=== PATIENT | female | born 1950 | race Caucasian/White ===

== ENCOUNTER 2020-07-17 23:49 | Inpatient (IN) | payer MEDICARE, SELFPAY ==
[2020-07-18 02:17] VITALS: BMI 28.1
[2020-07-18] MEDS: 0.9 % Sodium Chloride 1,000 ML 150 ML IVCONT (23:15)
[2020-07-19] VITALS (16 sets, daily range): BP systolic 102–144; BP diastolic 41–64; PULSE 77–113; RESP 14–28; TEMP 36.8–38.2; O2SAT 90–98
[2020-07-19] MEDS: Enoxaparin Sodium 40 MG/0.4 ML SYRINGE SUBCUT (00:42)
[2020-07-19] MEDS: Omeprazole 20 MG CAPSULE.DR PO (05:35)
[2020-07-19] MEDS: Acetaminophen 325 MG TABLET 650 MG PO (07:30)
[2020-07-19] MEDS: Docusate Sodium 100 MG CAPSULE PO (07:31)
[2020-07-19] MEDS: Memantine HCl 5 MG TABLET PO (07:33)
[2020-07-19] MEDS: amLODIPine Besylate 5 MG TABLET PO (07:36)
--- NOTE | 2020-07-19 10:12 | P.PNUR_ITS ---
Subjective Subjective Patient reports: no new complaints Interval history: Plan for OR today NPO from 0000 Physical Exam Vital Signs and I&O and Narrative: Vital Signs and I&O: Vital Signs Temp 100.7 F H 07/19/20 07:49 Pulse 86 07/19/20 07:49 Resp 18 07/19/20 07:49 BP 133/52 L 07/19/20 07:49 Pulse Ox 94 07/19/20 07:49 Intake & Output 07/18/20 07/19/20 07/19/20 18:59 06:59 18:59 Intake Total 1000 / 1000 Balance 1000 / 1000 Intake: Intake, IV Amoun t 1000 / 1000 0.9 % Sodium C hloride 1,000 ml 1000 / 1000 @ 150 mls/hr I VCONT .Q6H40M [facility] Rx#:[id number] Other: Urine purewick Urine Color Tea Body Mass Index 28.1 Const: General: cooperative, healthy appearing, comfortable and no acute distress Nutritional Appearance: average body habitus Or ientation/consciousness: oriented to person, oriented to place and oriented to time Eyes: General: appearance normal, both eyes and all related structures Chest: Chest palpation & inspection: normal inspection of the chest Resp: Effort & Inspection: normal respiratory effort Cardio: Rate: regular rate GI: Inspection: Yes normal to inspection Skin: Hair: normal Neuro: General: oriented to person, oriented to place and oriented to time Extrem: General: Yes normal to inspection Urology Results Labs CBC & Chem 7: 07/23/20 06:02 07/23/20 06:02 Progress Note: A&P Assessment and plan (1) Nephrolithiasis: Status: Acute (2) Hydronephrosis: Status: Acute (3) Flank pain: Status: Acute Assessment and Plan: Plan for OR Fall Risk Details Current Medications: Current Medications Generic Name Dose Route Start Last Admin Trade Name Freq PRN Reason Stop Dose Admin Acetaminophen 650 mg 07/19/20 00:00 07/19/20 07:30 Acetaminophen 325 Mg Tablet PO 650 mg Q6H PRN Administration Pain, Mild (Pain Scale 1-3)/FEVER Amlodipine Besylate 5 mg 07/19/20 09:00 07/19/20 07:36 Amlodipine Besylate 5 Mg Tablet PO 5 mg DAILY [facility] Administration Protocol Aspirin 81 mg 07/19/20 09:00 07/19/20 07:33 Aspirin 81 Mg Tab.Chew PO Not Given DAILY [facility]EP Docusate Sodium 100 mg 07/19/20 00:00 Docusate Sodium 100 Mg Capsule PO Q24H PRN Constipation Docusate Sodium 100 mg 07/19/20 09:00 07/19/20 07:31 Docusate Sodium 100 Mg Capsule PO 100 mg BID MANDEEP Administration Enoxaparin Sodium 40 mg 07/19/20 00:00 07/19/20 00:42 Enoxaparin Sodium 40 Mg/0.4 Ml Syringe SUBCUT 40 mg Q24H MANDEEP Administration Ceftriaxone Sodium 1 gm/ 50 mls @ 100 mls/hr 07/19/20 22:00 Sodium Chloride IV Q24H [facility] Memantine 5 mg 07/19/20 09:00 07/19/20 07:33 Memantine Hcl 5 Mg Tablet PO 5 mg BID MANDEEP Administration Omeprazole 20 mg 07/19/20 06:30 07/19/20 05:35 Omeprazole 20 Mg Capsule.Dr PO 20 mg DAILY@0630 [facility] Administration Ondansetron HCl 4 mg 07/19/20 00:00 Ondansetron Hcl 4 Mg/2 Ml Vial IVPUSH Q8H PRN Nausea and Vomiting Sodium Chloride 2 ml 07/19/20 00:00 07/19/20 07:37 0.9 % Sodium Chloride Flush 3 Ml Syringe IVFLUSH Not Given QSHIFT [facility] Tamsulosin HCl 0.4 mg 07/19/20 17:30 Tamsulosin Hcl 0.4 Mg Capsule PO DAILY@1730 [facility] Time Spent With Patient Time: Total time spent is greater than 50% in coordination of care (as documented) at patient's floor/unit and/or counseling patient: Time with patient: less than 15 minutes
--- NOTE | 2020-07-19 13:04 | FL_ITS ---
EXAMINATION: FLUOROSCOPY AND SPOT FILMS PROVIDED CLINICAL INFORMATION: Right-sided hydronephrosis. COMPARISON: CT performed 07/17/2020. TECHNIQUE: 280.3 seconds of fluoroscopy was provided. A single spot film was obtained. Radiation dose was 140.86 mCi. FINDINGS: Single radiograph of the right upper quadrant demonstrates renal calculi similar to those seen on the prior CT scan. A tip of a catheter appears to be present just above the lower pole of the kidney medially probably in the dilated ureteropelvic junction. IMPRESSION: Fluoroscopy and spot films provided.
--- NOTE | 2020-07-19 17:19 | P.PNIM_ITS ---
Subjective Subjective Date of Service: 07/19/20 Interval History: Patient admitted for right flank pain associated with generalized weakness chills urinary frequency and dysuria. Today patient offers no acute complaints of flank pain noted to have low- grade fever 100.7 without associated chills nausea vomiting patient denies urinary symptoms of frequency and dysuria. Review of Systems Review of systems [employer] no headache, no dizziness CVS no chest pain, no palpitation GI patient denies nausea, vomiting or abdominal pain Physical Exam Vital Signs and I&O and Narrative: Vital Signs and I&O: Vital Signs Temp 99.4 F 07/19/20 16:43 Pulse 80 07/19/20 16:43 Resp 20 07/19/20 16:43 BP 127/47 L 07/19/20 16:43 Pulse Ox 96 07/19/20 16:43 Intake & Output 07/18/20 07/19/20 07/19/20 18:59 06:59 18:59 Intake Total 1000 / 1000 Output Total 400 / 400 Balance 1000 / 1000 -400 / -400 Urine Output (Aver age ml/kg/hr) 0.39 Intake: Intake, IV Amoun t 1000 / 1000 0.9 % Sodium C hloride 1,000 ml 1000 / 1000 @ 150 mls/hr I VCONT .Q6H40M [facility] Rx#:[id number] Output: Output, Urine Am ount 400 / 400 Other: NPO Yes Urine purewick purewick Urine Color Tea Body Mass Index 28.1 Constitutional: Awake and Alert, No apparent distress Neck is supple Cardiovascular: RRR Respiratory: Clear to auscultation, Normal respiratory effort, No respiratory distress Gastrointestinal: Non tender, No rebound, Non-distended : No CVA tenderness Extremities no edema Skin: Warm/Dry Neurological: Alert & oriented x3 Psychological: Appropriate affect Objective Data Current Medications Generic Name Dose Route Start Last Admin Trade Name Freq PRN Reason Stop Dose Admin Acetaminophen 650 mg 07/19/20 00:00 07/19/20 07:30 Acetaminophen 325 Mg Tablet PO 650 mg Q6H PRN Administration Pain, Mild (Pain Scale 1-3)/FEVER Amlodipine Besylate 5 mg 07/19/20 09:00 07/19/20 07:36 Amlodipine Besylate 5 Mg Tablet PO 5 mg DAILY [facility] Administration Protocol Aspirin 81 mg 07/19/20 09:00 07/19/20 07:33 Aspirin 81 Mg Tab.Chew PO Not Given DAILY [facility] Docusate Sodium 100 mg 07/19/20 00:00 Docusate Sodium 100 Mg Capsule PO Q24H PRN Constipation Docusate Sodium 100 mg 07/19/20 09:00 07/19/20 07:31 Docusate Sodium 100 Mg Capsule PO 100 mg BID [facility] Administration Enoxaparin Sodium 40 mg 07/19/20 00:00 07/19/20 00:42 Enoxaparin Sodium 40 Mg/0.4 Ml Syringe SUBCUT 40 mg Q24H [facility] Administration Ceftriaxone Sodium 1 gm/ 50 mls @ 100 mls/hr 07/19/20 22:00 Sodium Chloride IV Q24H [facility] Memantine 5 mg 07/19/20 09:00 07/19/20 07:33 Memantine Hcl 5 Mg Tablet PO 5 mg BID [facility] Administration Omeprazole 20 mg 07/19/20 06:30 07/19/20 05:35 Omeprazole 20 Mg Capsule.Dr PO 20 mg DAILY@0630 [facility] Administration Ondansetron HCl 4 mg 07/19/20 00:00 Ondansetron Hcl 4 Mg/2 Ml Vial IVPUSH Q8H PRN Nausea and Vomiting Sodium Chloride 2 ml 07/19/20 00:00 07/19/20 07:37 0.9 % Sodium Chloride Flush 3 Ml Syringe IVFLUSH Not Given QSHIFT [facility] Tamsulosin HCl 0.4 mg 07/19/20 17:30 Tamsulosin Hcl 0.4 Mg Capsule PO DAILY@1730 [facility]
--- NOTE | 2020-07-19 18:11 | HO.ANESPROP2 ---
[facility] Past Medical History Medical History (Updated 07/19/20 @ 17:23 by Zia Varner MD) CVA (cerebral vascular accident) Dementia GERD (gastroesophageal reflux disease) Hypertension Surgical History Surgical History (Updated 07/19/20 @ 16:50 by Rima Hernández RN) H/O: hysterectomy History of cystoscopy Hx of tonsillectomy Meds Allergies Allergy/AdvReac Type Severity Reaction Status Date / Time morphine [MORPHINE] Allergy Mild NAUSEA & Verified 07/19/20 05:46 VOMITING, vomiting Home Medications Medication Instructions Recorded Confirmed Type amlodipine 5 mg PO DAILY 07/18/20 07/18/20 History aspirin 81 mg PO DAILY 07/18/20 07/18/20 History cholecalciferol (vitamin D3) 50 mcg PO DAILY 07/18/20 07/18/20 History citalopram 10 mg PO DAILY 07/18/20 07/18/20 History docusate sodium 100 mg PO BID 07/18/20 07/18/20 History memantine 5 mg PO BID 07/18/20 07/18/20 History omeprazole 20 mg PO DAILY@0630 07/18/20 07/18/20 History tamsulosin 0.4 mg PO DAILY@1730 07/18/20 07/18/20 History topiramate 50 mg PO BID 07/18/20 07/18/20 History Exam Exam Date and Time: July 19, 20201810 Height,Weight and Vital Signs: Height 5 ft 9 in Weight 86.4 kg Last Vital Signs Temp 99.4 F 07/19/20 16:43 Pulse 80 07/19/20 16:43 Resp 20 07/19/20 16:43 BP 127/47 L 07/19/20 16:43 Pulse Ox 96 07/19/20 16:43
--- NOTE | 2020-07-19 18:12 | HO.ANESPROP2 ---
[facility] Past Medical History Medical History (Updated 07/19/20 @ 17:23 by Zia Varner MD) CVA (cerebral vascular accident) Dementia GERD (gastroesophageal reflux disease) Hypertension Cognitive capacity: baseline Patient : No Surgical History Surgical History (Updated 07/19/20 @ 16:50 by Rima Hernández RN) H/O: hysterectomy History of cystoscopy Hx of tonsillectomy Meds Allergies Allergy/AdvReac Type Severity Reaction Status Date / Time morphine [MORPHINE] Allergy Mild NAUSEA & Verified 07/19/20 05:46 VOMITING, vomiting Home Medications Medication Instructions Recorded Confirmed Type amlodipine 5 mg PO DAILY 07/18/20 07/18/20 History aspirin 81 mg PO DAILY 07/18/20 07/18/20 History cholecalciferol (vitamin D3) 50 mcg PO DAILY 07/18/20 07/18/20 History citalopram 10 mg PO DAILY 07/18/20 07/18/20 History docusate sodium 100 mg PO BID 07/18/20 07/18/20 History memantine 5 mg PO BID 07/18/20 07/18/20 History omeprazole 20 mg PO DAILY@0630 07/18/20 07/18/20 History tamsulosin 0.4 mg PO DAILY@1730 07/18/20 07/18/20 History topiramate 50 mg PO BID 07/18/20 07/18/20 History Exam Exam Date and Time: July 19, 20201811 Height,Weight and Vital Signs: Height 5 ft 9 in Weight 86.4 kg Last Vital Signs Temp 99.4 F 07/19/20 16:43 Pulse 80 07/19/20 16:43 Resp 20 07/19/20 16:43 BP 127/47 L 07/19/20 16:43 Pulse Ox 96 07/19/20 16:43
[2020-07-19] MEDS: Lactated Ringers 1,000 ML 100 ML IVCONT ×2 (18:41→22:21)
--- NOTE | 2020-07-19 20:48 | PM.OP ---
Brief Operative Note Date of procedure: 07/19/20 Pre-op diagnosis: Right ureteric and renal stones Post-op diagnosis: same Procedure: right rtrograde, ureteroscopy, laser litho of ureteric stone Ureteric sheath Flexible ureteroscopy, laser litho Renal washiut with antibiotics Right renal stent Anesthesia: PAOLA Surgeon: Subhash Gonzalez Pathology: other (stones) Condition: stable Disposition: PACU
[2020-07-20] VITALS: BP 119/54; BP 124/61; PULSE 69; PULSE 81; RESP 18; TEMP 36.5; O2SAT 99
[2020-07-20 04:00] VITALS: BP 123/45; PULSE 76; RESP 16; TEMP 36.6; O2SAT 97
--- NOTE | 2020-07-20 06:53 | MHC.PIE ---
P; PT REFUSING AM MED - PRILOSEC I; MULTIPLE REATTEMPT E; PT CONT TO REFUSE MEDS, WILL CONT TO MONITOR
[2020-07-20 08:00] VITALS: BP 139/49; PULSE 70; RESP 16; TEMP 36.1; O2SAT 99
--- NOTE | 2020-07-20 08:13 | OP_ITS ---
SURGEON: Subhash Gonzalez MD PREOPERATIVE DIAGNOSIS: POSTOPERATIVE DIAGNOSIS: PROCEDURE PERFORMED: ESTIMATED BLOOD LOSS: COMPLICATIONS: ANESTHESIA: General. ASSISTANTS: SPECIMENS: Stone. PREOPERATIVE DIAGNOSES: 1. Distal right ureteric stone with mild obstruction. 2. Multiple right renal stones and hydronephrotic kidney. POSTOPERATIVE DIAGNOSES: 1. Distal right ureteric stone with mild obstruction. 2. Multiple right renal stones and hydronephrotic kidney. PROCEDURES PERFORMED: 1. Cystoscopy with right retrograde. 2. Right rigid ureteroscopy with ureteric laser lithotripsy and stone basketing of 2 cm stone. 3. Right ureteric sheath placement under fluoroscopy with dilatation of right ureter. 4. Right flexible ureteroscopy with laser lithotripsy of 1 stone. 5. Renal washout with antibiotics #4 right stent placement. INDICATIONS FOR PROCEDURE: This is a 70-year-old female on the right side and undergone recent ureteroscopy with laser lithotripsy of obstructing stone. Stent had been placed. She had narrowing with mild distal ureteric stricture. Stent had been removed last Thursday. She then presented to the emergency room on Thursday evening with pain on the right side. Imaging showed 2-cm small kidney stone. Stones in the renal pelvis. Decision was made for intervention. Initial white count was 12. It did come down to 7 after 2 days of antibiotics. DESCRIPTION OF PROCEDURE: After informed consent was verified, the patient was brought to the operating room, placed in supine position. Anesthesia was administered per protocol. The patient was placed in modified dorsal lithotomy position and prepped and draped in sterile fashion. A safety pause time-out was observed. given daily. Decision was made that she would be irrigated out with Levaquin. A 21-Austrian cystoscope was placed per urethra. The bladder was emptied. Retrograde examination was performed. Filling defect was seen approximately 1 cm from the right ureteric orifice. A Sensor guidewire was placed. A rigid ureteroscope was placed alongside. There was an area of narrowing. This opened up into chronic dilated ureter. There was a large amount of stone debris within mucous area. We then used the laser for 15 minutes to 20 minutes to break up the stone into smaller . We used various different baskets in order to try and drag stone fragment out. Initially, we used a Flat-Wire basket . We used a Juan-Catch basket, which again failed to then open. Eventually, we used a ZeroTip basket. We cleared out approximately 80% of stones. At this point, we were able to advance past the area of stone debridement with a rigid ureteroscope. The Sensor guidewire was going up into the pelvis. We then removed the rigid ureteroscope. Under fluoroscopy, we placed a ureteric access sheath. This dilated the ureteric orifice. This was placed up high enough and hidrotic renal pelvis was drained. Initially this drained with dark urine, but eventually as the whole area emptied, purulent material came out. This was collected and was sent for a culture. fully emptied, we actually placed 2 wires up inside the ureteric access sheath. We placed an open-ended catheter of 1 side and replaced the access sheath. This then allowed us to start irrigating out the renal pelvis. Renal was irrigated out fluid. back with a flexible ureteroscope. There was a very capacious renal pelvis and there was debris. We found one stone. We . There were 4 other stones, large that we just could not locate secondary to . There was clot and mucus debris throughout. Decision was made to irrigate out the renal pelvis with Levaquin. 500 mg of Levaquin was placed and 1 L saline bag and this was then irrigated through. After the completion of the irrigation, wire was placed up in the renal pelvis. The access sheath was removed. The stent was placed with a 7-Austrian x 24 cm stent. Re-imaging will be performed. Latest renogram will be required in order to see the function of this right kidney as nephrectomy may well be considered given that she is now having relapsing and recurrent pyelonephritis episodes. STENTS: As dictated above. MD LANCE Walsh/MODL / [id number]
[2020-07-20] MEDS: Acetaminophen 325 MG TABLET 650 MG PO ×2 (09:02→17:50)
[2020-07-20] MEDS: Memantine HCl 5 MG TABLET PO ×2 (09:02→21:26)
[2020-07-20] MEDS: Aspirin 81 MG TAB.CHEW PO (09:02)
[2020-07-20] MEDS: Docusate Sodium 100 MG CAPSULE PO ×2 (09:02→21:26)
[2020-07-20] MEDS: amLODIPine Besylate 5 MG TABLET PO (09:03)
--- NOTE | 2020-07-20 09:14 | MHC.CM.PN ---
PATIENT IS INDEPENDENT WITH HER ADLS. SHE LIVES WITH HER BOYFRIEND AND HIS FAMILY. 13-YEAR-OLD DAUGHTER LIVES WITH HER FATHER. ALTHOUGH PATIENT DOES NOT DRIVE, SHE HAS AMPLE RESOURCES IN THE COMMUNITY. NO VNA IN THE HOME. PATIENT HAS A WALKER, WHICH SHE OCCASIONALLY USES. CASE MANAGEMENT AVAILABLE FOR ANY DISCHARGE NEEDS. FAMILY WILL TRANSPORT PATIENT HOME AT DISCHARGE.
--- NOTE | 2020-07-20 09:36 | MHC.CM.PN ---
CASE MANAGEMENT MET WITH PATIENT AND [id number] FAMILY AWARE THAT CASE MANAGEMENT WILL REVIEW PLAN OF CARE NOTES, AND INFORM HCP OF DISCHARGE PLANS. FOLLOW UP AFTER PHYSICIAN ROUNDS.
[2020-07-20 11:45] VITALS: BP 137/54; PULSE 78; RESP 18; TEMP 36.3; O2SAT 98
--- NOTE | 2020-07-20 12:37 | PM.UROPN ---
Physical Exam Vital Signs and I&O and Narrative: Vital Signs and I&O: Vital Signs Temp 97.3 F 07/20/20 11:45 Pulse 78 07/20/20 11:45 Resp 18 07/20/20 11:45 BP 137/54 L 07/20/20 11:45 Pulse Ox 98 07/20/20 11:45 Intake & Output 07/19/20 07/20/20 07/20/20 18:59 06:59 18:59 Intake Total 466.667 / 466.667 Output Total 400 / 400 1100 / 1100 Balance -400 / 66.667 466.667 / 66.667 -1100 / -1100 Urine Output (Aver age ml/kg/hr) 0.39 0.39 1.06 Intake: Intake, IV Amoun t 466.667 / 466.667 Acetaminophen 1,000 mg In 100 100 / 100 ml @ 400 mls/h r IV ONCE ONE Rx# :[id number] Lactated Ringe rs 1,000 ml @ 100 366.667 / 366.667 mls/hr IVCONT .Q10H [facility] Rx#: [id number] Output: Output, Urine Am ount 400 / 400 1100 / 1100 Other: NPO Yes Yes Urine purewick purewick Urine Color Bloody Body Mass Index 28.1 Const: General: cooperative, healthy appearing, comfortable and no acute distress Nutritional Appearance: average body habitus Orientation/consciousness: oriented to person, oriented to place and oriented to time Eyes: General: appearance normal, both eyes and all related structures Chest: Chest palpation & inspection: normal inspection of the chest Resp: Effort & Inspection: normal respiratory effort Cardio: Rate: regular rate GI: Inspection: Yes normal to inspection Skin: Hair: normal Neuro: General: oriented to person, oriented to place and oriented to time Extrem: General: Yes normal to inspection Progress Note: A&P Fall Risk Details Current Medications: Current Medications Generic Name Dose Route Start Last Admin Trade Name Freq PRN Reason Stop Dose Admin Acetaminophen 650 mg 07/19/20 00:00 07/20/20 09:02 Acetaminophen 325 Mg Tablet PO 650 mg Q6H PRN Administration Pain, Mild (Pain Scale 1-3)/FEVER Amlodipine Besylate 5 mg 07/19/20 09:00 07/20/20 09:03 Amlodipine Besylate 5 Mg Tablet PO 5 mg DAILY MAN[facility]EP Administration Protocol Aspirin 81 mg 07/19/20 09:00 07/20/20 09:02 Aspirin 81 Mg Tab.Chew PO 81 mg DAILY MAN[facility]EP Administration Docusate Sodium 100 mg 07/19/20 00:00 Docusate Sodium 100 Mg Capsule PO Q24H PRN Constipation Docusate Sodium 100 mg 07/19/20 09:00 07/20/20 09:02 Docusate Sodium 100 Mg Capsule PO 100 mg BID MANDEEP Administration Enoxaparin Sodium 40 mg 07/19/20 00:00 07/19/20 00:42 Enoxaparin Sodium 40 Mg/0.4 Ml Syringe SUBCUT 40 mg Q24H MANDEEP Administration Ceftriaxone Sodium 1 gm/ 50 mls @ 100 mls/hr 07/19/20 22:00 Sodium Chloride IV Q24H [facility] Memantine 5 mg 07/19/20 09:00 07/20/20 09:02 Memantine Hcl 5 Mg Tablet PO 5 mg BID [facility] Administration Omeprazole 20 mg 07/19/20 06:30 07/19/20 05:35 Omeprazole 20 Mg Capsule.Dr PO 20 mg DAILY@0630 [facility] Administration Ondansetron HCl 4 mg 07/19/20 00:00 Ondansetron Hcl 4 Mg/2 Ml Vial IVPUSH Q8H PRN Nausea and Vomiting Sodium Chloride 2 ml 07/19/20 00:00 07/20/20 09:03 0.9 % Sodium Chloride Flush 3 Ml Syringe IVFLUSH Not Given QSHIFT [facility] Tamsulosin HCl 0.4 mg 07/19/20 17:30 07/19/20 22:20 Tamsulosin Hcl 0.4 Mg Capsule PO Not Given DAILY@1730 [facility] Time Spent With Patient Time: Total time spent is greater than 50% in coordination of care (as documented) at patient's floor/unit and/or counseling patient:
--- NOTE | 2020-07-20 12:59 | HO.POSTANES ---
Post Anesthesia Evaluation Post Anesthesia Evaluation Vital Signs: Vital Signs Temp Pulse Resp BP Pulse Ox 07/20/20 11:45 97.3 F 78 18 137/54 L 98 07/20/20 08:00 96.9 F 70 16 139/49 L 99 07/20/20 04:00 97.8 F 76 16 123/45 L 97 Anesthesia: General LMA Mental Status: Awake Pain Control: Satisfactory Nausea/Vomiting: None Hydration: Adequate Anesthesia-Related Issues: No Anes. Related Issues
--- NOTE | 2020-07-20 13:29 | HO.PM.IMPN ---
Subjective Subjective Date of Service: 07/20/20 Interval History: Patient admitted for right flank pain associated with generalized weakness chills urinary frequency and dysuria. Today patient complaining of right-sided abdominal pain and noted to have hematuria patient is status post stent placement yesterday no further bouts of fever tolerating diet fairly well, no other acute issues. ROS General denies fever, chills CVS no chest pain, no palpitation Respiratory no cough, no sputum production, no shortness of breath. Physical Exam Vital Signs and I&O and Narrative: Vital Signs and I&O: Vital Signs Temp 97.3 F 07/20/20 11:45 Pulse 78 07/20/20 11:45 Resp 18 07/20/20 11:45 BP 137/54 L 07/20/20 11:45 Pulse Ox 98 07/20/20 11:45 Intake & Output 07/19/20 07/20/20 07/20/20 18:59 06:59 18:59 Intake Total 466.667 / 466.667 Output Total 400 / 400 1100 / 1100 Balance -400 / 66.667 466.667 / 66.667 -1100 / -1100 Urine Output (Aver age ml/kg/hr) 0.39 0.39 1.06 Intake: Intake, IV Amoun t 466.667 / 466.667 Acetaminophen 1,000 mg In 100 100 / 100 ml @ 400 mls/h r IV ONCE ONE Rx# :[id number] Lactated Ringe rs 1,000 ml @ 100 366.667 / 366.667 mls/hr IVCONT .Q10H MANDEEP Rx#: [id number] Output: Output, Urine Am ount 400 / 400 1100 / 1100 Other: NPO Yes Yes Urine purewick purewick Urine Color Bloody Body Mass Index 28.1 Constitutional: Awake and Alert, No apparent distress Neck is supple Cardiovascular: RRR Respiratory: Clear to auscultation, Normal respiratory effort, No respiratory distress Gastrointestinal: mild right-sided tenderness with deep palpation, No rebound, Non-distended : No CVA tenderness Extremities no edema Skin: Warm/Dry Neurological: Alert & oriented x3 Psychological: Appropriate affect Const: General: cooperative, healthy appearing, comfortable and no acute distress Nutritional Appearance: average body habitus Orientation/consciousness: oriented to person, oriented to place and oriented to time Limitations: language barrier Eyes: General: appearance normal, both eyes and all related structures Chest: Chest palpation & inspection: normal inspection of the chest Resp: Effort & Inspection: normal respiratory effort Cardio: Rate: regular rate GI: Inspection: Yes normal to inspection Skin: Hair: normal Neuro: General: oriented to person, oriented to place and oriented to time Extrem: General: Yes normal to inspection Objective Data Current Medications Generic Name Dose Route Start Last Admin Trade Name Freq PRN Reason Stop Dose Admin Acetaminophen 650 mg 07/19/20 00:00 07/20/20 09:02 Acetaminophen 325 Mg Tablet PO 650 mg Q6H PRN Administration Pain, Mild (Pain Scale 1-3)/FEVER Amlodipine Besylate 5 mg 07/19/20 09:00 07/20/20 09:03 Amlodipine Besylate 5 Mg Tablet PO 5 mg DAILY MANDEEP Administration Protocol Aspirin 81 mg 07/19/20 09:00 07/20/20 09:02 Aspirin 81 Mg Tab.Chew PO 81 mg DAILY MANDEEP Administration Docusate Sodium 100 mg 07/19/20 00:00 Docusate Sodium 100 Mg Capsule PO Q24H PRN Constipation Docusate Sodium 100 mg 07/19/20 09:00 07/20/20 09:02 Docusate Sodium 100 Mg Capsule PO 100 mg BID MANDEEP Administration Enoxaparin Sodium 40 mg 07/19/20 00:00 07/19/20 00:42 Enoxaparin Sodium 40 Mg/0.4 Ml Syringe SUBCUT 40 mg Q24H MANDEEP Administration Ceftriaxone Sodium 1 gm/ 50 mls @ 100 mls/hr 07/19/20 22:00 Sodium Chloride IV Q24H [facility] Memantine 5 mg 07/19/20 09:00 07/20/20 09:02 Memantine Hcl 5 Mg Tablet PO 5 mg BID MANDEEP Administration Omeprazole 20 mg 07/19/20 06:30 07/19/20 05:35 Omeprazole 20 Mg Capsule.Dr PO 20 mg DAILY@0630 [facility] Administration Ondansetron HCl 4 mg 07/19/20 00:00 Ondansetron Hcl 4 Mg/2 Ml Vial IVPUSH Q8H PRN Nausea and Vomiting Sodium Chloride 2 ml 07/19/20 00:00 07/20/20 09:03 0.9 % Sodium Chloride Flush 3 Ml Syringe IVFLUSH Not Given QSHIFT [facility] Tamsulosin HCl 0.4 mg 07/19/20 17:30 07/19/20 22:20 Tamsulosin Hcl 0.4 Mg Capsule PO Not Given DAILY@1730 [facility] Microbiology Microbiology Results: Microbiology 07/19/20 21:00 Nephron, Right Urine Culture - Preliminary No growth to date. Assessment and Plan (1) Nephrolithiasis: Status: Acute (2) Hydronephrosis: Status: Acute (3) Hydroureteronephrosis: Status: Acute (4) Flank pain: Status: Acute (5) Acute pyelonephritis: Status: Acute (6) Sepsis: Status: Acute Assessment and Plan: This is a 70-year-old female with past medical history of chronic renal calculi who presents to the hospital with flank pain shortly after stent removal by her urologist for 2 cm right kidney stone. # sepsis due to acute pyelonephritis fever resolved, complaining of right-sided abdominal pain likely due to stent placement, noted to have hematuria as well. Since Tylenol not helping with pain will place patient on oxycodone and Continue IV ceftriaxone day 4 outpatient follow-up with Dr. Gonzalez in 1-2 weeks blood cultures shows no growth and urine cultures grew staph epidermidis # renal calculi - has chronic hydronephrosis and nephrolithiasis patient underwent stent placement in May and was removed few days ago, continue tamsulosin underwent stent placement on 07/19 stable renal function. # hypertension - stable, continue amlodipine # dementia - continue Namenda, patient responds appropriately but slow to response likely result of prior CVA. # history of CVA continue aspirin DVT prophylaxis: Lovenox
[2020-07-20 15:22] VITALS: BP 110/49; PULSE 78; RESP 17; TEMP 36.6; O2SAT 99
[2020-07-20] MEDS: 0.9 % Sodium Chloride Flush 3 ML SYRINGE 2 ML IVFLUSH (16:29)
[2020-07-20] MEDS: Tamsulosin HCL 0.4 MG CAPSULE PO (17:46)
[2020-07-20 19:49] VITALS: BP 110/46; PULSE 77; TEMP 36.1; O2SAT 98
[2020-07-20] MEDS: cefTRIAXone sodium 1 GM in 0.9 % Sodium Chloride 50 ML IV (21:49)
[2020-07-21] VITALS (10 sets, daily range): BP systolic 107–156; BP diastolic 42–72; PULSE 75–109; RESP 16–20; TEMP 36.6–37.7; O2SAT 92–98
[2020-07-21] MEDS: Enoxaparin Sodium 40 MG/0.4 ML SYRINGE SUBCUT (00:27)
[2020-07-21] MEDS: Acetaminophen 325 MG TABLET 650 MG PO ×2 (03:17→19:48)
[2020-07-21] MEDS: Omeprazole 20 MG CAPSULE.DR PO (06:47)
[2020-07-21] MEDS: Docusate Sodium 100 MG CAPSULE PO ×2 (08:48→21:39)
[2020-07-21] MEDS: amLODIPine Besylate 5 MG TABLET PO (08:49)
[2020-07-21] MEDS: Aspirin 81 MG TAB.CHEW PO (08:49)
[2020-07-21] MEDS: Memantine HCl 5 MG TABLET PO ×2 (08:49→21:39)
[2020-07-21 12:20] LABS: MANUAL DIFF FLAG NO
[2020-07-21 12:29] LABS: Basophils Percent Auto 0.2 % (0-2); Eosinophils Percent Auto 0.2 % (0-4); Hematocrit 30.6 % (37-47); Imm Gran Abs Auto 0.17 X10*3/uL (0.00-0.03); Imm Gran Pct Auto 1.2 % (0.0-0.4); Lymphocytes Absolute Auto 0.9 X10*3/uL (1.2-4.9); Lymphocytes Percent Auto 6.3 % (20-40); Mean Corpuscular HGB Conc 32.7 g/dl (31.0-35.0); Mean Corpuscular Hemoglobin 28.2 pg (27.0-33.0); Mean Corpuscular Volume 86.4 fL (80-98); Mean Platelet Volume 12.6 fL (9.4-12.3); Monocytes Absolute Auto 1.2 X10*3/uL (0.1-1.2); Monocytes Percent Auto 8.6 % (2-11); Neutrophils Absolute Auto 11.9 X10*3/uL (2.0-8.3); Neutrophils Percent Auto 83.5 % (45-73); Platelet Count 171 X10*3/uL (160-400); Red Blood Count 3.54 X10*6/uL (4.20-5.50); Red Cell Distribution Width 14.4 % (11.0-16.0); White Blood Count 14.2 X10*3/uL (4.8-10.8)
[2020-07-21 12:51] LABS: Anion Gap 11 (12-20); Blood Urea Nitrogen 18 mg/dL (9-16); Calcium 7.5 mg/dL (8.4-10.2); Carbon Dioxide 23 mmol/L (22-29); Chloride 106 mmol/L (96-108); Creatinine Clr Calc Pharmacy 65.5; Estimated Glomerular Filt Rate > 60; Glucose Random 135 mg/dL (60-115); Potassium 3.2 mmol/l (3.3-5.1); Sodium 137 mmol/L (135-145)
--- NOTE | 2020-07-21 14:16 | P.PNIM_ITS ---
Subjective Subjective Date of Service: 07/21/20 Interval History: admitted for right flank pain this a.m. patient complaining of severe right-sided abdominal pain and has persistent hematuria spoke with patient's son and daughter at bedside they informed that any time she had a stent placement it is followed by hematuria so they are concerned about it. Review of Systems General denies fever, chills CVS no chest pain, no palpitation Respiratory no cough, no sputum production, no shortness of breath. Physical Exam Vital Signs and I&O and Narrative: Vital Signs and I&O: Vital Signs Temp 98.6 F 07/21/20 12:00 Pulse 96 07/21/20 12:00 Resp 18 07/21/20 12:00 BP 123/42 L 07/21/20 12:00 Pulse Ox 93 07/21/20 12:00 Intake & Output 07/20/20 07/21/20 07/21/20 18:59 06:59 18:59 Intake Total 1120 / 1970 850 / 1970 Output Total 1100 / 2450 1350 / 2450 300 / 300 Balance 20 / -480 -500 / -480 -300 / -300 Urine Output (Aver age ml/kg/hr) 1.06 1.30 0.29 Intake: Intake, Oral Aixa unt 120 / 920 800 / 920 Intake, IV Amoun t 1000 / 1050 50 / 1050 cefTRIAXone so dium 1 gm In 0.9 50 / 50 % Sodium Chlor liseth 50 ml @ 100 mls/hr IV Q24H [facility] Rx#: [id number] Lactated Ringe rs 1,000 ml @ 100 1000 / 1000 mls/hr IVCONT .Q10H MANDEEP Rx#: [id number] Output: Output, Urine Am ount 1100 / 1100 Output, Urine Am ount (Catheter) 1350 / 1350 300 / 300 Urethral 1350 / 1350 300 / 300 Other: Breakfast % Eate n 100% Lunch % Eaten 0% Dinner % Eaten 100% Number of Incont inent Bowel 2 Movements Urine purewick Urine Color Bloody Bloody Bloody Stool Inc. Body Mass Index 28.1 Constitutional: Awake and Alert, No apparent distress Neck is supple Cardiovascular: RRR Respiratory: Clear to auscultation, Normal respiratory effort, No respiratory distress Gastrointestinal: Right flank tenderness, No rebound, Non-distended Extremities no edema Skin: Warm/Dry Neurological: Alert & oriented x3 Psychological: Appropriate affect Objective Data Current Medications Generic Name Dose Route Start Last Admin Trade Name Freq PRN Reason Stop Dose Admin Acetaminophen 650 mg 07/19/20 00:00 07/21/20 03:17 Acetaminophen 325 Mg Tablet PO 650 mg Q6H PRN Administration Pain, Mild (Pain Scale 1-3)/FEVER Amlodipine Besylate 5 mg 07/19/20 09:00 07/21/20 08:49 Amlodipine Besylate 5 Mg Tablet PO 5 mg DAILY MANDEEP Administration Protocol Aspirin 81 mg 07/19/20 09:00 07/21/20 08:49 Aspirin 81 Mg Tab.Chew PO 81 mg DAILY MANDEEP Administration Docusate Sodium 100 mg 07/19/20 00:00 Docusate Sodium 100 Mg Capsule PO Q24H PRN Constipation Docusate Sodium 100 mg 07/19/20 09:00 07/21/20 08:48 Docusate Sodium 100 Mg Capsule PO 100 mg BID MANDEEP Administration Enoxaparin Sodium 40 mg 07/19/20 00:00 07/21/20 00:27 Enoxaparin Sodium 40 Mg/0.4 Ml Syringe SUBCUT 40 mg Q24H MANDEEP Administration Ceftriaxone Sodium 1 gm/ 50 mls @ 100 mls/hr 07/19/20 22:00 07/20/20 22:23 Sodium Chloride IV Infused Q24H MANDEEP Infusion Memantine 5 mg 07/19/20 09:00 07/21/20 08:49 Memantine Hcl 5 Mg Tablet PO 5 mg BID MANDEEP Administration Omeprazole 20 mg 07/19/20 06:30 07/21/20 06:47 Omeprazole 20 Mg Capsule.Dr PO 20 mg DAILY@0630 [facility] Administration Ondansetron HCl 4 mg 07/19/20 00:00 Ondansetron Hcl 4 Mg/2 Ml Vial IVPUSH Q8H PRN Nausea and Vomiting Oxycodone HCl 5 mg 07/21/20 11:15 Oxycodone Hcl Immed Release 5 Mg Tablet PO Q4H PRN Pain, Moderate (Pain Scale 4-6 Sodium Chloride 2 ml 07/19/20 00:00 07/21/20 09:04 0.9 % Sodium Chloride Flush 3 Ml Syringe IVFLUSH Not Given QSHIFT [facility] Tamsulosin HCl 0.4 mg 07/19/20 17:30 07/20/20 17:46 Tamsulosin Hcl 0.4 Mg Capsule PO 0.4 mg DAILY@9040 MANDEEP Administration Labs CBC & Chem 7: 07/21/20 12:11 07/21/20 12:11 Labs: Laboratory Results - last 24 hr 07/21/20 07/21/20 12:11 12:11 MCV 86.4 MCH 28.2 MCHC 32.7 RDW 14.4 Plt Count 171 MPV 12.6 H Immature Gran % (Auto) 1.2 H Neut % (Auto) 83.5 H Lymph % (Auto) 6.3 L [place] % (Auto) 8.6 Eos % (Auto) 0.2 Baso % (Auto) 0.2 Neut # (Auto) 11.9 H Lymph # (Auto) 0.9 L [place] # (Auto) 1.2 Eos # (Auto) 0.0 Baso # (Auto) 0.0 Abs Immat Gran (auto) 0.17 H Absolute Nucleated RBC 0.000 Nucleated RBC % (auto) 0.0 Anion Gap 11 L Estim Creat Clear Calc 65.5 Estimated GFR > 60 Random Glucose 135 H Calcium 7.5 L Microbiology Microbiology Results: Microbiology 07/19/20 21:00 Nephron, Right Urine Culture - Final No growth. Assessment and Plan (1) Hematuria: Status: Acute (2) Sepsis: Status: Acute (3) Acute pyelonephritis: Status: Acute (4) Nephrolithiasis: Status: Acute (5) Hydroureteronephrosis: Status: Acute (6) Flank pain: Status: Acute Assessment and Plan: 70-year-old female with past medical history of chronic renal calculi who presents to the hospital with flank pain shortly after stent removal by her urologist for 2 cm right kidney stone. # sepsis due to acute pyelonephritis fever resolved, complaining of right-sided abdominal pain and hematuria likely due to stent placement, Since Tylenol not helping with pain added oxycodone with some relief , Continue IV ceftriaxone day 5 outpatient follow-up with Dr. Gonzalez in 1-2 weeks blood cultures shows no growth and urine cultures grew staph epidermidis, will follow CBC due to hematuria # renal calculi - has chronic hydronephrosis and nephrolithiasis patient underwent stent placement in May and was removed few days ago, continue tamsulosin underwent stent placement on 07/19 stable renal function. # hypertension - stable, continue amlodipine # dementia - continue Namenda, patient responds appropriately but slow to response likely result of prior CVA. # history of CVA continue aspirin DVT prophylaxis: will DC Lovenox due to hematuria and place on compression boots
[2020-07-21 14:55] LABS: MANUAL DIFF FLAG NO
[2020-07-21 15:07] LABS: Basophils Percent Auto 0.2 % (0-2); Eosinophils Percent Auto 0.2 % (0-4); Hematocrit 31.2 % (37-47); Hemoglobin 10.2 g/dl (12.0-16.0); Imm Gran Abs Auto 0.15 X10*3/uL (0.00-0.03); Lymphocytes Absolute Auto 1.1 X10*3/uL (1.2-4.9); Lymphocytes Percent Auto 7.6 % (20-40); Mean Corpuscular HGB Conc 32.7 g/dl (31.0-35.0); Mean Corpuscular Hemoglobin 28.3 pg (27.0-33.0); Mean Corpuscular Volume 86.4 fL (80-98); Mean Platelet Volume 12.7 fL (9.4-12.3); Monocytes Absolute Auto 1.3 X10*3/uL (0.1-1.2); Monocytes Percent Auto 9.1 % (2-11); Neutrophils Absolute Auto 11.9 X10*3/uL (2.0-8.3); Neutrophils Percent Auto 81.9 % (45-73); Platelet Count 179 X10*3/uL (160-400); Red Blood Count 3.61 X10*6/uL (4.20-5.50); Red Cell Distribution Width 14.5 % (11.0-16.0); White Blood Count 14.6 X10*3/uL (4.8-10.8)
[2020-07-21] MEDS: 0.9 % Sodium Chloride Flush 3 ML SYRINGE 2 ML IVFLUSH (15:49)
[2020-07-21] MEDS: Tamsulosin HCL 0.4 MG CAPSULE PO (18:19)
--- NOTE | 2020-07-21 19:47 | PC.NURSE ---
1800- pt pulse 108, temp 99.[address] Varner made aware. Stated to give tylenol. Attempted to given pt tylenol at 1830, but pt spit pills out. Oncoming nurse made aware. To attempt to give pt Tylenol crushed with applesauce. Will continue to monitor.
[2020-07-21] MEDS: cefTRIAXone sodium 1 GM in 0.9 % Sodium Chloride 50 ML IV (21:39)
[2020-07-22] VITALS (7 sets, daily range): BP systolic 137–149; BP diastolic 49–70; PULSE 10–102; RESP 18–19; TEMP 36.6–37.1; O2SAT 93–95
[2020-07-22] MEDS: 0.9 % Sodium Chloride Flush 3 ML SYRINGE 2 ML IVFLUSH ×3 (00:35→15:17)
[2020-07-22] MEDS: Omeprazole 20 MG CAPSULE.DR PO (06:08)
[2020-07-22 07:43] LABS: Basophils Percent Auto 0.2 % (0-2); Eosinophils Absolute Auto 0.1 X10*3/uL (0.0-0.4); Eosinophils Percent Auto 0.5 % (0-4); Hematocrit 30.1 % (37-47); Hemoglobin 9.8 g/dl (12.0-16.0); Imm Gran Abs Auto 0.17 X10*3/uL (0.00-0.03); Imm Gran Pct Auto 1.3 % (0.0-0.4); Lymphocytes Absolute Auto 1.4 X10*3/uL (1.2-4.9); Lymphocytes Percent Auto 10.6 % (20-40); MANUAL DIFF FLAG SCAN; Mean Corpuscular HGB Conc 32.6 g/dl (31.0-35.0); Mean Corpuscular Hemoglobin 27.8 pg (27.0-33.0); Mean Corpuscular Volume 85.5 fL (80-98); Mean Platelet Volume 12.4 fL (9.4-12.3); Monocytes Absolute Auto 1.7 X10*3/uL (0.1-1.2); Neutrophils Absolute Auto 9.5 X10*3/uL (2.0-8.3); Neutrophils Percent Auto 74.4 % (45-73); Platelet Count 174 X10*3/uL (160-400); Red Blood Count 3.52 X10*6/uL (4.20-5.50); Red Cell Distribution Width 14.7 % (11.0-16.0); SCAN SMEAR FLAG 1; White Blood Count 12.7 X10*3/uL (4.8-10.8)
[2020-07-22 08:14] LABS: SLIDE REVIEW VERIFIED
[2020-07-22] MEDS: Memantine HCl 5 MG TABLET PO ×2 (09:06→21:37)
[2020-07-22] MEDS: Aspirin 81 MG TAB.CHEW PO (09:06)
[2020-07-22] MEDS: amLODIPine Besylate 5 MG TABLET PO (09:06)
[2020-07-22] MEDS: Docusate Sodium 100 MG CAPSULE PO ×2 (09:06→21:37)
--- NOTE | 2020-07-22 13:28 | P.PNIM_ITS ---
Subjective Subjective Date of Service: 07/22/20 Interval History: admitted for right flank pain this a.m. patient Feels better less abdominal pain urine is also clearing now with tommy urine, no nausea vomiting no other acute issues overnight Review of Systems Review of Systems: Yes all other systems are reviewed and are negative Cardiovascular Cardiovascular: Denies chest pain and Denies dyspnea Respiratory Respiratory: Denies chest congestion, Denies cough and Denies dyspnea Gastrointestinal Gastrointestinal: Denies abdominal pain and Denies constipation Genitourinary Genitourinary: Reports hematuria and Denies difficulty voiding Neurologic Neurologic: Denies behavioral changes Psychiatric Psychiatric: Denies behavioral changes Physical Exam Vital Signs and I&O and Narrative: Vital Signs and I&O: Vital Signs Temp 98.6 F 07/22/20 12:00 Pulse 102 H 07/22/20 12:00 Resp 18 07/22/20 12:00 BP 137/49 L 07/22/20 12:00 Pulse Ox 93 07/22/20 12:00 Intake & Output 07/21/20 07/22/20 07/22/20 18:59 06:59 18:59 Intake Total 50 / 50 Output Total 300 / 1700 1400 / 1700 Balance -300 / -1650 -1350 / -1650 Urine Output (Aver age ml/kg/hr) 0.29 1.35 Intake: Intake, IV Amoun t 50 / 50 cefTRIAXone so dium 1 gm In 0.9 50 / 50 % Sodium Chlor liseth 50 ml @ 100 mls/hr IV Q24H [facility] Rx#: [id number] Output: Output, Urine Am ount 600 / 600 Output, Urine Am ount (Catheter) 300 / 1100 800 / 1100 Urethral 300 / 1100 800 / 1100 Other: Urine Cherry Urine Color Bloody Body Mass Index 28.1 Constitutional: Awake and Alert, No apparent distress Neck is supple Cardiovascular: RRR Respiratory: Clear to auscultation, Normal respiratory effort, No respiratory distress Gastrointestinal: no Right flank tenderness, No rebound, Non-distended Extremities no edema Skin: Warm/Dry Neurological: Alert & oriented x3 Psychological: Appropriate affect Objective Data Current Medications Generic Name Dose Route Start Last Admin Trade Name Freq PRN Reason Stop Dose Admin Acetaminophen 650 mg 07/19/20 00:00 07/21/20 19:48 Acetaminophen 325 Mg Tablet PO 650 mg Q6H PRN Administration Pain, Mild (Pain Scale 1-3)/FEVER Amlodipine Besylate 5 mg 07/19/20 09:00 07/22/20 09:06 Amlodipine Besylate 5 Mg Tablet PO 5 mg DAILY MANDEEP Administration Protocol Aspirin 81 mg 07/19/20 09:00 07/22/20 09:06 Aspirin 81 Mg Tab.Chew PO 81 mg DAILY MANDEEP Administration Docusate Sodium 100 mg 07/19/20 00:00 Docusate Sodium 100 Mg Capsule PO Q24H PRN Constipation Docusate Sodium 100 mg 07/19/20 09:00 07/22/20 09:06 Docusate Sodium 100 Mg Capsule PO 100 mg BID MANDEEP Administration Ceftriaxone Sodium 1 gm/ 50 mls @ 100 mls/hr 07/19/20 22:00 07/21/20 22:21 Sodium Chloride IV Infused Q24H MANDEEP Infusion Memantine 5 mg 07/19/20 09:00 07/22/20 09:06 Memantine Hcl 5 Mg Tablet PO 5 mg BID MANDEEP Administration Omeprazole 20 mg 07/19/20 06:30 07/22/20 06:08 Omeprazole 20 Mg Capsule.Dr PO 20 mg DAILY@0630 [facility] Administration Ondansetron HCl 4 mg 07/19/20 00:00 Ondansetron Hcl 4 Mg/2 Ml Vial IVPUSH Q8H PRN Nausea and Vomiting Oxycodone HCl 5 mg 07/21/20 11:15 Oxycodone Hcl Immed Release 5 Mg Tablet PO Q4H PRN Pain, Moderate (Pain Scale 4-6 Sodium Chloride 2 ml 07/19/20 00:00 07/22/20 08:00 0.9 % Sodium Chloride Flush 3 Ml Syringe IVFLUSH 2 ml QSHIFT [facility] Administration Tamsulosin HCl 0.4 mg 07/19/20 17:30 07/21/20 18:19 Tamsulosin Hcl 0.4 Mg Capsule PO 0.4 mg DAILY@1730 [facility] Administration Labs CBC & Chem 7: 07/22/20 00:26 07/21/20 12:11 Labs: Laboratory Results - last 24 hr 07/21/20 07/22/20 14:48 00:26 MCV 86.4 85.5 MCH 28.3 27.8 MCHC 32.7 32.6 RDW 14.5 14.7 Plt Count 179 174 MPV 12.7 H 12.4 H Immature Gran % (Auto) 1.0 H 1.3 H Neut % (Auto) 81.9 H 74.4 H Lymph % (Auto) 7.6 L 10.6 L [place] % (Auto) 9.1 13.0 H Eos % (Auto) 0.2 0.5 Baso % (Auto) 0.2 0.2 Neut # (Auto) 11.9 H 9.5 H Lymph # (Auto) 1.1 L 1.4 [place] # (Auto) 1.3 H 1.7 H Eos # (Auto) 0.0 0.1 Baso # (Auto) 0.0 0.0 Abs Immat Gran (auto) 0.15 H 0.17 H Absolute Nucleated RBC 0.000 0.000 Nucleated RBC % (auto) 0.0 0.0 Smear Tech's Comments VERIFIED Microbiology Microbiology Results: Microbiology 07/19/20 21:00 Nephron, Right Urine Culture - Final No growth. Assessment and Plan (1) Hematuria: Status: Acute (2) Sepsis: Status: Acute (3) Acute pyelonephritis: Status: Acute (4) Nephrolithiasis: Status: Acute (5) Hydroureteronephrosis: Status: Acute (6) Flank pain: Status: Acute Assessment and Plan: 70-year-old female with past medical history of chronic renal calculi who presents to the hospital with flank pain shortly after stent removal by her urologist for 2 cm right kidney stone. # sepsis due to acute pyelonephritis fever resolved, right-sided abdominal pain and hematuria improving were likely due to stent placement, continue Tylenol and oxycodone for pain control , Continue IV ceftriaxone day 6 outpatient follow-up with Dr. Gonzalez in 1-2 weeks blood cultures shows no growth and urine cultures grew staph epidermidis, hematocrit dropped due to hematuria but stable will continue to follow CBC patient has Cherry catheter will discuss with urology went to removed Cherry # hypokalemia will replace and follow likely due to IV fluids. # renal calculi - has chronic hydronephrosis and nephrolithiasis patient underwent stent placement in May and was removed few days ago, continue tamsulosin underwent stent placement on 07/19 stable renal function. # hypertension - stable, continue amlodipine # dementia - continue Namenda, patient responds appropriately but slow to response likely result of prior CVA. # history of CVA continue aspirin DVT prophylaxis: on compression boots
--- NOTE | 2020-07-22 14:04 | PM.UROPN ---
Subjective Subjective Patient reports: no new complaints Interval history: Generally imporving Cherry can come out WBC still elevated at 12.8 Culture from stone procedure negative Would hold another 24 hrs Physical Exam Vital Signs and I&O and Narrative: Vital Signs and I&O: Vital Signs Temp 98.6 F 07/22/20 12:00 Pulse 102 H 07/22/20 12:00 Resp 18 07/22/20 12:00 BP 137/49 L 07/22/20 12:00 Pulse Ox 93 07/22/20 12:00 Intake & Output 07/21/20 07/22/20 07/22/20 18:59 06:59 18:59 Intake Total 50 / 50 Output Total 300 / 1700 1400 / 1700 Balance -300 / -1650 -1350 / -1650 Urine Output (Aver age ml/kg/hr) 0.29 1.35 Intake: Intake, IV Amoun t 50 / 50 cefTRIAXone so dium 1 gm In 0.9 50 / 50 % Sodium Chlor liseth 50 ml @ 100 mls/hr IV Q24H [facility] Rx#: [id number] Output: Output, Urine Am ount 600 / 600 Output, Urine Am ount (Catheter) 300 / 1100 800 / 1100 Urethral 300 / 1100 800 / 1100 Other: Urine Cherry Urine Color Bloody Body Mass Index 28.1 Const: General: cooperative, healthy appearing, comfortable and no acute distress Nutritional Appearance: average body habitus Orientation/consciousness: oriented to person, oriented to place and oriented to time Eyes: General: appearance normal, both eyes and all related structures Chest: Chest palpation & inspection: normal inspection of the chest Resp: Effort & Inspection: normal respiratory effort Cardio: Rate: regular rate GI: Inspection: Yes normal to inspection Skin: Hair: normal Neuro: General: oriented to person, oriented to place and oriented to time Extrem: General: Yes normal to inspection Progress Note: A&P Assessment and plan (1) Acute pyelonephritis: Status: Acute (2) Nephrolithiasis: Status: Acute (3) Flank pain: Status: Acute Assessment and Plan: See above Fall Risk Details Current Medications: Current Medications Generic Name Dose Route Start Last Admin Trade Name Freq PRN Reason Stop Dose Admin Acetaminophen 650 mg 07/19/20 00:00 07/21/20 19:48 Acetaminophen 325 Mg Tablet PO 650 mg Q6H PRN Administration Pain, Mild (Pain Scale 1-3)/FEVER Amlodipine Besylate 5 mg 07/19/20 09:00 07/22/20 09:06 Amlodipine Besylate 5 Mg Tablet PO 5 mg DAILY MANDEEP Administration Protocol Aspirin 81 mg 07/19/20 09:00 07/22/20 09:06 Aspirin 81 Mg Tab.Chew PO 81 mg DAILY MANDEEP Administration Docusate Sodium 100 mg 07/19/20 00:00 Docusate Sodium 100 Mg Capsule PO Q24H PRN Constipation Docusate Sodium 100 mg 07/19/20 09:00 07/22/20 09:06 Docusate Sodium 100 Mg Capsule PO 100 mg BID MANDEEP Administration Ceftriaxone Sodium 1 gm/ 50 mls @ 100 mls/hr 07/19/20 22:00 07/21/20 22:21 Sodium Chloride IV Infused Q24H MANDEEP Infusion Potassium Chloride 10 meq in 100 mls @ 100 mls/hr 07/22/20 13:58 IV 07/22/20 14:57 ONCE ONE Memantine 5 mg 07/19/20 09:00 07/22/20 09:06 Memantine Hcl 5 Mg Tablet PO 5 mg BID MANDEEP Administration Omeprazole 20 mg 07/19/20 06:30 07/22/20 06:08 Omeprazole 20 Mg Capsule.Dr PO 20 mg DAILY@0630 [facility] Administration Ondansetron HCl 4 mg 07/19/20 00:00 Ondansetron Hcl 4 Mg/2 Ml Vial IVPUSH Q8H PRN Nausea and Vomiting Oxycodone HCl 5 mg 07/21/20 11:15 Oxycodone Hcl Immed Release 5 Mg Tablet PO Q4H PRN Pain, Moderate (Pain Scale 4-6 Sodium Chloride 2 ml 07/19/20 00:00 07/22/20 08:00 0.9 % Sodium Chloride Flush 3 Ml Syringe IVFLUSH 2 ml QSHIFT MANDEEP Administration Tamsulosin HCl 0.4 mg 07/19/20 17:30 07/21/20 18:19 Tamsulosin Hcl 0.4 Mg Capsule PO 0.4 mg DAILY@1730 MANDEEP Administration Time Spent With Patient Time: Total time spent is greater than 50% in coordination of care (as documented) at patient's floor/unit and/or counseling patient:
--- NOTE | 2020-07-22 14:06 | PM.UROPN ---
Subjective Subjective Patient reports: no new complaints Interval history: WBC elevated DC peterson Would hold another 24 hrs Physical Exam Vital Signs and I&O and Narrative: Vital Signs and I&O: Vital Signs Temp 98.6 F 07/22/20 12:00 Pulse 102 H 07/22/20 12:00 Resp 18 07/22/20 12:00 BP 137/49 L 07/22/20 12:00 Pulse Ox 93 07/22/20 12:00 Intake & Output 07/21/20 07/22/20 07/22/20 18:59 06:59 18:59 Intake Total 50 / 50 Output Total 300 / 1700 1400 / 1700 Balance -300 / -1650 -1350 / -1650 Urine Output (Aver age ml/kg/hr) 0.29 1.35 Intake: Intake, IV Amoun t 50 / 50 cefTRIAXone so dium 1 gm In 0.9 50 / 50 % Sodium Chlor liseth 50 ml @ 100 mls/hr IV Q24H [facility] Rx#: [id number] Output: Output, Urine Am ount 600 / 600 Output, Urine Am ount (Catheter) 300 / 1100 800 / 1100 Urethral 300 / 1100 800 / 1100 Other: Urine Peterson Urine Color Bloody Body Mass Index 28.1 Const: General: cooperative, healthy appearing, comfortable and no acute distress Nutritional Appearance: average body habitus Orientation/consciousness: oriented to person, oriented to place and oriented to time Eyes: General: appearance normal, both eyes and all related structures Chest: Chest palpation & inspection: normal inspection of the chest Resp: Effort & Inspection: normal respiratory effort Cardio: Rate: regular rate GI: Inspection: Yes normal to inspection Skin: Hair: normal Neuro: General: oriented to person, oriented to place and oriented to time Extrem: General: Yes normal to inspection Progress Note: A&P Assessment and plan (1) Nephrolithiasis: Status: Acute (2) Acute pyelonephritis: Status: Acute Assessment and Plan: see above Fall Risk Details Current Medications: Current Medications Generic Name Dose Route Start Last Admin Trade Name Freq PRN Reason Stop Dose Admin Acetaminophen 650 mg 07/19/20 00:00 07/21/20 19:48 Acetaminophen 325 Mg Tablet PO 650 mg Q6H PRN Administration Pain, Mild (Pain Scale 1-3)/FEVER Amlodipine Besylate 5 mg 07/19/20 09:00 07/22/20 09:06 Amlodipine Besylate 5 Mg Tablet PO 5 mg DAILY MANDEEP Administration Protocol Aspirin 81 mg 07/19/20 09:00 07/22/20 09:06 Aspirin 81 Mg Tab.Chew PO 81 mg DAILY MANDEEP Administration Docusate Sodium 100 mg 07/19/20 00:00 Docusate Sodium 100 Mg Capsule PO Q24H PRN Constipation Docusate Sodium 100 mg 07/19/20 09:00 07/22/20 09:06 Docusate Sodium 100 Mg Capsule PO 100 mg BID MANDEEP Administration Ceftriaxone Sodium 1 gm/ 50 mls @ 100 mls/hr 07/19/20 22:00 07/21/20 22:21 Sodium Chloride IV Infused Q24H MANDEEP Infusion Potassium Chloride 10 meq in 100 mls @ 100 mls/hr 07/22/20 13:58 IV 07/22/20 14:57 ONCE ONE Memantine 5 mg 07/19/20 09:00 07/22/20 09:06 Memantine Hcl 5 Mg Tablet PO 5 mg BID MANDEEP Administration Omeprazole 20 mg 07/19/20 06:30 07/22/20 06:08 Omeprazole 20 Mg Capsule.Dr PO 20 mg DAILY@0630 MANDEEP Administration Ondansetron HCl 4 mg 07/19/20 00:00 Ondansetron Hcl 4 Mg/2 Ml Vial IVPUSH Q8H PRN Nausea and Vomiting Oxycodone HCl 5 mg 07/21/20 11:15 Oxycodone Hcl Immed Release 5 Mg Tablet PO Q4H PRN Pain, Moderate (Pain Scale 4-6 Sodium Chloride 2 ml 07/19/20 00:00 07/22/20 08:00 0.9 % Sodium Chloride Flush 3 Ml Syringe IVFLUSH 2 ml QSHIFT MANDEEP Administration Tamsulosin HCl 0.4 mg 07/19/20 17:30 07/21/20 18:19 Tamsulosin Hcl 0.4 Mg Capsule PO 0.4 mg DAILY@1730 [facility] Administration Time Spent With Patient Time: Total time spent is greater than 50% in coordination of care (as documented) at patient's floor/unit and/or counseling patient: Time with patient: less than 15 minutes
[2020-07-22] MEDS: Potassium Chloride/H20 10 MEQ/100 ML PIGGYBACK 100 MEQ IV (14:17)
[2020-07-22] MEDS: Tamsulosin HCL 0.4 MG CAPSULE PO (18:15)
[2020-07-22] MEDS: cefTRIAXone sodium 1 GM in 0.9 % Sodium Chloride 50 ML IV (21:37)
[2020-07-23] VITALS: BP 136/55; PULSE 94; TEMP 36.6; O2SAT 94
[2020-07-23] MEDS: 0.9 % Sodium Chloride Flush 3 ML SYRINGE 2 ML IVFLUSH ×2 (00:41→07:25)
[2020-07-23 04:00] VITALS: BP 140/62; PULSE 87; RESP 18; TEMP 35.7; O2SAT 95
[2020-07-23] MEDS: Omeprazole 20 MG CAPSULE.DR PO (06:39)
[2020-07-23 06:42] LABS: Basophils Absolute Auto 0.1 X10*3/uL (0.0-0.2); Basophils Percent Auto 0.4 % (0-2); Eosinophils Absolute Auto 0.2 X10*3/uL (0.0-0.4); Eosinophils Percent Auto 1.5 % (0-4); Hematocrit 30.1 % (37-47); Hemoglobin 9.9 g/dl (12.0-16.0); Imm Gran Abs Auto 0.37 X10*3/uL (0.00-0.03); Imm Gran Pct Auto 3.2 % (0.0-0.4); Lymphocytes Absolute Auto 2.4 X10*3/uL (1.2-4.9); Lymphocytes Percent Auto 20.4 % (20-40); MANUAL DIFF FLAG SCAN; Mean Corpuscular HGB Conc 32.9 g/dl (31.0-35.0); Mean Corpuscular Hemoglobin 27.9 pg (27.0-33.0); Mean Corpuscular Volume 84.8 fL (80-98); Mean Platelet Volume 12.4 fL (9.4-12.3); Monocytes Absolute Auto 1.8 X10*3/uL (0.1-1.2); Neutrophils Absolute Auto 6.9 X10*3/uL (2.0-8.3); Neutrophils Percent Auto 59.5 % (45-73); Platelet Count 182 X10*3/uL (160-400); Red Blood Count 3.55 X10*6/uL (4.20-5.50); Red Cell Distribution Width 14.9 % (11.0-16.0); SCAN SMEAR FLAG 1; White Blood Count 11.6 X10*3/uL (4.8-10.8)
[2020-07-23 07:03] LABS: Anion Gap 11 (12-20); Blood Urea Nitrogen 10 mg/dL (9-16); Calcium 7.5 mg/dL (8.4-10.2); Carbon Dioxide 24 mmol/L (22-29); Chloride 108 mmol/L (96-108); Creatinine Clr Calc Pharmacy 75.5; Estimated Glomerular Filt Rate > 60; Glucose Random 121 mg/dL (60-115); Sodium 140 mmol/L (135-145)
[2020-07-23 07:56] VITALS: BP 158/71; PULSE 84; RESP 20; TEMP 36.6; O2SAT 97
[2020-07-23 08:00] VITALS: BP 158/71; PULSE 84; RESP 20; TEMP 36.6; O2SAT 97
[2020-07-23 08:32] LABS: SLIDE REVIEW VERIFIED
[2020-07-23 09:36] VITALS: BP 158/71; PULSE 84
[2020-07-23] MEDS: amLODIPine Besylate 5 MG TABLET PO (09:36)
[2020-07-23] MEDS: Memantine HCl 5 MG TABLET PO (09:36)
[2020-07-23] MEDS: Docusate Sodium 100 MG CAPSULE PO (09:36)
[2020-07-23] MEDS: Aspirin 81 MG TAB.CHEW PO (09:36)
--- NOTE | 2020-07-23 11:54 | PM.DS ---
DS: Providers Provider Date of admission: 07/17/20 23:49 Primary care physician: Maverick Lopez MD DS: Diagnosis Discharge Diagnosis (1) Nephrolithiasis: Status: Acute (2) Acute pyelonephritis: Status: Acute DS: Summary Hospital Course Hospital Course: 70-year-old female patient with past medical history significant for chronic renal calculi, history of CVA, dementia, hypertension presented to [facility] on 07/17 due to symptoms of of right flank pain associated with urinary urgency and dysuria and generalized weakness, patient in the ER was noted to have a fever of 100.4 no tachycardia blood pressure was stable II urinalysis showed nitrates at WBC and leukocyte Estrace WBC count was 12.2 CT of the abdomen showed chronic severe right-sided hydronephrosis secondary to O2 cm calculus within the mid to distal right ureter patient was admitted to [facility] with a diagnosis of sepsis related to acute pyelonephritis secondary to renal calculi. Hospital course by problem list sepsis due to acute pyelonephritis patient was placed on IV ceftriaxone urine culture showed no growth patient leukocytosis has trended down patient underwent stent placement by Dr. Gonzalez post stent placement patient complained of abdominal cramping and hematuria and had a Cherry catheter placed, subsequently patient urine has now cleared Cherry has been removed patient is voiding with no difficulty patient has received 6 days of IV antibiotic and now being discharged home on by mouth Ceftin to finish a total 10 day course of antibiotic patient will need outpatient follow-up with urology Dr. Gonzalez case has been discussed with patient's son. patient being discharged on by mouth oxycodone total 14 tablets dispensed Hypokalemia replace potassium follow BMP in few days Hypertension will continue amlodipine. Next line dementia continue Namenda. Next history of CVA continue aspirin Time Spent with Patient Time attestation: Total time spent providing and/or coordinating discharge services: Physical Exam Vital Signs and I&O and Narrative: Vital Signs and I&O: Vital Signs Temp 97.8 F 07/23/20 08:00 Pulse 84 07/23/20 09:36 Resp 20 07/23/20 08:00 BP 158/71 H 07/23/20 09:36 Pulse Ox 97 07/23/20 08:00 Intake & Output 07/22/20 07/23/20 07/23/20 18:59 06:59 18:59 Intake Total 1300 / 1590 290 / 1590 240 / 240 Output Total / 2099 1400 / 2099 Balance 600 / -510 -1110 / -510 240 / 240 Urine Output (Aver age ml/kg/hr) 0.68 1.35 1.35 Intake: Intake, Oral Aixa unt 1200 / 1440 240 / 1440 240 / 240 Intake, IV Amoun t 100 / 150 50 / 150 Potassium Chlo ride/H20 10 meq 100 / 100 In 100 ml @ 10 0 mls/hr IV ONCE ONE Rx#:[id number] cefTRIAXone so dium 1 gm In 0.9 50 / 50 % Sodium Chlor liseth 50 ml @ 100 mls/hr IV Q24H [facility] Rx#: [id number] Output: Output, Urine Am ount / 2099 1399 / 2099 Other: Meal Refused Yes No NPO No Breakfast % Eate n 50% 75% Lunch % Eaten 25% Dinner % Eaten 100% Evening Snack % Eaten yes Number of Incont inent Voids 1 Urine Purewick Urine Color Alexis Alexis Body Mass Index 28.1 general patient awake alert in no distress neck is supple lungs clear to auscultation heart regular rate rhythm abdomen soft nontender extremities no edema DS: Data Data Completed and Pending Pending studies at discharge: Pending at discharge 07/19/20 19:20 Surgical [PTH] Routine Labs on day of discharge: Labs from last 24 hours 07/23/20 07/23/20 06:02 06:02 WBC 11.6 H RBC 3.55 L Hgb 9.9 L Hct 30.1 L MCV 84.8 MCH 27.9 MCHC 32.9 RDW 14.9 Plt Count 182 MPV 12.4 H Immature Gran % (Auto) 3.2 H Neut % (Auto) 59.5 Lymph % (Auto) 20.4 [place] % (Auto) 15.0 H Eos % (Auto) 1.5 Baso % (Auto) 0.4 Neut # (Auto) 6.9 Lymph # (Auto) 2.4 [place] # (Auto) 1.8 H Eos # (Auto) 0.2 Baso # (Auto) 0.1 Abs Immat Gran (auto) 0.37 H Absolute Nucleated RBC 0.000 Nucleated RBC % (auto) 0.0 Smear Tech's Comments VERIFIED Sodium 140 Potassium 3.0 L Chloride 108 Carbon Dioxide 24 Anion Gap 11 L BUN 10 Creatinine 0.79 Estim Creat Clear Calc 75.5 Estimated GFR > 60 Random Glucose 121 H Calcium 7.5 L Discharge Plan Discharge Patient Disposition: Home, Self-Care Referrals: Maverick Lopez MD [Primary Care Provider] - Discharge Medications: New cefuroxime axetil 500 mg tablet 500 mg PO BID 5 Days Qty: 10 RF: 0 oxycodone 5 mg tablet 5 mg PO Q6H PRN (Reason: pain) Qty: 14 RF: 0 Continued citalopram 10 mg tablet 10 mg PO DAILY RF: 0 amlodipine 5 mg tablet 5 mg PO DAILY RF: 0 tamsulosin 0.4 mg capsule 0.4 mg PO DAILY@1730 RF: 0 docusate sodium 100 mg capsule 100 mg PO BID RF: 0 omeprazole 20 mg capsule,delayed release(DR/EC) 20 mg PO DAILY@0630 RF: 0 aspirin 81 mg tablet,chewable 81 mg PO DAILY RF: 0 memantine 5 mg tablet 5 mg PO BID RF: 0 topiramate 50 mg tablet 50 mg PO BID RF: 0 cholecalciferol (vitamin D3) 50 mcg (2,000 unit) tablet 50 mcg PO DAILY RF: 0 Discharge Orders: Discharge Order (Routine); Ordered 07/23/20 Ordered By: Zia Varner Activity on Discharge: As tolerated Stand Alone Forms: Community Support Visit Report Forms: Patient Portal Discharge page Care Plan Goals: as per discharge plan Health Concerns: as per discharge plan Plan of Treatment: close outpatient follow-up with urology in next 1-2 weeks
[2020-07-23 12:00] VITALS: BP 123/69; PULSE 83; RESP 19; TEMP 36.8; O2SAT 95
--- NOTE | 2020-07-23 12:05 | MHC.CM.PN ---
PATIENT IS DISCHARGED HOME WITH FAMILY. NO IN HOME SERVICES RECOMMENDED IMM 07/22 IN CHART.
[2020-07-25 00:36] LABS: Stone Source RIGHT KIDNEY STONE
== END 2020-07-23 13:45 | disposition home or self-care (01) | DRG 854 ==
PROVIDERS: Urology; Admitting Provider Internal Medicine; PCP Internal Medicine; Visit Provider Hospitalist
PROC: 0T768DZ Dilation of Right Ureter with Intraluminal Device, Via Natural or Artificial Opening Endoscopic (ICD-10-PCS; principal; 2020-07-19 17:00)
DX: A41.9 Sepsis, unspecified organism (principal); N13.6 Pyonephrosis; K21.9 Gastro-esophageal reflux disease without esophagitis; F03.90 Unspecified dementia, unspecified severity, without behavioral disturbance, psychotic disturbance, mood disturbance, and anxiety; E87.6 Hypokalemia; I10 Essential (primary) hypertension; R31.9 Hematuria, unspecified; Z87.442 Personal history of urinary calculi; Z86.73 Personal history of transient ischemic attack (TIA), and cerebral infarction without residual deficits; Z88.5 Allergy status to narcotic agent; Z79.82 Long term (current) use of aspirin; Z79.899 Other long term (current) drug therapy
CPT/HCPCS: 36415; 74176; 80048; 80051; 80076; 81001; 82365; 82565; 82947; 83605; 83690; 83735; 84520; 85025; 87040; 87086; 87088; 88112; 88300; 96361; 96372; 96374; 96375; 99285; C1758; C1769; C1894; C2617; J0131; J0696; J1100; J1170; J1580; J1650; J1885; J1956; J2250; J2405; J3010; Q9967

== ENCOUNTER → 2020-08-07 13:45 | Outpatient (BNVA) | payer MEDICARE, SELFPAY | PROVIDERS: PCP Internal Medicine; Referring Provider Internal Medicine; Visit Provider Urology | DX: R94.4 Abnormal results of kidney function studies (principal); N39.0 Urinary tract infection, site not specified; N20.0 Calculus of kidney; I10 Essential (primary) hypertension; Z88.6 Allergy status to analgesic agent; Z79.82 Long term (current) use of aspirin; Z79.899 Other long term (current) drug therapy | CPT/HCPCS: 99212 ==

== ENCOUNTER 2020-08-21 17:45 | Emergency (ER) | payer MEDICARE, SELFPAY ==
[2020-08-21 17:52] VITALS: BP 130/72; BP 150/78; PULSE 90; PULSE 94; RESP 16; TEMP 38; O2SAT 94; O2SAT 96; BMI 29.8
--- NOTE | 2020-08-21 17:58 | ED.NAVMDI ---
HPI - Nausea/Vomiting/Diarrhea General Chief complaint: Nausea/Vomiting/Diarrhea Stated complaint: R FLANK PAIN Time Seen by Provider: 08/21/20 17:56 Source: family Mode of arrival: ambulatory Limitations: altered mental status (dementia) History of Present Illness HPI Narrative: patient's history of kidney stone status post stent placement 3 weeks ago brought by her son for nausea vomiting and diarrhea today patient. Patient vomited about 4 times and had 2 times loose bowels no fever or chills or cough noticed patient denies any significant pain MD elicited complaint: nausea, vomiting and diarrhea Onset (ago): day(s) (1) Description of vomiting: food contents Associated nausea: Yes Associated abdominal pain: No Related Data Home Medications Medication Instructions Recorded Confirmed amlodipine 5 mg PO DAILY 07/18/20 08/07/20 aspirin 81 mg PO DAILY 07/18/20 08/07/20 cholecalciferol (vitamin D3) 50 mcg PO DAILY 07/18/20 08/07/20 citalopram 10 mg PO DAILY 07/18/20 08/07/20 memantine 5 mg PO BID 07/18/20 08/07/20 omeprazole 20 mg PO DAILY@0630 07/18/20 08/07/20 tamsulosin 0.4 mg PO DAILY@1730 07/18/20 08/07/20 topiramate 50 mg PO BID 07/18/20 08/07/20 Previous Rx's Medication Instructions Recorded cefuroxime axetil 500 mg PO BID 5 Days #10 tab 07/23/20 oxycodone 5 mg PO Q6H PRN #14 tab 07/23/20 docusate sodium 100 mg capsule 100 mg PO BID #180 cap 08/20/20 cefpodoxime 200 mg PO BID #20 tab 08/21/20 ondansetron HCl [Zofran] 4 mg PO Q8H PRN #7 tab 08/21/20 Allergies Allergy/AdvReac Type Severity Reaction Status Date / Time morphine [MORPHINE] Allergy Mild NAUSEA & Verified 08/06/20 13:23 VOMITING, vomiting Review of Systems Review of Systems: REVIEW OF SYSTEMS: Pertinent positives and negatives are stated above in the history. GEN: no fevers, chills, fatigue HEENT: no nasal congestion, sore throat, ear pain NEURO: no headache, dizziness, focal weakness PULM: no cough, shortness of breath CV: no chest pain, palpitations, LE edema ABD: no , nausea, vomiting, diarrhea : no dysuria, urgency, frequency SKIN: no rash ROS otherwise negative x 10 Gastrointestinal: Gastrointestinal: Reports nausea PMFSH Past Medical History Medical History CVA (cerebral vascular accident) Dementia GERD (gastroesophageal reflux disease) Hypertension Nephrolithiasis Surgical History H/O bilateral breast reduction surgery H/O rectal polypectomy H/O: hysterectomy History of cystoscopy History of hip surgery History of lithotripsy History of tubal ligation Hx of tonsillectomy Family History Family History Father No problems noted. Mother No problems noted. Maternal Grandmother Cancer Social History Social History Household Members: Unknown / Unable to assess Housing: Unknown / Unable to assess Smoking Status: Unknown if ever smoked Smoked in Last 30 Days: No Use of substances other than those prescribed or required for medical reasons: No Advance Directives: No Advance Directives Information Provided: Yes Physical Exam Vital Signs: Vital Signs: Vital Signs Temp Pulse Resp BP Pulse Ox 08/21/20 23:06 101.4 F H 08/21/20 22:00 99.8 F 102 H 16 115/45 L 95 08/21/20 20:00 101.9 F H 08/21/20 19:45 99.9 F 101 H 16 140/62 H 94 08/21/20 17:52 100.4 F 94 16 130/72 94 Body Mass Index 29.8 Appearance: Alert. Oriented X2. No acute distress. Eyes: Pupils equal, round and reactive to light. ENT: Pharynx normal. Neck: Normal inspection. Neck supple. CVS: Normal heart rate and rhythm. Pulses normal. Respiratory: No respiratory distress. Breath sounds normal. Abdomen: Soft and nontender. no mass palpable bowel sounds are present Skin: Skin warm and dry. Normal skin color. Normal skin turgor. Extremities: No lower extremity edema. Good range of movement Neuro: Oriented X 2. No motor deficit. No sensory deficit. Course Reevaluation(s) Reevaluation #1: patient feeling much better now drinking p.o. fluids urine shows 4+ bacteria and leuko esterase positive patient already been treated with Ceftin during last admission will give her a course of cefpodoxime p.o. for another 10 days at this time patient is not septic patient spiked temperature to 101.4 patient had p.o. fluids in the ER and was given 1 g of IV Rocephin at this time patient is feeling better will discharge her home MDM - Nausea/Vomiting/Diarrhea Lab Data Result diagrams: 08/21/20 19:42 08/21/20 19:42 Labs: Lab Results 08/21/20 08/21/20 08/21/20 Range/Units 18:16 18:17 18:17 WBC 11.3 H (4.8-10.8) X10*3/uL RBC 4.38 D (4.20-5.50) X10*6/uL Hgb 11.9 L D (12.0-16.0) g/dl Hct 38.4 D (37-47) % MCV 87.7 (80-98) fL MCH 27.2 (27.0-33.0) pg MCHC 31.0 (31.0-35.0) g/dl RDW 14.4 (11.0-16.0) % Plt Count 194 (160-400) X10*3/uL MPV 11.8 (9.4-12.3) fL Immature Gran % (Auto) 0.6 H (0.0-0.4) % Neut % (Auto) 80.2 H (45-73) % Lymph % (Auto) 8.7 L (20-40) % [place] % (Auto) 9.7 (2-11) % Eos % (Auto) 0.4 (0-4) % Baso % (Auto) 0.4 (0-2) % Lymph # (Auto) 1.0 L (1.2-4.9) X10*3/uL [place] # (Auto) 1.1 (0.1-1.2) X10*3/uL Eos # (Auto) 0.0 (0.0-0.4) X10*3/uL Baso # (Auto) 0.0 (0.0-0.2) X10*3/uL Abs Immat Gran (auto) 0.07 H (0.00-0.03) X10*3/uL Absolute Neuts (auto) 9.1 H (2.0-8.3) X10*3/uL Absolute Nucleated RBC 0.000 (0.0-0.012) X10*3/uL Nucleated RBC % (auto) 0.0 (0.0-0.2) /100WBC Sodium Cancelled Potassium Cancelled Chloride Cancelled Carbon Dioxide Cancelled Anion Gap Cancelled BUN Cancelled Creatinine Cancelled Estim Creat Clear Calc Cancelled Estimated GFR Cancelled Random Glucose Cancelled Lactic Acid 1.0 (0.5-2.0) mmol/L Calcium Cancelled Total Bilirubin Cancelled Direct Bilirubin Cancelled AST Cancelled ALT Cancelled Alkaline Phosphatase Cancelled B-Natriuretic Peptide (<100) pg/mL Total Protein Cancelled Albumin Cancelled Lipase Cancelled Urine Color Urine Appearance Urine pH (5.0-8.0) Ur Specific [place] (1.005-1.025) Urine Protein (NEG-TRACE) MG/DL Urine Glucose (UA) (NEG) MG/DL Urine Ketones (NEG) MG/DL Urine Blood (NEG) Urine Nitrite (NEG) Ur Leukocyte Esterase (NEG) Urine RBC (0) /HPF Urine WBC (0-4) /HPF Ur Squamous Epith Cells /LPF Urine Bacteria /LPF Coronavirus (PCR) (Negative) 08/21/20 08/21/20 08/21/20 Range/Units 19:42 19:42 19:42 WBC 11.3 H (4.8-10.8) X10*3/uL RBC 4.13 L (4.20-5.50) X10*6/uL Hgb 11.3 L (12.0-16.0) g/dl Hct 36.3 L (37-47) % MCV 87.9 (80-98) fL MCH 27.4 (27.0-33.0) pg MCHC 31.1 (31.0-35.0) g/dl RDW 14.4 (11.0-16.0) % Plt Count 187 (160-400) X10*3/uL MPV 12.1 (9.4-12.3) fL Immature Gran % (Auto) 0.4 (0.0-0.4) % Neut % (Auto) 80.2 H (45-73) % Lymph % (Auto) 8.3 L (20-40) % [place] % (Auto) 10.4 (2-11) % Eos % (Auto) 0.3 (0-4) % Baso % (Auto) 0.4 (0-2) % Lymph # (Auto) 0.9 L (1.2-4.9) X10*3/uL [place] # (Auto) 1.2 (0.1-1.2) X10*3/uL Eos # (Auto) 0.0 (0.0-0.4) X10*3/uL Baso # (Auto) 0.0 (0.0-0.2) X10*3/uL Abs Immat Gran (auto) 0.05 H (0.00-0.03) X10*3/uL Absolute Neuts (auto) 9.1 H (2.0-8.3) X10*3/uL Absolute Nucleated RBC 0.000 (0.0-0.012) X10*3/uL Nucleated RBC % (auto) 0.0 (0.0-0.2) /100WBC Sodium 137 Potassium 4.4 D Chloride 106 Carbon Dioxide 22 Anion Gap 13 BUN 15 Creatinine 0.93 Estim Creat Clear Calc 63.8 Estimated GFR 59 Random Glucose 127 H Lactic Acid (0.5-2.0) mmol/L Calcium 8.2 L Total Bilirubin 0.6 Direct Bilirubin 0.2 AST 14 ALT 7 Alkaline Phosphatase 83 B-Natriuretic Peptide 54 (<100) pg/mL Total Protein 7.7 Albumin 3.5 Lipase 5 L Urine Color Urine Appearance Urine pH (5.0-8.0) Ur Specific [place] (1.005-1.025) Urine Protein (NEG-TRACE) MG/DL Urine Glucose (UA) (NEG) MG/DL Urine Ketones (NEG) MG/DL Urine Blood (NEG) Urine Nitrite (NEG) Ur Leukocyte Esterase (NEG) Urine RBC (0) /HPF Urine WBC (0-4) /HPF Ur Squamous Epith Cells /LPF Urine Bacteria /LPF Coronavirus (PCR) (Negative) 08/21/20 08/21/20 Range/Units 19:58 19:58 WBC (4.8-10.8) X10*3/uL RBC (4.20-5.50) X10*6/uL Hgb (12.0-16.0) g/dl Hct (37-47) % MCV (80-98) fL MCH (27.0-33.0) pg MCHC (31.0-35.0) g/dl RDW (11.0-16.0) % Plt Count (160-400) X10*3/uL MPV (9.4-12.3) fL Immature Gran % (Auto) (0.0-0.4) % Neut % (Auto) (45-73) % Lymph % (Auto) (20-40) % [place] % (Auto) (2-11) % Eos % (Auto) (0-4) % Baso % (Auto) (0-2) % Lymph # (Auto) (1.2-4.9) X10*3/uL [place] # (Auto) (0.1-1.2) X10*3/uL Eos # (Auto) (0.0-0.4) X10*3/uL Baso # (Auto) (0.0-0.2) X10*3/uL Abs Immat Gran (auto) (0.00-0.03) X10*3/uL Absolute Neuts (auto) (2.0-8.3) X10*3/uL Absolute Nucleated RBC (0.0-0.012) X10*3/uL Nucleated RBC % (auto) (0.0-0.2) /100WBC Sodium Potassium Chloride Carbon Dioxide Anion Gap BUN Creatinine Estim Creat Clear Calc Estimated GFR Random Glucose Lactic Acid (0.5-2.0) mmol/L Calcium Total Bilirubin Direct Bilirubin AST ALT Alkaline Phosphatase B-Natriuretic Peptide (<100) pg/mL Total Protein Albumin Lipase Urine Color YELLOW Urine Appearance CLOUDY Urine pH 6.0 (5.0-8.0) Ur Specific [place] 1.025 (1.005-1.025) Urine Protein 1+ H (NEG-TRACE) MG/DL Urine Glucose (UA) NEG (NEG) MG/DL Urine Ketones NEG (NEG) MG/DL Urine Blood 3+ H (NEG) Urine Nitrite NEG (NEG) Ur Leukocyte Esterase 3+ H (NEG) Urine RBC 15-29 H (0) /HPF Urine WBC 30-49 H (0-4) /HPF Ur Squamous Epith Cells 1+ /LPF Urine Bacteria 4+ /LPF Coronavirus (PCR) NEGATIVE (Negative) Discharge Plan Discharge Clinical Impression: Acute UTI Patient Disposition: Home, Self-Care Instructions: Urinary Tract Infection in Older Adults (ED) Additional Instructions: drink plenty of fluids, take antibiotics as prescribed.Report to ER if vomiting continues or fever Prescriptions: New cefpodoxime 200 mg tablet 200 mg PO BID Qty: 20 RF: 0 ondansetron HCl [Zofran] 4 mg tablet 4 mg PO Q8H PRN (Reason: nausea and vomiting) Qty: 7 RF: 0 No Action docusate sodium 100 mg capsule 100 mg PO BID Qty: 180 RF: 8 citalopram 10 mg tablet 10 mg PO DAILY RF: 0 amlodipine 5 mg tablet 5 mg PO DAILY RF: 0 tamsulosin 0.4 mg capsule 0.4 mg PO DAILY@1730 RF: 0 omeprazole 20 mg capsule,delayed release(DR/EC) 20 mg PO DAILY@0630 RF: 0 aspirin 81 mg tablet,chewable 81 mg PO DAILY RF: 0 memantine 5 mg tablet 5 mg PO BID RF: 0 topiramate 50 mg tablet 50 mg PO BID RF: 0 cholecalciferol (vitamin D3) 50 mcg (2,000 unit) tablet 50 mcg PO DAILY RF: 0 cefuroxime axetil 500 mg tablet 500 mg PO BID 5 Days Qty: 10 RF: 0 oxycodone 5 mg tablet 5 mg PO Q6H PRN (Reason: pain) Qty: 14 RF: 0 Interventions: ED Discharge Assessment Last Done: 08/21/20 23:38 Discharge Date/Time: 08/21/20 23:39
[2020-08-21 18:22] LABS: MANUAL DIFF FLAG NO
[2020-08-21 18:23] LABS: Basophils Percent Auto 0.4 % (0-2); Eosinophils Percent Auto 0.4 % (0-4); Hematocrit 38.4 % (37-47); Hemoglobin 11.9 g/dl (12.0-16.0); Imm Gran Abs Auto 0.07 X10*3/uL (0.00-0.03); Imm Gran Pct Auto 0.6 % (0.0-0.4); Lymphocytes Percent Auto 8.7 % (20-40); Mean Corpuscular Hemoglobin 27.2 pg (27.0-33.0); Mean Corpuscular Volume 87.7 fL (80-98); Mean Platelet Volume 11.8 fL (9.4-12.3); Monocytes Absolute Auto 1.1 X10*3/uL (0.1-1.2); Monocytes Percent Auto 9.7 % (2-11); Neutrophils Absolute Auto 9.1 X10*3/uL (2.0-8.3); Neutrophils Percent Auto 80.2 % (45-73); Platelet Count 194 X10*3/uL (160-400); Red Blood Count 4.38 X10*6/uL (4.20-5.50); Red Cell Distribution Width 14.4 % (11.0-16.0); White Blood Count 11.3 X10*3/uL (4.8-10.8)
[2020-08-21] MEDS: ondansetron HCL 4 MG/2 ML VIAL IVPUSH (18:23)
[2020-08-21] MEDS: 0.9 % Sodium Chloride 1,000 ML 999 ML IVCONT (18:23)
--- NOTE | 2020-08-21 18:46 | XR_ITS ---
EXAMINATION: XR CHEST CLINICAL INFORMATION: Shortness of breath. COMPARISON: Chest x-ray 11/04/2019 TECHNIQUE: Frontal portable view of the chest was obtained. 6:58 PM FINDINGS: Persistent mild prominence of bronchovascular markings accentuated by low inspiratory effort. No change since prior chest x-ray prior chest x-ray 11/04/2019. There is no focal consolidation. There is no pleural effusion. The heart size is normal. The cardiac and mediastinal contours are normal. There are calcifications of the thoracic aorta. There are multilevel degenerative changes of dorsal spine. XR/XR chest 1V IMPRESSION: Mild prominence of bronchovascular markings accentuated by low inspiratory effort. No significant change since prior chest x-ray 11/04/2019.
[2020-08-21 19:45] VITALS: BP 140/62; PULSE 101; RESP 16; TEMP 37.7; O2SAT 94
[2020-08-21 19:49] LABS: MANUAL DIFF FLAG NO
[2020-08-21 19:53] LABS: Basophils Percent Auto 0.4 % (0-2); Eosinophils Percent Auto 0.3 % (0-4); Hematocrit 36.3 % (37-47); Hemoglobin 11.3 g/dl (12.0-16.0); Imm Gran Abs Auto 0.05 X10*3/uL (0.00-0.03); Imm Gran Pct Auto 0.4 % (0.0-0.4); Lymphocytes Absolute Auto 0.9 X10*3/uL (1.2-4.9); Lymphocytes Percent Auto 8.3 % (20-40); Mean Corpuscular HGB Conc 31.1 g/dl (31.0-35.0); Mean Corpuscular Hemoglobin 27.4 pg (27.0-33.0); Mean Corpuscular Volume 87.9 fL (80-98); Mean Platelet Volume 12.1 fL (9.4-12.3); Monocytes Absolute Auto 1.2 X10*3/uL (0.1-1.2); Monocytes Percent Auto 10.4 % (2-11); Neutrophils Absolute Auto 9.1 X10*3/uL (2.0-8.3); Neutrophils Percent Auto 80.2 % (45-73); Platelet Count 187 X10*3/uL (160-400); Red Blood Count 4.13 X10*6/uL (4.20-5.50); Red Cell Distribution Width 14.4 % (11.0-16.0); White Blood Count 11.3 X10*3/uL (4.8-10.8)
[2020-08-21 20:00] VITALS: TEMP 38.8
[2020-08-21 20:15] LABS: Glucose Urine UA NEG (NEG); Leukocyte Esterase Urine 3+ (NEG); Nitrite Urine NEG (NEG); Specific Gravity - Urine 1.025 (1.005-1.025); Urine Blood 3+ (NEG); Urine Ketones NEG (NEG); Urine Protein 1+ MG/DL (NEG-TRACE)
[2020-08-21 20:17] LABS: Appearance Urine CLOUDY; Color Urine YELLOW
[2020-08-21 20:21] LABS: Bacteria Urine 4+ /LPF; Squamous Epithelial Cell Urine 1+ /LPF; WBC Urine 30-49 /HPF (0-4)
[2020-08-21 20:23] LABS: Alanine Aminotransferase 7 U/L (0-31); Albumin Level 3.5 g/dL (3.5-5.0); Alkaline Phosphatase 83 U/L (39-117); Anion Gap 13 (12-20); Aspartate Amino Transferase 14 U/L (5-31); B Type Natriuretic Peptide 54 pg/mL (<100); Bilirubin Direct 0.2 mg/dL (0.0-0.5); Bilirubin Total 0.6 mg/dL (0.0-1.0); Blood Urea Nitrogen 15 mg/dL (9-16); Calcium 8.2 mg/dL (8.4-10.2); Carbon Dioxide 22 mmol/L (22-29); Chloride 106 mmol/L (96-108); Creatinine Clr Calc Pharmacy 63.8; Estimated Glomerular Filt Rate 59; Glucose Random 127 mg/dL (60-115); Lipase 5 U/L (8-78); Potassium 4.4 mmol/l (3.3-5.1); Sodium 137 mmol/L (135-145); Total Protein 7.7 g/dL (6.5-8.0)
[2020-08-21 20:59] LABS: SARS COV2 PCR INHOUSE NEGATIVE (Negative)
[2020-08-21] MEDS: cefTRIAXone sodium 1 GM in 0.9 % Sodium Chloride 50 ML IV (21:51)
[2020-08-21 22:00] VITALS: BP 115/45; PULSE 102; RESP 16; TEMP 37.7; O2SAT 95
--- NOTE | 2020-08-21 22:07 | PC.NURSE ---
PT AWAKE AND ALERT, SON HAS BEEN AT BEDSIDE FOR ER VISIT. PT HAS HX OF DEMENTIA AND NEEDS ASSISTANCE WITH TASKS. NO VOMITING OR DIARRHEA WHILE IN ER. PT RESTING COMFORTABLY. WILL OFFER PT WATER, TO SEE IF SHE IS ABLE TO TOLERATE.
[2020-08-21 23:06] VITALS: TEMP 38.6
[2020-08-21] MEDS: Acetaminophen 325 MG TABLET 650 MG PO (23:14)
--- NOTE | 2020-08-21 23:31 | PC.NURSE ---
assisted family with dressing pt and transfer to . pt given tylenol for temperature of 101. son understands to picker packer rx for antibiotic, mother has a uti. hydrate well and change briefs often.
== END 2020-08-21 23:39 | disposition home or self-care (01) ==
PROVIDERS: Emergency Provider Internal Medicine
DX: N39.0 Urinary tract infection, site not specified (principal); R07.9 Chest pain, unspecified; Z79.899 Other long term (current) drug therapy; Z20.828 Contact with and (suspected) exposure to other viral communicable diseases
CPT/HCPCS: 36415; 71045; 80048; 80076; 81001; 83605; 83690; 83880; 85025; 87040; 87086; 87088; 96361; 96365; 96375; 99284; J0696; J2405; U0003

== ENCOUNTER 2020-08-29 12:12 | Inpatient (IN) | payer MEDICARE, SELFPAY ==
[2020-08-29 13:56] VITALS: BP 129/59; PULSE 93; RESP 18; TEMP 37.2; BMI 30.6
--- NOTE | 2020-08-29 14:17 | ED_ITS ---
HPI - Fever General Chief Complaint: Fever Stated Complaint: fever,not eating Time Seen by Provider: 08/29/20 14:17 Source: patient and old records reviewed Mode of arrival: ambulatory Limitations: altered mental status (dementia) History of Present Illness HPI Narrative: seen here on 08/21 Rx cefpodoxime elicited complaint: fever, malaise and other (L flank pain) Pertinent past history: other (UTI, sepsis, dementia, L ureteral stent ?to be removed on Thursday) Onset (ago): day(s) (2) Context: recent antibiotic use Exacerbating factors: nothing Relieving factors: nothing Associated symptoms: chills, nausea, dysuria and back/flank pain Treatments prior to arrival fever: antibiotics Related Data Home Medications Medication Instructions Recorded Confirmed amlodipine 5 mg PO DAILY 07/18/20 08/07/20 aspirin 81 mg PO DAILY 07/18/20 08/07/20 cholecalciferol (vitamin D3) 50 mcg PO DAILY 07/18/20 08/07/20 citalopram 10 mg PO DAILY 07/18/20 08/07/20 memantine 5 mg PO BID 07/18/20 08/07/20 omeprazole 20 mg PO DAILY@0630 07/18/20 08/07/20 tamsulosin 0.4 mg PO DAILY@1730 07/18/20 08/07/20 topiramate 50 mg PO BID 07/18/20 08/07/20 Previous Rx's Medication Instructions Recorded cefuroxime axetil 500 mg PO BID 5 Days #10 tab 07/23/20 oxycodone 5 mg PO Q6H PRN #14 tab 07/23/20 docusate sodium 100 mg capsule 100 mg PO BID #180 cap 08/20/20 cefpodoxime 200 mg PO BID #20 tab 08/21/20 ondansetron HCl [Zofran] 4 mg PO Q8H PRN #7 tab 08/21/20 Allergies Allergy/AdvReac Type Severity Reaction Status Date / Time morphine [MORPHINE] Allergy Mild NAUSEA & Verified 08/06/20 13:23 VOMITING, vomiting Review of Systems Review of Systems: ROS unable to be obtained due to altered mental status PMFSH Past Medical History Attestation statement: The following information was validated with the patient. Medical History CVA (cerebral vascular accident) Dementia GERD (gastroesophageal reflux disease) Hypertension Nephrolithiasis Surgical History H/O bilateral breast reduction surgery H/O rectal polypectomy H/O: hysterectomy History of cystoscopy History of hip surgery History of lithotripsy History of tubal ligation Hx of tonsillectomy Family History Family History Father No problems noted. Mother No problems noted. Maternal Grandmother Cancer Social History Social History Household Members: Unknown / Unable to assess Housing: Unknown / Unable to assess Smoking Status: Unknown if ever smoked Smoked in Last 30 Days: No Use of substances other than those prescribed or required for medical reasons: No Advance Directives: No Advance Directives Information Provided: No Physical Exam Vital Signs: Vital Signs: Last Vital Signs Temp 98.5 F 08/29/20 16:07 Pulse 94 08/29/20 16:07 Resp 16 08/29/20 16:07 BP 149/56 H 08/29/20 16:07 Pulse Ox 96 08/29/20 16:07 Body Mass Index 30.6 Appearance: Alert. Oriented X1. No acute distress. Flat affect Eyes: Pupils equal, round and reactive to light. ENT: Pharynx normal. Neck: Normal inspection. Neck supple. CVS: Normal heart rate and rhythm. Pulses normal. Respiratory: No respiratory distress. Breath sounds normal. Abdomen: Soft and nontender. L moderate CVA ttp Skin: Skin warm and dry. Normal skin color. Normal skin turgor. Extremities: No lower extremity edema. No calf ttp Neuro: Oriented X 1. No motor deficit. No sensory deficit. Course Course Course Narrative: urine pending, CT scan report pending, signed out to Dr. Avelar pending further workup and results MDM - Fever MDM Narrative Medical decision making narrative: 70 yo female with dementia, UTIs, renal colic, CKD c/o L flank pain just resumed antibiotics 08/21 cefpodoxime, ?has ureteral stent in place at this time given fevers, pain/nausea/vomiting will need labs, cultures, CT scan for abscess, start empiric ceftriaxone Lab Data Result diagrams: 08/29/20 14:37 08/29/20 14:37 Labs: Lab Results 08/29/20 08/29/20 08/29/20 Range/Units 14:37 14:37 14:37 WBC 10.8 (4.8-10.8) X10*3/uL RBC 3.96 L (4.20-5.50) X10*6/uL Hgb 10.8 L (12.0-16.0) g/dl Hct 33.7 L (37-47) % MCV 85.1 (80-98) fL MCH 27.3 (27.0-33.0) pg MCHC 32.0 (31.0-35.0) g/dl RDW 14.5 (11.0-16.0) % Plt Count 358 D (160-400) X10*3/uL MPV 11.4 (9.4-12.3) fL Immature Gran % (Auto) 1.1 H (0.0-0.4) % Neut % (Auto) 75.5 H (45-73) % Lymph % (Auto) 10.3 L (20-40) % [place] % (Auto) 12.1 H (2-11) % Eos % (Auto) 0.6 (0-4) % Baso % (Auto) 0.4 (0-2) % Lymph # (Auto) 1.1 L (1.2-4.9) X10*3/uL [place] # (Auto) 1.3 H (0.1-1.2) X10*3/uL Eos # (Auto) 0.1 (0.0-0.4) X10*3/uL Baso # (Auto) 0.0 (0.0-0.2) X10*3/uL Abs Immat Gran (auto) 0.12 H (0.00-0.03) X10*3/uL Absolute Neuts (auto) 8.2 (2.0-8.3) X10*3/uL Absolute Nucleated RBC 0.000 (0.0-0.012) X10*3/uL Nucleated RBC % (auto) 0.0 (0.0-0.2) /100WBC Hold Blue Top SEE NOTE Sodium 136 (135-145) mmol/L Potassium 4.1 (3.3-5.1) mmol/l Chloride 100 (96-108) mmol/L Carbon Dioxide 22 (22-29) mmol/L Anion Gap 18 (12-20) BUN 12 (9-16) mg/dL Creatinine 0.95 (0.5-1.4) mg/dL Estim Creat Clear Calc 59.1 Estimated GFR 58 Random Glucose 137 H (60-115) mg/dL Lactic Acid (0.5-2.0) mmol/L Calcium 8.7 D (8.4-10.2) mg/dL Magnesium 2.1 (1.6-2.6) mg/dL Total Bilirubin 0.5 (0.0-1.0) mg/dL Direct Bilirubin 0.2 (0.0-0.5) mg/dL AST 14 (5-31) U/L ALT 8 (0-31) U/L Alkaline Phosphatase 83 (39-117) U/L Total Protein 8.0 (6.5-8.0) g/dL Albumin 3.5 (3.5-5.0) g/dL Lipase 4 L (8-78) U/L 08/29/20 Range/Units 14:37 WBC (4.8-10.8) X10*3/uL RBC (4.20-5.50) X10*6/uL Hgb (12.0-16.0) g/dl Hct (37-47) % MCV (80-98) fL MCH (27.0-33.0) pg MCHC (31.0-35.0) g/dl RDW (11.0-16.0) % Plt Count (160-400) X10*3/uL MPV (9.4-12.3) fL Immature Gran % (Auto) (0.0-0.4) % Neut % (Auto) (45-73) % Lymph % (Auto) (20-40) % [place] % (Auto) (2-11) % Eos % (Auto) (0-4) % Baso % (Auto) (0-2) % Lymph # (Auto) (1.2-4.9) X10*3/uL [place] # (Auto) (0.1-1.2) X10*3/uL Eos # (Auto) (0.0-0.4) X10*3/uL Baso # (Auto) (0.0-0.2) X10*3/uL Abs Immat Gran (auto) (0.00-0.03) X10*3/uL Absolute Neuts (auto) (2.0-8.3) X10*3/uL Absolute Nucleated RBC (0.0-0.012) X10*3/uL Nucleated RBC % (auto) (0.0-0.2) /100WBC Hold Blue Top Sodium (135-145) mmol/L Potassium (3.3-5.1) mmol/l Chloride (96-108) mmol/L Carbon Dioxide (22-29) mmol/L Anion Gap (12-20) BUN (9-16) mg/dL Creatinine (0.5-1.4) mg/dL Estim Creat Clear Calc Estimated GFR Random Glucose (60-115) mg/dL Lactic Acid 0.8 (0.5-2.0) mmol/L Calcium (8.4-10.2) mg/dL Magnesium (1.6-2.6) mg/dL Total Bilirubin (0.0-1.0) mg/dL Direct Bilirubin (0.0-0.5) mg/dL AST (5-31) U/L ALT (0-31) U/L Alkaline Phosphatase (39-117) U/L Total Protein (6.5-8.0) g/dL Albumin (3.5-5.0) g/dL Lipase (8-78) U/L Discharge Plan Discharge Clinical Impression: Acute left flank pain Prescriptions: No Action docusate sodium 100 mg capsule 100 mg PO BID Qty: 180 RF: 8 citalopram 10 mg tablet 10 mg PO DAILY RF: 0 amlodipine 5 mg tablet 5 mg PO DAILY RF: 0 tamsulosin 0.4 mg capsule 0.4 mg PO DAILY@1730 RF: 0 omeprazole 20 mg capsule,delayed release(DR/EC) 20 mg PO DAILY@0630 RF: 0 aspirin 81 mg tablet,chewable 81 mg PO DAILY RF: 0 memantine 5 mg tablet 5 mg PO BID RF: 0 topiramate 50 mg tablet 50 mg PO BID RF: 0 cholecalciferol (vitamin D3) 50 mcg (2,000 unit) tablet 50 mcg PO DAILY RF: 0 cefuroxime axetil 500 mg tablet 500 mg PO BID 5 Days Qty: 10 RF: 0 oxycodone 5 mg tablet 5 mg PO Q6H PRN (Reason: pain) Qty: 14 RF: 0 cefpodoxime 200 mg tablet 200 mg PO BID Qty: 20 RF: 0 ondansetron HCl [Zofran] 4 mg tablet 4 mg PO Q8H PRN (Reason: nausea and vomiting) Qty: 7 RF: 0
--- NOTE | 2020-08-29 14:18 | XR_ITS ---
EXAMINATION: XR CHEST CLINICAL INFORMATION: Fever. COMPARISON: 08/21/2020 TECHNIQUE: Frontal view of the chest was obtained. FINDINGS: Rotated positioning. Cardiomediastinal silhouette is stable. Calcification of the aortic arch. Low lung volumes. Similar mild prominence of the bronchovascular markings. No confluent consolidation. No effusion, overt pulmonary edema. No pneumothorax. Scoliotic curvature of the spine, with degenerative changes. XR/XR chest 1V IMPRESSION: Similar mild prominence of the bronchovascular markings. No evidence of focal consolidation. No significant interval change as compared to prior.
--- NOTE | 2020-08-29 14:21 | CT_ITS ---
EXAMINATION: CT ABDOMEN AND PELVIS WITHOUT CONTRAST CLINICAL INFORMATION: Left flank pain. History of kidney stones. COMPARISON: CT scan abdomen and pelvis 07/17/2020 TECHNIQUE: Multidetector volumetric imaging was performed from the superior aspect of the liver through the pubic symphysis. Sagittal and coronal reformatted images were obtained on the technologist's workstation. This CT examination was performed using dose optimization techniques as appropriate, variously including the following: *Automated exposure control *Adjustment of mA and/or kV according to patient size (this includes techniques or standardized protocols for targeted exams where dose is matched to indication/reason for exam; i.e. extremities or head) *Use of iterative reconstruction technique DLP: 1222 mGy-cm FINDINGS: LUNG BASES: The visualized lung bases are unremarkable. LIVER, GALLBLADDER, AND BILIARY TREE: The liver is normal in size, shape, and attenuation. No focal hepatic lesion or biliary ductal dilatation is present. The gallbladder is unremarkable with no evidence of radiopaque gallstones, gallbladder wall thickening, or obvious pericholecystic inflammatory changes. PANCREAS: Unremarkable. SPLEEN: Unremarkable. ADRENAL GLANDS: Unremarkable. KIDNEYS AND URETERS: Right Kidney: There is hydronephrosis of the right kidney with distention renal pelvis calyces to the ureterovesical junction similar to prior CAT scan 07/17/2020. There are scattered calcified stones in the dilated renal pelvis and calyces, unchanged since prior exam. There is a double-J stent in the right ureter. The stent extends from the proximal ureter at the ureterovesical junction to the bladder. The right ureter remains dilated. Multiple stones which were present in the right ureter on the prior CAT scan 07/17/2020 are no longer present, however. Left Kidney: Normal left kidney and collecting system. There is no calculus or hydronephrosis. BLADDER: Double-J stent from the right ureter in place in the bladder. No bladder mass or calculus. GASTROINTESTINAL TRACT: There are scattered diverticula of the sigmoid colon and left colon. There is no diverticulitis. There is no bowel wall thickening /edema. There is no bowel obstruction. There is a moderate volume of stool in the colon. The appendix is normal. The small bowel loops are unremarkable. The stomach is normal. There is small hiatal hernia. ABDOMINAL WALL: No significant hernia is appreciated. LYMPH NODES: Normal. VASCULAR: Atherosclerotic vascular calcifications of aorta and iliac arteries. No aneurysm. PELVIC VISCERA: Status post hysterectomy. OSSEOUS STRUCTURES: Mild degenerative spondylosis of the spine. Orthopedic screws present in the left femoral head and neck. CT/CT abdomen pelvis wo con IMPRESSION: 1. Continued hydronephrosis of the right kidney. Double-J stent present in the right ureter. Right ureter is dilated. There are stones in the right renal pelvis and calyces unchanged since 07/17/2020. The multiple stones in the right ureter present on the prior CAT scan are no longer present. 2. Diverticulosis of the colon. No acute changes of the bowel.
[2020-08-29 14:44] LABS: MANUAL DIFF FLAG NO
[2020-08-29 14:47] LABS: Basophils Percent Auto 0.4 % (0-2); Eosinophils Absolute Auto 0.1 X10*3/uL (0.0-0.4); Eosinophils Percent Auto 0.6 % (0-4); Hematocrit 33.7 % (37-47); Hemoglobin 10.8 g/dl (12.0-16.0); Imm Gran Abs Auto 0.12 X10*3/uL (0.00-0.03); Imm Gran Pct Auto 1.1 % (0.0-0.4); Lymphocytes Absolute Auto 1.1 X10*3/uL (1.2-4.9); Lymphocytes Percent Auto 10.3 % (20-40); Mean Corpuscular Hemoglobin 27.3 pg (27.0-33.0); Mean Corpuscular Volume 85.1 fL (80-98); Mean Platelet Volume 11.4 fL (9.4-12.3); Monocytes Absolute Auto 1.3 X10*3/uL (0.1-1.2); Monocytes Percent Auto 12.1 % (2-11); Neutrophils Absolute Auto 8.2 X10*3/uL (2.0-8.3); Neutrophils Percent Auto 75.5 % (45-73); Platelet Count 358 X10*3/uL (160-400); Red Blood Count 3.96 X10*6/uL (4.20-5.50); Red Cell Distribution Width 14.5 % (11.0-16.0); White Blood Count 10.8 X10*3/uL (4.8-10.8)
[2020-08-29 15:18] LABS: Lactic Acid 0.8 mmol/L (0.5-2.0)
[2020-08-29 15:23] LABS: Alanine Aminotransferase 8 U/L (0-31); Albumin Level 3.5 g/dL (3.5-5.0); Alkaline Phosphatase 83 U/L (39-117); Anion Gap 18 (12-20); Aspartate Amino Transferase 14 U/L (5-31); Bilirubin Direct 0.2 mg/dL (0.0-0.5); Bilirubin Total 0.5 mg/dL (0.0-1.0); Blood Urea Nitrogen 12 mg/dL (9-16); Calcium 8.7 mg/dL (8.4-10.2); Carbon Dioxide 22 mmol/L (22-29); Chloride 100 mmol/L (96-108); Creatinine Clr Calc Pharmacy 59.1; Estimated Glomerular Filt Rate 58; Glucose Random 137 mg/dL (60-115); Lipase 4 U/L (8-78); Magnesium 2.1 mg/dL (1.6-2.6); Potassium 4.1 mmol/l (3.3-5.1); Sodium 136 mmol/L (135-145)
[2020-08-29] MEDS: cefTRIAXone sodium 1 GM in 0.9 % Sodium Chloride 50 ML IV (15:34)
[2020-08-29] MEDS: 0.9 % Sodium Chloride 1,000 ML 999 ML IVCONT (15:34)
[2020-08-29 15:36] VITALS: BP 147/53; PULSE 91; RESP 20; O2SAT 99
[2020-08-29] MEDS: ondansetron HCL 4 MG/2 ML VIAL IVPUSH (15:39)
[2020-08-29 16:07] VITALS: BP 149/56; PULSE 94; RESP 16; TEMP 36.9; O2SAT 96
--- NOTE | 2020-08-29 16:19 | PC.NURSE ---
daughter called.study on thursday for kidney.
[2020-08-29 16:55] LABS: Appearance Urine TURBID; Color Urine BROWN; Glucose Urine UA 100 MG/DL (NEG); Leukocyte Esterase Urine 3+ (NEG); Nitrite Urine POS (NEG); PH 6.5 (5.0-8.0); Specific Gravity - Urine 1.025 (1.005-1.025); Urine Blood 3+ (NEG); Urine Ketones 15 MG/DL (NEG); Urine Protein 3+ MG/DL (NEG-TRACE)
[2020-08-29 17:23] LABS: Bacteria Urine 3+ /LPF; Squamous Epithelial Cell Urine TRACE /LPF; WBC Urine TNTC /HPF (0-4)
--- NOTE | 2020-08-29 19:01 | ED_ITS ---
HPI - Fever General Chief Complaint: Fever Stated Complaint: fever,not eating Time Seen by Provider: 08/29/20 14:17 Source: patient and old records reviewed Mode of arrival: ambulatory Limitations: altered mental status (dementia) History of Present Illness Context: recent antibiotic use Associated symptoms: chills, nausea, dysuria and back/flank pain Treatments prior to arrival fever: antibiotics Related Data Home Medications Medication Instructions Recorded Confirmed amlodipine 5 mg PO DAILY 07/18/20 08/29/20 aspirin 81 mg PO DAILY 07/18/20 08/29/20 cholecalciferol (vitamin D3) 50 mcg PO DAILY 07/18/20 08/29/20 citalopram 10 mg PO DAILY 07/18/20 08/29/20 memantine 5 mg PO BID 07/18/20 08/29/20 omeprazole 20 mg PO DAILY@0630 07/18/20 08/29/20 tamsulosin 0.4 mg PO DAILY@1730 07/18/20 08/29/20 topiramate 50 mg PO BID 07/18/20 08/29/20 Previous Rx's Medication Instructions Recorded docusate sodium 100 mg capsule 100 mg PO BID #180 cap 08/20/20 cefpodoxime 200 mg PO BID #20 tab 08/21/20 Allergies Allergy/AdvReac Type Severity Reaction Status Date / Time morphine [MORPHINE] Allergy Mild NAUSEA & Verified 08/06/20 13:23 VOMITING, vomiting PMFSH Past Medical History Medical History CVA (cerebral vascular accident) Dementia GERD (gastroesophageal reflux disease) Hypertension Nephrolithiasis Surgical History H/O bilateral breast reduction surgery H/O rectal polypectomy H/O: hysterectomy History of cystoscopy History of hip surgery History of lithotripsy History of tubal ligation Hx of tonsillectomy Family History Family History Father No problems noted. Mother No problems noted. Maternal Grandmother Cancer Social History Social History Household Members: Unknown / Unable to assess Housing: Unknown / Unable to assess Smoking Status: Unknown if ever smoked Smoked in Last 30 Days: No Use of substances other than those prescribed or required for medical reasons: No Advance Directives: No Advance Directives Information Provided: No Physical Exam Vital Signs: Vital Signs: Last Vital Signs Temp 98.5 F 08/29/20 19:10 Pulse 93 08/29/20 19:10 Resp 18 08/29/20 19:10 BP 147/66 H 08/29/20 19:10 Pulse Ox 96 08/29/20 19:10 Body Mass Index 30.6 MDM - Fever Medical Records Medical records narrative: Fever, generalized malaise weakness. Patient's urine grossly infected. Despite being on cefpodoxime. Patient has a R ureteral stent in place on CT scan. No abscess no perforation. white count is approximately 11. urine infected. patient baseline confused. Will admit for further evaluation. Patient's lactate is 0.8. No evidence for severe sepsi s.Mental status per family is getting worse. Lab Data Attestation: I reviewed the patient's lab results. Result diagrams: 08/29/20 14:37 08/29/20 14:37 Labs: Lab Results 08/29/20 08/29/20 08/29/20 Range/Units 14:37 14:37 14:37 WBC 10.8 (4.8-10.8) X10*3/uL RBC 3.96 L (4.20-5.50) X10*6/uL Hgb 10.8 L (12.0-16.0) g/dl Hct 33.7 L (37-47) % MCV 85.1 (80-98) fL MCH 27.3 (27.0-33.0) pg MCHC 32.0 (31.0-35.0) g/dl RDW 14.5 (11.0-16.0) % Plt Count 358 D (160-400) X10*3/uL MPV 11.4 (9.4-12.3) fL Immature Gran % (Auto) 1.1 H (0.0-0.4) % Neut % (Auto) 75.5 H (45-73) % Lymph % (Auto) 10.3 L (20-40) % [place] % (Auto) 12.1 H (2-11) % Eos % (Auto) 0.6 (0-4) % Baso % (Auto) 0.4 (0-2) % Lymph # (Auto) 1.1 L (1.2-4.9) X10*3/uL [place] # (Auto) 1.3 H (0.1-1.2) X10*3/uL Eos # (Auto) 0.1 (0.0-0.4) X10*3/uL Baso # (Auto) 0.0 (0.0-0.2) X10*3/uL Abs Immat Gran (auto) 0.12 H (0.00-0.03) X10*3/uL Absolute Neuts (auto) 8.2 (2.0-8.3) X10*3/uL Absolute Nucleated RBC 0.000 (0.0-0.012) X10*3/uL Nucleated RBC % (auto) 0.0 (0.0-0.2) /100WBC Hold Blue Top SEE NOTE Sodium 136 (135-145) mmol/L Potassium 4.1 (3.3-5.1) mmol/l Chloride 100 (96-108) mmol/L Carbon Dioxide 22 (22-29) mmol/L Anion Gap 18 (12-20) BUN 12 (9-16) mg/dL Creatinine 0.95 (0.5-1.4) mg/dL Estim Creat Clear Calc 59.1 Estimated GFR 58 Random Glucose 137 H (60-115) mg/dL Lactic Acid (0.5-2.0) mmol/L Calcium 8.7 D (8.4-10.2) mg/dL Magnesium 2.1 (1.6-2.6) mg/dL Total Bilirubin 0.5 (0.0-1.0) mg/dL Direct Bilirubin 0.2 (0.0-0.5) mg/dL AST 14 (5-31) U/L ALT 8 (0-31) U/L Alkaline Phosphatase 83 (39-117) U/L Total Protein 8.0 (6.5-8.0) g/dL Albumin 3.5 (3.5-5.0) g/dL Lipase 4 L (8-78) U/L Urine Color Urine Appearance Urine pH (5.0-8.0) Ur Specific [place] (1.005-1.025) Urine Protein (NEG-TRACE) MG/DL Urine Glucose (UA) (NEG) MG/DL Urine Ketones (NEG) MG/DL Urine Blood (NEG) Urine Nitrite (NEG) Ur Leukocyte Esterase (NEG) Urine RBC (0) /HPF Urine WBC (0-4) /HPF Ur Squamous Epith Cells /LPF Urine Bacteria /LPF 08/29/20 08/29/20 Range/Units 14:37 16:42 WBC (4.8-10.8) X10*3/uL RBC (4.20-5.50) X10*6/uL Hgb (12.0-16.0) g/dl Hct (37-47) % MCV (80-98) fL MCH (27.0-33.0) pg MCHC (31.0-35.0) g/dl RDW (11.0-16.0) % Plt Count (160-400) X10*3/uL MPV (9.4-12.3) fL Immature Gran % (Auto) (0.0-0.4) % Neut % (Auto) (45-73) % Lymph % (Auto) (20-40) % [place] % (Auto) (2-11) % Eos % (Auto) (0-4) % Baso % (Auto) (0-2) % Lymph # (Auto) (1.2-4.9) X10*3/uL [place] # (Auto) (0.1-1.2) X10*3/uL Eos # (Auto) (0.0-0.4) X10*3/uL Baso # (Auto) (0.0-0.2) X10*3/uL Abs Immat Gran (auto) (0.00-0.03) X10*3/uL Absolute Neuts (auto) (2.0-8.3) X10*3/uL Absolute Nucleated RBC (0.0-0.012) X10*3/uL Nucleated RBC % (auto) (0.0-0.2) /100WBC Hold Blue Top Sodium (135-145) mmol/L Potassium (3.3-5.1) mmol/l Chloride (96-108) mmol/L Carbon Dioxide (22-29) mmol/L Anion Gap (12-20) BUN (9-16) mg/dL Creatinine (0.5-1.4) mg/dL Estim Creat Clear Calc Estimated GFR Random Glucose (60-115) mg/dL Lactic Acid 0.8 (0.5-2.0) mmol/L Calcium (8.4-10.2) mg/dL Magnesium (1.6-2.6) mg/dL Total Bilirubin (0.0-1.0) mg/dL Direct Bilirubin (0.0-0.5) mg/dL AST (5-31) U/L ALT (0-31) U/L Alkaline Phosphatase (39-117) U/L Total Protein (6.5-8.0) g/dL Albumin (3.5-5.0) g/dL Lipase (8-78) U/L Urine Color BROWN Urine Appearance TURBID Urine pH 6.5 (5.0-8.0) Ur Specific [place] 1.025 (1.005-1.025) Urine Protein 3+ H (NEG-TRACE) MG/DL Urine Glucose (UA) 100 H (NEG) MG/DL Urine Ketones 15 (NEG) MG/DL Urine Blood 3+ H (NEG) Urine Nitrite POS H (NEG) Ur Leukocyte Esterase 3+ H (NEG) Urine RBC 10-14 H (0) /HPF Urine WBC TNTC H (0-4) /HPF Ur Squamous Epith Cells TRACE /LPF Urine Bacteria 3+ /LPF Discharge Plan Discharge Clinical Impression: Acute left flank pain, Acute pyelonephritis Patient Disposition: Admitted As Inpatient
[2020-08-29 19:10] VITALS: BP 147/66; PULSE 93; RESP 18; TEMP 36.9; O2SAT 96
[2020-08-29 20:36] LABS: COVID-19 Test Negative (Negative); IDNOW Serial# 9DD0AD1C
[2020-08-29 21:56] VITALS: BP 149/59; PULSE 98; RESP 18; TEMP 37; O2SAT 95
--- NOTE | 2020-08-29 23:11 | PC.NURSE ---
report taken from warren recinos at this time. pt to be transferred to floor
[2020-08-29 23:51] VITALS: BP 161/55; PULSE 89; RESP 16; TEMP 36.8; O2SAT 92
[2020-08-30] MEDS: Enoxaparin Sodium 40 MG/0.4 ML SYRINGE SUBCUT ×2 (01:17→22:27)
[2020-08-30] MEDS: 0.9 % Sodium Chloride Flush 3 ML SYRINGE IVFLUSH ×3 (01:17→14:07)
--- NOTE | 2020-08-30 03:08 | P.HPHOSP_ITS ---
History of Present Illness Date of Service: 08/29/20 Chief Complaint: Flank pain This is a 70-year-old female with past medical history of CVA in 2012, dementia, chronic kidney stone, who presents to the hospital complaints of flank pain, as well as urinary symptoms including urgency, and dysuria. Patient is also complaining of generalized weakness. Patient is Danish-speaking only, history is obtained mostly from her son at bedside. Patient has recurrent admissions and presentation to the ED for the same. Patient has a history of kidney stone with stent placement in ureter and has had complications since. Most recent admission in June of this year. According to her son, patient presented to the ED about a week ago, was given antibiotics and sent home. She returns today complaining that the pain persist on the right side, from the fit flank area radiating to the groin. Associated with fever and chills, she also has dysuria and frequency. She has had nausea, and low appetite. She did not take any of her medications today. She has no headache, change in vision, chest pain or shortness of breath, no diarrhea but is constipated according to her son and no lower extremity edema. On arrival to the ED hemodynamically stable with no significant abnormal vitals. Lab significant for normal WBC, UA that is positive for leukocyte Estrace, nitrites, WBC, CT abdomen showing continued hydronephrosis of the right kidney. Double-J stent present in the right ureter. Right ureter is dilated. With stones in the right renal pelvis and calyces. Past medical history: CVA, dementia, hypertension, chronic kidney stones Past surgical history: Stent placement, hysterectomy, tonsillectomy Family history: Denies Social history: Lives with her son, ambulates with assistance, no history of tobacco alcohol or illicit drug Review of Systems Review of Systems: Yes all other systems are reviewed and are negative [facility] [place] Medical History CVA (cerebral vascular accident) Dementia GERD (gastroesophageal reflux disease) Hypertension Nephrolithiasis Family History Father No problems noted. Mother No problems noted. Maternal Grandmother Cancer Surgical History H/O bilateral breast reduction surgery H/O rectal polypectomy H/O: hysterectomy History of cystoscopy History of hip surgery History of lithotripsy History of tubal ligation Hx of tonsillectomy Social History Household Members: Children Housing: House Do you presently have visiting nurse or other home services: No Smoking Status: Never smoker Smoked in Last 30 Days: No Use of substances other than those prescribed or required for medical reasons: No Have you been hit, kicked, punched, or otherwise hurt by someone within the past year? If so, by whom?: No Do you feel safe in your current relationship?: No Is there a partner from a previous relationship who is making you feel unsafe now?: No Are you made to feel afraid or neglected: No Advance Directives: No Advance Directives Information Provided: No Do you have thoughts of harming others: None Do you have a plan to hurt others: No Plan Recently lost weight without trying: No Meds Allergies Allergy/AdvReac Type Severity Reaction Status Date / Time morphine [MORPHINE] Allergy Mild NAUSEA & Verified 08/06/20 13:23 VOMITING, vomiting Home Medications Medication Instructions Recorded Confirmed Type amlodipine 5 mg PO DAILY 07/18/20 08/29/20 History aspirin 81 mg PO DAILY 07/18/20 08/29/20 History cholecalciferol (vitamin D3) 50 mcg PO DAILY 07/18/20 08/29/20 History citalopram 10 mg PO DAILY 07/18/20 08/29/20 History memantine 5 mg PO BID 07/18/20 08/29/20 History omeprazole 20 mg PO DAILY@0630 07/18/20 08/29/20 History tamsulosin 0.4 mg PO DAILY@1730 07/18/20 08/29/20 History topiramate 50 mg PO BID 07/18/20 08/29/20 History Physical Exam Vital Signs and Narrative: Vital Signs: Last Vital Signs Temp 98.2 F 08/29/20 23:51 Pulse 89 08/29/20 23:51 Resp 16 08/29/20 23:51 BP 161/55 H 08/29/20 23:51 Pulse Ox 92 08/29/20 23:51 Body Mass Index 30.6 Const: General: cooperative and no acute distress Orientation/consciousness: patient oriented x3 Eyes: General: appearance normal, both eyes and all related structures Pupils: Equal, round and reactive pupils present Resp: Effort & Inspection: normal respiratory effort and able to speak in complete sentences Auscultation: clear to auscultation bilaterally Cardio: Rate: regular rate Rhythm: regular rhythm GI: Palpation (GI): Soft to palpation Auscultation: normal bowel sounds Skin: General skin exam: no rashes or lesions noted Neuro: General: patient oriented x3 Cranial nerves: Yes Equal, round and reactive pupils present Cognition (Neuro): normal cognition Extrem: General: Yes normal to inspection and Yes no pedal edema Results Labs CBC and Chem 7: 08/29/20 14:37 08/29/20 14:37 Labs: Laboratory Results - last 24 hr 08/29/20 08/29/20 08/29/20 14:37 14:37 14:37 MCV 85.1 MCH 27.3 MCHC 32.0 RDW 14.5 Plt Count 358 D MPV 11.4 Immature Gran % (Auto) 1.1 H Neut % (Auto) 75.5 H Lymph % (Auto) 10.3 L [place] % (Auto) 12.1 H Eos % (Auto) 0.6 Baso % (Auto) 0.4 Lymph # (Auto) 1.1 L [place] # (Auto) 1.3 H Eos # (Auto) 0.1 Baso # (Auto) 0.0 Abs Immat Gran (auto) 0.12 H Absolute Neuts (auto) 8.2 Absolute Nucleated RBC 0.000 Nucleated RBC % (auto) 0.0 Hold Blue Top SEE NOTE Anion Gap 18 Estim Creat Clear Calc 59.1 Estimated GFR 58 Random Glucose 137 H Lactic Acid Calcium 8.7 D Magnesium 2.1 Total Bilirubin 0.5 Direct Bilirubin 0.2 AST 14 ALT 8 Alkaline Phosphatase 83 Total Protein 8.0 Albumin 3.5 Lipase 4 L Urine Color Urine Appearance Urine pH Ur Specific [place] Urine Protein Urine Glucose (UA) Urine Ketones Urine Blood Urine Nitrite Ur Leukocyte Esterase Urine RBC Urine WBC Ur Squamous Epith Cells Urine Bacteria COVID-19 (DOMINIK) COVID-19 Clin Com 08/29/20 08/29/20 08/29/20 14:37 16:42 20:07 MCV MCH MCHC RDW Plt Count MPV Immature Gran % (Auto) Neut % (Auto) Lymph % (Auto) [place] % (Auto) Eos % (Auto) Baso % (Auto) Lymph # (Auto) [place] # (Auto) Eos # (Auto) Baso # (Auto) Abs Immat Gran (auto) Absolute Neuts (auto) Absolute Nucleated RBC Nucleated RBC % (auto) Hold Blue Top Anion Gap Estim Creat Clear Calc Estimated GFR Random Glucose Lactic Acid 0.8 Calcium Magnesium Total Bilirubin Direct Bilirubin AST ALT Alkaline Phosphatase Total Protein Albumin Lipase Urine Color BROWN Urine Appearance TURBID Urine pH 6.5 Ur Specific [place] 1.025 Urine Protein 3+ H Urine Glucose (UA) 100 H Urine Ketones 15 Urine Blood 3+ H Urine Nitrite POS H Ur Leukocyte Esterase 3+ H Urine RBC 10-14 H Urine WBC TNTC H Ur Squamous Epith Cells TRACE Urine Bacteria 3+ COVID-19 (DOMINIK) Negative COVID-19 Clin Com See Note Imaging Radiologist's Impressions: Impressions Chest X-Ray 08/29/20 14:18 IMPRESSION: Similar mild prominence of the bronchovascular markings. No evidence of focal consolidation. No significant interval change as compared to prior. Abdomen/Pelvis CT 08/29/20 14:21 IMPRESSION: 1. Continued hydronephrosis of the right kidney. Double-J stent present in the right ureter. Right ureter is dilated. There are stones in the right renal pelvis and calyces unchanged since 07/17/2020. The multiple stones in the right ureter present on the prior CAT scan are no longer present. 2. Diverticulosis of the colon. No acute changes of the bowel. Assessment and Plan (1) Acute left flank pain: Status: Acute (2) UTI (urinary tract infection): Status: Acute (3) Nephrolithiasis: Status: Acute (4) Hypertension: Status: Acute (5) Dementia: Status: Acute (6) CVA (cerebral vascular accident): Status: Acute this is a 70-year-old female with past medical history as above who presents to the hospital with recurrent UTIs, in the setting of the presence of a stent in the ureter. # acute flank pain - most likely secondary to UTI, pyelonephritis as well as history of kidney stones - afebrile, no leukocytosis, - UA positive - was sent home on antibiotics about a week ago from ED (cefpodoxime), returns with similar symptoms and no improvement plan: - Will start patient on ceftriaxone - urine and blood cultures collected - urology consulted # nephrolithiasis - has chronic hydronephrosis - double J-stent in the right ureter - CT of the abdomen as above Plan: - IV antibiotic - IV fluid - continue tamsulosin - urology consult # hypertension - stable - continue home med # dementia - continue memantine # history of CVA - continue aspirin DVT prophylaxis: Lovenox
[2020-08-30 03:53] VITALS: BP 148/57; PULSE 74; RESP 16; TEMP 37.3; O2SAT 95
[2020-08-30] MEDS: Omeprazole 20 MG CAPSULE.DR PO (05:33)
[2020-08-30 06:59] LABS: MANUAL DIFF FLAG NO
[2020-08-30 07:11] LABS: Basophils Percent Auto 0.4 % (0-2); Eosinophils Absolute Auto 0.1 X10*3/uL (0.0-0.4); Eosinophils Percent Auto 0.8 % (0-4); Hematocrit 31.1 % (37-47); Hemoglobin 9.7 g/dl (12.0-16.0); Imm Gran Abs Auto 0.06 X10*3/uL (0.00-0.03); Imm Gran Pct Auto 0.7 % (0.0-0.4); Lymphocytes Absolute Auto 1.3 X10*3/uL (1.2-4.9); Lymphocytes Percent Auto 15.4 % (20-40); Mean Corpuscular HGB Conc 31.2 g/dl (31.0-35.0); Mean Corpuscular Hemoglobin 26.6 pg (27.0-33.0); Mean Corpuscular Volume 85.4 fL (80-98); Mean Platelet Volume 11.5 fL (9.4-12.3); Monocytes Absolute Auto 1.4 X10*3/uL (0.1-1.2); Monocytes Percent Auto 17.2 % (2-11); Neutrophils Absolute Auto 5.5 X10*3/uL (2.0-8.3); Neutrophils Percent Auto 65.5 % (45-73); Platelet Count 328 X10*3/uL (160-400); Red Blood Count 3.64 X10*6/uL (4.20-5.50); Red Cell Distribution Width 14.6 % (11.0-16.0); White Blood Count 8.4 X10*3/uL (4.8-10.8)
[2020-08-30 07:35] VITALS: BP 149/61; PULSE 77; RESP 18; TEMP 37.7; O2SAT 96
[2020-08-30 08:04] LABS: Anion Gap 14 (12-20); Blood Urea Nitrogen 11 mg/dL (9-16); Calcium 8.3 mg/dL (8.4-10.2); Carbon Dioxide 21 mmol/L (22-29); Chloride 104 mmol/L (96-108); Estimated Glomerular Filt Rate > 60; Glucose Random 108 mg/dL (60-115); Potassium 3.9 mmol/l (3.3-5.1); Sodium 135 mmol/L (135-145)
[2020-08-30] MEDS: Docusate Sodium 100 MG CAPSULE PO ×2 (08:21→22:26)
[2020-08-30] MEDS: Topiramate 25 MG TABLET 50 MG PO ×2 (08:21→22:26)
[2020-08-30] MEDS: Aspirin 81 MG TAB.CHEW PO (08:21)
[2020-08-30] MEDS: Cholecalciferol (Vitamin D3) 25 MCG TABLET 50 MCG PO (08:21)
[2020-08-30] MEDS: Memantine HCl 5 MG TABLET PO ×2 (08:21→22:26)
[2020-08-30] MEDS: amLODIPine Besylate 5 MG TABLET PO (08:21)
[2020-08-30] MEDS: Escitalopram Oxalate 5 MG TABLET PO (08:28)
--- NOTE | 2020-08-30 10:32 | P.PNIM_ITS ---
Subjective Subjective Date of Service: 08/30/20 Interval History: flank pain Cardiovascular Cardiovascular: Reports no additional cardiovascular complaints Respiratory Respiratory: Reports no additional respiratory complaints Physical Exam Vital Signs: Vital Signs: Last Vital Signs Temp 99.9 F 08/30/20 07:35 Pulse 77 08/30/20 07:35 Resp 18 08/30/20 07:35 BP 149/61 H 08/30/20 07:35 Pulse Ox 96 08/30/20 07:35 Body Mass Index 30.6 General: AO X 3, no acute distress Resp: CTA bilateral CVS: S1,S2,RRR GI: soft, non tender, non distended Neuro: motor grossly intact Psych: appropriate affect Objective Data Current Medications Generic Name Dose Route Start Last Admin Trade Name Freq PRN Reason Stop Dose Admin Amlodipine Besylate 5 mg 08/30/20 09:00 08/30/20 08:21 Amlodipine Besylate 5 Mg Tablet PO 5 mg DAILY MANDEEP Administration Protocol Aspirin 81 mg 08/30/20 09:00 08/30/20 08:21 Aspirin 81 Mg Tab.Chew PO 81 mg DAILY MANDEEP Administration Docusate Sodium 100 mg 08/30/20 09:00 08/30/20 08:21 Docusate Sodium 100 Mg Capsule PO 100 mg BID MANDEEP Administration Docusate Sodium 100 mg 08/29/20 22:39 Docusate Sodium 100 Mg Capsule PO DAILY PRN Constipation Enoxaparin Sodium 40 mg 08/29/20 22:00 08/30/20 01:17 Enoxaparin Sodium 40 Mg/0.4 Ml Syringe SUBCUT 40 mg Q24H MANDEEP Administration Escitalopram Oxalate 5 mg 08/30/20 09:00 08/30/20 08:28 Escitalopram Oxalate 5 Mg Tablet PO 5 mg DAILY MANDEEP Administration Ceftriaxone Sodium 1 gm/ 50 mls @ 100 mls/hr 08/30/20 15:00 Sodium Chloride IV Q24H MANDEEP Memantine 5 mg 08/30/20 09:00 08/30/20 08:21 Memantine Hcl 5 Mg Tablet PO 5 mg BID MNADEEP Administration Omeprazole 20 mg 08/30/20 06:30 08/30/20 05:33 Omeprazole 20 Mg Capsule.Dr PO 20 mg DAILY@0630 MANDEEP Administration Ondansetron HCl 4 mg 08/29/20 22:39 Ondansetron Hcl 4 Mg/2 Ml Vial IVPUSH Q8H PRN Nausea and Vomiting Pharmacy Consult 1 each 08/29/20 18:56 Consult Rx Perform Med Rec MISCELLANE ONCE PRN Consult order Sodium Chloride 3 ml 08/30/20 00:00 08/30/20 08:28 0.9 % Sodium Chloride Flush 3 Ml Syringe IVFLUSH 3 ml QSHIFT MANDEEP Administration Tamsulosin HCl 0.4 mg 08/30/20 17:30 Tamsulosin Hcl 0.4 Mg Capsule PO DAILY@1730 [facility] Topiramate 50 mg 08/30/20 09:00 08/30/20 08:21 Topiramate 25 Mg Tablet PO 50 mg BID MANDEEP Administration Vitamin D 50 mcg 08/30/20 09:00 08/30/20 08:21 Cholecalciferol (Vitamin D3) 25 Mcg Tablet PO 50 mcg DAILY MANDEEP Administration Labs CBC & Chem 7: 08/30/20 06:17 08/30/20 06:17 Microbiology Microbiology Results: Microbiology 08/29/20 16:56 Urine Catheterized - Cherry Catheter Urine Culture - Preliminary No growth to date. 08/29/20 14:25 Blood - Venous Blood Culture - Final Assessment and Plan (1) Acute left flank pain: Status: Acute (2) UTI (urinary tract infection): Status: Acute (3) Nephrolithiasis: Status: Acute (4) Hypertension: Status: Acute (5) Dementia: Status: Acute (6) CVA (cerebral vascular accident): Status: Acute Assessment and Plan: this is a 70-year-old female with past medical history as above who presents to the hospital with recurrent UTIs, in the setting of the presence of a stent in the ureter. acute flank pain with nephrolithiasis, has ureteral stent but still with hydro continue antibiotics, follow up cultures, urology HTN amlodipine dementia memantine history of CVA aspirin DVT prophylaxis: Lovenox
[2020-08-30 11:34] VITALS: BP 159/58; PULSE 87; RESP 17; TEMP 36.4; O2SAT 95
[2020-08-30] MEDS: cefTRIAXone sodium 1 GM in 0.9 % Sodium Chloride 50 ML IV (14:06)
[2020-08-30 14:33] VITALS: BMI 30.6
[2020-08-30 15:11] VITALS: BP 144/56; PULSE 91; RESP 18; TEMP 36.7; O2SAT 93
--- NOTE | 2020-08-30 16:08 | MHC.CM.PN ---
NURSE SHAKER OUT NOTE ELECTRONIC MEDICAL RECORD REVIEWED PATIENT AT THIS TIME WAS NOT ABLE TO FULLTY PARTICI[ATE WITH HTHIS ASSESSMENT EVEN WITH A JUAN INTERPERTER , I CALLED TO HER DTR/HCP BONIFACIO SCOTT [phone] SHE REPORTED TO ME THAT PATIENT LIVES WITH HER BROTHER ZO [phone] SHE HAS [place] [facility] NURSE CHECKS IN ON HER , [facility] CARE [facility] ,HER SON CARES FOR [place] AND THEY ASO HAVE 10 HOURS OF RESPITE CARE A WEEK SHE REPORTED THAT HER MOTHER HAD A STOKE IN 2011 AND IN 2016 WAS DIAGNOSED WITH DEMENTIA , SHE ALSO HAS ARTHRITIS AT HOME [place] BED IS EQUIPED WITH PARTIA SIDE RAIL SHE HAS COMMODE SHE HAS A SHOPWER BENCH AND SHOWER RAIS , SHE HAS A CANE , ROLLER WALKER SLING CHAIR AND ROLATOR WALKER SO SHE CAN SIT SHE IS ABLE TO WALK SHORT DISTANCE WITH SUPPORT SHE HAS REGULAR SLEEPING/AWAKE PATTERNS . IS USUALLY ALWAYS CALM NO SUNDOWNING , REGULAR BOWEL PATTERN EXCEPT WHEN SHE IS ON ABX SHE WILL HAVE MORE FREQUENT STOOLS, SHE IS ABLE TO FEED HERSELF REGULAR FOODS , HER PILLS NEED TO BE MASHED INTO APPLE SAUCE OR TSUCH. SHE IS DEPENDENT ON HER FAMILY FOR BATHING AND DRESISNG . THEY HAVE NO VNA SERVICES . DISCHARGE PLAN RETURN HOME WHERE SHE LIVES WITH HER SON PHOTOGRAPHER AERIAL AND RESUMTPION OF HER MASSAGE OPERATOR AND THE [facility] [place] NURSE , THEY ARE ACCEPTING OF HAVING A VNA AFTER DISCHARGE AND CHOSE THE [facility] INIATED REFERRAL TO THE NA FOR RNUSING , POSSIBLE HOME PHYSICAL THEAPRY REVIEWED WITH DAUGHTER THE MEDICARE IMM AND WILL MAIL CORIGINAL TO HER WITH THE [facility] ADDENDUM, SHE IS ALSO AWARE OF NO VISITIATION AT PRESENT NAD THE NUMBER TO CALL TO INQUIRE ABOUT THER MOTHER AND TO CONTACT ME WELL TRANSPORT TO BE DETERMINED
[2020-08-30] MEDS: Tamsulosin HCL 0.4 MG CAPSULE PO (17:30)
--- NOTE | 2020-08-30 17:50 | PM.UROCN ---
History of Present Illness Consult details Narrative: This is a 70-year-old female with past medical history of CVA in 2012, dementia, chronic kidney stone, who presents to the hospital complaints of flank pain, as well as urinary symptoms including urgency, and dysuria. Patient is also complaining of generalized weakness. Patient is Irish-speaking only, history is obtained mostly from her son at bedside. Patient has recurrent admissions and presentation to the ED for the same. Patient has a history of kidney stone with stent placement in ureter and has had complications since. Most recent admission in June of this year. Had stone procedure and stent placed Right kidney has thinning and chronic hydronephrosis with stones Initial plan was to perform lasix renogram and assess renal function This has been ordered. STent can be removed after imaging Review of Systems Review of Systems: Yes all other systems are reviewed and are negative [facility] Past Medical History Medical History (Updated 08/30/20 @ 17:53 by Subhash Gonzalez MD) CVA (cerebral vascular accident) Dementia GERD (gastroesophageal reflux disease) Hypertension Nephrolithiasis Family History Family History Father No problems noted. Mother No problems noted. Maternal Grandmother Cancer Surgical History Surgical History H/O bilateral breast reduction surgery H/O rectal polypectomy H/O: hysterectomy History of cystoscopy History of hip surgery History of lithotripsy History of tubal ligation Hx of tonsillectomy Social History Social History Household Members: Children Housing: House Do you presently have visiting nurse or other home services: No Smoking Status: Never smoker Smoked in Last 30 Days: No Use of substances other than those prescribed or required for medical reasons: No Currently Displaying Signs/Symptoms of Drug Intoxication Withdrawal: No Have you been hit, kicked, punched, or otherwise hurt by someone within the past year? If so, by whom?: No Do you feel safe in your current relationship?: No Is there a partner from a previous relationship who is making you feel unsafe now?: No Are you made to feel afraid or neglected: No Advance Directives: No Advance Directives Information Provided: No Do you have thoughts of harming others: None Do you have a plan to hurt others: No Plan Recently lost weight without trying: No service: No Current occupational status: disabled Meds Allergies Allergy/AdvReac Type Severity Reaction Status Date / Time morphine [MORPHINE] Allergy Mild NAUSEA & Verified 08/06/20 13:23 VOMITING, vomiting Home Medications Medication Instructions Recorded Confirmed Type amlodipine 5 mg PO DAILY 07/18/20 08/29/20 History aspirin 81 mg PO DAILY 07/18/20 08/29/20 History cholecalciferol (vitamin D3) 50 mcg PO DAILY 07/18/20 08/29/20 History citalopram 10 mg PO DAILY 07/18/20 08/29/20 History memantine 5 mg PO BID 07/18/20 08/29/20 History omeprazole 20 mg PO DAILY@0630 07/18/20 08/29/20 History tamsulosin 0.4 mg PO DAILY@1730 07/18/20 08/29/20 History topiramate 50 mg PO BID 07/18/20 08/29/20 History Physical Exam Vital Signs: Vital Signs: Last Vital Signs Temp 98.1 F 08/30/20 15:11 Pulse 91 08/30/20 15:11 Resp 18 08/30/20 15:11 BP 144/56 H 08/30/20 15:11 Pulse Ox 93 08/30/20 15:11 Body Mass Index 30.6 Const: General: cooperative, healthy appearing, comfortable and no acute distress Nutritional Appearance: average body habitus Orientation/consciousness: oriented to person, oriented to place and oriented to time Eyes: General: appearance normal, both eyes and all related structures Chest: Chest palpation & inspection: normal inspection of the chest Resp: Effort & Inspection: normal respiratory effort Cardio: Rate: regular rate GI: Inspection: Yes normal to inspection Skin: Hair: normal Neuro: General: oriented to person, oriented to place and oriented to time Extrem: General: Yes normal to inspection Results Labs Result diagrams: 08/30/20 06:17 08/30/20 06:17 Labs: Abnormal lab results 08/30/20 08/30/20 Range/Units 06:17 06:17 RBC 3.64 L (4.20-5.50) X10*6/uL Hgb 9.7 L (12.0-16.0) g/dl Hct 31.1 L (37-47) % MCH 26.6 L (27.0-33.0) pg Immature Gran % (Auto) 0.7 H (0.0-0.4) % Lymph % (Auto) 15.4 L (20-40) % [place] % (Auto) 17.2 H (2-11) % [place] # (Auto) 1.4 H (0.1-1.2) X10*3/uL Abs Immat Gran (auto) 0.06 H (0.00-0.03) X10*3/uL Carbon Dioxide 21 L (22-29) mmol/L Calcium 8.3 L (8.4-10.2) mg/dL Short CBC 08/30/20 Range/Units 06:17 WBC 8.4 (4.8-10.8) X10*3/uL Hgb 9.7 L (12.0-16.0) g/dl Hct 31.1 L (37-47) % Plt Count 328 (160-400) X10*3/uL BMP 08/30/20 06:17 Sodium 135 Potassium 3.9 Chloride 104 Carbon Dioxide 21 L BUN 11 Creatinine 0.78 Calcium 8.3 L Urine 08/29/20 Range/Units 16:42 Urine Color BROWN Urine Appearance TURBID Urine pH 6.5 (5.0-8.0) Ur Specific [place] 1.025 (1.005-1.025) Urine Protein 3+ H (NEG-TRACE) MG/DL Urine Glucose (UA) 100 H (NEG) MG/DL All other labs normal. Assessment and Plan (1) Renal atrophy, right: Problem details: Plan renogram and lasix Status: Acute Lasix renogram Procedures Abscess I/D Date of Service: 08/30/20
[2020-08-30 19:30] VITALS: BP 149/54; PULSE 91; RESP 18; TEMP 37.2; O2SAT 94
[2020-08-31] VITALS: BP 91/65; PULSE 90; RESP 16; TEMP 36.7
--- NOTE | 2020-08-31 | NM_ITS ---
EXAMINATION: RENAL DYNAMIC IMAGING STUDY WITH LASIX CLINICAL INFORMATION: Atrophy of right kidney. COMPARISON: The previous study dated 09/19/2014 is available for comparison. CT scan of the abdomen and pelvis dated 08/29/2020 is also available for comparison. TECHNIQUE: Serial gamma scintillation camera images were obtained over the posterior trunk during the initial transit and subsequent distribution of a bolus intravenous injection of 10 mCi of Tc-99m DTPA. At 30 minutes later, 40 mg of Lasix was administered intravenously and an additional 30 minutes of images obtained. FINDINGS: Initial rapid sequence images show prompt and normal-appearing perfusion to the left kidney. Flow to the right kidney is not visualized. Subsequent sequential static images obtained up to 30 minutes show good concentration and the left kidney. There is evidence of excretory function by 4 minutes post injection on the left. Excretory function in the right kidney is not visualized at any time during the study. The urinary bladder is outside the [id number] for almost the entire study and its initial filling time cannot be determined. At 30 minutes postinjection there is almost complete clearance of activity from the left renal collecting system. Following Lasix administration, there is continued clearance of activity from the left renal collecting system and continued nonvisualization of activity in the right kidney. There the end of the study there is visualization of the superior aspect of the urinary bladder which appears full. A single image obtained at the end of the study shows a full urinary bladder and mild diffuse activity in the left renal parenchyma and a very faint cortical rim of activity surrounding a photopenic defect consistent with a markedly dilated hydronephrotic right renal collecting system. Meaningful T-1/2 washout times following Lasix administration cannot be calculated on either side. On the left there is almost no activity retained in the collecting system at the time of Lasix administration. On the right, no excretory function is visualized. The relative function of the two kidneys based on the 2-3 minute images are: Left 100% and right 0%. NM/NM renal flow w/wo pharm int IMPRESSION: LEFT KIDNEY: Normal perfusion and function. No hydronephrosis or outflow obstruction. RIGHT KIDNEY: Marked hydronephrosis is demonstrated by a prominent medullary void which is surrounded by a thin nonfunctioning cortical rim.
[2020-08-31] MEDS: 0.9 % Sodium Chloride Flush 3 ML SYRINGE IVFLUSH ×3 (01:06→15:49)
[2020-08-31 04:00] VITALS: BP 146/57; PULSE 88; RESP 18; TEMP 37.1; O2SAT 96
[2020-08-31] MEDS: Omeprazole 20 MG CAPSULE.DR PO (05:57)
[2020-08-31 06:54] LABS: MANUAL DIFF FLAG NO
[2020-08-31 07:00] LABS: Basophils Percent Auto 0.4 % (0-2); Eosinophils Absolute Auto 0.1 X10*3/uL (0.0-0.4); Eosinophils Percent Auto 0.8 % (0-4); Hematocrit 30.9 % (37-47); Hemoglobin 9.7 g/dl (12.0-16.0); Imm Gran Abs Auto 0.07 X10*3/uL (0.00-0.03); Imm Gran Pct Auto 0.8 % (0.0-0.4); Lymphocytes Absolute Auto 1.3 X10*3/uL (1.2-4.9); Lymphocytes Percent Auto 15.5 % (20-40); Mean Corpuscular HGB Conc 31.4 g/dl (31.0-35.0); Mean Corpuscular Hemoglobin 26.5 pg (27.0-33.0); Mean Corpuscular Volume 84.4 fL (80-98); Mean Platelet Volume 11.5 fL (9.4-12.3); Monocytes Absolute Auto 1.3 X10*3/uL (0.1-1.2); Monocytes Percent Auto 15.5 % (2-11); Neutrophils Absolute Auto 5.6 X10*3/uL (2.0-8.3); Platelet Count 339 X10*3/uL (160-400); Red Blood Count 3.66 X10*6/uL (4.20-5.50); Red Cell Distribution Width 14.4 % (11.0-16.0); White Blood Count 8.4 X10*3/uL (4.8-10.8)
[2020-08-31 07:28] LABS: Anion Gap 15 (12-20); Blood Urea Nitrogen 13 mg/dL (9-16); Calcium 8.2 mg/dL (8.4-10.2); Carbon Dioxide 21 mmol/L (22-29); Chloride 103 mmol/L (96-108); Creatinine Clr Calc Pharmacy 69.4; Estimated Glomerular Filt Rate > 60; Glucose Fasting 102 mg/dL (60-99); Potassium 3.7 mmol/l (3.3-5.1); Sodium 135 mmol/L (135-145)
[2020-08-31 08:00] VITALS: BP 145/57; PULSE 86; RESP 18; TEMP 36.7; O2SAT 95
[2020-08-31] MEDS: Aspirin 81 MG TAB.CHEW PO (09:12)
[2020-08-31] MEDS: amLODIPine Besylate 5 MG TABLET PO (09:13)
[2020-08-31] MEDS: Docusate Sodium 100 MG CAPSULE PO (09:13)
[2020-08-31] MEDS: Topiramate 25 MG TABLET 50 MG PO (09:13)
[2020-08-31] MEDS: Cholecalciferol (Vitamin D3) 25 MCG TABLET 50 MCG PO (09:13)
[2020-08-31] MEDS: Memantine HCl 5 MG TABLET PO (09:13)
--- NOTE | 2020-08-31 09:35 | HO.PM.IMPN ---
Subjective Subjective Date of Service: 08/31/20 Interval History: improved Cardiovascular Cardiovascular: Reports no additional cardiovascular complaints Respiratory Respiratory: Reports no additional respiratory complaints Physical Exam Vital Signs: Vital Signs: Last Vital Signs Temp 98.1 F 08/31/20 08:00 Pulse 86 08/31/20 08:00 Resp 18 08/31/20 08:00 BP 145/57 H 08/31/20 08:00 Pulse Ox 95 08/31/20 08:00 Body Mass Index 30.6 General: AO X 3, no acute distress Resp: CTA bilateral CVS: S1,S2,RRR GI: soft, non tender, non distended Neuro: motor grossly intact Psych: appropriate affect Objective Data Current Medications Generic Name Dose Route Start Last Admin Trade Name Freq PRN Reason Stop Dose Admin Amlodipine Besylate 5 mg 08/30/20 09:00 08/31/20 09:13 Amlodipine Besylate 5 Mg Tablet PO 5 mg DAILY MANDEEP Administration Protocol Aspirin 81 mg 08/30/20 09:00 08/31/20 09:12 Aspirin 81 Mg Tab.Chew PO 81 mg DAILY MANDEEP Administration Docusate Sodium 100 mg 08/30/20 09:00 08/31/20 09:13 Docusate Sodium 100 Mg Capsule PO 100 mg BID MANDEEP Administration Docusate Sodium 100 mg 08/29/20 22:39 Docusate Sodium 100 Mg Capsule PO DAILY PRN Constipation Enoxaparin Sodium 40 mg 08/29/20 22:00 08/30/20 22:27 Enoxaparin Sodium 40 Mg/0.4 Ml Syringe SUBCUT 40 mg Q24H MANDEEP Administration Escitalopram Oxalate 5 mg 08/30/20 09:00 08/31/20 09:14 Escitalopram Oxalate 5 Mg Tablet PO Not Given DAILY [facility] Ceftriaxone Sodium 1 gm/ 50 mls @ 100 mls/hr 08/30/20 15:00 08/30/20 15:29 Sodium Chloride IV Infused Q24H MANDEEP Infusion Memantine 5 mg 08/30/20 09:00 08/31/20 09:13 Memantine Hcl 5 Mg Tablet PO 5 mg BID MANDEEP Administration Omeprazole 20 mg 08/30/20 06:30 08/31/20 05:57 Omeprazole 20 Mg Capsule.Dr PO 20 mg DAILY@0630 MANDEEP Administration Ondansetron HCl 4 mg 08/29/20 22:39 Ondansetron Hcl 4 Mg/2 Ml Vial IVPUSH Q8H PRN Nausea and Vomiting Pharmacy Consult 1 each 08/29/20 18:56 Consult Rx Perform Med Rec MISCELLANE ONCE PRN Consult order Sodium Chloride 3 ml 08/30/20 00:00 08/31/20 09:12 0.9 % Sodium Chloride Flush 3 Ml Syringe IVFLUSH 3 ml QSHIFT MANDEEP Administration Tamsulosin HCl 0.4 mg 08/30/20 17:30 08/30/20 17:30 Tamsulosin Hcl 0.4 Mg Capsule PO 0.4 mg DAILY@1730 MANDEEP Administration Topiramate 50 mg 08/30/20 09:00 08/31/20 09:13 Topiramate 25 Mg Tablet PO 50 mg BID MANDEEP Administration Vitamin D 50 mcg 08/30/20 09:00 08/31/20 09:13 Cholecalciferol (Vitamin D3) 25 Mcg Tablet PO 50 mcg DAILY MANDEEP Administration Labs CBC & Chem 7: 08/31/20 06:36 08/31/20 06:36 Microbiology Microbiology Results: Microbiology 08/29/20 16:56 Urine Catheterized - Cherry Catheter Urine Culture - Final No growth. 08/29/20 14:37 Blood - Venous Blood Culture - Preliminary No growth after 24 hours. 08/29/20 14:25 Blood - Venous Blood Culture - Final Assessment and Plan (1) Acute left flank pain: Status: Acute (2) UTI (urinary tract infection): Status: Acute (3) Nephrolithiasis: Status: Acute (4) Hypertension: Status: Acute (5) Dementia: Status: Acute (6) CVA (cerebral vascular accident): Status: Acute Assessment and Plan: this is a 70-year-old female with past medical history as above who presents to the hospital with recurrent UTIs, in the setting of the presence of a stent in the ureter. acute flank pain with nephrolithiasis, has ureteral stent but still with hydro continue antibiotics, follow up cultures, urology appreciated plan for lasix renogram and stent removal HTN amlodipine dementia memantine history of CVA aspirin DVT prophylaxis: Lovenox
[2020-08-31 12:00] VITALS: TEMP 35.6
--- NOTE | 2020-08-31 12:43 | MHC.CM.PN ---
NURSE HAIR AND MAKEUP DESIGNER KATHARINE SANDOVAL MEEICAL RECORD REvIEWED AlONG WITH CASE DISCUSSED ON PATIENT CARE ROUNDS AND WITH STAFF NURSE .[facility] PATIENT ADMITTED WITH PAST HISTORYwho l with recurrent UTIs, in the setting of the presence of a stent in the ureter.PARTIENRHAS ACUTE FLANK PAIN WITH NEPHROLITHIASIS, DESPITE URETERAL STENT HAS HYDRONEPHROSIS, PLAN TO CONTINUE IV ANTIBIOTICS, FLLOW UP ON CULTURE RESULTS AND UROLOGIST PLANS FOR FOR LATEX RENOGRAM AND STENT REMOBVAL TODAY DISCHARGE PLAN RETURN HOME WHERE SHE LIVES WITH HER SON, MEDICAL STAFF ASSISTANT, RESUMPTION COMMISSARY CLERK THROUGH [facility] AND NEW REFERRAL TO THE [facility] FOR NURSING TRANSPORTATION TO BE FURTHER DETERMINED
[2020-08-31] MEDS: cefTRIAXone sodium 1 GM in 0.9 % Sodium Chloride 50 ML IV (14:26)
[2020-08-31] MEDS: Furosemide 40 MG/4 ML VIAL IVPUSH (14:51)
[2020-08-31 16:00] VITALS: BP 153/61; PULSE 99; RESP 19; TEMP 37.2; O2SAT 94
[2020-08-31] MEDS: Tamsulosin HCL 0.4 MG CAPSULE PO (16:24)
[2020-08-31 19:43] VITALS: BP 150/67; PULSE 83; RESP 17; TEMP 37.3; O2SAT 94
[2020-08-31] MEDS: Enoxaparin Sodium 40 MG/0.4 ML SYRINGE SUBCUT (20:54)
[2020-08-31] MEDS: ondansetron HCL 4 MG/2 ML VIAL IVPUSH (21:03)
--- NOTE | 2020-08-31 21:28 | PC.NURSE ---
Addendum entered by Mily Cardenas RN 08/31/20 22:16: patient sleeping at present,no further vomiting Original Note: P-patient vomited small amt of green liquid I-zofran administered as ordered,Dr. Osborn notified E-will monitor
[2020-09-01] VITALS: BP 141/48; PULSE 80; RESP 16; TEMP 36.6; O2SAT 100
[2020-09-01] MEDS: 0.9 % Sodium Chloride Flush 3 ML SYRINGE IVFLUSH ×2 (00:06→11:00)
[2020-09-01 03:53] VITALS: BP 119/47; PULSE 85; RESP 16; TEMP 36.8; O2SAT 95
[2020-09-01] MEDS: Omeprazole 20 MG CAPSULE.DR PO (06:23)
[2020-09-01 07:44] VITALS: BP 156/72; PULSE 89; RESP 17; TEMP 37.3; O2SAT 94
--- NOTE | 2020-09-01 09:47 | HO.PM.IMPN ---
Subjective Subjective Date of Service: 09/01/20 Interval History: no complaints Cardiovascular Cardiovascular: Reports no additional cardiovascular complaints Respiratory Respiratory: Reports no additional respiratory complaints Physical Exam Vital Signs: Vital Signs: Last Vital Signs Temp 99.2 F 09/01/20 07:44 Pulse 89 09/01/20 07:44 Resp 17 09/01/20 07:44 BP 156/72 H 09/01/20 07:44 Pulse Ox 94 09/01/20 07:44 Body Mass Index 30.6 General: AO X 3, no acute distress Resp: CTA bilateral CVS: S1,S2,RRR GI: soft, non tender, non distended Neuro: motor grossly intact Psych: appropriate affect Objective Data Current Medications Generic Name Dose Route Start Last Admin Trade Name Freq PRN Reason Stop Dose Admin Amlodipine Besylate 5 mg 08/30/20 09:00 08/31/20 09:13 Amlodipine Besylate 5 Mg Tablet PO 5 mg DAILY MANDEEP Administration Protocol Aspirin 81 mg 08/30/20 09:00 08/31/20 09:12 Aspirin 81 Mg Tab.Chew PO 81 mg DAILY [facility] Administration Docusate Sodium 100 mg 08/30/20 09:00 08/31/20 20:55 Docusate Sodium 100 Mg Capsule PO Not Given BID MANDEEP Docusate Sodium 100 mg 08/29/20 22:39 Docusate Sodium 100 Mg Capsule PO DAILY PRN Constipation Enoxaparin Sodium 40 mg 08/29/20 22:00 08/31/20 20:54 Enoxaparin Sodium 40 Mg/0.4 Ml Syringe SUBCUT 40 mg Q24H MANDEEP Administration Escitalopram Oxalate 5 mg 08/30/20 09:00 08/31/20 09:14 Escitalopram Oxalate 5 Mg Tablet PO Not Given DAILY [facility] Ceftriaxone Sodium 1 gm/ 50 mls @ 100 mls/hr 08/30/20 15:00 08/31/20 15:50 Sodium Chloride IV Infused Q24H [facility] Infusion Memantine 5 mg 08/30/20 09:00 08/31/20 20:55 Memantine Hcl 5 Mg Tablet PO Not Given BID [facility] Omeprazole 20 mg 08/30/20 06:30 09/01/20 06:23 Omeprazole 20 Mg Capsule.Dr PO 20 mg DAILY@0630 [facility] Administration Ondansetron HCl 4 mg 08/29/20 22:39 08/31/20 21:03 Ondansetron Hcl 4 Mg/2 Ml Vial IVPUSH 4 mg Q8H PRN Administration Nausea and Vomiting Pharmacy Consult 1 each 08/29/20 18:56 Consult Rx Perform Med Rec MISCELLANE ONCE PRN Consult order Sodium Chloride 3 ml 08/30/20 00:00 09/01/20 00:06 0.9 % Sodium Chloride Flush 3 Ml Syringe IVFLUSH 3 ml QSHIFT MANDEEP Administration Tamsulosin HCl 0.4 mg 08/30/20 17:30 08/31/20 16:24 Tamsulosin Hcl 0.4 Mg Capsule PO 0.4 mg DAILY@1730 MANDEEP Administration Topiramate 50 mg 08/30/20 09:00 08/31/20 20:56 Topiramate 25 Mg Tablet PO Not Given BID [facility] Vitamin D 50 mcg 08/30/20 09:00 08/31/20 09:13 Cholecalciferol (Vitamin D3) 25 Mcg Tablet PO 50 mcg DAILY MANDEEP Administration Labs CBC & Chem 7: 08/31/20 06:36 08/31/20 06:36 Microbiology Microbiology Results: Microbiology 08/29/20 14:37 Blood - Venous Blood Culture - Preliminary No growth after 48 hours. 08/29/20 16:56 Urine Catheterized - Cherry Catheter Urine Culture - Final No growth. 08/29/20 14:25 Blood - Venous Blood Culture - Final Assessment and Plan (1) Acute left flank pain: Status: Acute (2) UTI (urinary tract infection): Status: Acute (3) Nephrolithiasis: Status: Acute (4) Hypertension: Status: Acute (5) Dementia: Status: Acute (6) CVA (cerebral vascular accident): Status: Acute Assessment and Plan: this is a 70-year-old female with past medical history as above who presents to the hospital with recurrent UTIs, in the setting of the presence of a stent in the ureter. acute flank pain with nephrolithiasis, has ureteral stent but still with hydro continue antibiotics, cultures negative so far, lasix renogram showing marked hydro on right, follow up HTN amlodipine dementia memantine history of CVA aspirin DVT prophylaxis: Lovenox
--- NOTE | 2020-09-01 10:04 | PM.DS ---
DS: Providers Provider Date of admission: 08/29/20 22:13 Primary care physician: Maverick Lopez MD Consults: 08/29/20 22:39 Consult to Urology Routine Consulting Provider: Jewel Henriquez III Reason for consultation: UTI in setting of stent Has provider been notified: No DS: Diagnosis Discharge Diagnosis (1) Acute left flank pain: Status: Acute (2) UTI (urinary tract infection): Status: Acute (3) Nephrolithiasis: Status: Acute (4) Hypertension: Status: Acute (5) Dementia: Status: Acute (6) CVA (cerebral vascular accident): Status: Acute DS: Medications Discharge Medications Home Medications: Home Medications Medication Instructions Recorded Confirmed amlodipine 5 mg PO DAILY 07/18/20 08/29/20 aspirin 81 mg PO DAILY 07/18/20 08/29/20 cholecalciferol (vitamin D3) 50 mcg PO DAILY 07/18/20 08/29/20 citalopram 10 mg PO DAILY 07/18/20 08/29/20 memantine 5 mg PO BID 07/18/20 08/29/20 omeprazole 20 mg PO DAILY@0630 07/18/20 08/29/20 tamsulosin 0.4 mg PO DAILY@1730 07/18/20 08/29/20 topiramate 50 mg PO BID 07/18/20 08/29/20 Previous Rx's Medication Instructions Recorded docusate sodium 100 mg capsule 100 mg PO BID #180 cap 08/20/20 cefpodoxime 200 mg PO BID #20 tab 08/21/20 DS: Summary Hospital Course Hospital Course: patient was admitted for right flank pain due to hydronephrosis possible pyelonephritis. She was given ceftriaxone, her blood cultures and urine cultures were negative. She had a Lasix renal scan which showed clear left kidney and marked hydronephrosis and obstruction on the right. Her renal function was normal. She was seen by Urology recommended discharging outpatient follow-up for ureteral stent removal. Patient's pain is manageable and will be discharged home to complete her course of Vantin and follow-up with Urology. Time Spent with Patient Time attestation: Total time spent providing and/or coordinating discharge services: Physical Exam Vital Signs: Vital Signs: Last Vital Signs Temp 99.2 F 09/01/20 07:44 Pulse 89 09/01/20 07:44 Resp 17 09/01/20 07:44 BP 156/72 H 09/01/20 07:44 Pulse Ox 94 09/01/20 07:44 Body Mass Index 30.6 General: alert, no acute distress Resp: CTA bilateral CVS: S1,S2,RRR GI: soft, non tender, non distended Neuro: motor grossly intact Psych: appropriate affect DS: Data Data Completed and Pending Completed studies during hospitalization [Text1]: Procedures Dilation of Right Ureter with Intraluminal Device, Via Natural or Artificial Opening Endoscopic (07/17/20) Extirpation of Matter from Right Ureter, Via Natural or Artificial Opening Endoscopic (07/17/20) Fluoroscopy of Right Kidney, Ureter and Bladder (07/17/20) Labs on day of discharge: 08/29/20 14:18 XR chest 1V Stat ondansetron HCL [Zofran] 4 mg IVPUSH ONCE ONE 08/29/20 14:21 CT abdomen pelvis wo con Stat 08/29/20 14:27 cefTRIAXone sodium [Rocephin] 1 gm 0.9 % Sodium Chloride [Ns] 50 ml IV ONCE 08/29/20 14:30 0.9 % Sodium Chloride [Ns] 1,000 ml IVCONT 999 mls/hr 08/29/20 14:37 Basic Metabolic Panel Stat Complete Blood Count Auto Diff Stat Hold Lt Blue - Possible Coag Stat Lactic Acid Stat Lipase Stat Liver Panel Stat Magnesium Stat 08/29/20 15:04 cefTRIAXone sodium [Rocephin] 1 gm .ROUTE .STK-MED ONE 08/29/20 16:56 Urine Culture Routine 08/29/20 20:07 COVID-19 ID NOW (Lopez) Stat 08/29/20 22:01 Transfer Order Routine 08/30/20 06:17 Basic Metabolic Panel Routine Complete Blood Count Auto Diff Routine 08/30/20 13:50 cefTRIAXone sodium [Rocephin] 1 gm .ROUTE .STK-MED ONE 08/31/20 NM renal flow w/wo pharm int Routine 08/31/20 06:36 BMP [Basic Metabolic Panel Fasting] Routine Complete Blood Count Auto Diff Routine 08/31/20 14:21 cefTRIAXone sodium [Rocephin] 1 gm .ROUTE .STK-MED ONE 08/31/20 14:50 Furosemide [Lasix] 40 mg IVPUSH ONCE ONE Laboratory Last Values WBC 8.4 X10*3/uL (4.8-10.8) 08/31/20 06:36 RBC 3.66 X10*6/uL (4.20-5.50) L 08/31/20 06:36 Hgb 9.7 g/dl (12.0-16.0) L 08/31/20 06:36 Hct 30.9 % (37-47) L 08/31/20 06:36 MCV 84.4 fL (80-98) 08/31/20 06:36 MCH 26.5 pg (27.0-33.0) L 08/31/20 06:36 MCHC 31.4 g/dl (31.0-35.0) 08/31/20 06:36 RDW 14.4 % (11.0-16.0) 08/31/20 06:36 Plt Count 339 X10*3/uL (160-400) 08/31/20 06:36 MPV 11.5 fL (9.4-12.3) 08/31/20 06:36 Immature Gran % (Auto) 0.8 % (0.0-0.4) H 08/31/20 06:36 Neut % (Auto) 67.0 % (45-73) 08/31/20 06:36 Lymph % (Auto) 15.5 % (20-40) L 08/31/20 06:36 [place] % (Auto) 15.5 % (2-11) H 08/31/20 06:36 Eos % (Auto) 0.8 % (0-4) 08/31/20 06:36 Baso % (Auto) 0.4 % (0-2) 08/31/20 06:36 Lymph # (Auto) 1.3 X10*3/uL (1.2-4.9) 08/31/20 06:36 [place] # (Auto) 1.3 X10*3/uL (0.1-1.2) H 08/31/20 06:36 Eos # (Auto) 0.1 X10*3/uL (0.0-0.4) 08/31/20 06:36 Baso # (Auto) 0.0 X10*3/uL (0.0-0.2) 08/31/20 06:36 Abs Immat Gran (auto) 0.07 X10*3/uL (0.00-0.03) H 08/31/20 06:36 Absolute Neuts (auto) 5.6 X10*3/uL (2.0-8.3) 08/31/20 06:36 Absolute Nucleated RBC 0.000 X10*3/uL (0.0-0.012) 08/31/20 06:36 Nucleated RBC % (auto) 0.0 /100WBC (0.0-0.2) 08/31/20 06:36 Hold Blue Top SEE NOTE 08/29/20 14:37 Sodium 135 mmol/L (135-145) 08/31/20 06:36 Potassium 3.7 mmol/l (3.3-5.1) 08/31/20 06:36 Chloride 103 mmol/L (96-108) 08/31/20 06:36 Carbon Dioxide 21 mmol/L (22-29) L 08/31/20 06:36 Anion Gap 15 (12-20) 08/31/20 06:36 BUN 13 mg/dL (9-16) 08/31/20 06:36 Creatinine 0.81 mg/dL (0.5-1.4) 08/31/20 06:36 Estim Creat Clear Calc 69.4 08/31/20 06:36 Estimated GFR > 60 08/31/20 06:36 Random Glucose 108 mg/dL (60-115) 08/30/20 06:17 Fasting Glucose 102 mg/dL (60-99) H 08/31/20 06:36 Lactic Acid 0.8 mmol/L (0.5-2.0) 08/29/20 14:37 Calcium 8.2 mg/dL (8.4-10.2) L 08/31/20 06:36 Magnesium 2.1 mg/dL (1.6-2.6) 08/29/20 14:37 Total Bilirubin 0.5 mg/dL (0.0-1.0) 08/29/20 14:37 Direct Bilirubin 0.2 mg/dL (0.0-0.5) 08/29/20 14:37 AST 14 U/L (5-31) 08/29/20 14:37 ALT 8 U/L (0-31) 08/29/20 14:37 Alkaline Phosphatase 83 U/L (39-117) 08/29/20 14:37 Total Protein 8.0 g/dL (6.5-8.0) 08/29/20 14:37 Albumin 3.5 g/dL (3.5-5.0) 08/29/20 14:37 Lipase 4 U/L (8-78) L 08/29/20 14:37 Urine Color BROWN 08/29/20 16:42 Urine Appearance TURBID 08/29/20 16:42 Urine pH 6.5 (5.0-8.0) 08/29/20 16:42 Ur Specific [place] 1.025 (1.005-1.025) 08/29/20 16:42 Urine Protein 3+ MG/DL (NEG-TRACE) H 08/29/20 16:42 Urine Glucose (UA) 100 MG/DL (NEG) H 08/29/20 16:42 Urine Ketones 15 MG/DL (NEG) 08/29/20 16:42 Urine Blood 3+ (NEG) H 08/29/20 16:42 Urine Nitrite POS (NEG) H 08/29/20 16:42 Ur Leukocyte Esterase 3+ (NEG) H 08/29/20 16:42 Urine RBC 10-14 /HPF (0) H 08/29/20 16:42 Urine WBC TNTC /HPF (0-4) H 08/29/20 16:42 Ur Squamous Epith Cells TRACE /LPF 08/29/20 16:42 Urine Bacteria 3+ /LPF 08/29/20 16:42 COVID-19 (DOMINIK) Negative (Negative) 08/29/20 20:07 COVID-19 Clin Com See Note 08/29/20 20:07 Preliminary micro results at discharge 08/29/20 14:37 Blood Culture - Preliminary Blood - Venous No growth after 48 hours. Discharge Plan Discharge Patient Disposition: Home, Self-Care Referrals: Jessica (LIAN),MD Maverick [Primary Care Provider] - Discharge Medications: Continued docusate sodium 100 mg capsule 100 mg PO BID Qty: 180 RF: 8 citalopram 10 mg tablet 10 mg PO DAILY RF: 0 amlodipine 5 mg tablet 5 mg PO DAILY RF: 0 tamsulosin 0.4 mg capsule 0.4 mg PO DAILY@1730 RF: 0 omeprazole 20 mg capsule,delayed release(DR/EC) 20 mg PO DAILY@0630 RF: 0 aspirin 81 mg tablet,chewable 81 mg PO DAILY RF: 0 memantine 5 mg tablet 5 mg PO BID RF: 0 topiramate 50 mg tablet 50 mg PO BID RF: 0 cholecalciferol (vitamin D3) 50 mcg (2,000 unit) tablet 50 mcg PO DAILY RF: 0 cefpodoxime 200 mg tablet 200 mg PO BID Qty: 20 RF: 0 Discharge Orders: Discharge Order (Routine); Ordered 09/01/20 Ordered By: Rasta Heramn Activity on Discharge: As tolerated Visit Report Forms: Patient Portal Discharge page Care Plan Goals: manage hydro Health Concerns: right hydro Plan of Treatment: follow up with dr yost, finish antibiotic course
--- NOTE | 2020-09-01 10:24 | P.F2F_ITS ---
Service Date Service Date: 09/01/20 Reasons for Services Homebound: Leaving the home is medically contraindicated at this time without the asist of a device and/or another person due th the listed conditions above and below. Certification: Based on the above findings, I certify that this patient is confined to the home and needs intermittent retirement care, physical therapy and/or speech therapy, or continues to need occupational therapy. The patient is under my care, and I have initiated the establishment of the plan of care. The patient will be followed by a physician who will periodically review the plan of care.
--- NOTE | 2020-09-01 10:24 | MHC.CM.PN ---
Addendum entered by Melisa Cleaning 09/01/20 10:37: PER CONVERSATION WITH COVERING CHARGING CAR OPERATOR, [facility] WILL NEED TO BE CALLED THURSDAY FOR AUTH, UNIT WAS NOT SURE IF PATIENT WAS GOING TO NEED OR NOT. RN CAITLYN, HAD CONVERSATION WITH [facility] REP TO LET HER KNOW IT WAS A POSSIBILITY. Original Note: PATIENT IS DISCHARGED HOME WITH A NEW [facility] REFERRAL FOR SERVICES. RN AND PATIENT AWARE OF PLAN. IMM 08/30 IN CHART.
[2020-09-01] MEDS: Topiramate 25 MG TABLET 50 MG PO (11:01)
[2020-09-01] MEDS: Cholecalciferol (Vitamin D3) 25 MCG TABLET 50 MCG PO (11:01)
[2020-09-01] MEDS: Memantine HCl 5 MG TABLET PO (11:01)
[2020-09-01] MEDS: Aspirin 81 MG TAB.CHEW PO (11:01)
[2020-09-01] MEDS: Escitalopram Oxalate 5 MG TABLET PO (11:01)
[2020-09-01 11:02] VITALS: BP 132/49; PULSE 86
[2020-09-01] MEDS: amLODIPine Besylate 5 MG TABLET PO (11:02)
[2020-09-01] MEDS: Docusate Sodium 100 MG CAPSULE PO (11:02)
== END 2020-09-01 12:40 | disposition home health service (06) | DRG 690 ==
LOC: HO.ED 19:14 → HO.S3 22:37
PROVIDERS: Emergency Medicine; Admitting Provider Internal Medicine; Emergency Provider Emergency Medicine Emergency Medical Services; PCP Internal Medicine; Visit Provider Internal Medicine
DX: N13.6 Pyonephrosis (principal); F03.90 Unspecified dementia, unspecified severity, without behavioral disturbance, psychotic disturbance, mood disturbance, and anxiety; I10 Essential (primary) hypertension; Z20.828 Contact with and (suspected) exposure to other viral communicable diseases; Z87.440 Personal history of urinary (tract) infections; Z87.442 Personal history of urinary calculi; Z79.82 Long term (current) use of aspirin; Z79.899 Other long term (current) drug therapy
CPT/HCPCS: 36415; 71045; 74176; 78709; 80048; 80076; 81001; 83605; 83690; 83735; 85025; 87040; 87086; 87635; 96365; 96375; 99285; A9539; J0696; J1650; J1940; J2405

== ENCOUNTER → 2020-09-11 15:57 | Outpatient (BNVA) | payer MEDICARE, SELFPAY | PROVIDERS: PCP Internal Medicine; Visit Provider Urology | DX: Z76.89 Persons encountering health services in other specified circumstances (principal) | CPT/HCPCS: Q3014 ==

== ENCOUNTER 2020-09-12 14:23 | Outpatient (REF) | payer MEDICARE, SELFPAY | END 2020-09-12 14:24 | disposition home or self-care (01) | LOC: HO.LNP 14:23 | PROVIDERS: Visit Provider Internal Medicine | DX: N39.0 Urinary tract infection, site not specified (principal) | CPT/HCPCS: 87086; 87088; 87186 ==

== ENCOUNTER 2020-09-20 17:11 | Inpatient (IN) | payer MEDICARE, SELFPAY ==
[2020-09-20 17:28] VITALS: BP 143/50; PULSE 90; RESP 18; TEMP 37.1; O2SAT 95; BMI 28.0
--- NOTE | 2020-09-20 17:52 | ED.GENADULT ---
HPI - General Adult General Chief complaint: Abdominal Pain Stated complaint: abormal urine labs being treated for uti Time Seen by Provider: 09/20/20 17:30 Source: EMS Mode of arrival: EMS Related Data Home Medications Medication Instructions Recorded Confirmed amlodipine 5 mg PO DAILY 07/18/20 09/10/20 aspirin 81 mg PO DAILY 07/18/20 09/10/20 cholecalciferol (vitamin D3) 50 mcg PO DAILY 07/18/20 09/10/20 citalopram 10 mg PO DAILY 07/18/20 09/10/20 memantine 5 mg PO BID 07/18/20 09/10/20 omeprazole 20 mg PO DAILY@0630 07/18/20 09/10/20 topiramate 50 mg PO BID 07/18/20 09/10/20 miscellaneous medical supply 1 ea MISCELLANEOUS DAILY ea 09/20/20 Previous Rx's Medication Instructions Recorded docusate sodium 100 mg capsule 100 mg PO BID #180 cap 08/20/20 cefpodoxime 200 mg PO BID #20 tab 08/21/20 tamsulosin 0.4 mg capsule 0.4 mg PO DAILY #28 cap 09/19/20 Allergies Allergy/AdvReac Type Severity Reaction Status Date / Time morphine [MORPHINE] Allergy Mild NAUSEA & Verified 08/06/20 13:23 VOMITING, vomiting Review of Systems Review of Systems: Yes Unobtainable due to mental status PMFSH Past Medical History Medical History CVA (cerebral vascular accident) Dementia GERD (gastroesophageal reflux disease) Hypertension Nephrolithiasis UTI (urinary tract infection) Surgical History H/O bilateral breast reduction surgery H/O rectal polypectomy H/O: hysterectomy History of cystoscopy History of hip surgery History of lithotripsy History of tubal ligation Hx of tonsillectomy Family History Family History Father No problems noted. Mother No problems noted. Maternal Grandmother Cancer Social History Social History Household Members: Children Housing: House Alcohol intake: never Smoking Status: Never smoker service: No Current occupational status: disabled Physical Exam Vital Signs: Vital Signs: Last Vital Signs Temp 98.7 F 09/20/20 17:28 Pulse 90 09/20/20 17:28 Resp 18 09/20/20 17:28 BP 143/50 H 09/20/20 17:28 Pulse Ox 95 09/20/20 17:28 Body Mass Index 28.0 Appearance: Alert. nonverbal No acute distress. Eyes: Pupils equal, round and reactive to light. ENT: Pharynx normal. Neck: Normal inspection. Neck supple. CVS: Normal heart rate and rhythm. Pulses normal. Respiratory: No respiratory distress. Breath sounds normal. Abdomen: Soft and nontender. Skin: Skin warm and dry. Normal skin color. Normal skin turgor. Extremities: No lower extremity edema. Good range of movement Neuro: Alert, No motor deficit. No sensory deficit. Discharge Plan Discharge Prescriptions: No Action docusate sodium 100 mg capsule 100 mg PO BID Qty: 180 RF: 8 tamsulosin 0.4 mg capsule 0.4 mg PO DAILY Qty: 28 RF: 6 miscellaneous medical supply Misc 1 ea miscellaneous DAILY RF: 0 citalopram 10 mg tablet 10 mg PO DAILY RF: 0 amlodipine 5 mg tablet 5 mg PO DAILY RF: 0 omeprazole 20 mg capsule,delayed release(DR/EC) 20 mg PO DAILY@0630 RF: 0 aspirin 81 mg tablet,chewable 81 mg PO DAILY RF: 0 memantine 5 mg tablet 5 mg PO BID RF: 0 topiramate 50 mg tablet 50 mg PO BID RF: 0 cholecalciferol (vitamin D3) 50 mcg (2,000 unit) tablet 50 mcg PO DAILY RF: 0 cefpodoxime 200 mg tablet 200 mg PO BID Qty: 20 RF: 0
[2020-09-20 18:16] LABS: MANUAL DIFF FLAG NO
[2020-09-20 18:23] LABS: Basophils Percent Auto 0.3 % (0-2); Eosinophils Absolute Auto 0.1 X10*3/uL (0.0-0.4); Eosinophils Percent Auto 1.4 % (0-4); Hematocrit 32.1 % (37-47); Hemoglobin 9.8 g/dl (12.0-16.0); Lymphocytes Absolute Auto 1.1 X10*3/uL (1.2-4.9); Lymphocytes Percent Auto 11.1 % (20-40); Mean Corpuscular HGB Conc 30.5 g/dl (31.0-35.0); Mean Corpuscular Hemoglobin 25.5 pg (27.0-33.0); Mean Corpuscular Volume 83.6 fL (80-98); Mean Platelet Volume 10.1 fL (9.4-12.3); Monocytes Absolute Auto 0.9 X10*3/uL (0.1-1.2); Neutrophils Absolute Auto 7.5 X10*3/uL (2.0-8.3); Neutrophils Percent Auto 77.2 % (45-73); Platelet Count 340 X10*3/uL (160-400); Red Blood Count 3.84 X10*6/uL (4.20-5.50); Red Cell Distribution Width 15.4 % (11.0-16.0); White Blood Count 9.8 X10*3/uL (4.8-10.8)
[2020-09-20 18:36] LABS: Anion Gap 15 (12-20); Blood Urea Nitrogen 14 mg/dL (9-16); Carbon Dioxide 22 mmol/L (22-29); Chloride 104 mmol/L (96-108); Creatinine Clr Calc Pharmacy 53.9; Estimated Glomerular Filt Rate 55; Glucose Random 143 mg/dL (60-115); Potassium 3.6 mmol/l (3.3-5.1); Sodium 137 mmol/L (135-145)
[2020-09-20 18:38] LABS: Alanine Aminotransferase 21 U/L (0-31); Alkaline Phosphatase 107 U/L (39-117); Aspartate Amino Transferase 23 U/L (5-31); Bilirubin Direct 0.2 mg/dL (0.0-0.5); Bilirubin Total 0.4 mg/dL (0.0-1.0); Total Protein 8.9 g/dL (6.5-8.0)
[2020-09-20 18:42] LABS: Glucose Urine UA 100 MG/DL (NEG); Nitrite Urine POS (NEG); Specific Gravity - Urine >= 1.030 (1.005-1.025); Urine Blood 2+ (NEG); Urine Ketones 5 MG/DL (NEG); Urine Protein 2+ MG/DL (NEG-TRACE)
[2020-09-20] MEDS: 0.9 % Sodium Chloride 1,000 ML 999 ML IVCONT (18:56)
[2020-09-20 19:01] LABS: Appearance Urine TURBID; Color Urine BROWN
[2020-09-20 19:02] LABS: Leukocyte Esterase Urine 3+ (NEG)
[2020-09-20 19:03] LABS: Bacteria Urine 3+ /LPF; WBC Urine TNTC /HPF (0-4)
[2020-09-20] MEDS: cefTRIAXone sodium 1 GM in 0.9 % Sodium Chloride 50 ML IV (20:20)
[2020-09-20 20:21] VITALS: BP 156/66; PULSE 93; RESP 16; O2SAT 95
[2020-09-20 21:40] LABS: Influenza A PCR NEGATIVE (Negative); Influenza B PCR NEGATIVE (Negative); Resp Syncy Virus RNA Qual PCR NEGATIVE (Negative); SARS COV2 PCR INHOUSE NEGATIVE (Negative)
[2020-09-20 22:46] VITALS: BP 154/62; PULSE 91; RESP 16; O2SAT 100
--- NOTE | 2020-09-20 23:55 | PM.IMHP ---
History of Present Illness Date of Service: 09/20/20 Chief Complaint: AMS 70 y/o female with an extensive PMHX who presented from home due to AMS/ Abdominal pain. Per history provided by the ED attending as pateint is nonverbal at present. Is that patient presented from home due ot abdominal discomfort and AMS. It is questionable at present if this is patient's baseline status. On presentation vitals signs show BP of 150/60 HR of 90, no evidence of any episode of fever, no leukocytosis, Hgb of 9.8, creatinine normal, UA positive for UTI. Decision for admission given. Patient seen and examined at the bedside, laying down in bed in no acute distress. ROS unable to be obtained as patient is minimally verbal. Physical exam positive for bilateral LE and UE weakness 2/5 throughout which could be residual deficits from previous stroke in the past. Abdomen benigng, nontender, none distended, no masses palpated. PMHX: CVA (cerebral vascular accident) Dementia GERD (gastroesophageal reflux disease) Hypertension Nephrolithiasis UTI (urinary tract infection) PSX: H/O bilateral breast reduction surgery H/O rectal polypectomy H/O: hysterectomy History of cystoscopy History of hip surgery History of lithotripsy History of tubal ligation Hx of tonsillectomy Toxic habits: No hx of alcohol abuse, smoking or IVDA Review of Systems Gastrointestinal: Gastrointestinal: Reports abdominal pain PMFSH Medical History CVA (cerebral vascular accident) Dementia GERD (gastroesophageal reflux disease) Hypertension Nephrolithiasis UTI (urinary tract infection) Functional capacity: bed bound Family History Father No problems noted. Mother No problems noted. Maternal Grandmother Cancer Family history: reviewed and not pertinent Surgical History H/O bilateral breast reduction surgery H/O rectal polypectomy H/O: hysterectomy History of cystoscopy History of hip surgery History of lithotripsy History of tubal ligation Hx of tonsillectomy Social History Household Members: Children Housing: House Alcohol intake: unknown Smoking Status: Unknown if ever smoked Use of substances other than those prescribed or required for medical reasons: No Advance Directives: No Advance Directives Information Provided: Yes service: No Current occupational status: disabled Meds Allergies Allergy/AdvReac Type Severity Reaction Status Date / Time morphine [MORPHINE] Allergy Mild NAUSEA & Verified 08/06/20 13:23 VOMITING, vomiting Home Medications Medication Instructions Recorded Confirmed Type amlodipine 5 mg PO DAILY 07/18/20 09/10/20 History aspirin 81 mg PO DAILY 07/18/20 09/10/20 History cholecalciferol (vitamin D3) 50 mcg PO DAILY 07/18/20 09/10/20 History citalopram 10 mg PO DAILY 07/18/20 09/10/20 History memantine 5 mg PO BID 07/18/20 09/10/20 History omeprazole 20 mg PO DAILY@0630 07/18/20 09/10/20 History topiramate 50 mg PO BID 07/18/20 09/10/20 History miscellaneous medical supply 1 ea MISCELLANEOUS DAILY ea 09/20/20 History Physical Exam Vital Signs and Narrative: Vital Signs: Last Vital Signs Temp 98.7 F 09/20/20 17:28 Pulse 91 09/20/20 22:46 Resp 16 09/20/20 22:46 BP 154/62 H 09/20/20 22:46 Pulse Ox 100 09/20/20 22:46 Body Mass Index 28.0 Const: General: cooperative, comfortable and no acute distress HENMT: Head: Yes normal to inspection Eyes: General: appearance normal, both eyes and all related structures Neck: Yes normal visual inspection Chest: Chest palpation & inspection: normal inspection of the chest Resp: Effort & Inspection: normal respiratory effort Auscultation: clear to auscultation bilaterally Cardio: Jugular venous distension: no JVD Rate: regular rate Rhythm: regular rhythm Heart sounds: S1 normal heart sound present and S2 normal heart sound present GI: Inspection: Yes normal to inspection Skin: General skin exam: no rashes or lesions noted Neuro: General: other (bilateral UE and LE 2/5 in strength, sensation preserved ) Extrem: General: Yes normal to inspection Results Labs CBC and Chem 7: 09/20/20 18:08 09/20/20 18:08 Labs: Laboratory Results - last 24 hr 09/20/20 09/20/20 09/20/20 18:08 18:08 18:08 MCV 83.6 MCH 25.5 L MCHC 30.5 L RDW 15.4 Plt Count 340 MPV 10.1 Immature Gran % (Auto) 1.0 H Neut % (Auto) 77.2 H Lymph % (Auto) 11.1 L Walker % (Auto) 9.0 Eos % (Auto) 1.4 Baso % (Auto) 0.3 Lymph # (Auto) 1.1 L [place] # (Auto) 0.9 Eos # (Auto) 0.1 Baso # (Auto) 0.0 Abs Immat Gran (auto) 0.10 H Absolute Neuts (auto) 7.5 Absolute Nucleated RBC 0.000 Nucleated RBC % (auto) 0.0 Anion Gap 15 Estim Creat Clear Calc 53.9 Estimated GFR 55 Random Glucose 143 H Lactic Acid Calcium 9.0 D Total Bilirubin 0.4 Direct Bilirubin 0.2 AST 23 D ALT 21 Alkaline Phosphatase 107 D Total Protein 8.9 H Albumin 3.0 L Urine Color Urine Appearance Urine pH Ur Specific [place] Urine Protein Urine Glucose (UA) Urine Ketones Urine Blood Urine Nitrite Ur Leukocyte Esterase Urine RBC Urine WBC Ur Squamous Epith Cells Urine Bacteria Coronavirus (PCR) Influenza Type A (PCR) Influenza Type B (PCR) RSV RNA Qual (PCR) 09/20/20 09/20/20 09/20/20 18:08 18:26 20:58 MCV MCH MCHC RDW Plt Count MPV Immature Gran % (Auto) Neut % (Auto) Lymph % (Auto) Walker % (Auto) Eos % (Auto) Baso % (Auto) Lymph # (Auto) Walker # (Auto) Eos # (Auto) Baso # (Auto) Abs Immat Gran (auto) Absolute Neuts (auto) Absolute Nucleated RBC Nucleated RBC % (auto) Anion Gap Estim Creat Clear Calc Estimated GFR Random Glucose Lactic Acid 1.0 Calcium Total Bilirubin Direct Bilirubin AST ALT Alkaline Phosphatase Total Protein Albumin Urine Color BROWN Urine Appearance TURBID Urine pH 6.0 Ur Specific [place] >= 1.030 H Urine Protein 2+ H Urine Glucose (UA) 100 H Urine Ketones 5 Urine Blood 2+ H Urine Nitrite POS H Ur Leukocyte Esterase 3+ H Urine RBC 10-14 H Urine WBC TNTC H Ur Squamous Epith Cells NONE Urine Bacteria 3+ Coronavirus (PCR) NEGATIVE Influenza Type A (PCR) NEGATIVE Influenza Type B (PCR) NEGATIVE RSV RNA Qual (PCR) NEGATIVE Assessment and Plan (1) UTI (urinary tract infection): Qualifiers: Hematuria presence: without hematuria Urinary tract infection type: acute cystitis Qualified Code(s): N30.00 - Acute cystitis without hematuria Status: Acute AMS/Weakness likely secondary to underlying infectious process S/p one dose of rocephin in the ED Continue with Rocephin for gram neg coverage Follow up Bcx and Ucx continue with flomax home dose Infectious diseaee consult in the am (2) Weakness: Status: Acute as stated above (3) Hypertension: Status: Acute continue with amlodipine home dose (4) CVA (cerebral vascular accident): Status: Acute continue with aspirin home dose continue with topamax home dose for seizures ppx (5) Dementia: Status: Acute continue with memantine home dose continue with citalopram home dose for underlying psychiatric disorder (6) Constipation: Status: Acute continue with colace home dose
[2020-09-21] VITALS (7 sets, daily range): BP systolic 135–154; BP diastolic 55–66; PULSE 84–98; RESP 14–20; TEMP 36.8–36.9; O2SAT 95–100
[2020-09-21] MEDS: Heparin Sodium,Porcine 5,000 UNIT/ML VIAL 5000 UNIT SUBCUT ×3 (01:21→17:36)
[2020-09-21 06:10] LABS: MANUAL DIFF FLAG NO
[2020-09-21 06:46] LABS: Basophils Percent Auto 0.4 % (0-2); Eosinophils Absolute Auto 0.1 X10*3/uL (0.0-0.4); Hematocrit 32.4 % (37-47); Hemoglobin 9.9 g/dl (12.0-16.0); Imm Gran Abs Auto 0.06 X10*3/uL (0.00-0.03); Imm Gran Pct Auto 0.9 % (0.0-0.4); Lymphocytes Absolute Auto 1.4 X10*3/uL (1.2-4.9); Lymphocytes Percent Auto 19.8 % (20-40); Mean Corpuscular HGB Conc 30.6 g/dl (31.0-35.0); Mean Corpuscular Hemoglobin 25.4 pg (27.0-33.0); Mean Corpuscular Volume 83.1 fL (80-98); Mean Platelet Volume 10.7 fL (9.4-12.3); Monocytes Percent Auto 14.7 % (2-11); Neutrophils Absolute Auto 4.4 X10*3/uL (2.0-8.3); Neutrophils Percent Auto 62.2 % (45-73); Platelet Count 337 X10*3/uL (160-400); Red Cell Distribution Width 15.3 % (11.0-16.0)
[2020-09-21 06:47] LABS: Anion Gap 14 (12-20); Blood Urea Nitrogen 13 mg/dL (9-16); Calcium 8.5 mg/dL (8.4-10.2); Carbon Dioxide 21 mmol/L (22-29); Chloride 107 mmol/L (96-108); Estimated Glomerular Filt Rate > 60; Glucose Random 108 mg/dL (60-115); Potassium 3.8 mmol/l (3.3-5.1); Sodium 138 mmol/L (135-145)
[2020-09-21] MEDS: Docusate Sodium 100 MG CAPSULE PO ×2 (09:15→20:01)
[2020-09-21] MEDS: Topiramate 25 MG TABLET 50 MG PO ×2 (09:15→20:01)
[2020-09-21] MEDS: Aspirin 81 MG TAB.CHEW PO (09:15)
[2020-09-21] MEDS: Memantine HCl 5 MG TABLET PO ×2 (09:15→20:01)
[2020-09-21] MEDS: Escitalopram Oxalate 5 MG TABLET PO (09:15)
[2020-09-21] MEDS: Tamsulosin HCL 0.4 MG CAPSULE PO (09:15)
[2020-09-21] MEDS: 0.9 % Sodium Chloride Flush 3 ML SYRINGE IVFLUSH ×3 (09:16→20:01)
[2020-09-21] MEDS: amLODIPine Besylate 5 MG TABLET PO (09:16)
--- NOTE | 2020-09-21 11:39 | MHC.CM.PN ---
CM spoke with dtr/HCP Misty by phone who reports patient is dependent for care and able to transfer with assist of 1 to W/C. Patient lives with her and son. Patient does have a HCP and a copy is on file. Discussed discharge plan, home with resumption of [facility] and [facility] services. Dtr Misty [phone] will provide tramsportation. CM will continue to follow for discharge needs.
--- NOTE | 2020-09-21 15:48 | P.CNID_ITS ---
History of Present Illness Data of Consult Service Date: 09/21/20 Requesting physician: Rafael Villasenor Primary Care Provider: Unknown Physician HPI Reason for consult: hematuria ?infection She presents with hematuria for a day She is nonverbal She didnt seem to have any abdominal pain,nausea,diarrhea or vomiting No one else is ill Urine shows gram negative rods Review of Systems Review of Systems: Yes Unobtainable due to mental status PMFSH Past Medical History Medical History CVA (cerebral vascular accident) Dementia GERD (gastroesophageal reflux disease) Hypertension Nephrolithiasis UTI (urinary tract infection) Functional capacity: bed bound Family History Family History Father No problems noted. Mother No problems noted. Maternal Grandmother Cancer Family history: reviewed and not pertinent Surgical History Surgical History H/O bilateral breast reduction surgery H/O rectal polypectomy H/O: hysterectomy History of cystoscopy History of hip surgery History of lithotripsy History of tubal ligation Hx of tonsillectomy Social History Social History Household Members: Unknown / Unable to assess Housing: Unknown / Unable to assess Alcohol intake: unknown Smoking Status: Unknown if ever smoked service: No Current occupational status: disabled Meds Allergies Allergy/AdvReac Type Severity Reaction Status Date / Time morphine [MORPHINE] Allergy Mild NAUSEA & Verified 08/06/20 13:23 VOMITING, vomiting Home Medications Medication Instructions Recorded Confirmed Type amlodipine 5 mg PO DAILY 07/18/20 09/21/20 History aspirin 81 mg PO DAILY 07/18/20 09/21/20 History cholecalciferol (vitamin D3) 50 mcg PO DAILY 07/18/20 09/21/20 History citalopram 10 mg PO DAILY 07/18/20 09/21/20 History memantine 5 mg PO BID 07/18/20 09/21/20 History omeprazole 20 mg PO DAILY@0630 07/18/20 09/21/20 History topiramate 50 mg PO BID 07/18/20 09/21/20 History miscellaneous medical supply 1 ea MISCELLANEOUS DAILY ea 09/20/20 09/21/20 History Physical Exam Vital Signs: Vital Signs: Last Vital Signs Temp 98.2 F 09/21/20 15:37 Pulse 85 09/21/20 15:37 Resp 18 09/21/20 15:37 BP 154/66 H 09/21/20 15:37 Pulse Ox 98 09/21/20 15:37 Body Mass Index 28.0 Const: General: no acute distress HENMT: Head: Yes normal to inspection Mouth: oropharynx normal Eyes: General: appearance normal, both eyes and all related structures Resp: Effort & Inspection: normal respiratory effort Cardio: Rate: regular rate Rhythm: regular rhythm GI: Inspection: Yes normal to inspection Palpation (GI): nontender : General: Yes no CVA tenderness Back/Spine/Pelvis: Back: no CVA tenderness Skin: General skin exam: no rashes or lesions noted Neuro: Other: weakness bilateral upper and lower extremities Assessment and Plan (1) UTI (urinary tract infection): Qualifiers: Hematuria presence: without hematuria Urinary tract infection type: acute cystitis Qualified Code(s): N30.00 - Acute cystitis without hematuria Problem details: Prior strep sanguinous in urine Now gram negative rods No ESBL seen Status: Acute Would continue Ceftriaxone Watch urine and blood cultures Await final results (2) Weakness: Status: Acute (3) CVA (cerebral vascular accident): Status: Acute Results Labs CBC & Chem 7: 09/21/20 05:21 09/21/20 05:21 Labs: Short CBC 09/20/20 09/21/20 Range/Units 18:08 05:21 WBC 9.8 7.0 (4.8-10.8) X10*3/uL Hgb 9.8 L 9.9 L (12.0-16.0) g/dl Hct 32.1 L 32.4 L (37-47) % Plt Count 340 337 (160-400) X10*3/uL BMP 09/20/20 09/21/20 18:08 05:21 Sodium 137 138 Potassium 3.6 3.8 Chloride 104 107 Carbon Dioxide 22 21 L BUN 14 13 Creatinine 1.00 0.78 Calcium 9.0 D 8.5 Liver Function 09/20/20 Range/Units 18:08 Total Bilirubin 0.4 (0.0-1.0) mg/dL Direct Bilirubin 0.2 (0.0-0.5) mg/dL AST 23 D (5-31) U/L ALT 21 (0-31) U/L Alkaline Phosphatase 107 D (39-117) U/L Albumin 3.0 L (3.5-5.0) g/dL Urine 09/20/20 Range/Units 18:26 Urine Color BROWN Urine Appearance TURBID Urine pH 6.0 (5.0-8.0) Ur Specific [place] >= 1.030 H (1.005-1.025) Urine Protein 2+ H (NEG-TRACE) MG/DL Urine Glucose (UA) 100 H (NEG) MG/DL Microbiology Microbiology Results: Microbiology 09/20/20 18:45 Urine clean catch - Clean Catch Midstream Urine Culture - Preliminary Gram negative shila
--- NOTE | 2020-09-21 16:17 | HO.PM.IMPN ---
Subjective Subjective Date of Service: 09/21/20 Interval History: seen and examined not talking but shakes head no to pain Physical Exam Vital Signs: Vital Signs: Last Vital Signs Temp 98.2 F 09/21/20 15:37 Pulse 85 09/21/20 15:37 Resp 18 09/21/20 15:37 BP 154/66 H 09/21/20 15:37 Pulse Ox 98 09/21/20 15:37 Body Mass Index 28.0 Const: Other: General - no acute distress, appears comfortable Cardiovascular - regular rate and rhythm, S1-S2 Lungs - normal respiratory effort, clear to auscultation bilaterally, no wheezing Abdomen - soft, nontender, no rebound or guarding Extremities - no edema bilaterally Neuro - not talking Objective Data Current Medications Generic Name Dose Route Start Last Admin Trade Name Freq PRN Reason Stop Dose Admin Amlodipine Besylate 5 mg 09/21/20 09:00 09/21/20 09:16 Amlodipine Besylate 5 Mg Tablet PO 5 mg DAILY MANDEEP Administration Protocol Aspirin 81 mg 09/21/20 09:00 09/21/20 09:15 Aspirin 81 Mg Tab.Chew PO 81 mg DAILY MANDEEP Administration Docusate Sodium 100 mg 09/21/20 09:00 09/21/20 09:15 Docusate Sodium 100 Mg Capsule PO 100 mg BID MANDEEP Administration Escitalopram Oxalate 5 mg 09/21/20 09:00 09/21/20 09:15 Escitalopram Oxalate 5 Mg Tablet PO 5 mg DAILY MANDEEP Administration Heparin Sodium (Porcine) 5,000 unit 09/21/20 00:32 09/21/20 09:16 Heparin Sodium,Porcine 5,000 Unit/Ml Vial SUBCUT 5,000 unit Q8H MANDEEP Administration Ceftriaxone Sodium 1 gm/ 50 mls @ 100 mls/hr 09/21/20 20:00 Sodium Chloride IV Q24H MANDEEP Memantine 5 mg 09/21/20 09:00 09/21/20 09:15 Memantine Hcl 5 Mg Tablet PO 5 mg BID MANDEEP Administration Omeprazole 20 mg 09/21/20 06:30 09/21/20 06:48 Omeprazole 20 Mg Capsule.Dr PO Not Given DAILY@0630 MANDEEP Sodium Chloride 3 ml 09/21/20 08:00 09/21/20 15:48 0.9 % Sodium Chloride Flush 3 Ml Syringe IVFLUSH 3 ml QSHIFT MANDEEP Administration Tamsulosin HCl 0.4 mg 09/21/20 09:00 09/21/20 09:15 Tamsulosin Hcl 0.4 Mg Capsule PO 0.4 mg DAILY MANDEEP Administration Topiramate 50 mg 09/21/20 09:00 09/21/20 09:15 Topiramate 25 Mg Tablet PO 50 mg BID MANDEEP Administration Labs CBC & Chem 7: 09/21/20 05:21 09/21/20 05:21 Microbiology Microbiology Results: Microbiology 09/20/20 18:45 Urine clean catch - Clean Catch Midstream Urine Culture - Preliminary Gram negative shila Assessment and Plan (1) UTI (urinary tract infection): Status: Acute Assessment and Plan: This is a 70 yo F with previous UTI who presents with acute mental status changes likely 2/2 to UTI. 1. Toxic/metabolic encephalopathy due to UTI Rocephin f/u c&s previous showing strep sanguineous do no see resistance ID input appreciated 2. HTN norvasc 3. History of CVA doesnt appear any acute focal findigns asa continue other care Full Code DVT -- subcut. heparin
[2020-09-21] MEDS: cefTRIAXone sodium 1 GM in 0.9 % Sodium Chloride 50 ML IV (20:01)
[2020-09-22] VITALS: BP 143/64; PULSE 91; RESP 16; TEMP 36.9; O2SAT 95
[2020-09-22] MEDS: Heparin Sodium,Porcine 5,000 UNIT/ML VIAL 5000 UNIT SUBCUT ×3 (01:59→15:36)
[2020-09-22] MEDS: 0.9 % Sodium Chloride Flush 3 ML SYRINGE IVFLUSH ×2 (02:00→15:36)
[2020-09-22 03:53] VITALS: BP 143/66; PULSE 90; RESP 18; TEMP 36.6; O2SAT 98
[2020-09-22 06:53] VITALS: BP 154/68; PULSE 95; RESP 18; TEMP 36.6; O2SAT 96
--- NOTE | 2020-09-22 10:25 | PC.NURSE ---
PATIENT RESISTIVE TO CARE THIS AM, AND REFUSING PO MEDS. MD AWARE AND AT BEDSIDE WITH [facility] [employer]. PATIENT REFUSING TO ANSWER QUESTIONS AND STARING. PATIENT INTERMITTENTLY WILL ANSWER QUESTIONS TO THIS RN, PER DAUGHTER THIS IS BASELINE FOR PATIENT. WILL CONTINUE TO MONITOR AT THIS TIME.
[2020-09-22 11:26] VITALS: BP 126/60; PULSE 91; RESP 18; TEMP 36.6; O2SAT 96
[2020-09-22] MEDS: levoFLOXacin 500 MG TABLET PO (11:44)
--- NOTE | 2020-09-22 12:54 | PM.DS ---
DS: Providers Provider Date of admission: 09/21/20 00:12 Primary care physician: Unknown Physician Consults: 09/21/20 00:32 Consult to Infectious Diseases Routine Consulting Provider: Infectious Disease Reason for consultation: UTI Has provider been notified: No DS: Diagnosis Discharge Diagnosis (1) UTI (urinary tract infection): Status: Acute (2) Toxic metabolic encephalopathy: Status: Acute DS: Medications Discharge Medications Home Medications: Home Medications Medication Instructions Recorded Confirmed amlodipine 5 mg PO DAILY 07/18/20 09/21/20 aspirin 81 mg PO DAILY 07/18/20 09/21/20 cholecalciferol (vitamin D3) 50 mcg PO DAILY 07/18/20 09/21/20 citalopram 10 mg PO DAILY 07/18/20 09/21/20 memantine 5 mg PO BID 07/18/20 09/21/20 omeprazole 20 mg PO DAILY@0630 07/18/20 09/21/20 topiramate 50 mg PO BID 07/18/20 09/21/20 miscellaneous medical supply 1 ea MISCELLANEOUS DAILY ea 09/20/20 09/21/20 Previous Rx's Medication Instructions Recorded docusate sodium 100 mg capsule 100 mg PO BID #180 cap 08/20/20 cefpodoxime 200 mg PO BID #20 tab 08/21/20 tamsulosin 0.4 mg capsule 0.4 mg PO DAILY #28 cap 09/19/20 levofloxacin 500 mg PO Q24H #13 tab 09/22/20 DS: Summary Hospital Course Hospital Course: Patient presented with toxic metabolic encephalopathy due to urinary tract infection. She was started on IV ceftriaxone and had cultures drawn. her urine cultures resulted positive back for Citrobacter freundii which was sensitive to Levaquin. infectious Disease was consulted and recommended a 14 day course of Levaquin. Blood cultures are negative at the time of discharge. Patient is to follow-up with Urology for stent removal as an outpatient. Patient daughter has been informed of the above and in agreement. Time Spent with Patient Time attestation: Total time spent providing and/or coordinating discharge services: Physical Exam Vital Signs: Vital Signs: Last Vital Signs Temp 97.8 F 09/22/20 11:26 Pulse 91 09/22/20 11:26 Resp 18 09/22/20 11:26 BP 126/60 09/22/20 11:26 Pulse Ox 96 09/22/20 11:26 Body Mass Index 28.0 Const: Other: General - no acute distress, appears comfortable Cardiovascular - regular rate and rhythm, S1-S2 Lungs - normal respiratory effort, clear to auscultation bilaterally, no wheezing Abdomen - soft, nontender, no rebound or guarding Extremities - no edema bilaterally DS: Data Data Completed and Pending Completed studies during hospitalization [Text1]: Procedures Dilation of Right Ureter with Intraluminal Device, Via Natural or Artificial Opening Endoscopic (07/17/20) Extirpation of Matter from Right Ureter, Via Natural or Artificial Opening Endoscopic (07/17/20) Fluoroscopy of Right Kidney, Ureter and Bladder (07/17/20) Labs on day of discharge: Laboratory Last Values WBC 7.0 X10*3/uL (4.8-10.8) 09/21/20 05:21 RBC 3.90 X10*6/uL (4.20-5.50) L 09/21/20 05:21 Hgb 9.9 g/dl (12.0-16.0) L 09/21/20 05:21 Hct 32.4 % (37-47) L 09/21/20 05:21 MCV 83.1 fL (80-98) 09/21/20 05:21 MCH 25.4 pg (27.0-33.0) L 09/21/20 05:21 MCHC 30.6 g/dl (31.0-35.0) L 09/21/20 05:21 RDW 15.3 % (11.0-16.0) 09/21/20 05:21 Plt Count 337 X10*3/uL (160-400) 09/21/20 05:21 MPV 10.7 fL (9.4-12.3) 09/21/20 05:21 Immature Gran % (Auto) 0.9 % (0.0-0.4) H 09/21/20 05:21 Neut % (Auto) 62.2 % (45-73) 09/21/20 05:21 Lymph % (Auto) 19.8 % (20-40) L 09/21/20 05:21 [place] % (Auto) 14.7 % (2-11) H 09/21/20 05:21 Eos % (Auto) 2.0 % (0-4) 09/21/20 05:21 Baso % (Auto) 0.4 % (0-2) 09/21/20 05:21 Lymph # (Auto) 1.4 X10*3/uL (1.2-4.9) 09/21/20 05:21 [place] # (Auto) 1.0 X10*3/uL (0.1-1.2) 09/21/20 05:21 Eos # (Auto) 0.1 X10*3/uL (0.0-0.4) 09/21/20 05:21 Baso # (Auto) 0.0 X10*3/uL (0.0-0.2) 09/21/20 05:21 Abs Immat Gran (auto) 0.06 X10*3/uL (0.00-0.03) H 09/21/20 05:21 Absolute Neuts (auto) 4.4 X10*3/uL (2.0-8.3) 09/21/20 05:21 Absolute Nucleated RBC 0.000 X10*3/uL (0.0-0.012) 09/21/20 05:21 Nucleated RBC % (auto) 0.0 /100WBC (0.0-0.2) 09/21/20 05:21 Sodium 138 mmol/L (135-145) 09/21/20 05:21 Potassium 3.8 mmol/l (3.3-5.1) 09/21/20 05:21 Chloride 107 mmol/L (96-108) 09/21/20 05:21 Carbon Dioxide 21 mmol/L (22-29) L 09/21/20 05:21 Anion Gap 14 (-20) 09/21/20 05:21 BUN 13 mg/dL (9-16) 09/21/20 05:21 Creatinine 0.78 mg/dL (0.5-1.4) 09/21/20 05:21 Estim Creat Clear Calc 69.0 09/21/20 05:21 Estimated GFR > 60 09/21/20 05:21 Random Glucose 108 mg/dL (60-115) 09/21/20 05:21 Lactic Acid 1.0 mmol/L (0.5-2.0) 09/20/20 18:08 Calcium 8.5 mg/dL (8.4-10.2) 09/21/20 05:21 Total Bilirubin 0.4 mg/dL (0.0-1.0) 09/20/20 18:08 Direct Bilirubin 0.2 mg/dL (0.0-0.5) 09/20/20 18:08 AST 23 U/L (5-31) D 09/20/20 18:08 ALT 21 U/L (0-31) 09/20/20 18:08 Alkaline Phosphatase 107 U/L (39-117) D 09/20/20 18:08 Total Protein 8.9 g/dL (6.5-8.0) H 09/20/20 18:08 Albumin 3.0 g/dL (3.5-5.0) L 09/20/20 18:08 Urine Color BROWN 09/20/20 18:26 Urine Appearance TURBID 09/20/20 18:26 Urine pH 6.0 (5.0-8.0) 09/20/20 18:26 Ur Specific [place] >= 1.030 (1.005-1.025) H 09/20/20 18:26 Urine Protein 2+ MG/DL (NEG-TRACE) H 09/20/20 18:26 Urine Glucose (UA) 100 MG/DL (NEG) H 09/20/20 18:26 Urine Ketones 5 MG/DL (NEG) 09/20/20 18:26 Urine Blood 2+ (NEG) H 09/20/20 18:26 Urine Nitrite POS (NEG) H 09/20/20 18:26 Ur Leukocyte Esterase 3+ (NEG) H 09/20/20 18:26 Urine RBC 10-14 /HPF (0) H 09/20/20 18:26 Urine WBC TNTC /HPF (0-4) H 09/20/20 18:26 Ur Squamous Epith Cells NONE /LPF 09/20/20 18:26 Urine Bacteria 3+ /LPF 09/20/20 18:26 Coronavirus (PCR) NEGATIVE (Negative) 09/20/20 20:58 Influenza Type A (PCR) NEGATIVE (Negative) 09/20/20 20:58 Influenza Type B (PCR) NEGATIVE (Negative) 09/20/20 20:58 RSV RNA Qual (PCR) NEGATIVE (Negative) 09/20/20 20:58 Preliminary micro results at discharge 09/20/20 18:26 Blood Culture - Preliminary Blood - Venous No growth after 24 hours. 09/20/20 18:08 Blood Culture - Preliminary Blood - Venous No growth after 24 hours. Discharge Plan Discharge Patient Disposition: Home Health Service Referrals: Maverick Lopez MD [Physician] - 1 Week (09/27/2020 12:30pm. If you can't keep this appointment please call and reschedule) Discharge Medications: New levofloxacin 500 mg Tablet 500 mg PO Q24H Qty: 13 RF: 0 Continued docusate sodium 100 mg capsule 100 mg PO BID Qty: 180 RF: 8 tamsulosin 0.4 mg capsule 0.4 mg PO DAILY Qty: 28 RF: 6 miscellaneous medical supply Misc 1 ea miscellaneous DAILY RF: 0 citalopram 10 mg tablet 10 mg PO DAILY RF: 0 amlodipine 5 mg tablet 5 mg PO DAILY RF: 0 omeprazole 20 mg capsule,delayed release(DR/EC) 20 mg PO DAILY@0630 RF: 0 aspirin 81 mg tablet,chewable 81 mg PO DAILY RF: 0 memantine 5 mg tablet 5 mg PO BID RF: 0 topiramate 50 mg tablet 50 mg PO BID RF: 0 cholecalciferol (vitamin D3) 50 mcg (2,000 unit) tablet 50 mcg PO DAILY RF: 0 cefpodoxime 200 mg tablet 200 mg PO BID Qty: 20 RF: 0 Discharge Orders: Discharge Order (Routine); Ordered 09/22/20 Ordered By: Rafael Villasenor Diet: advance to usual diet Activity on Discharge: As tolerated Visit Report Forms: Patient Portal Discharge page Care Plan Goals: To stay healthy and out of the hospital. Health Concerns: UTI Plan of Treatment: Take Levaquin 500mg for 13 more days Follow up Thursday to remove your stent.
--- NOTE | 2020-09-22 13:59 | MHC.CM.PN ---
CM spoke to pts daughter, Misty ([phone]) to confirm pts DC plans. She reports she is the pts caregiver and the pt did not have [facility] [employer] [facility]. [facility] She also asks that the pt be transported home via [facility] Pt will DC home today at 1700 hours via [facility] BLS with resumption of [employer] [employer] services and new [place] [facility]
[2020-09-22 15:21] VITALS: BP 135/60; PULSE 92; RESP 18; TEMP 37; O2SAT 95
== END 2020-09-22 17:04 | disposition home health service (06) | DRG 689 ==
LOC: HO.ED 22:21 → HO.IMC 09-21 00:25
PROVIDERS: Admitting Provider Internal Medicine; Emergency Provider Internal Medicine; Visit Provider Family Medicine
DX: N39.0 Urinary tract infection, site not specified (principal); G92 Toxic encephalopathy; K59.00 Constipation, unspecified; K21.9 Gastro-esophageal reflux disease without esophagitis; F03.90 Unspecified dementia, unspecified severity, without behavioral disturbance, psychotic disturbance, mood disturbance, and anxiety; I10 Essential (primary) hypertension; Z86.73 Personal history of transient ischemic attack (TIA), and cerebral infarction without residual deficits; R31.9 Hematuria, unspecified; Z20.828 Contact with and (suspected) exposure to other viral communicable diseases; Z88.5 Allergy status to narcotic agent; Z79.82 Long term (current) use of aspirin; Z79.899 Other long term (current) drug therapy
CPT/HCPCS: 0241U; 36415; 80048; 80076; 81001; 81003; 83605; 85025; 87040; 87086; 87088; 87186; 96361; 96365; 99285; J0696

== ENCOUNTER → 2020-10-02 12:49 | Outpatient (BNVA) | payer MEDICARE, SELFPAY | PROVIDERS: Visit Provider Urology | DX: N30.00 Acute cystitis without hematuria (principal); N28.9 Disorder of kidney and ureter, unspecified | CPT/HCPCS: 52000; 52310; 99212 ==

== ENCOUNTER 2020-11-23 17:04 | Outpatient (REF) | payer MEDICARE, SELFPAY ==
[2020-11-23 17:17] LABS: Glucose Urine UA NEG (NEG); Leukocyte Esterase Urine 2+ (NEG); Nitrite Urine NEG (NEG); PH 6.5 (5.0-8.0); Specific Gravity - Urine 1.015 (1.005-1.025); Urine Blood 1+ (NEG); Urine Ketones NEG (NEG); Urine Protein TRACE MG/DL (NEG-TRACE)
[2020-11-23 17:25] LABS: Appearance Urine CLOUDY; Color Urine YELLOW
[2020-11-23 17:34] LABS: Bacteria Urine 3+ /LPF; Squamous Epithelial Cell Urine 2+ /LPF; WBC Urine TNTC /HPF (0-4)
== END 2020-11-23 17:05 | disposition home or self-care (01) ==
LOC: HO.LNP 17:04
PROVIDERS: Visit Provider Urology
DX: N30.00 Acute cystitis without hematuria (principal); R10.9 Unspecified abdominal pain
CPT/HCPCS: 81001; 87086; 87088; 87186

== ENCOUNTER → 2021-01-01 13:31 | Outpatient (BNVA) | payer MEDICARE, SELFPAY | PROVIDERS: Visit Provider Urology | DX: Z13.89 Encounter for screening for other disorder (principal) | CPT/HCPCS: Q3014 ==

== ENCOUNTER 2021-03-12 17:13 | Outpatient (REF) | payer MEDICARE, SELFPAY ==
[2021-03-12 17:31] LABS: Glucose Urine UA NEG (NEG); Leukocyte Esterase Urine 3+ (NEG); Nitrite Urine NEG (NEG); Specific Gravity - Urine >= 1.030 (1.005-1.025); Urine Blood 2+ (NEG); Urine Ketones NEG (NEG); Urine Protein 1+ MG/DL (NEG-TRACE)
[2021-03-12 17:36] LABS: Appearance Urine TURBID; Color Urine YELLOW
[2021-03-12 17:45] LABS: RBC Urine 0-2 /HPF (0); WBC Urine TNTC /HPF (0-4)
[2021-03-12 17:46] LABS: Bacteria Urine 1+ /LPF; Calcium Oxalate Crystals Urine 2+ /LPF; Mucus Urine 1+ /LPF; Renal Epithelial Cells Urine 1+ /LPF; Squamous Epithelial Cell Urine 1+ /LPF
== END 2021-03-12 17:14 | disposition home or self-care (01) ==
LOC: HO.LNP 17:13
PROVIDERS: Visit Provider Urology
DX: N30.00 Acute cystitis without hematuria (principal); R10.9 Unspecified abdominal pain
CPT/HCPCS: 81001; 87086

== ENCOUNTER 2021-04-11 13:28 | Outpatient (REF) | payer MEDICARE, SELFPAY ==
[2021-04-11 15:08] LABS: Alanine Aminotransferase < 6 U/L (0-31); Albumin Level 3.2 g/dL (3.5-5.0); Alkaline Phosphatase 88 U/L (39-117); Anion Gap 13 (12-20); Aspartate Amino Transferase 12 U/L (5-31); Bilirubin Total 0.3 mg/dL (0.0-1.0); Blood Urea Nitrogen 14 mg/dL (9-16); Calcium 9.5 mg/dL (8.4-10.2); Carbon Dioxide 21 mmol/L (22-29); Chloride 107 mmol/L (96-108); Estimated Glomerular Filt Rate > 60; Glucose Random 109 mg/dL (60-115); Potassium 4.2 mmol/L (3.3-5.1); Sodium 137 mmol/L (135-145); Total Protein 9.3 g/dL (6.5-8.0)
[2021-04-11 15:28] LABS: Vitamin D 25-OH Total 68.7 ng/mL (>30)
[2021-04-12 13:26] LABS: Calcium (PTHI) 9.4 mg/dL (8.6-10.4); PTHI 35 pg/mL (14-64)
[2021-04-15 17:33] LABS: Collagen Type I C-Telopeptide 725 pg/mL (see note)
[2021-04-16 10:27] LABS: Alkaline Phosphatase Bone 12.9 mcg/L (5.6-29.0)
[2021-04-17 02:42] LABS: VITAMIN D (1,25 OH) D3 26 pg/mL; Vit D (1,25-Dihydroxy) Total 26 pg/mL (18-72); Vitamin D (1,25 OH) D2 <8 pg/mL
== END 2021-04-11 13:29 | disposition home or self-care (01) ==
LOC: HO.LAB 13:28
PROVIDERS: PCP Internal Medicine; Visit Provider Internal Medicine Endocrinology, Diabetes & Metabolism
DX: M81.0 Age-related osteoporosis without current pathological fracture (principal); M88.9 Osteitis deformans of unspecified bone; E21.3 Hyperparathyroidism, unspecified; E55.9 Vitamin D deficiency, unspecified
CPT/HCPCS: 36415; 80053; 82306; 82523; 82652; 83970; 84075; 96372; 99212

== ENCOUNTER 2021-06-04 14:36 | Emergency (ER) | payer MEDICARE, SELFPAY ==
--- NOTE | ~2021-06-04 | XR_ITS ---
EXAMINATION: XR chest 2V CLINICAL INFORMATION: Cough COMPARISON: Prior chest x-ray 08/29/2020 TECHNIQUE: XR chest 2V Lungs and Talia: Stable mild interstitial lung marking, no dense focal consolidation. Pleura: Normal. Costophrenic angles are sharp. No pneumothorax. Heart: The heart is normal in size. Mediastinum: The mediastinum is within normal limits.. Bones: Skeletal structures included are normal for patient's age. XR/XR chest 2V IMPRESSION: Mild probably chronic interstitial changes, no acute infiltrates .
[2021-06-04 15:31] VITALS: BP 101/42; PULSE 73; RESP 18; TEMP 37; O2SAT 99; BMI 27.6
--- NOTE | 2021-06-04 16:47 | ED.GENADULT ---
HPI - General Adult General Chief complaint: General Medical Stated complaint: dehydrated Time Seen by Provider: 06/04/21 16:47 Source: family Mode of arrival: wheelchair Limitations: no limitations History of Present Illness HPI narrative: not sleeping, weak, cough and not making urine for 3 days. Related Data Home Medications Medication Instructions Recorded Confirmed memantine 5 mg tablet 5 mg PO BID 07/18/20 04/11/21 topiramate 50 mg tablet 50 mg PO BID 07/18/20 04/11/21 denosumab 60 mg/mL subcutaneous mg SUBCUT [id number] ml 04/11/21 04/11/21 syringe Previous Rx's Medication Instructions Recorded docusate sodium 100 mg capsule 100 mg PO BID #180 cap 08/20/20 miscellaneous medical supply 1 ea MISCELLANEOUS DAILY #1 ea 09/24/20 miscellaneous medical supply 1 ea MISCELLANEOUS DAILY #1 ea 10/10/20 citalopram 10 mg tablet 10 mg PO DAILY #90 tab 03/13/21 nitrofurantoin macrocrystal 100 mg 100 mg PO BID 7 Days #14 cap 03/14/21 capsule amlodipine 5 mg tablet 5 mg PO DAILY #90 tab 03/29/21 omeprazole 20 mg capsule,delayed 20 mg PO DAILY@0630 #60 cap 03/29/21 release tamsulosin 0.4 mg capsule 0.4 mg PO DAILY #28 cap 04/09/21 cholecalciferol (vitamin D3) 50 50 mcg PO DAILY #90 tab 04/11/21 mcg (2,000 unit) tablet aspirin 81 mg chewable tablet 1 tab PO DAILY #28 tab 04/24/21 polyethylene glycol 3350 17 17 g PO DAILY #238 g 05/09/21 gram/dose oral powder (Miralax) nitrofurantoin 100 mg PO Q12H 7 Days #14 cap 06/04/21 monohydrate/macrocrystals 100 mg capsule (Macrobid) Allergies Allergy/AdvReac Type Severity Reaction Status Date / Time morphine [MORPHINE] Allergy Mild NAUSEA & Verified 06/04/21 15:31 VOMITING, vomiting Review of Systems Review of Systems: Yes Unobtainable due to mental status PMFSH Past Medical History Medical History CVA (cerebral vascular accident) Dementia GERD (gastroesophageal reflux disease) Hyperparathyroidism Hypertension Nephrolithiasis Osteoporosis Paget's bone disease UTI (urinary tract infection) Surgical History H/O bilateral breast reduction surgery H/O rectal polypectomy H/O: hysterectomy History of cystoscopy History of hip surgery History of lithotripsy History of tubal ligation Hx of tonsillectomy Family History Family History Father No problems noted. Mother No problems noted. Maternal Grandmother Cancer Social History Social History Household Members: Unknown / Unable to assess Housing: Unknown / Unable to assess Do you presently have visiting nurse or other home services: No Unable to assess alcohol history related to: Unable to respond Alcohol intake: never Smoked in Last 30 Days: No Use of substances other than those prescribed or required for medical reasons: No Advance Directives: No Advance Directives Information Provided: Yes service: No Current occupational status: disabled Physical Exam Vital Signs: Vital Signs: Last Vital Signs Temp 98.6 F 06/04/21 15:31 Pulse 77 06/04/21 18:00 Resp 16 06/04/21 18:00 BP 101/42 L 06/04/21 15:31 Pulse Ox 99 06/04/21 15:31 Body Mass Index 27.6 Const: Other: chronically ill looking older than stated age, flat affect non verbal Limitations: altered mental status and other limitations (nonverbal) HENMT: Head: Yes normal to inspection Ears: external ears normal General nose exam: Normal external nose present Mouth: Normal oral and palatal mucosa present and oropharynx normal Throat: Yes posterior oropharynx normal Eyes: General: appearance normal, both eyes and all related structures Neck: Other: supple Neck: Yes normal visual inspection Chest: Chest palpation & inspection: normal inspection of the chest Resp: Auscultation: clear to auscultation bilaterally Cardio: Jugular venous distension: no JVD Rate: regular rate Rhythm: regular rhythm Heart sounds: S1 normal heart sound present and S2 normal heart sound present GI: Inspection: Yes normal to inspection Palpation (GI): Soft to palpation, nontender and No hepatosplenomegaly present Auscultation: normal bowel sounds : General: Yes no CVA tenderness Back/Spine/Pelvis: Back: no CVA tenderness Skin: General skin exam: no rashes or lesions noted Neuro: Cranial nerves: Yes CN's II-XII intact bilaterally Motor exam (neuro): Other motor observations present (moves extremities, no able to follow commands) Extrem: General: Yes normal to inspection Psych: Appearance: grossly normal Course Reevaluation(s) Reevaluation #1: patient with too numerous to count WBC, patient had raotella planticola sensitive to macrobid will restart macrobid and dc home Time: 19:41 Medical Decision Making Lab Data Result diagrams: 06/04/21 17:45 06/04/21 17:45 Labs: Lab Results 06/04/21 06/04/21 Range/Units 17:45 17:45 WBC 5.9 (4.8-10.8) X10*3/uL RBC 4.31 (4.20-5.50) X10*6/uL Hgb 10.0 L (12.0-16.0) g/dl Hct 33.1 L (37-47) % MCV 76.8 L (80-98) fL MCH 23.2 L (27.0-33.0) pg MCHC 30.2 L (31.0-35.0) g/dl RDW 18.9 H (11.0-16.0) % Plt Count 377 (160-400) X10*3/uL MPV 10.2 (9.4-12.3) fL Immature Gran % (Auto) 0.9 H (0.0-0.4) % Neut % (Auto) 66.4 (45-73) % Lymph % (Auto) 19.2 L (20-40) % [place] % (Auto) 11.6 H (2-11) % Eos % (Auto) 1.4 (0-4) % Baso % (Auto) 0.5 (0-2) % Lymph # (Auto) 1.1 L (1.2-4.9) X10*3/uL [place] # (Auto) 0.7 (0.1-1.2) X10*3/uL Eos # (Auto) 0.1 (0.0-0.4) X10*3/uL Baso # (Auto) 0.0 (0.0-0.2) X10*3/uL Abs Immat Gran (auto) 0.05 H (0.00-0.03) X10*3/uL Absolute Neuts (auto) 3.9 (2.0-8.3) X10*3/uL Absolute Nucleated RBC 0.000 (0.0-0.012) X10*3/uL Nucleated RBC % (auto) 0.0 (0.0-0.2) /100WBC Sodium 136 (135-145) mmol/L Potassium 3.8 (3.3-5.1) mmol/L Chloride 106 (96-108) mmol/L Carbon Dioxide 21 L (22-29) mmol/L Anion Gap 13 (12-20) BUN 13 (9-16) mg/dL Creatinine 0.97 (0.5-1.4) mg/dL Estim Creat Clear Calc 58.1 Estimated GFR 56 Random Glucose 129 H (60-115) mg/dL Calcium 8.9 D (8.4-10.2) mg/dL Total Bilirubin 0.2 (0.0-1.0) mg/dL AST 14 (5-31) U/L ALT 10 (0-31) U/L Alkaline Phosphatase 78 (39-117) U/L Total Protein 9.5 H (6.5-8.0) g/dL Albumin 3.4 L (3.5-5.0) g/dL Imaging Data Chest x-ray: Radiologist's impression: IMPRESSION: Mild probably chronic interstitial changes, no acute infiltrates? Discharge Plan Discharge Clinical Impression: UTI (urinary tract infection) Qualifiers: Urinary tract infection type: acute cystitis Hematuria presence: without hematuria Qualified Code(s): N30.00 - Acute cystitis without hematuria Patient Disposition: Home, Self-Care Instructions: Urinary Tract Infection in Women (ED) Prescriptions: New nitrofurantoin monohyd/m-cryst [Macrobid] 100 mg capsule 100 mg PO Q12H 7 Days Qty: 14 RF: 0 No Action docusate sodium 100 mg capsule 100 mg PO BID Qty: 180 RF: 8 miscellaneous medical supply Misc 1 ea miscellaneous DAILY Qty: 1 RF: 0 miscellaneous medical supply Misc 1 ea miscellaneous DAILY Qty: 1 RF: 0 citalopram 10 mg tablet 10 mg PO DAILY Qty: 90 RF: 8 nitrofurantoin macrocrystal 100 mg capsule 100 mg PO BID 7 Days Qty: 14 RF: 0 omeprazole 20 mg capsule,delayed release(DR/EC) 20 mg PO DAILY@0630 Qty: 60 RF: 8 amlodipine 5 mg tablet 5 mg PO DAILY Qty: 90 RF: 8 tamsulosin 0.4 mg capsule 0.4 mg PO DAILY Qty: 28 RF: 6 aspirin 81 mg tablet,chewable 1 tab PO DAILY Qty: 28 RF: 8 polyethylene glycol 3350 [Miralax] 17 gram/dose powder 17 g PO DAILY Qty: 238 RF: 8 memantine 5 mg tablet 5 mg PO BID RF: 0 topiramate 50 mg tablet 50 mg PO BID RF: 0 denosumab 60 mg/mL syringe subcut [id number] RF: 0 cholecalciferol (vitamin D3) 50 mcg (2,000 unit) tablet 50 mcg PO DAILY Qty: 90 RF: 8 Referrals: Maverick Lopez MD [Primary Care Provider] - 5 days
[2021-06-04] MEDS: 0.9 % Sodium Chloride 1,000 ML 999 ML IVCONT (17:13)
[2021-06-04 17:52] LABS: Basophils Percent Auto 0.5 % (0-2); Eosinophils Absolute Auto 0.1 X10*3/uL (0.0-0.4); Eosinophils Percent Auto 1.4 % (0-4); Hematocrit 33.1 % (37-47); Imm Gran Abs Auto 0.05 X10*3/uL (0.00-0.03); Imm Gran Pct Auto 0.9 % (0.0-0.4); Lymphocytes Absolute Auto 1.1 X10*3/uL (1.2-4.9); Lymphocytes Percent Auto 19.2 % (20-40); MANUAL DIFF FLAG NO; Mean Corpuscular HGB Conc 30.2 g/dl (31.0-35.0); Mean Corpuscular Hemoglobin 23.2 pg (27.0-33.0); Mean Corpuscular Volume 76.8 fL (80-98); Mean Platelet Volume 10.2 fL (9.4-12.3); Monocytes Absolute Auto 0.7 X10*3/uL (0.1-1.2); Monocytes Percent Auto 11.6 % (2-11); Neutrophils Absolute Auto 3.9 X10*3/uL (2.0-8.3); Neutrophils Percent Auto 66.4 % (45-73); Platelet Count 377 X10*3/uL (160-400); Red Blood Count 4.31 X10*6/uL (4.20-5.50); Red Cell Distribution Width 18.9 % (11.0-16.0); White Blood Count 5.9 X10*3/uL (4.8-10.8)
[2021-06-04 18:00] VITALS: PULSE 77; RESP 16
[2021-06-04 18:15] LABS: Alanine Aminotransferase 10 U/L (0-31); Albumin Level 3.4 g/dL (3.5-5.0); Alkaline Phosphatase 78 U/L (39-117); Anion Gap 13 (12-20); Aspartate Amino Transferase 14 U/L (5-31); Bilirubin Total 0.2 mg/dL (0.0-1.0); Blood Urea Nitrogen 13 mg/dL (9-16); Calcium 8.9 mg/dL (8.4-10.2); Carbon Dioxide 21 mmol/L (22-29); Chloride 106 mmol/L (96-108); Creatinine Clr Calc Pharmacy 58.1; Estimated Glomerular Filt Rate 56; Glucose Random 129 mg/dL (60-115); Potassium 3.8 mmol/L (3.3-5.1); Sodium 136 mmol/L (135-145); Total Protein 9.5 g/dL (6.5-8.0)
[2021-06-04] MEDS: Nitrofurantoin Monohyd/M-Cryst 100 MG CAPSULE PO (20:14)
[2021-06-04 20:15] LABS: Influenza A PCR NEGATIVE (Negative); Influenza B PCR NEGATIVE (Negative); Resp Syncy Virus RNA Qual PCR NEGATIVE (Negative); SARS COV2 PCR INHOUSE NEGATIVE (Negative)
== END 2021-06-04 20:57 | disposition home or self-care (01) ==
PROVIDERS: Emergency Provider Emergency Medicine; PCP Internal Medicine
DX: N30.00 Acute cystitis without hematuria (principal); Z20.822 Contact with and (suspected) exposure to COVID-19; R53.1 Weakness; I10 Essential (primary) hypertension; Z79.899 Other long term (current) drug therapy
CPT/HCPCS: 0241U; 36415; 71046; 80053; 85025; 96360; 96361; 99284

== ENCOUNTER 2021-07-19 13:48 | Outpatient (REF) | payer MEDICARE, SELFPAY ==
[2021-07-19 13:58] LABS: MANUAL DIFF FLAG NO
[2021-07-19 14:17] LABS: Basophils Percent Auto 0.4 % (0-2); Eosinophils Absolute Auto 0.1 X10*3/uL (0.0-0.4); Eosinophils Percent Auto 1.4 % (0-4); Hematocrit 29.8 % (37-47); Imm Gran Abs Auto 0.07 X10*3/uL (0.00-0.03); Imm Gran Pct Auto 0.7 % (0.0-0.4); Lymphocytes Absolute Auto 2.4 X10*3/uL (1.2-4.9); Lymphocytes Percent Auto 22.8 % (20-40); Mean Corpuscular HGB Conc 30.2 g/dl (31.0-35.0); Mean Corpuscular Hemoglobin 23.7 pg (27.0-33.0); Mean Corpuscular Volume 78.6 fL (80-98); Mean Platelet Volume 10.2 fL (9.4-12.3); Monocytes Percent Auto 10.1 % (2-11); Neutrophils Absolute Auto 6.7 X10*3/uL (2.0-8.3); Neutrophils Percent Auto 64.6 % (45-73); Platelet Count 427 X10*3/uL (160-400); Red Blood Count 3.79 X10*6/uL (4.20-5.50); Red Cell Distribution Width 20.1 % (11.0-16.0); White Blood Count 10.3 X10*3/uL (4.8-10.8)
[2021-07-19 14:46] LABS: Anion Gap 11 (12-20); Blood Urea Nitrogen 9 mg/dL (9-16); Calcium 9.3 mg/dL (8.4-10.2); Carbon Dioxide 24 mmol/L (22-29); Chloride 104 mmol/L (96-108); Estimated Glomerular Filt Rate > 60; Glucose Random 119 mg/dL (60-115); Potassium 3.4 mmol/L (3.3-5.1); Sodium 136 mmol/L (135-145)
[2021-07-19 15:07] LABS: Thyroid Stimulating Hormone 3.14 uIU/mL (0.32-4.0)
== END 2021-07-19 13:49 | disposition home or self-care (01) ==
LOC: HO.LAB 13:48
PROVIDERS: PCP Internal Medicine; Visit Provider Internal Medicine
DX: Z00.00 Encounter for general adult medical examination without abnormal findings (principal); R51.9 Headache, unspecified; E03.9 Hypothyroidism, unspecified
CPT/HCPCS: 36415; 80048; 84443; 85025

== ENCOUNTER 2021-07-26 11:19 | Outpatient (REF) | payer MEDICARE, SELFPAY ==
[2021-07-26 12:41] LABS: Albumin Level 2.7 g/dL (3.5-5.0); Calcium 8.9 mg/dL (8.4-10.2); Iron 12 mcg/dL (30-160); Percent Iron Saturation 8 % (15-50); Total Iron Binding Capacity 145 mcg/dL (228-428); Unsaturated Iron Binding 133 ug/dL
== END 2021-07-26 11:20 | disposition home or self-care (01) ==
LOC: HO.LAB 11:19
PROVIDERS: PCP Internal Medicine; Visit Provider Internal Medicine
DX: E61.1 Iron deficiency (principal); M81.0 Age-related osteoporosis without current pathological fracture
CPT/HCPCS: 36415; 82040; 82310; 83540

== ENCOUNTER → 2021-08-15 12:28 | Outpatient (BNVA) | payer MEDICARE, SELFPAY | PROVIDERS: PCP Internal Medicine | DX: N30.00 Acute cystitis without hematuria (principal); N20.0 Calculus of kidney; N28.9 Disorder of kidney and ureter, unspecified; G30.9 Alzheimer's disease, unspecified; F02.80 Dementia in other diseases classified elsewhere, unspecified severity, without behavioral disturbance, psychotic disturbance, mood disturbance, and anxiety; M81.0 Age-related osteoporosis without current pathological fracture; E21.3 Hyperparathyroidism, unspecified; R47.9 Unspecified speech disturbances; Z86.73 Personal history of transient ischemic attack (TIA), and cerebral infarction without residual deficits; Z88.6 Allergy status to analgesic agent; Z99.3 Dependence on wheelchair | CPT/HCPCS: 99212 ==

== ENCOUNTER 2021-09-26 15:09 | Outpatient (REF) | payer MEDICARE, SELFPAY ==
[2021-09-26 16:18] LABS: Alanine Aminotransferase 19 U/L (0-31); Albumin Level 2.6 g/dL (3.5-5.0); Alkaline Phosphatase 91 U/L (39-117); Anion Gap 12 (12-20); Aspartate Amino Transferase 28 U/L (5-31); Bilirubin Total < 0.2 mg/dL (0.0-1.0); Blood Urea Nitrogen 20 mg/dL (9-16); Calcium 8.9 mg/dL (8.4-10.2); Carbon Dioxide 25 mmol/L (22-29); Chloride 107 mmol/L (96-108); Estimated Glomerular Filt Rate > 60; Glucose Random 132 mg/dL (60-115); Phosphorus 3.3 mg/dL (2.7-4.5); Potassium 3.8 mmol/L (3.3-5.1); Sodium 140 mmol/L (135-145); Total Protein 8.8 g/dL (6.5-8.0)
[2021-09-27 16:02] LABS: Calcium (PTHI) 8.9 mg/dL (8.6-10.4); PTHI 29 pg/mL (14-64)
== END 2021-09-26 15:10 | disposition home or self-care (01) ==
LOC: HO.LAB 15:09
PROVIDERS: PCP Internal Medicine; Visit Provider Internal Medicine
DX: E21.3 Hyperparathyroidism, unspecified (principal); E55.9 Vitamin D deficiency, unspecified
CPT/HCPCS: 36415; 80053; 82306; 83970; 84100

== ENCOUNTER 2021-10-08 13:20 | Outpatient (RCR) | payer MEDICARE, SELFPAY | END 2021-10-08 15:00 | disposition home or self-care (01) | LOC: HO.WCC 13:20 | PROVIDERS: PCP Internal Medicine; Visit Provider Physician Assistant | DX: Z09 Encounter for follow-up examination after completed treatment for conditions other than malignant neoplasm (principal); I10 Essential (primary) hypertension; F03.90 Unspecified dementia, unspecified severity, without behavioral disturbance, psychotic disturbance, mood disturbance, and anxiety; R32 Unspecified urinary incontinence; R15.9 Full incontinence of feces; Z87.2 Personal history of diseases of the skin and subcutaneous tissue | CPT/HCPCS: 99213 ==

== ENCOUNTER → 2021-10-14 10:30 | Outpatient (BNVA) | payer MEDICARE, SELFPAY | PROVIDERS: PCP Internal Medicine; Visit Provider Internal Medicine | DX: M81.0 Age-related osteoporosis without current pathological fracture (principal); E55.9 Vitamin D deficiency, unspecified | CPT/HCPCS: Q3014 ==

== ENCOUNTER 2021-11-18 15:55 | Inpatient (IN) | payer MEDICARE, SELFPAY ==
--- NOTE | ~2021-11-18 | XR_ITS ---
EXAMINATION: XR CHEST CLINICAL INFORMATION: Covid positive COMPARISON: Chest x-ray 06/04/2021 TECHNIQUE: Frontal portable view of the chest was obtained. 8:56 PM FINDINGS: Patchy multifocal hazy airspace opacities in lung bilateral consistent with clinical history of Covid positive. No pleural effusion or pneumothorax. The heart size is normal. The cardiac and mediastinal contours are normal. There are vascular calcifications of aorta. XR/XR chest 1V IMPRESSION: Patchy multifocal airspace opacities in bilateral lung consistent with history of Covid positive.
--- NOTE | ~2021-11-18 | CT_ITS ---
EXAMINATION: CT ABDOMEN AND PELVIS WITHOUT CONTRAST CLINICAL INFORMATION: Deep sacral decubitus ulcer COMPARISON: CT abdomen pelvis 08/29/2020 and radionuclide bone scan 07/31/[address] abdomen dating back to 06/04/2017 TECHNIQUE: Multidetector volumetric imaging was performed from the superior aspect of the liver through the pubic symphysis. Sagittal and coronal reformatted images were obtained on the technologist's workstation. This CT examination was performed using dose optimization techniques as appropriate, variously including the following: *Automated exposure control *Adjustment of mA and/or kV according to patient size (this includes techniques or standardized protocols for targeted exams where dose is matched to indication/reason for exam; i.e. extremities or head) *Use of iterative reconstruction technique DLP: 832 mGy-cm FINDINGS: LUNG BASES: Basilar atelectasis is present. LIVER, GALLBLADDER, AND BILIARY TREE: The liver is normal in size, shape, and attenuation. No focal hepatic lesion or biliary ductal dilatation is present. The gallbladder is unremarkable with no evidence of radiopaque gallstones, gallbladder wall thickening, or obvious pericholecystic inflammatory changes. PANCREAS: Unremarkable. SPLEEN: Unremarkable. ADRENAL GLANDS: Unremarkable. KIDNEYS AND URETERS: There is marked hydronephrosis involving the right kidney with multiple calyceal stones. Largest stone measures 1.6 cm. Compared to the prior study, a previously seen internally dwelling double-J stent has been removed some smaller stones are present within the ureter. Left kidney demonstrates some calcifications in the lower pole, new since prior. BLADDER: Unremarkable. GASTROINTESTINAL TRACT: The small and large bowel are unremarkable aside from scattered colonic diverticula without diverticulitis. The appendix is none seen but there is no evidence of appendicitis.. ABDOMINAL WALL: There is a new deep sacral decubitus ulcer seen since the prior exam. The ulcer bed extends to and during millimeter from the bone. No bone destruction is seen. Surrounding inflammatory changes are present but no large gross adjacent abscess is present. Some mild inflammatory changes are present in the presacral space which are new when compared to the prior study. LYMPH NODES: No gross lymphadenopathy but assessment is suboptimal without IV contrast. VASCULAR: Marked calcific aorto iliofemoral atherosclerotic changes present. PELVIC VISCERA: Status post hysterectomy. An abnormal adnexal mass or free intraperitoneal fluid is not seen. OSSEOUS STRUCTURES: Left femoral neck screws are present. Scoliosis is present in the spine. Degenerative changes are seen. A hemangioma is present and L2. Sclerotic changes in the left iliac bone and right femoral head which could represent Paget's disease, which was suspected on the bone scan from 07/31/2017. CT/CT abdomen pelvis wo con IMPRESSION: 1. Deep sacral decubitus ulcer extending essentially to the bone. No bone destruction. Presacral inflammatory changes are present which are new. 2. Markedly abnormal right kidney which is enlarged and hydronephrotic with multiple intrarenal calculi as well as calculi in distal ureter. Some new calcifications noted in the left kidney. 3. 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 4. Other incidental findings as described above. Fleischner guidelines were followed.
[2021-11-18 17:30] VITALS: BP 142/59; PULSE 96; RESP 20; TEMP 36.7; O2SAT 97; BMI 30.4
[2021-11-18 17:45] LABS: Hematocrit 29.6 % (37.0-47.0); Hemoglobin 8.5 g/dl (12.0-16.0); Mean Corpuscular HGB Conc 28.7 g/dl (31.0-35.0); Mean Corpuscular Hemoglobin 21.7 pg (27.0-33.0); Mean Corpuscular Volume 75.7 fL (80.0-98.0); Mean Platelet Volume 10.1 fL (9.4-12.3); Platelet Count 444 X10*3/uL (160-400); Red Blood Count 3.91 X10*6/uL (4.20-5.50); Red Cell Distribution Width 19.7 % (11.0-16.0); White Blood Count 14.6 X10*3/uL (4.8-10.8)
[2021-11-18 18:00] LABS: Anion Gap 12 (12-20); Blood Urea Nitrogen 17 mg/dL (9-16); Carbon Dioxide 24 mmol/L (22-29); Chloride 105 mmol/L (96-108); Creatinine Clr Calc Pharmacy 55.2; Estimated Glomerular Filt Rate 50; Glucose Random 205 mg/dL (60-115); Potassium 3.4 mmol/L (3.3-5.1); Sodium 138 mmol/L (135-145)
--- NOTE | 2021-11-18 19:38 | ED_ITS ---
HPI - Wound/Laceration General Chief Complaint: Wound/Laceration Stated Complaint: lower back wound sent from wound care Time Seen by Provider: 11/18/21 18:09 Source: family Mode of arrival: wheelchair History of Present Illness HPI narrative: Patient l with dementia brought by her daughter for nonhealing sacral wound which is getting deeper with possible osteomyelitis sent by wound clinic who examined the wound and found to be 2.5 cm deep. Patient has wound started on her sacrum 1 month ago skin broke down only 2 days ago no fever no nausea or vomiting no diarrhea limited HPI because patient is demented and nonverbal also other family member positive with COVID but patient has been vaccinated against COVID but has not received a booster dose yet no cough no fever no shortness of breath Related Data Home Medications Medication Instructions Recorded Confirmed topiramate 50 mg tablet 50 mg PO BID 07/18/20 11/18/21 Previous Rx's Medication Instructions Recorded citalopram 10 mg tablet 10 mg PO DAILY #90 tab 03/13/21 amlodipine 5 mg tablet 5 mg PO DAILY #90 tab 03/29/21 cholecalciferol (vitamin D3) 50 50 mcg PO DAILY #90 tab 04/11/21 mcg (2,000 unit) tablet aspirin 81 mg chewable tablet 1 tab PO DAILY #28 tab 04/24/21 memantine 5 mg tablet 5 mg PO BID #180 tab 06/10/21 docusate sodium 100 mg capsule 100 mg PO BID #180 cap 07/17/21 tamsulosin 0.4 mg capsule 0.4 mg PO DAILY #28 cap 10/24/21 Allergies Allergy/AdvReac Type Severity Reaction Status Date / Time morphine [MORPHINE] Allergy Mild NAUSEA & Verified 11/13/21 13:35 VOMITING, vomiting Review of Systems Verdana 4l Review of Systems: Yes Unobtainable due to mental status Verdana 4d PMFSH Past Medical History Medical History AD (Alzheimer's disease) CVA (cerebral vascular accident) Dementia GERD (gastroesophageal reflux disease) Hyperparathyroidism Hypertension Nephrolithiasis Nephrolithiasis Osteoporosis Paget's bone disease UTI (urinary tract infection) Vitamin D deficiency Surgical History H/O bilateral breast reduction surgery H/O rectal polypectomy H/O: hysterectomy History of cystoscopy History of hip surgery History of lithotripsy History of tubal ligation Hx of tonsillectomy Family History Family History Father No problems noted. Mother No problems noted. Maternal Grandmother Cancer Social History Social History Household Members: Unknown / Unable to assess Housing: House Do you presently have visiting nurse or other home services: No Unable to assess alcohol history related to: Unable to respond Alcohol intake: never Patient Tobacco Use Status: Tobacco use Unknown e-Cigarette/Vaping Use: Never Used Second Hand Smoke Exposure: No Advance Directives: No service: No Current occupational status: disabled Physical Exam Verdana 4l Vital Signs: Verdana 4d Verdana 4d Vital Signs: Verdana 4d Verdana 4Bd Last Vital Signs Verdana 4d Bellman Captain New 4d Bellman Captain New 4d Temp 98 F 11/19/21 00:52 Bellman Captain New 4d Pulse 90 11/19/21 00:52 Bellman Captain New 4d Resp 22 H 11/19/21 00:52 BP 148/63 H 11/19/21 00:52 Pulse Ox 95 11/19/21 00:52 BMI result Body Mass Index 30.4 Appearance: Alert. And awake. No acute distress. Nonverbal demented Eyes: No pallor ENT: Pharynx normal. Oral Mucosa moist Neck: Normal inspection. Neck supple. CVS: Normal heart rate and rhythm. Pulses normal. Respiratory: No respiratory distress. Equal air entry bilateral, no wheezing/rales/rhonchi Abdomen: Soft and nontender. Bowel sounds are present, no mass palpable, Skin: Skin warm and dry. Normal skin color. Normal skin turgor. Extremities: No lower extremity edema. No calf tenderness Neuro: Alert and awake nonverbal no focal deficits appreciated Skin: Other: MDM - Wound/Laceration MDM Narrative Medical decision making narrative: Deep sacral wound does slightly from sacrum without any bony changes suggestive of osteomyelitis also noticed to have COVID infection with bilateral chest x-ray changes without any significant hypoxia will admit patient for COVID and deep nonhealing sacral wound Lab Data Attestation: I reviewed the patient's lab results. Result diagrams: 11/18/21 17:39 11/18/21 17:39 Labs: Lab Results 11/18/21 11/18/21 11/18/21 Range/Units 17:39 17:39 20:05 WBC 14.6 H (4.8-10.8) X10*3/uL RBC 3.91 L (4.20-5.50) X10*6/uL Hgb 8.5 L (12.0-16.0) g/dl Hct 29.6 L (37.0-47.0) % MCV 75.7 L (80.0-98.0) fL MCH 21.7 L (27.0-33.0) pg MCHC 28.7 L (31.0-35.0) g/dl RDW 19.7 H (11.0-16.0) % Plt Count 444 H (160-400) X10*3/uL MPV 10.1 (9.4-12.3) fL Absolute Nucleated RBC 0.000 (0.0-0.012) X10*3/uL Nucleated RBC % (auto) 0.0 (0.0-0.2) /100WBC Sodium 138 (135-145) mmol/L Potassium 3.4 (3.3-5.1) mmol/L Chloride 105 (96-108) mmol/L Carbon Dioxide 24 (22-29) mmol/L Anion Gap 12 (12-20) BUN 17 H (9-16) mg/dL Creatinine 1.07 (0.5-1.4) mg/dL Estim Creat Clear Calc 55.2 Estimated GFR 50 Random Glucose 205 H (60-115) mg/dL Lactic Acid (0.5-2.0) mmol/L Calcium 9.0 (8.4-10.2) mg/dL COVID-19 (DOMINIK) Positive A (Negative) COVID-19 Clin Com See Note 11/18/21 Range/Units 20:40 WBC (4.8-10.8) X10*3/uL RBC (4.20-5.50) X10*6/uL Hgb (12.0-16.0) g/dl Hct (37.0-47.0) % MCV (80.0-98.0) fL MCH (27.0-33.0) pg MCHC (31.0-35.0) g/dl RDW (11.0-16.0) % Plt Count (160-400) X10*3/uL MPV (9.4-12.3) fL Absolute Nucleated RBC (0.0-0.012) X10*3/uL Nucleated RBC % (auto) (0.0-0.2) /100WBC Sodium (135-145) mmol/L Potassium (3.3-5.1) mmol/L Chloride (96-108) mmol/L Carbon Dioxide (22-29) mmol/L Anion Gap (12-20) BUN (9-16) mg/dL Creatinine (0.5-1.4) mg/dL Estim Creat Clear Calc Estimated GFR Random Glucose (60-115) mg/dL Lactic Acid 2.3 H* (0.5-2.0) mmol/L Calcium (8.4-10.2) mg/dL COVID-19 (DOMINIK) (Negative) COVID-19 Clin Com Discharge Plan Discharge Clinical Impression: Decubitus ulcer of sacral region, stage 4, COVID-19 Patient Disposition: Admitted As Inpatient
[2021-11-18 19:53] VITALS: BP 155/71; PULSE 87; RESP 18; O2SAT 98
[2021-11-18 20:23] LABS: COVID-19 Test Positive (Negative); IDNOW Serial# 9DD0AD1C
--- NOTE | 2021-11-18 20:58 | PC.NURSE ---
Daughter is Misty any information needed
[2021-11-18 21:03] LABS: Lactic Acid 2.3 mmol/L (0.5-2.0)
[2021-11-18] MEDS: Piperacillin Sodium/Tazobactam 3.375 GM in 0.9 % Sodium Chloride 50 ML IV (21:04)
--- NOTE | 2021-11-18 21:45 | PC.NURSE ---
IV access placed by ultrasound infliltrated, IV removed, MD aware, minimal amounts of swelling noted.
[2021-11-18] MEDS: vancomycin HCL 1,000 MG in 0.9 % Sodium Chloride 250 ML 270 MG IV (22:02)
[2021-11-18] MEDS: 0.9 % Sodium Chloride 1,000 ML 999 ML IV (22:04)
[2021-11-18 22:40] VITALS: BP 150/63; PULSE 90; RESP 18; TEMP 37.1; O2SAT 98
[2021-11-18 22:43] LABS: Reflex Lactate? Lactic Acid Added
--- NOTE | 2021-11-18 23:33 | P.HPHOSP_ITS ---
History of Present Illness Date of Service: 11/18/21 Chief Complaint: Gen weakness 71-year-old female with a past medical history of hypertension, hyperlipidemia, GERD, osteoporosis, patient's disease, recurrent kidney stones, right kidney hydronephrosis, hyperparathyroidism, Alzheimer's dementia, COVID-19 vaccinated, GERD, decubitus ulcer, bed-bound, nonverbal, lives at home with the family presented to the hospital today with a chief complaint of generalized weakness. Spoke to the patient's daughter over the phone, who mentions that patient has been having this decubitus ulcer on her sacrum for past 3 weeks which has been intact with no open wound, and over the past couple days ago she noted to have o pen wound and [facility] who saw her in the clinic today and suggested her to do outpatient antibiotics with CT scan versus going to the ER. Family decided to bring her to the ER for further evaluation. Denies patient having any dry cough, fever chills, urinary symptoms, fevers at home. Mentions patient is bed-bound and nonverbal at baseline. PH with a helper feeding assistance. Mentioned that over the past 2 days she noted the patient has been more sleeping than her baseline. Review of all other systems is negative except mentioned above ER course: Per ER team patient on presentation noted to be alert and awake, no discharge noted from the disc vitals ulcer, CT scan showed deep ulcer up to the bone, no evidence of osteomyelitis; chest x-ray showed COVID pneumonia. Patient was COVID-19 positive. Afebrile. Noted mild leukocytosis and lactic acidosis. Patient was given broad-spectrum antibiotics. Patient was saturating 95% on room air. Admitted to the hospital for further management [facility] Medical History AD (Alzheimer's disease) CVA (cerebral vascular accident) Dementia GERD (gastroesophageal reflux disease) Hyperparathyroidism Hypertension Nephrolithiasis Nephrolithiasis Osteoporosis Paget's bone disease UTI (urinary tract infection) Vitamin D deficiency Family History Father No problems noted. Mother No problems noted. Maternal Grandmother Cancer Pertinent family history: as above Surgical History H/O bilateral breast reduction surgery H/O rectal polypectomy H/O: hysterectomy History of cystoscopy History of hip surgery History of lithotripsy History of tubal ligation Hx of tonsillectomy Social History Household Members: Unknown / Unable to assess Housing: House Do you presently have visiting nurse or other home services: No Unable to assess alcohol history related to: Unable to respond Alcohol intake: never Patient Tobacco Use Status: Tobacco use Unknown e-Cigarette/Vaping Use: Never Used Second Hand Smoke Exposure: No Advance Directives: No service: No Current occupational status: disabled Meds Allergies Allergy/AdvReac Type Severity Reaction Status Date / Time morphine [MORPHINE] Allergy Mild NAUSEA & Verified 11/13/21 13:35 VOMITING, vomiting Active Medications: Current Medications Acetaminophen (Acetaminophen 325 Mg Tablet) 650 mg PO Q6H PRN PRN Reason: Pain, Mild (Pain Scale 1-3) Enoxaparin Sodium (Enoxaparin Sodium 40 Mg/0.4 Ml Syringe) 40 mg SUBCUT Q24H MANDEEP Vancomycin HCl 1,000 mg/ (Sodium Chloride) 270 mls @ 270 mls/hr IV Q12H MANDEEP Piperacillin Sod/Tazobactam (Sod 3.375 gm/ Sodium Chloride) 50 mls @ 100 mls/hr IV Q6H MANDEEP Melatonin (Melatonin 3 Mg Tablet) 6 mg PO BEDTIME PRN PRN Reason: Insomnia Pharmacy Consult (Consult Rx Vancomycin Dosing) 1 each MISCELLANE DAILY PRN PRN Reason: Consult order Senna (Sennosides 8.6 Mg Tablet) 17.2 mg PO BEDTIME PRN PRN Reason: Constipation Sodium Chloride (0.9 % Sodium Chloride Flush 3 Ml Syringe) 3 ml IVFLUSH QSHIFT MANDEEP Home Medications Medication Instructions Recorded Confirmed Last Taken Type topiramate 50 mg 50 mg PO BID 07/18/20 11/18/21 11/18/21 10:00 History tablet Physical Exam Verdana 4l Vital Signs and Narrative: Verdana 4d Verdana 4d Vital Signs: Verdana 4d Verdana 4Bd Last Vital Signs Verdana 4d Lockstitch Tunnel Elastic Operator New 4d Lockstitch Tunnel Elastic Operator New 4d Temp 98.8 F 11/18/21 22:40 Lockstitch Tunnel Elastic Operator New 4d Pulse 90 11/18/21 22:40 Lockstitch Tunnel Elastic Operator New 4d Resp 18 01/31/22 22:40 BP 150/63 H 11/18/21 22:40 Pulse Ox 98 11/18/21 22:40 BMI result Body Mass Index 30.4 Gen: Appears be in no acute distress. Patient lying in the bed comfortably. Nonverbal . Saturating well on room air HEENT: NCAT, Moist mucosa. Pulmonary: Vesicular breath sounds, fair air entry CVS: Normal S1-S2 Abdomen: BS+, Soft, Nontender Extremities: Warm well perfused Neuro: Alert and awake. decubitus ulcer: Noted to ulcers on her back near the sacrum, 1 open, no discharge, surrounding healing granulation tissue noted. Results Labs CBC and Chem 7: 11/18/21 17:39 11/18/21 17:39 Labs: Laboratory Results - last 24 hr 11/18/21 11/18/21 11/18/21 17:39 17:39 20:05 MCV 75.7 L MCH 21.7 L MCHC 28.7 L RDW 19.7 H Plt Count 444 H MPV 10.1 Absolute Nucleated RBC 0.000 Nucleated RBC % (auto) 0.0 Anion Gap 12 Estim Creat Clear Calc 55.2 Estimated GFR 50 Random Glucose 205 H Lactic Acid Calcium 9.0 COVID-19 (DOMINIK) Positive A COVID-19 Clin Com See Note 11/18/21 20:40 MCV MCH MCHC RDW Plt Count MPV Absolute Nucleated RBC Nucleated RBC % (auto) Anion Gap Estim Creat Clear Calc Estimated GFR Random Glucose Lactic Acid 2.3 H* Calcium COVID-19 (DOMINIK) COVID-19 Clin Com Imaging Radiologist's Impressions: Impressions Abdomen/Pelvis CT 11/18/21 20:20 IMPRESSION: 1. Deep sacral decubitus ulcer extending essentially to the bone. No bone destruction. Presacral inflammatory changes are present which are new. 2. Markedly abnormal right kidney which is enlarged and hydronephrotic with multiple intrarenal calculi as well as calculi in distal ureter. Some new calcifications noted in the left kidney. 3. 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 4. Other incidental findings as described above. Fleischner guidelines were followed. Chest X-Ray 11/18/21 21:02 IMPRESSION: Patchy multifocal airspace opacities in bilateral lung consistent with history of Covid positive. Assessment and Plan (1) Decubitus ulcer of sacral region, stage 4: Status: Acute (2) COVID-19: Status: Acute Plan 71-year-old female with a past medical history of hypertension, hyperlipidemia, GERD, osteoporosis, patient's disease, recurrent kidney stones, right kidney hydronephrosis, hyperparathyroidism, Alzheimer's dementia, COVID-19 vaccinated, GERD, decubitus ulcer, bed-bound, nonverbal, lives at home with the family pres ented to the hospital today with a chief complaint of generalized weakness. noted to have following conditions COVID-19 pneumonia: Patient currently saturating 90% on room air. Continue broad-spectrum antibiotic - IV vancomycin and Zosyn. Pharmacy to renally dose medications. Patient was COVID-19 vaccinated with Moderna vaccine in the past. Did not receive any boost to dose or influenza vaccine yet. Id consult for further recommendations. Decubitus ulcer: Noted open ulcer on the sacral area, no discharge, healing granulation tissue noticed in the surrounding. No surrounding skin hyperemia. Pressure ulcer care per RN. Patient on broad-spectrum antibiotics as mentioned above Id and General surgery consulted. History of dementia/ bed-bound/ nonverbal: Supportive care. Speech and swallow eval. Patient eats with feeding assistance as per the family. Aspiration precautions. History of right kidney stone/ hydronephrosis: Chronic. For patient drowsy follow-up. DVT prophylaxis: Lovenox Code status: Full code. Confirmed with the patient's daughter. Quality Stroke Does the patient have a stroke diagnosis?: No VTE Prior VTE?: No VTE Risk Level:: Medical - moderate - high VTE Device Contraindication: Treatment Not Indicated VTE Drug Contraindication: N/A - Med Ordered
[2021-11-19 00:21] VITALS: BP 151/62; PULSE 88; RESP 22; O2SAT 95
--- NOTE | 2021-11-19 00:31 | PC.NURSE ---
Pt non-verbal, confused a baseline, no signs of pain noted. IV in right neck intact and infusing without issues. Coccyx wound noted, dressing remains intact. Vitals stable, NSR. Daughter called and aware of pt being admitted and agrees to plan.
[2021-11-19 00:38] VITALS: BP 151/60; PULSE 84; RESP 18; O2SAT 98
[2021-11-19 00:52] VITALS: BP 148/63; PULSE 90; RESP 22; TEMP 36.6; O2SAT 95
[2021-11-19] MEDS: Piperacillin Sodium/Tazobactam 3.375 GM in 0.9 % Sodium Chloride 50 ML IV ×4 (03:15→21:08)
[2021-11-19 05:57] VITALS: BP 134/59; PULSE 81; RESP 18; TEMP 36.6; O2SAT 97
[2021-11-19] MEDS: Enoxaparin Sodium 40 MG/0.4 ML SYRINGE SUBCUT (06:32)
[2021-11-19 07:07] LABS: MANUAL DIFF FLAG NO
[2021-11-19 07:13] LABS: Basophils Percent Auto 0.3 % (0-2); Eosinophils Absolute Auto 0.1 X10*3/uL (0.0-0.4); Eosinophils Percent Auto 1.2 % (0-4); Hematocrit 27.3 % (37.0-47.0); Hemoglobin 7.7 g/dl (12.0-16.0); Imm Gran Abs Auto 0.06 X10*3/uL (0.00-0.03); Imm Gran Pct Auto 0.6 % (0.0-0.4); Lymphocytes Absolute Auto 1.9 X10*3/uL (1.2-4.9); Mean Corpuscular HGB Conc 28.2 g/dl (31.0-35.0); Mean Corpuscular Hemoglobin 21.4 pg (27.0-33.0); Mean Corpuscular Volume 75.8 fL (80.0-98.0); Mean Platelet Volume 10.2 fL (9.4-12.3); Monocytes Absolute Auto 1.5 X10*3/uL (0.1-1.2); Monocytes Percent Auto 14.2 % (2-11); Neutrophils Absolute Auto 6.9 x10*3/uL (2.0-8.3); Neutrophils Percent Auto 65.7 % (45-73); Platelet Count 358 X10*3/uL (160-400); Red Cell Distribution Width 19.4 % (11.0-16.0); White Blood Count 10.4 X10*3/uL (4.8-10.8)
[2021-11-19 07:31] LABS: Blood Urea Nitrogen 16 mg/dL (9-16); Calcium 8.6 mg/dL (8.4-10.2); Creatinine Clr Calc Pharmacy 70.2; Estimated Glomerular Filt Rate > 60; Glucose Random 101 mg/dL (60-115)
[2021-11-19 07:40] LABS: Anion Gap 12 (12-20); Carbon Dioxide 23 mmol/L (22-29); Chloride 108 mmol/L (96-108); Potassium 2.9 mmol/L (3.3-5.1); Sodium 140 mmol/L (135-145)
[2021-11-19] MEDS: 0.9 % Sodium Chloride Flush 3 ML SYRINGE IVFLUSH ×2 (09:11→16:29)
--- NOTE | 2021-11-19 09:20 | P.PNIM_ITS ---
Subjective Subjective Date of Service: 11/20/21 Interval History: F/u on covid, gen weakness decub ulcer.. Non verbal looks comfortable Review of Systems Review of Systems: Yes Unobtainable due to mental status Physical Exam Verdana 4l Vital Signs: Verdana 4d Verdana 4d Vital Signs: Verdana 4d Verdana 4Bd Last Vital Signs Verdana 4d Senior Electronics Design Engineer New 4d Senior Electronics Design Engineer New 4d Temp 97.9 F 11/19/21 05:57 Senior Electronics Design Engineer New 4d Pulse 81 11/19/21 05:57 Senior Electronics Design Engineer New 4d Resp 18 11/19/21 05:57 BP 134/59 L 11/19/21 05:57 Pulse Ox 97 11/19/21 05:57 BMI result Body Mass Index 30.4 Const: Other: General: Non-verbal, no acute distress Resp: CTA bilateral CVS: S1,S2,RRR GI: +BS, NT, no distention Skin:See picture for michele ucers elsewhere Neuro: motor grossly intact Psych: appropriate affect Objective Data Active Medications Acetaminophen (Acetaminophen 325 Mg Tablet) 650 mg PO Q6H PRN PRN Reason: Pain, Mild (Pain Scale 1-3) Amlodipine Besylate (Amlodipine Besylate 5 Mg Tablet) 5 mg PO DAILY [facility]; Protocol Aspirin (Aspirin 81 Mg Tab.Chew) 81 mg PO DAILY [facility] Enoxaparin Sodium (Enoxaparin Sodium 40 Mg/0.4 Ml Syringe) 40 mg SUBCUT Q24H [facility] Last Admin: 11/19/21 06:32 Dose: 40 mg Documented by: VIANCA Escitalopram Oxalate (Escitalopram Oxalate 5 Mg Tablet) 5 mg PO DAILY [facility] Piperacillin Sod/Tazobactam (Sod 3.375 gm/ Sodium Chloride) 50 mls @ 100 mls/hr IV Q6H [facility] Last Admin: 11/19/21 08:59 Dose: 100 mls/hr Documented by: LUCINDA Vancomycin HCl 1,250 mg/ (Sodium Chloride) 250 mls @ 166.667 mls/hr IV Q24H [facility] Melatonin (Melatonin 3 Mg Tablet) 6 mg PO BEDTIME PRN PRN Reason: Insomnia Memantine (Memantine Hcl 5 Mg Tablet) 5 mg PO BID [facility] Pharmacy Consult (Consult Rx Vancomycin Dosing) 1 each MISCELLANE DAILY PRN PRN Reason: Consult order Senna (Sennosides 8.6 Mg Tablet) 17.2 mg PO BEDTIME PRN PRN Reason: Constipation Sodium Chloride (0.9 % Sodium Chloride Flush 3 Ml Syringe) 3 ml IVFLUSH QSHIFT [facility] Last Admin: 11/19/21 09:11 Dose: 3 ml Documented by: LUCINDA Topiramate (Topiramate 25 Mg Tablet) 50 mg PO BID [facility] Labs CBC & Chem 7: 11/19/21 06:53 11/20/21 06:48 Labs: Laboratory Results - last 24 hr 11/18/21 11/18/21 11/18/21 17:39 17:39 20:05 MCV 75.7 L MCH 21.7 L MCHC 28.7 L RDW 19.7 H Plt Count 444 H MPV 10.1 Immature Gran % (Auto) Neut % (Auto) Lymph % (Auto) [place] % (Auto) Eos % (Auto) Baso % (Auto) Lymph # (Auto) [place] # (Auto) Eos # (Auto) Baso # (Auto) Abs Immat Gran (auto) Absolute Neuts (auto) Absolute Nucleated RBC 0.000 Nucleated RBC % (auto) 0.0 Anion Gap 12 Estim Creat Clear Calc 55.2 Estimated GFR 50 Random Glucose 205 H Lactic Acid Lactic Acid F/U @ 2Hr Calcium 9.0 COVID-19 (DOMINIK) Positive A COVID-19 Clin Com See Note 11/18/21 11/19/21 11/19/21 20:40 00:25 06:53 MCV 75.8 L MCH 21.4 L MCHC 28.2 L RDW 19.4 H Plt Count 358 MPV 10.2 Immature Gran % (Auto) 0.6 H Neut % (Auto) 65.7 Lymph % (Auto) 18.0 L [place] % (Auto) 14.2 H Eos % (Auto) 1.2 Baso % (Auto) 0.3 Lymph # (Auto) 1.9 [place] # (Auto) 1.5 H Eos # (Auto) 0.1 Baso # (Auto) 0.0 Abs Immat Gran (auto) 0.06 H Absolute Neuts (auto) 6.9 Absolute Nucleated RBC 0.000 Nucleated RBC % (auto) 0.0 Anion Gap Estim Creat Clear Calc Estimated GFR Random Glucose Lactic Acid 2.3 H* Lactic Acid F/U @ 2Hr 1.0 Calcium COVID-19 (DOMINIK) COVID-19 Clin Com 11/19/21 06:53 MCV MCH MCHC RDW Plt Count MPV Immature Gran % (Auto) Neut % (Auto) Lymph % (Auto) [place] % (Auto) Eos % (Auto) Baso % (Auto) Lymph # (Auto) [place] # (Auto) Eos # (Auto) Baso # (Auto) Abs Immat Gran (auto) Absolute Neuts (auto) Absolute Nucleated RBC Nucleated RBC % (auto) Anion Gap 12 Estim Creat Clear Calc 70.2 Estimated GFR > 60 Random Glucose 101 Lactic Acid Lactic Acid F/U @ 2Hr Calcium 8.6 COVID-19 (DOMINIK) COVID-19 Clin Com Assessment and Plan (1) Sacral decubitus ulcer, stage II: Status: Acute (2) Decubitus ulcer of sacral region, stage 4: Status: Acute (3) COVID-19: Status: Acute Plan 71-year-old female with a past medical history of hypertension, hyperlipidemia, GERD, osteoporosis, patient's disease, recurrent kidney stones, right kidney hydronephrosis, hyperparathyroidism, Alzheimer's dementia, COVID-19 vaccinated, GERD, decubitus ulcer, bed-bound, nonverbal, lives at home with the family presented to the hospital today withf generalized weakness and noted to have covid PNA.? noted to have following conditions COVID-19 viral PNA, assymptmatic, no fever, normal WBC, normal O2, continue Zosyn and Vanco Decubitus ulcer present on admission:? Noted open ulcer on the sacral area, no discharge, healing granulation tissue noticed in the surrounding.? No surroundi ng skin hyperemia. Pressure ulcer care per RN--ID recommends 6 weeks of Abx. ? History of dementia/ bed-bound/ nonverbal: Supportive care.? Speech and swallow eval.? Patient eats with feeding assistance as per the family.? Aspiration precautions. History of right kidney stone/ hydronephrosis:? Chronic.? For patient drowsy follow-up.? DVT prophylaxis:? Lovenox Code status:? Full code.? Confirmed with the patient's daughter. Quality Stroke Does the patient have a stroke diagnosis?: No VTE Prior VTE?: No VTE Risk Level:: Medical - moderate - high VTE Device Contraindication: Treatment Not Indicated VTE Drug Contraindication: N/A - Med Ordered
--- NOTE | 2021-11-19 09:31 | PC.NURSE ---
Pt is Alert, non verbal at baseline. Lungs diminished, NSR in the 60's on the monitor at this time. No obvious signs of pain or distress, AM care provided, wound to sacrum has dressing in place at this time. in for eval, asked for speech consult due to pt's inability to speak and this RN not aware of how pt takes in PO. Medicated as per [facility] orders, small skin tear noted to R arm, dressing in place. Call cotter within reach, bed alarm on, purewick placed for urinary incontinence. Will continue to monitor.
--- NOTE | 2021-11-19 09:33 | PHA.PROG ---
Admission Date/Time: November 18, 2021 23:28 Indication: COVID PNA and Debubitis ulcer Weight in k.718 kg Adjusted body weight in K.62 kg [place] body weight in K.9 kg Obesity Dosing Indication % IBW: 140% Serum Creatinine - Last 168 Hours 11/18/21 11/19/21 17:39 06:53 Creatinine 1.07 0.84 Estimated CrCl and GFR - Last 168 Hours 11/18/21 11/19/21 17:39 06:53 Estim Creat Clear Calc 55.2 70.2 Estimated GFR 50 > 60 Vancomycin Loading Dose: No loading dose given Current Vancomycin Dosing Regimen: 1250 mg Q24H Date and Time for next Vancomycin Level to be drawn: 11/21 @ 1200 Pharmacist Comments on Vancomycin Plan: Patient did not receive a 20 mg/kg loading dose. Patient received 1000 mg 11/18 @ 2202 in the ED. Will start maintenance dose in 16 hours instead of 24 hours to create a load dose to help patient get the therapeutic levels. Maintenance dose 1250 mg Q24H to start 11/19 @ 1400. Expected AUC of 469 with a trough of 11.9. Trough will be drawn prior to 4th dose of vancomycin Pharmacy will monitor renal function daily. Ana Prince PharmD Vancomycin dosing will take advantage of [employer] as a clinical decision support tool that uses Bayesian modeling to calculate individual patient's pharmacokinetic parameters and forecast the patient's drug concentration time course with the target goal AUC 24 range of 400 - 600 mg/L/hr.
--- NOTE | 2021-11-19 10:42 | MHC.SL.SWA ---
Speech Pathologist Impression: Oralpharyngeal Dysphagia Risk of Aspiration Due to: History of Pneumonia Reduced Cognition Dysphasia Diet Status: Upgrade Liquid Consistency and Strategies for Safe Swallow: Liquid Intake Recommendation: [place] Thick Liquid Intake Strategies: Liquids by Teaspoon Only Solid Food Consistency: Dietary Recommendations: Grnd/Mech Altered (NDD2) Additional Modifications to Solid Foods: Avoid sticky consistencies Oral Medication Intake: Crushed with Puree Compensatory Strategies and Precautions to be Taken for Safe Swallow: Sitting Upright (90 deg) No Straw Liquids from Spoon Alternate Liquids/Solids Rate of Ingestion Change Supervision While Eating and Drinking for Safe Swallow: Total Supervision (1:1) Foods to Avoid: Avoid sticky consistencies Swallowing Recommended Treatments: Compens. Strategy Educat. Recommendation for Speech: Inpatient Speech Therapy Comment: Pt presents w/oralpharyngeal dysphagia, characterized by delayed oral transit, absent swallow trigger and moderate delay of swallow after oral phase w/incomplete laryngeal elevation. Pt is at risk for aspiration. Recommend start diet of GROUND MECHANICAL/ALT (NDD2) w/ NECTAR THICK liquid, w/ PILLS Crushed in PUREE. Pt will need full assistance and strict supervision w/ close monitor for clinical signs of aspiration at every meal. Monitor for swallow on solids, and alternate liquids and solid foods. Diet recommendations sent by secure text to MD, Heavy Forging Machine Operator, Dietary w/ request for diet order upgrade. SUPERVISOR PREPRESS will follow while Inpt for toleration of diet consistencies, re-assessment of swallow, recommendation for upgrade if warranted. Frequency/Duration: M-F Date Range for Service Req: Timeline to reassess: Fixed Capital Clerk Clinican/Clinical Fellow: No Supervisory Statement: I have reviewed and agree with the student/clinical fellow's documentation: N/A Speech Language Pathologist: Monse Mauro M.A., CCC-SUPERVISOR [employer]
[2021-11-19] MEDS: vancomycin HCL 1,250 MG in 0.9 % Sodium Chloride 250 ML 166.67 MG IV (14:17)
--- NOTE | 2021-11-19 14:36 | P.CONGS_ITS ---
History of Present Illness Consult details Consult date: 11/19/21 Narrative: 71F referred for sacral decubitus ulcer. She has advanced Alzheimer's dementia and is bedbound. She was brought to the ED by her family because of what was described as generalized weakness. She has had a decubitus ulcer on the sacraum for many month but the family had stated that this had an open wound now. I was therefore consulted. The patient is nonverbal and noncommunicative, so the history was from the current EHR. Review of Systems Verdana 4l Review of Systems: Verdana 4d the patient is not Verdana 4d communicative, not verbal due to Alzheimer's disease Verdana 4d [facility] Past Medical History Medical History (Updated 11/19/21 @ 14:43 by Darrell Rodriguez MD) AD (Alzheimer's disease) CVA (cerebral vascular accident) Dementia GERD (gastroesophageal reflux disease) Hyperparathyroidism Hypertension Nephrolithiasis Nephrolithiasis Osteoporosis Paget's bone disease Sacral decubitus ulcer, stage II UTI (urinary tract infection) Vitamin D deficiency Family History Family History Father No problems noted. Mother No problems noted. Maternal Grandmother Cancer Surgical History Surgical History H/O bilateral breast reduction surgery H/O rectal polypectomy H/O: hysterectomy History of cystoscopy History of hip surgery History of lithotripsy History of tubal ligation Hx of tonsillectomy Social History Social History Household Members: Unknown / Unable to assess Housing: House Do you presently have visiting nurse or other home services: No Unable to assess alcohol history related to: Unable to respond Alcohol intake: never Patient Tobacco Use Status: Tobacco use Unknown e-Cigarette/Vaping Use: Never Used Second Hand Smoke Exposure: No Advance Directives: No service: No Current occupational status: disabled Meds Allergies Allergy/AdvReac Type Severity Reaction Status Date / Time morphine [MORPHINE] Allergy Mild NAUSEA & Verified 11/13/21 13:35 VOMITING, vomiting Active Medications: Current Medications Acetaminophen (Acetaminophen 325 Mg Tablet) 650 mg PO Q6H PRN PRN Reason: Pain, Mild (Pain Scale 1-3) Amlodipine Besylate (Amlodipine Besylate 5 Mg Tablet) 5 mg PO DAILY [facility]; Protocol Last Admin: 11/19/21 14:02 Dose: Not Given Documented by: Aspirin (Aspirin 81 Mg Tab.Chew) 81 mg PO DAILY [facility] Last Admin: 11/19/21 14:02 Dose: Not Given Documented by: Docusate Sodium (Docusate Sodium 100 Mg Capsule) 100 mg PO DAILY [facility] Last Admin: 11/19/21 14:03 Dose: Not Given Documented by: Enoxaparin Sodium (Enoxaparin Sodium 40 Mg/0.4 Ml Syringe) 40 mg SUBCUT Q24H [facility] Last Admin: 11/19/21 06:32 Dose: 40 mg Documented by: Escitalopram Oxalate (Escitalopram Oxalate 5 Mg Tablet) 5 mg PO DAILY [facility] Last Admin: 11/19/21 14:02 Dose: Not Given Documented by: Piperacillin Sod/Tazobactam (Sod 3.375 gm/ Sodium Chloride) 50 mls @ 100 mls/hr IV Q6H [facility] Last Infusion: 11/19/21 10:02 Dose: Infused Documented by: Vancomycin HCl 1,250 mg/ (Sodium Chloride) 250 mls @ 166.667 mls/hr IV Q24H [facility] Last Admin: 11/19/21 14:17 Dose: 166.67 mls/hr Documented by: Melatonin (Melatonin 3 Mg Tablet) 6 mg PO BEDTIME PRN PRN Reason: Insomnia Memantine (Memantine Hcl 5 Mg Tablet) 5 mg PO BID [facility] Last Admin: 11/19/21 14:03 Dose: Not Given Documented by: Omeprazole (Omeprazole 20 Mg Capsule.) 20 mg PO DAILY@0630 [facility] Last Admin: 11/19/21 14:03 Dose: Not Given Documented by: Pharmacy Consult (Consult Rx Vancomycin Dosing) 1 each MISCELLANE DAILY PRN PRN Reason: Consult order Senna (Sennosides 8.6 Mg Tablet) 17.2 mg PO BEDTIME PRN PRN Reason: Constipation Senna (Sennosides 8.6 Mg Tablet) 8.6 mg PO DAILY [facility] Last Admin: 11/19/21 14:03 Dose: Not Given Documented by: Sodium Chloride (0.9 % Sodium Chloride Flush 3 Ml Syringe) 3 ml IVFLUSH QSHIFT [facility] Last Admin: 11/19/21 09:11 Dose: 3 ml Documented by: Tamsulosin HCl (Tamsulosin Hcl 0.4 Mg Capsule) 0.4 mg PO BEDTIME [facility] Topiramate (Topiramate 25 Mg Tablet) 50 mg PO BEDTIME [facility] Vitamin D (Cholecalciferol (Vitamin D3) 25 Mcg Tablet) 50 mcg PO DAILY [facility] Last Admin: 11/19/21 14:03 Dose: Not Given Documented by: Home Medications Medication Instructions Recorded Confirmed Last Taken Type topiramate 50 50 mg PO 07/18/20 11/19/21 11/18/21 10:00 History mg tablet BEDTIME docusate sodium 100 mg PO DAILY 11/19/21 11/19/21 Unknown History 100 mg capsule omeprazole 20 1 cap PO 11/19/21 11/19/21 Unknown History mg DAILY@0630 capsule,delayed release sennosides 8.6 8.6 mg PO DAILY 11/19/21 11/19/21 Unknown History mg tablet (senna) tamsulosin 0.4 0.4 mg PO 11/19/21 11/19/21 11/18/21 10:00 History mg capsule BEDTIME Physical Exam Verdana 4l Vital Signs: Verdana 4d Verdana 4d Vital Signs: Verdana 4d Verdana 4Bd Last Vital Signs Verdana 4d Braider Operator New 4d Braider Operator New 4d Temp 97.9 F 11/19/21 05:57 Braider Operator New 4d Pulse 81 11/19/21 05:57 Braider Operator New 4d Resp 18 11/19/21 05:57 BP 134/59 L 11/19/21 05:57 Pulse Ox 97 11/19/21 05:57 BMI result Body Mass Index 30.4 Const: General: comfortable and no acute distress Resp: Effort & Inspection: normal respiratory effort Cardio: Rate: regular rate GI: Palpation (GI): Soft to palpation and nontender Back/Spine/Pelvis: Other: sacral decub ulcer, stage II-III, about 3 x 3 cm in total area, clean, no gangrenous tissue or pus Extrem: Other: rigid, with contractures Results Labs Result diagrams: 11/19/21 06:53 11/19/21 06:53 Labs: Abnormal lab results 11/18/21 11/18/21 11/18/21 Range/Units 17:39 17:39 20:05 WBC 14.6 H (4.8-10.8) X10*3/uL RBC 3.91 L (4.20-5.50) X10*6/uL Hgb 8.5 L (12.0-16.0) g/dl Hct 29.6 L (37.0-47.0) % MCV 75.7 L (80.0-98.0) fL MCH 21.7 L (27.0-33.0) pg MCHC 28.7 L (31.0-35.0) g/dl RDW 19.7 H (11.0-16.0) % Plt Count 444 H (160-400) X10*3/uL Immature Gran % (Auto) (0.0-0.4) % Lymph % (Auto) (20-40) % [place] % (Auto) (2-11) % [place] # (Auto) (0.1-1.2) X10*3/uL Abs Immat Gran (auto) (0.00-0.03) X10*3/uL Potassium (3.3-5.1) mmol/L BUN 17 H (9-16) mg/dL Random Glucose 205 H (60-115) mg/dL Lactic Acid (0.5-2.0) mmol/L COVID-19 (DOMINIK) Positive A (Negative) 11/18/21 11/19/21 11/19/21 Range/Units 20:40 06:53 06:53 WBC (4.8-10.8) X10*3/uL RBC 3.60 L (4.20-5.50) X10*6/uL Hgb 7.7 L (12.0-16.0) g/dl Hct 27.3 L (37.0-47.0) % MCV 75.8 L (80.0-98.0) fL MCH 21.4 L (27.0-33.0) pg MCHC 28.2 L (31.0-35.0) g/dl RDW 19.4 H (11.0-16.0) % Plt Count (160-400) X10*3/uL Immature Gran % (Auto) 0.6 H (0.0-0.4) % Lymph % (Auto) 18.0 L (20-40) % [place] % (Auto) 14.2 H (2-11) % [place] # (Auto) 1.5 H (0.1-1.2) X10*3/uL Abs Immat Gran (auto) 0.06 H (0.00-0.03) X10*3/uL Potassium 2.9 L (3.3-5.1) mmol/L BUN (9-16) mg/dL Random Glucose (60-115) mg/dL Lactic Acid 2.3 H* (0.5-2.0) mmol/L COVID-19 (DOMINIK) (Negative) Short CBC 11/18/21 11/19/21 Range/Units 17:39 06:53 WBC 14.6 H 10.4 (4.8-10.8) X10*3/uL Hgb 8.5 L 7.7 L (12.0-16.0) g/dl Hct 29.6 L 27.3 L (37.0-47.0) % Plt Count 444 H 358 (160-400) X10*3/uL BMP 11/18/21 11/19/21 17:39 06:53 Sodium 138 140 Potassium 3.4 2.9 L Chloride 105 108 Carbon Dioxide 24 23 BUN 17 H 16 Creatinine 1.07 0.84 Calcium 9.0 8.6 All other labs normal. Assessment and Plan (1) Sacral decubitus ulcer, stage II: Status: Acute She has what appears to be a Stage II-III sacral decub ulcer. This is clean and does not appear to require any debridement at this time. Her position should be changed ever 2 hours. We can continue foam dressings to the ulcer. I will periodically check on this ulcer while she is in the hospital. Procedures Date of Service Date of Service: 11/19/21
[2021-11-19 14:51] VITALS: BP 151/64; PULSE 75; RESP 20; TEMP 36.7; O2SAT 97
--- NOTE | 2021-11-19 15:26 | PC.NURSE ---
Pt repositioned to back at this time, NDD2 diet per speech, call cotter within reach. Will continue to monitor.
--- NOTE | 2021-11-19 15:27 | W.PM.IDCN ---
History of Present Illness Data of Consult Service Date: 11/19/21 Requesting physician: Gonzalez Galan Primary Care Provider: Maverick Lopez MD [facility] Reason for consult: decubitis,COVID positive She presents to hospital brought in by family with decubitis ulcer sacrum worse over last two days. It had been healed and now has opened. She has been seen by Wound [facility] Review of Systems Review of Systems: Yes all other systems are reviewed and are negative [facility] Past Medical History Medical History AD (Alzheimer's disease) CVA (cerebral vascular accident) Dementia GERD (gastroesophageal reflux disease) Hyperparathyroidism Hypertension Nephrolithiasis Nephrolithiasis Osteoporosis Paget's bone disease Sacral decubitus ulcer, stage II UTI (urinary tract infection) Vitamin D deficiency Family History Family History Father No problems noted. Mother No problems noted. Maternal Grandmother Cancer Surgical History Surgical History H/O bilateral breast reduction surgery H/O rectal polypectomy H/O: hysterectomy History of cystoscopy History of hip surgery History of lithotripsy History of tubal ligation Hx of tonsillectomy Social History Social History Household Members: Family and Unknown / Unable to assess Housing: Unknown / Unable to assess Do you presently have visiting nurse or other home services: No Unable to assess alcohol history related to: Unable to respond Alcohol intake: never Patient Tobacco Use Status: Tobacco use Unknown e-Cigarette/Vaping Use: Never Used Second Hand Smoke Exposure: No service: No Current occupational status: disabled Meds Allergies Allergy/AdvReac Type Severity Reaction Status Date / Time morphine [MORPHINE] Allergy Mild NAUSEA & Verified 03/04/22 14:13 VOMITING, vomiting Active Medications: Current Medications Acetaminophen (Acetaminophen 325 Mg Tablet) 650 mg PO Q6H PRN PRN Reason: Pain, Mild (Pain Scale 1-3) Amlodipine Besylate (Amlodipine Besylate 5 Mg Tablet) 5 mg PO DAILY [facility]; Protocol Last Admin: 11/19/21 14:02 Dose: Not Given Documented by: Aspirin (Aspirin 81 Mg Tab.Chew) 81 mg PO DAILY [facility] Last Admin: 11/19/21 14:02 Dose: Not Given Documented by: Docusate Sodium (Docusate Sodium 100 Mg Capsule) 100 mg PO DAILY [facility] Last Admin: 11/19/21 14:03 Dose: Not Given Documented by: Enoxaparin Sodium (Enoxaparin Sodium 40 Mg/0.4 Ml Syringe) 40 mg SUBCUT Q24H [facility] Last Admin: 11/19/21 06:32 Dose: 40 mg Documented by: Escitalopram Oxalate (Escitalopram Oxalate 5 Mg Tablet) 5 mg PO DAILY [facility] Last Admin: 11/19/21 14:02 Dose: Not Given Documented by: Piperacillin Sod/Tazobactam (Sod 3.375 gm/ Sodium Chloride) 50 mls @ 100 mls/hr IV Q6H [facility] Last Infusion: 11/19/21 10:02 Dose: Infused Documented by: Vancomycin HCl 1,250 mg/ (Sodium Chloride) 250 mls @ 166.667 mls/hr IV Q24H [facility] Last Admin: 11/19/21 14:17 Dose: 166.67 mls/hr Documented by: Melatonin (Melatonin 3 Mg Tablet) 6 mg PO BEDTIME PRN PRN Reason: Insomnia Memantine (Memantine Hcl 5 Mg Tablet) 5 mg PO BID [facility] Last Admin: 11/19/21 14:03 Dose: Not Given Documented by: Omeprazole (Omeprazole 20 Mg Capsule.Dr) 20 mg PO DAILY@0630 [facility] Last Admin: 11/19/21 14:03 Dose: Not Given Documented by: Pharmacy Consult (Consult Rx Vancomycin Dosing) 1 each MISCELLANE DAILY PRN PRN Reason: Consult order Senna (Sennosides 8.6 Mg Tablet) 17.2 mg PO BEDTIME PRN PRN Reason: Constipation Senna (Sennosides 8.6 Mg Tablet) 8.6 mg PO DAILY [facility] Last Admin: 11/19/21 14:03 Dose: Not Given Documented by: Sodium Chloride (0.9 % Sodium Chloride Flush 3 Ml Syringe) 3 ml IVFLUSH QSHIFT [facility] Last Admin: 11/19/21 09:11 Dose: 3 ml Documented by: Tamsulosin HCl (Tamsulosin Hcl 0.4 Mg Capsule) 0.4 mg PO BEDTIME [facility] Topiramate (Topiramate 25 Mg Tablet) 50 mg PO BEDTIME [facility] Vitamin D (Cholecalciferol (Vitamin D3) 25 Mcg Tablet) 50 mcg PO DAILY [facility] Last Admin: 11/19/21 14:03 Dose: Not Given Documented by: Home Medications Medication Instructions Recorded Confirmed Last Taken Type topiramate 50 mg tablet 50 mg PO BEDTIME 07/18/20 11/19/21 11/18/21 10:00 History docusate sodium 100 mg capsule 100 mg PO DAILY 11/19/21 11/19/21 Unknown History omeprazole 20 mg capsule,delayed 1 cap PO DAILY@0630 11/19/21 11/19/21 Unknown History release sennosides 8.6 mg tablet (senna) 8.6 mg PO DAILY 11/19/21 11/19/21 Unknown History hydrocolloid dressing 6 X 6 12/05/21 Unknown History (Durafiber Dressing) tamsulosin 0.4 mg capsule 0.4 mg PO DAILY 03/04/22 Unknown History Physical Exam Vital Signs: Vital Signs: Last Vital Signs Temp 98.1 F 11/19/21 14:51 Pulse 75 11/19/21 14:51 Resp 20 11/19/21 14:51 BP 151/64 H 11/19/21 14:51 Pulse Ox 97 11/19/21 14:51 BMI result Body Mass Index 30.4 Const: General: cooperative Eyes: General: appearance normal, both eyes and all related structures Resp: Effort & Inspection: normal respiratory effort Cardio: Rate: regular rate Rhythm: regular rhythm GI: Palpation (GI): Soft to palpation and nontender Extrem: General: Yes normal to inspection Results Labs CBC & Chem 7: 11/19/21 06:53 11/22/21 06:03 Labs: Short CBC 11/18/21 11/19/21 Range/Units 17:39 06:53 WBC 14.6 H 10.4 (4.8-10.8) X10*3/uL Hgb 8.5 L 7.7 L (12.0-16.0) g/dl Hct 29.6 L 27.3 L (37.0-47.0) % Plt Count 444 H 358 (160-400) X10*3/uL BMP 11/18/21 11/19/21 17:39 06:53 Sodium 138 140 Potassium 3.4 2.9 L Chloride 105 108 Carbon Dioxide 24 23 BUN 17 H 16 Creatinine 1.07 0.84 Calcium 9.0 8.6 Assessment and Plan (1) Sacral decubitus ulcer, stage II: Status: Acute There is evidence open area extends to bone so there is concern over infection (2) Decubitus ulcer of sacral region, stage 4: Status: Acute (3) COVID-19: Status: Acute She is asymptomatic for COVID-19 Remdesivir three day protocol, 200,100,100 help prevent severe disease Plan Would give Zosyn and Vancomycin at this time Can do deep culture and await results Would also narrow spectrum to possible po or IV outpatient ,await culture
--- NOTE | 2021-11-19 16:54 | MHC.CM.PN ---
PATIENT IS NON-VERBAL. CALL TO HCP DAUGHTER BONIFACIO ([phone]) HCP COPY ON FILE AND VERIFIED BONIFACIO STATES THAT SHE RECENTLY OBTAINED GUARDIANSHIP OF PATIENT IF CASE MANAGEMENT CAN CALL HER TOMORROW (SHE WAS DRIVING) SHE CAN EMAIL A COPY OF GUARDIANSHIP. PATIENT LIVES WITH HER SPOUSE AND SON, AND HAS ADULT FOSTER CARE SERVICES IN THE HOME. SHE IS BED BOUND AT BASELINE. IMM 11/19 TO BE SENT TO MEDICAL RECORDS, THE CHART FOR PATIENT DOES NOT APPEAR TO BE IN THE UNIT
[2021-11-19 18:21] LABS: Alanine Aminotransferase 10 U/L (0-31); Albumin Level 2.4 g/dL (3.5-5.0); Alkaline Phosphatase 72 U/L (39-117); Aspartate Amino Transferase 16 U/L (5-31); Bilirubin Direct 0.2 mg/dL (0.0-0.5); Bilirubin Total 0.3 mg/dL (0.0-1.0); Total Protein 8.3 g/dL (6.5-8.0)
[2021-11-19] MEDS: Topiramate 25 MG TABLET 50 MG PO (21:08)
[2021-11-19] MEDS: Memantine HCl 5 MG TABLET PO (21:08)
[2021-11-19] MEDS: Remdesivir 200 MG in 0.9 % Sodium Chloride 210 ML 105 MG IV (22:16)
[2021-11-19 23:09] VITALS: PULSE 80; RESP 7; O2SAT 94
[2021-11-20] MEDS: Piperacillin Sodium/Tazobactam 3.375 GM in 0.9 % Sodium Chloride 50 ML IV ×4 (03:24→21:54)
[2021-11-20 04:42] VITALS: PULSE 82; RESP 26; O2SAT 95
[2021-11-20 07:22] LABS: Creatinine Clr Calc Pharmacy 75.7; Estimated Glomerular Filt Rate > 60
[2021-11-20] MEDS: Enoxaparin Sodium 40 MG/0.4 ML SYRINGE SUBCUT (07:27)
[2021-11-20] MEDS: Potassium Chloride/H20 10 MEQ/100 ML PIGGYBACK 100 MEQ IV ×2 (07:27→08:45)
[2021-11-20 07:28] VITALS: BP 150/72; PULSE 82; RESP 22; TEMP 36.8; O2SAT 97
--- NOTE | 2021-11-20 07:28 | PC.NURSE ---
Pt received from cna gna: Pt non-verbal. Noted B/L contractures and stiff extemities with generalized bruising. NSR noted and lungs diminished. Pt abd soft and non-tender.
--- NOTE | 2021-11-20 08:07 | PHA.PROG ---
Addendum entered by Evita Murray RPh 11/22/21 08:33: Will continue current regimen. Renal function is good and will continue to monitor. Next trough is 11/24 @ 1200 Addendum entered by Evita Murray RPh 11/21/21 09:15: Will continue current regimen, will monitor renal function and next trough will be drawn at 1200 today. Original Note: Vancomycin Dosing Indication: COVID PNA and Debubitis ulcer Weight in k.718 kg Adjusted body weight in K.62 kg [place] body weight in K.9 kg Obesity Dosing Indication % IBW: 140% Serum Creatinine - Last 168 Hours 11/18/21 11/19/21 11/20/21 17:39 06:53 06:48 Creatinine 1.07 0.84 0.78 Estimated CrCl and GFR - Last 168 Hours 11/18/21 11/19/21 11/20/21 17:39 06:53 06:48 Estim Creat Clear Calc 55.2 70.2 75.7 Estimated GFR 50 > 60 > 60 Vancomycin Loading Dose: No loading dose given Current Vancomycin Dosing Regimen: 1250 mg Q24H Date and Time for next Vancomycin Level to be drawn: 11/21 @ 1200 Pharmacist Comments on Vancomycin Plan: Renal function is stable. Continue same regimen Expected AUC 435 with a trough of 10.6 Ana Prince PharmD Vancomycin dosing will take advantage of [employer] as a clinical decision support tool that uses Bayesian modeling to calculate individual patient's pharmacokinetic parameters and forecast the patient's drug concentration time course with the target goal AUC 24 range of 400 - 600 mg/L/hr.
--- NOTE | 2021-11-20 08:55 | P.CDIC_ITS ---
CDI Concurrent Query Documentation Clarification: PHYSICIAN'S DOCUMENTATION REQUEST Date of Query: 11/20/21 0855 Patient Name: Diann Carter Admit Date: 11/18/21 Dear Doctor, A review of the medical record indicates additional documentation may be needed. Please review below and update the documentation accordingly. Verdana 4Bd Risk Factors/Clinical Indicators/Treatments Verdana 4d Lab findings: potassium 2.9 L IV fluids Based on the above, could you clarify in the Progress Notes the appropriate diagnosis, if significant, that supports the above abnormalities and additional evaluation, monitoring, and/or treatment rendered: * Hypokalemia or other etiology of lab findings * Labs indicate a diagnosis of (please specify) * Other (please specify) * Unable to determine Use of terms such as suspected, likely, concern for, or probable (associated with a specific diagnosis that is being evaluated, monitored, or treated as if it exists) are acceptable and can be coded in the inpatient setting, when documented at the time of discharge. Thank you, Carla Martinez [facility], CDIS Extension: [phone] Please use your independent medical judgment in providing your response. THIS QUERY IS PART OF THE PERMANENT MEDICAL RECORD Provider Response: Other Other Diagnosis: Hypokalemia
--- NOTE | 2021-11-20 08:55 | MHC.CDI.CONC ---
CDI Concurrent Query Documentation Clarification: PHYSICIAN'S DOCUMENTATION REQUEST Date of Query: 11/20/21 0855 Patient Name: Diann Carter Admit Date: 11/18/21 Dear Doctor, A review of the medical record indicates additional documentation may be needed. Please review below and update the documentation accordingly. Risk Factors/Clinical Indicators/Treatments Lab findings: potassium 2.9 L IV fluids Based on the above, could you clarify in the Progress Notes the appropriate diagnosis, if significant, that supports the above abnormalities and additional evaluation, monitoring, and/or treatment rendered: Hypokalemia or other etiology of lab findings Labs indicate a diagnosis of (please specify) Other (please specify) Unable to determine Use of terms such as suspected, likely, concern for, or probable (associated with a specific diagnosis that is being evaluated, monitored, or treated as if it exists) are acceptable and can be coded in the inpatient setting, when documented at the time of discharge. Thank you, Carla Martinez [facility], CDIS Extension: [phone] Please use your independent medical judgment in providing your response. THIS QUERY IS PART OF THE PERMANENT MEDICAL RECORD Provider Response: Other Other Diagnosis: Hypokalemia
[2021-11-20] MEDS: amLODIPine Besylate 5 MG TABLET PO (10:17)
[2021-11-20] MEDS: Aspirin 81 MG TAB.CHEW PO (10:17)
[2021-11-20] MEDS: Cholecalciferol (Vitamin D3) 25 MCG TABLET 50 MCG PO (10:17)
[2021-11-20] MEDS: Sennosides 8.6 MG TABLET PO (10:18)
[2021-11-20] MEDS: Docusate Sodium 100 MG CAPSULE PO (10:18)
[2021-11-20] MEDS: Memantine HCl 5 MG TABLET PO ×2 (10:18→21:55)
[2021-11-20] MEDS: Escitalopram Oxalate 5 MG TABLET PO (10:18)
[2021-11-20 11:26] VITALS: BP 151/67; PULSE 82; RESP 20; TEMP 36.4; O2SAT 96
--- NOTE | 2021-11-20 11:42 | PC.NURSE ---
Pt update status given to pt's daughter Misty: [phone]
--- NOTE | 2021-11-20 12:56 | MHC.SLORD ---
Speech Language Pathology Order Status: Discussed diet toleration and swallowing with nursing staff, total assist and tolerating well.
[2021-11-20 14:51] LABS: Anion Gap 11 (12-20); Blood Urea Nitrogen 10 mg/dL (9-16); Calcium 8.6 mg/dL (8.4-10.2); Carbon Dioxide 23 mmol/L (22-29); Chloride 107 mmol/L (96-108); Creatinine Clr Calc Pharmacy 69.4; Estimated Glomerular Filt Rate > 60; Glucose Random 128 mg/dL (60-115); Potassium 3.6 mmol/L (3.3-5.1); Sodium 137 mmol/L (135-145)
[2021-11-20 15:41] VITALS: BP 143/61; PULSE 92; RESP 18; TEMP 36.7; O2SAT 94
[2021-11-20] MEDS: 0.9 % Sodium Chloride Flush 3 ML SYRINGE IVFLUSH ×2 (16:31→21:55)
[2021-11-20] MEDS: vancomycin HCL 1,250 MG in 0.9 % Sodium Chloride 250 ML 166.67 MG IV (16:32)
[2021-11-20 17:33] VITALS: BMI 30.4
[2021-11-20 19:05] VITALS: BP 169/81; PULSE 92; RESP 20; TEMP 37.3; O2SAT 97
[2021-11-20] MEDS: Tamsulosin HCL 0.4 MG CAPSULE PO (21:54)
[2021-11-20] MEDS: Topiramate 25 MG TABLET 50 MG PO (21:54)
[2021-11-20] MEDS: Remdesivir 100 MG in 0.9 % Sodium Chloride 230 ML 115 MG IV (23:18)
[2021-11-20 23:57] VITALS: PULSE 96; RESP 20; TEMP 37.6; O2SAT 96
[2021-11-21] VITALS (8 sets, daily range): BP systolic 102–174; BP diastolic 49–75; PULSE 54–100; RESP 16–20; TEMP 36–37.6; O2SAT 96–99; BMI 30.4
[2021-11-21] MEDS: Piperacillin Sodium/Tazobactam 3.375 GM in 0.9 % Sodium Chloride 50 ML IV ×4 (04:40→21:44)
[2021-11-21] MEDS: Omeprazole 20 MG CAPSULE.DR PO (05:54)
[2021-11-21] MEDS: Enoxaparin Sodium 40 MG/0.4 ML SYRINGE SUBCUT (05:54)
[2021-11-21 07:10] LABS: Creatinine Clr Calc Pharmacy 73.7; Estimated Glomerular Filt Rate > 60
[2021-11-21] MEDS: Cholecalciferol (Vitamin D3) 25 MCG TABLET 50 MCG PO (08:29)
[2021-11-21] MEDS: Memantine HCl 5 MG TABLET PO ×2 (08:30→21:44)
[2021-11-21] MEDS: Aspirin 81 MG TAB.CHEW PO (08:30)
[2021-11-21] MEDS: Sennosides 8.6 MG TABLET PO (08:30)
[2021-11-21] MEDS: amLODIPine Besylate 5 MG TABLET PO (08:31)
[2021-11-21] MEDS: Escitalopram Oxalate 5 MG TABLET PO (08:31)
[2021-11-21] MEDS: 0.9 % Sodium Chloride Flush 3 ML SYRINGE IVFLUSH ×3 (08:50→21:44)
--- NOTE | 2021-11-21 09:50 | HO.PM.IMPN ---
Subjective Subjective Date of Service: 11/21/21 Interval History: F/u on covid, gen weakness decub ulcer.. Non verbal looks comfortable Physical Exam Vital Signs: Vital Signs: Last Vital Signs Temp 97.5 F 11/21/21 07:19 Pulse 82 11/21/21 07:19 Resp 18 11/21/21 07:19 BP 147/71 H 11/21/21 07:19 Pulse Ox 98 11/21/21 07:19 BMI result Body Mass Index 30.4 Const: Other: General: Non-verbal, no acute distress Resp: CTA bilateral CVS: S1,S2,RRR GI: +BS, NT, no distention Skin:See picture for michele ucers elsewhere Neuro: motor grossly intact Psych: appropriate affect Skin: Other: Objective Data Active Medications Acetaminophen (Acetaminophen 325 Mg Tablet) 650 mg PO Q6H PRN PRN Reason: Pain, Mild (Pain Scale 1-3) Amlodipine Besylate (Amlodipine Besylate 5 Mg Tablet) 5 mg PO DAILY [facility]; Protocol Last Admin: 11/21/21 08:31 Dose: 5 mg Documented by: JAMES Aspirin (Aspirin 81 Mg Tab.Chew) 81 mg PO DAILY [facility] Last Admin: 11/21/21 08:30 Dose: 81 mg Documented by: JAMES Docusate Sodium (Docusate Sodium 100 Mg Capsule) 100 mg PO DAILY [facility] Last Admin: 11/21/21 08:51 Dose: Not Given Documented by: JAMES Non-Admin Reason: cannot crush Enoxaparin Sodium (Enoxaparin Sodium 40 Mg/0.4 Ml Syringe) 40 mg SUBCUT Q24H [facility] Last Admin: 11/21/21 05:54 Dose: 40 mg Documented by: BRANDT Escitalopram Oxalate (Escitalopram Oxalate 5 Mg Tablet) 5 mg PO DAILY [facility] Last Admin: 11/21/21 08:31 Dose: 5 mg Documented by: JAEMS Piperacillin Sod/Tazobactam (Sod 3.375 gm/ Sodium Chloride) 50 mls @ 100 mls/hr IV Q6H [facility] Last Admin: 11/21/21 08:47 Dose: 100 mls/hr Documented by: JAMES Remdesivir 100 mg/ Sodium (Chloride) 230 mls @ 115 mls/hr IV Q24H [facility] Stop: 11/21/21 22:59 Last Infusion: 11/21/21 01:59 Dose: 0 mls/hr Documented by: BRANDT Vancomycin HCl 1,250 mg/ (Sodium Chloride) 250 mls @ 166.667 mls/hr IV Q24H [facility] Last Infusion: 11/20/21 18:15 Dose: 0 mls/hr Documented by: SABINO Melatonin (Melatonin 3 Mg Tablet) 6 mg PO BEDTIME PRN PRN Reason: Insomnia Memantine (Memantine Hcl 5 Mg Tablet) 5 mg PO BID [facility] Last Admin: 11/21/21 08:30 Dose: 5 mg Documented by: JAMES Omeprazole (Omeprazole 20 Mg Capsule.Dr) 20 mg PO DAILY@0630 [facility] Last Admin: 11/21/21 05:54 Dose: 20 mg Documented by: BRANDT Pharmacy Consult (Consult Rx Vancomycin Dosing) 1 each MISCELLANE DAILY PRN PRN Reason: Consult order Senna (Sennosides 8.6 Mg Tablet) 17.2 mg PO BEDTIME PRN PRN Reason: Constipation Senna (Sennosides 8.6 Mg Tablet) 8.6 mg PO DAILY [facility] Last Admin: 11/21/21 08:30 Dose: 8.6 mg Documented by: JAMES Sodium Chloride (0.9 % Sodium Chloride Flush 3 Ml Syringe) 3 ml IVFLUSH QSHIFT [facility] Last Admin: 11/21/21 08:50 Dose: 3 ml Documented by: JAMES Tamsulosin HCl (Tamsulosin Hcl 0.4 Mg Capsule) 0.4 mg PO BEDTIME [facility] Last Admin: 11/20/21 21:54 Dose: 0.4 mg Documented by: BRANDT Topiramate (Topiramate 25 Mg Tablet) 50 mg PO BEDTIME [facility] Last Admin: 11/20/21 21:54 Dose: 50 mg Documented by: BRANDT Vitamin D (Cholecalciferol (Vitamin D3) 25 Mcg Tablet) 50 mcg PO DAILY [facility] Last Admin: 11/21/21 08:29 Dose: 50 mcg Documented by: JAMES Labs CBC & Chem 7: 11/19/21 06:53 11/21/21 06:34 Labs: Laboratory Results - last 24 hr 02/02/22 02/03/22 13:47 06:34 Anion Gap 11 L Estim Creat Clear Calc 69.4 73.7 Estimated GFR > 60 > 60 Random Glucose 128 H Calcium 8.6 Microbiology Microbiology Results: Microbiology 11/18/21 20:40 Blood Culture - Preliminary Blood - Venous No growth after 48 hours. 11/18/21 20:40 Blood Culture - Preliminary Blood - Venous No growth after 48 hours. Assessment and Plan (1) Sacral decubitus ulcer, stage II: Status: Acute (2) Decubitus ulcer of sacral region, stage 4: Status: Acute (3) COVID-19: Status: Acute Plan 71-year-old female with a past medical history of hypertension, hyperlipidemia, GERD, osteoporosis, patient's disease, recurrent kidney stones, right kidney hydronephrosis, hyperparathyroidism, Alzheimer's dementia, COVID-19 vaccinated, GERD, decubitus ulcer, bed-bound, nonverbal, lives at home with the family presented to the hospital today withf generalized weakness and noted to have covid PNA.? noted to have following conditions COVID-19 viral PNA, assymptmatic, no fever, normal WBC, normal O2.. No indication of Abx Decubitus ulcer present on admission:? Noted open ulcer on the sacral area, no discharge, healing granulation tissue noticed in the surrounding.? No surrounding skin hyperemia. Pressure ulcer care per RN--ID recommends 6 weeks of Abx. ? Will request PICC line today History of dementia/ bed-bound/ nonverbal: Supportive care.? Speech and swallow eval.? Patient eats with feeding assistance as per the family.? Aspiration precautions. History of right kidney stone/ hydronephrosis:? Chronic.? For patient drowsy follow-up.? DVT prophylaxis:? Lovenox Code status:? Full code.? Confirmed with the patient's daughter. Quality Stroke Does the patient have a stroke diagnosis?: No VTE Prior VTE?: No VTE Risk Level:: Medical - moderate - high VTE Device Contraindication: Treatment Not Indicated VTE Drug Contraindication: N/A - Med Ordered
--- NOTE | 2021-11-21 11:29 | MHC.CM.PN ---
Per ROUNDS discussion, Patient may be ready for dc tomorrow (return home to Foster Care setting with LT IVABT). Referrals have been made to [facility]. CM will follow.
--- NOTE | 2021-11-21 12:24 | MHC.SLORD ---
Speech Language Pathology Order Status: Attempted to see Pt this a.m., Pt having procedure in room. Will re-attempt 11/22.
--- NOTE | 2021-11-21 12:37 | HO.PICC ---
PICC Line Insertion [facility] Diagnosis: COVID +, SACRAL DECUBITUS ULCER Indication: ABRASIVE MIXER IV ANTIBIOTICS Pertinent Labs: REVIEWED Technique: Following informed consent including risks, benefits and alternatives and using sterile technique including cap and mask, sterile gown, glove and drape, the LEFT arm was prepped and draped in the usual sterile fashion of full barrier technique with CHG. Following completion of [place] Protocol the skin and soft tissues were anesthetized with 1% Lidocaine plain. Using ultrasound guidance, BASILIC vein access was obtained ON SECOND ATTEMPT BY THIS RN. Over an 0.018 wire through peel-away sheath, a SINGLE LUMEN, 4-DUTCH, PASV PICC line was positioned. Catheter length is 42 CM internal length, 0 CM external length, for a total trimmed length of 42 CM. The procedure was performed in [place] [id number]. Tip verification was performed by Dionicio Padilla with Juanito 3CG. Tip located in SVC. Ultrasound was used to document vein patency and for needle entry. A formal ultrasound picture and cardiac rhythm strip was recorded. Vascular Sorting Livestock Worker has released the line for use and it is currently dressed with a StatLock, Tegaderm, and CHG disc. Verification has been performed for blood return and line patency. Arm Circumference: 26 CM Equipment: Backplane POWERPICC SOLO Catheter Type: SINGLE LUMEN, 4-DUTCH, PASV Lot #: [id number]
[2021-11-21 13:13] LABS: Vancomycin Trough 13.5 mcg/mL (10.0-20.0)
--- NOTE | 2021-11-21 13:31 | MHC.CLN ---
RE: CONSULT PT WITH INCREASED NUTRITION RISK R/T PRESSURE INJURIES PO INTAKE POOR; FED BY FAMILY WITH TOTAL ASSIST AT HOME DIET RX: GRD M/S WITH NT LIQ-APPROPRIATE HOME SERVICE DEMONSTRATOR REC ABOVE DIET CONSISTENCY 11/19 RECOMMEND ADDING ENSURE TID AND ERWIN BID TO PROMOTE WOUND HEALING SUPPS TO PROVIDE 1210KCALS, 65G PROTEIN WITH 100% ACCEPTANCE MONITOR PO INTAKE CLOSELY SEE ALSO CLINICAL NUTRITION ASSESSMENT
[2021-11-21] MEDS: vancomycin HCL 1,250 MG in 0.9 % Sodium Chloride 250 ML 166.67 MG IV (16:58)
[2021-11-21] MEDS: Topiramate 25 MG TABLET 50 MG PO (21:44)
[2021-11-21] MEDS: Tamsulosin HCL 0.4 MG CAPSULE PO (21:44)
[2021-11-21] MEDS: Remdesivir 100 MG in 0.9 % Sodium Chloride 230 ML 115 MG IV (22:48)
[2021-11-22 03:30] VITALS: BP 153/64; PULSE 85; RESP 18; TEMP 36.4; O2SAT 95
[2021-11-22] MEDS: Piperacillin Sodium/Tazobactam 3.375 GM in 0.9 % Sodium Chloride 50 ML IV ×2 (04:30→09:47)
[2021-11-22] MEDS: Omeprazole 20 MG CAPSULE.DR PO (05:34)
[2021-11-22] MEDS: Enoxaparin Sodium 40 MG/0.4 ML SYRINGE SUBCUT (05:34)
[2021-11-22 07:17] VITALS: BP 160/70; PULSE 87; RESP 16; TEMP 37.7; O2SAT 96
[2021-11-22 08:25] LABS: Creatinine Clr Calc Pharmacy 73.7; Estimated Glomerular Filt Rate > 60
[2021-11-22] MEDS: Cholecalciferol (Vitamin D3) 25 MCG TABLET 50 MCG PO (09:33)
[2021-11-22] MEDS: amLODIPine Besylate 5 MG TABLET PO (09:34)
[2021-11-22] MEDS: Docusate Sodium 100 MG CAPSULE PO (09:34)
[2021-11-22] MEDS: 0.9 % Sodium Chloride Flush 3 ML SYRINGE IVFLUSH (09:34)
[2021-11-22] MEDS: Memantine HCl 5 MG TABLET PO (09:34)
[2021-11-22] MEDS: Escitalopram Oxalate 5 MG TABLET PO (09:34)
[2021-11-22] MEDS: Sennosides 8.6 MG TABLET PO (09:34)
[2021-11-22] MEDS: Aspirin 81 MG TAB.CHEW PO (09:34)
--- NOTE | 2021-11-22 10:36 | P.DS_ITS ---
DS: Providers Provider Date of Service: 11/22/21 Date of admission: 11/18/21 23:28 Primary care physician: Maverick Lopez MD Consults: 11/18/21 23:28 Consult to Infectious Diseases Routine Consulting Provider: Echo Lozano Reason for consultation: COVID PNA; Decub ulcer 11/19/21 00:21 Consult to General Surgery Routine Consulting Provider: Darrell Rodriguez Reason for consultation: decubitous ulcer DS: Diagnosis Discharge Diagnosis (1) Sacral decubitus ulcer, stage II: Status: Acute (2) Decubitus ulcer of sacral region, stage 4: Status: Acute (3) COVID-19: Status: Acute DS: Summary Hospital Course Hospital Course: Chief Complaint: Gen weakness 71-year-old female with a past medical history of hypertension, hyperlipidemia, GERD, osteoporosis, patient's disease, recurrent kidney stones, right kidney hydronephrosis, hyperparathyroidism, Alzheimer's dementia, COVID-19 vaccinated, GERD, decubitus ulcer, bed-bound, nonverbal, lives at home with the family presented to the hospital today with a chief complaint of generalized weakness.? Spoke to the patient's daughter over the phone, who mentions that patient has been having this decubitus ulcer on her sacrum for past 3 weeks which has been intact with no open wound, and over the past couple days ago she noted to have open wound and [facility] who saw her in the clinic today and suggested her to do outpatient antibiotics with CT scan versus going to the ER.? Family decided to bring her to the ER for further evaluation.? Denies patient having any dry cough, fever chills, urinary symptoms, fevers at home.? Mentions patient is bed-bound and nonverbal at baseline.? PH with a helper feeding assistance.? Mentioned that over the past 2 days she noted the patient has been more sleeping than her baseline.? Review of all other systems is negative except mentioned above ER course: Per ER team patient on presentation noted to be alert and awake, no discharge noted from the disc vitals ulcer, CT scan showed deep ulcer up to the bone, no evidence of osteomyelitis; chest x-ray showed COVID pneumonia.? Patient was COVID-19 positive.? Afebrile.? Noted mild leukocytosis and lactic acidosis.? Patient was given broad-spectrum antibiotics.? Patient was saturating 95% on room air.? Admitted to the hospital for further management Hospitalist: COVID-19 viral PNA, assymptmatic, no fever, normal WBC, normal O2.. No indication of Abx or Steroid Decubitus ulcer present on admission:? Noted open ulcer on the sacral area, no discharge, healing granulation tissue noticed in the surrounding.? No surrounding skin hyperemia, however ulcer is quite deep and reach bone with no specification of osteomylitis but concerning enough that ID recommends 6 weeks of IV antiboitics (Ertapenem) via PICC line which was inserted 11/21/21 History of dementia/ bed-bound/ nonverbal: Supportive care. History of right kidney stone/ hydronephrosis:? Chronic.? For patient drowsy follow-up.? Hypokalemia--resolved DVT prophylaxis:? Lovenox Code status:? Full code.? Confirmed with the patient's daughter. Time Spent with Patient Time attestation: Total time spent providing and/or coordinating discharge services: Discharge coordination time: Greater than 30 minutes Quality: Stroke Does the patient have a stroke diagnosis?: No Physical Exam Verdana 4l Vital Signs: Verdana 4d Verdana 4d Vital Signs: Verdana 4d Verdana 4Bd Last Vital Signs Verdana 4d Chief Radiology New 4d Chief Radiology New 4d Temp 99.8 F 11/22/21 07:17 Chief Radiology New 4d Pulse 87 11/22/21 07:17 Chief Radiology New 4d Resp 16 11/22/21 07:17 BP 160/70 H 11/22/21 07:17 Pulse Ox 96 11/22/21 07:17 BMI result Body Mass Index 30.4 DS: Data Data Completed and Pending Completed studies during hospitalization [Text1]: Procedures Dilation of Right Ureter with Intraluminal Device, Via Natural or Artificial Opening Endoscopic (07/17/20) Extirpation of Matter from Right Ureter, Via Natural or Artificial Opening Endoscopic (07/17/20) Fluoroscopy of Right Kidney, Ureter and Bladder (07/17/20) Labs on day of discharge: Laboratory Results - last 24 hr 11/21/21 11/22/21 12:03 06:03 Creatinine 0.80 Estim Creat Clear Calc 73.7 Estimated GFR > 60 Vancomycin Trough 13.5 Preliminary micro results at discharge 11/18/21 20:40 Blood Culture - Preliminary Blood - Venous No growth after 48 hours. 11/18/21 20:40 Blood Culture - Preliminary Blood - Venous No growth after 48 hours. Discharge Plan Discharge Anticipated Discharge Date/Time: 11/22/21 12:36 Patient Disposition: Home Health Service Discharge Diagnosis: Infected sacral ulcer, Covid 19 Referrals: Maverick Lopez MD [Primary Care Provider] - 1 Week Discharge Medications: New ertapenem [Invanz] 1 gram recon soln 1 g IV Q24H Qty: 42 0RF Continued citalopram 10 mg tablet 10 mg PO DAILY Qty: 90 8RF amlodipine 5 mg tablet 5 mg PO DAILY Qty: 90 8RF aspirin 81 mg tablet,chewable 1 tab PO DAILY Qty: 28 8RF memantine 5 mg tablet 5 mg PO BID Qty: 180 8RF topiramate 50 mg tablet 50 mg PO BEDTIME 0RF omeprazole 20 mg capsule,delayed release(DR/EC) 1 cap PO DAILY@0630 0RF sennosides [senna] 8.6 mg Tablet 8.6 mg PO DAILY 0RF tamsulosin 0.4 mg capsule 0.4 mg PO BEDTIME 0RF docusate sodium 100 mg capsule 100 mg PO DAILY 0RF cholecalciferol (vitamin D3) 50 mcg (2,000 unit) tablet 50 mcg PO DAILY Qty: 90 8RF Discharge Orders: Discharge Order (Routine); Ordered 11/22/21 Ordered By: Gonzalez Bazan Diet: advance to usual diet and regular diet Activity on Discharge: As tolerated Stand Alone Forms: Patient Portal Discharge page Care Plan Goals: Resolution of wound infection Health Concerns: Infected sacral ulcer Plan of Treatment: Take Invanz through IV for 6 weeks follow covid guidelines Assessment: as above Discharge Date/Time: 11/22/21 17:03
[2021-11-22 11:23] VITALS: BP 162/73; PULSE 90; RESP 17; TEMP 36.4; O2SAT 95
--- NOTE | 2021-11-22 12:46 | MHC.SLORD ---
Speech Language Pathology Order Status: Pt is not responding to touch, cold, or verbal stimuli. Though items were brought into the room to trial, no po was offered at this visit.
[2021-11-22] MEDS: Ertapenem Sodium 1 GM in 0.9 % Sodium Chloride 50 ML IV (12:53)
[2021-11-22 13:27] LABS: Anion Gap 12 (12-20); Carbon Dioxide 22 mmol/L (22-29); Chloride 108 mmol/L (96-108); Potassium 3.2 mmol/L (3.3-5.1); Sodium 139 mmol/L (135-145)
--- NOTE | 2021-11-22 14:39 | MHC.CLN ---
F/U PT WITH INCREASED NUTRITION RISK R/T PRESSURE INJURIES PO INTAKE 50% X 2 MEALS DIET RX: GRD M/S WITH NT LIQ-APPROPRIATE PT RECEIVING ENSURE TID AND ERWIN BID TO PROMOTE WOUND HEALING SUPPS TO PROVIDE 1210KCALS, 65G PROTEIN WITH 100% ACCEPTANCE MONITOR PO INTAKE CLOSELY
--- NOTE | 2021-11-22 14:57 | MHC.CM.PN ---
IMM 11/22/21 Female DX Covid+ She is discharged to day to home via BLS. Transport booked for 4pm at dtrs request. She will receive LT ABX at home. [facility] will provide medication and equipment. [facility] will provide homecare services, for medication management and education.
[2021-11-22 16:00] VITALS: BP 104/67; PULSE 67; RESP 17; TEMP 36.6; O2SAT 97
== END 2021-11-22 17:03 | disposition home health service (06) | DRG 177 ==
LOC: HO.ED 22:24 → HO.EDOVER 23:49 → HO.IMC 11-20 14:37
PROVIDERS: Internal Medicine; Admitting Provider Hospitalist; Emergency Provider Internal Medicine; PCP Internal Medicine; Visit Provider Internal Medicine
DX: U07.1 COVID-19 (principal); L89.154 Pressure ulcer of sacral region, stage 4; J12.82 Pneumonia due to coronavirus disease 2019; G30.9 Alzheimer's disease, unspecified; E87.6 Hypokalemia; F02.80 Dementia in other diseases classified elsewhere, unspecified severity, without behavioral disturbance, psychotic disturbance, mood disturbance, and anxiety; Z74.01 Bed confinement status; Z88.5 Allergy status to narcotic agent; Z79.82 Long term (current) use of aspirin; Z79.899 Other long term (current) drug therapy
CPT/HCPCS: 36415; 36573; 71045; 74176; 80048; 80051; 80076; 80202; 82565; 83605; 85025; 85027; 87040; 87635; 92610; 96361; 96365; 96375; 99285; C1751; J0248; J1335; J1650; J2543; J3370

== ENCOUNTER 2021-11-26 11:48 | Outpatient (REF) | payer MEDICARE, SELFPAY ==
[2021-11-26 11:52] LABS: MANUAL DIFF FLAG NO
[2021-11-26 11:58] LABS: Basophils Percent Auto 0.3 % (0-2); Eosinophils Absolute Auto 0.2 X10*3/uL (0.0-0.4); Eosinophils Percent Auto 2.2 % (0-4); Hematocrit 25.5 % (37.0-47.0); Hemoglobin 7.5 g/dl (12.0-16.0); Imm Gran Abs Auto 0.05 X10*3/uL (0.00-0.03); Imm Gran Pct Auto 0.6 % (0.0-0.4); Lymphocytes Absolute Auto 1.5 X10*3/uL (1.2-4.9); Mean Corpuscular HGB Conc 29.4 g/dl (31.0-35.0); Mean Corpuscular Hemoglobin 21.9 pg (27.0-33.0); Mean Corpuscular Volume 74.3 fL (80.0-98.0); Mean Platelet Volume 10.3 fL (9.4-12.3); Monocytes Absolute Auto 0.7 X10*3/uL (0.1-1.2); Monocytes Percent Auto 8.3 % (2-11); Neutrophils Absolute Auto 6.2 x10*3/uL (2.0-8.3); Neutrophils Percent Auto 71.6 % (45-73); Platelet Count 351 X10*3/uL (160-400); Red Blood Count 3.43 X10*6/uL (4.20-5.50); Red Cell Distribution Width 19.6 % (11.0-16.0); White Blood Count 8.7 X10*3/uL (4.8-10.8)
[2021-11-26 12:14] LABS: Alanine Aminotransferase 9 U/L (0-31); Albumin Level 2.2 g/dL (3.5-5.0); Alkaline Phosphatase 70 U/L (39-117); Anion Gap 9 (12-20); Aspartate Amino Transferase 18 U/L (5-31); Bilirubin Direct 0.2 mg/dL (0.0-0.5); Bilirubin Total 0.3 mg/dL (0.0-1.0); Blood Urea Nitrogen 9 mg/dL (9-16); Calcium 8.2 mg/dL (8.4-10.2); Carbon Dioxide 24 mmol/L (22-29); Chloride 107 mmol/L (96-108); Estimated Glomerular Filt Rate > 60; Glucose Random 115 mg/dL (60-115); Potassium 3.1 mmol/L (3.3-5.1); Sodium 137 mmol/L (135-145); Total Protein 8.1 g/dL (6.5-8.0)
== END 2021-11-26 11:49 | disposition home or self-care (01) ==
LOC: HO.HVNA 11:48
PROVIDERS: Visit Provider Internal Medicine
DX: U07.1 COVID-19 (principal)
CPT/HCPCS: 36415; 80048; 80076; 85025

== ENCOUNTER 2021-12-03 10:39 | Outpatient (REF) | payer MEDICARE, SELFPAY ==
[2021-12-03 10:44] LABS: MANUAL DIFF FLAG NO
[2021-12-03 10:49] LABS: Basophils Percent Auto 0.4 % (0-2); Eosinophils Absolute Auto 0.1 X10*3/uL (0.0-0.4); Eosinophils Percent Auto 1.2 % (0-4); Hematocrit 24.7 % (37.0-47.0); Hemoglobin 7.3 g/dl (12.0-16.0); Imm Gran Abs Auto 0.04 X10*3/uL (0.00-0.03); Imm Gran Pct Auto 0.4 % (0.0-0.4); Lymphocytes Absolute Auto 2.1 X10*3/uL (1.2-4.9); Lymphocytes Percent Auto 21.2 % (20-40); Mean Corpuscular HGB Conc 29.6 g/dl (31.0-35.0); Mean Corpuscular Hemoglobin 22.3 pg (27.0-33.0); Mean Corpuscular Volume 75.5 fL (80.0-98.0); Mean Platelet Volume 10.6 fL (9.4-12.3); Monocytes Absolute Auto 0.9 X10*3/uL (0.1-1.2); Monocytes Percent Auto 8.8 % (2-11); Neutrophils Absolute Auto 6.6 x10*3/uL (2.0-8.3); Platelet Count 332 X10*3/uL (160-400); Red Blood Count 3.27 X10*6/uL (4.20-5.50); Red Cell Distribution Width 19.4 % (11.0-16.0); White Blood Count 9.7 X10*3/uL (4.8-10.8)
[2021-12-03 11:43] LABS: Alanine Aminotransferase < 6 U/L (0-31); Albumin Level 2.3 g/dL (3.5-5.0); Alkaline Phosphatase 68 U/L (39-117); Anion Gap 9 (12-20); Aspartate Amino Transferase 13 U/L (5-31); Bilirubin Direct 0.2 mg/dL (0.0-0.5); Bilirubin Total 0.3 mg/dL (0.0-1.0); Blood Urea Nitrogen 15 mg/dL (9-16); Calcium 8.5 mg/dL (8.4-10.2); Carbon Dioxide 26 mmol/L (22-29); Chloride 111 mmol/L (96-108); Estimated Glomerular Filt Rate > 60; Glucose Random 101 mg/dL (60-115); Potassium 3.2 mmol/L (3.3-5.1); Sodium 143 mmol/L (135-145); Total Protein 8.4 g/dL (6.5-8.0)
== END 2021-12-03 10:40 | disposition home or self-care (01) ==
LOC: HO.LNP 10:39
PROVIDERS: Visit Provider Internal Medicine
DX: U07.1 COVID-19 (principal); J12.82 Pneumonia due to coronavirus disease 2019; L89.154 Pressure ulcer of sacral region, stage 4
CPT/HCPCS: 80048; 80076; 85025

== ENCOUNTER 2021-12-10 12:36 | Outpatient (REF) | payer MEDICARE, SELFPAY ==
[2021-12-10 12:42] LABS: MANUAL DIFF FLAG NO
[2021-12-10 12:54] LABS: Basophils Percent Auto 0.5 % (0-2); Eosinophils Absolute Auto 0.2 X10*3/uL (0.0-0.4); Eosinophils Percent Auto 1.9 % (0-4); Hematocrit 27.7 % (37.0-47.0); Hemoglobin 7.8 g/dl (12.0-16.0); Imm Gran Abs Auto 0.03 X10*3/uL (0.00-0.03); Imm Gran Pct Auto 0.4 % (0.0-0.4); Lymphocytes Percent Auto 24.3 % (20-40); Mean Corpuscular HGB Conc 28.2 g/dl (31.0-35.0); Mean Corpuscular Hemoglobin 21.8 pg (27.0-33.0); Mean Corpuscular Volume 77.4 fL (80.0-98.0); Mean Platelet Volume 10.6 fL (9.4-12.3); Monocytes Absolute Auto 0.6 X10*3/uL (0.1-1.2); Neutrophils Absolute Auto 5.4 x10*3/uL (2.0-8.3); Neutrophils Percent Auto 65.9 % (45-73); Platelet Count 363 X10*3/uL (160-400); Red Blood Count 3.58 X10*6/uL (4.20-5.50); Red Cell Distribution Width 20.2 % (11.0-16.0); White Blood Count 8.2 X10*3/uL (4.8-10.8)
[2021-12-10 13:21] LABS: Alanine Aminotransferase 7 U/L (0-31); Albumin Level 2.4 g/dL (3.5-5.0); Alkaline Phosphatase 64 U/L (39-117); Aspartate Amino Transferase 15 U/L (5-31); Bilirubin Direct < 0.2 mg/dL (0.0-0.5); Bilirubin Total 0.2 mg/dL (0.0-1.0); Blood Urea Nitrogen 24 mg/dL (9-16); Estimated Glomerular Filt Rate > 60; Glucose Random 130 mg/dL (60-115); Total Protein 8.7 g/dL (6.5-8.0)
[2021-12-10 13:29] LABS: Anion Gap 13 (12-20); Carbon Dioxide 25 mmol/L (22-29); Chloride 117 mmol/L (96-108); Potassium 3.2 mmol/L (3.3-5.1); Sodium 152 mmol/L (135-145)
== END 2021-12-10 12:37 | disposition home or self-care (01) ==
LOC: HO.HVNA 12:36
PROVIDERS: Visit Provider Internal Medicine
DX: B99.9 Unspecified infectious disease (principal); Z79.2 Long term (current) use of antibiotics
CPT/HCPCS: 36415; 80048; 80076; 85025

== ENCOUNTER 2021-12-17 12:12 | Outpatient (REF) | payer MEDICARE, SELFPAY ==
[2021-12-17 12:14] LABS: MANUAL DIFF FLAG NO
[2021-12-17 12:17] LABS: Basophils Percent Auto 0.4 % (0-2); Eosinophils Absolute Auto 0.3 X10*3/uL (0.0-0.4); Eosinophils Percent Auto 3.4 % (0-4); Hematocrit 28.5 % (37.0-47.0); Hemoglobin 7.9 g/dl (12.0-16.0); Imm Gran Abs Auto 0.03 X10*3/uL (0.00-0.03); Imm Gran Pct Auto 0.4 % (0.0-0.4); Lymphocytes Absolute Auto 1.8 X10*3/uL (1.2-4.9); Lymphocytes Percent Auto 22.1 % (20-40); Mean Corpuscular HGB Conc 27.7 g/dl (31.0-35.0); Mean Corpuscular Hemoglobin 21.9 pg (27.0-33.0); Mean Corpuscular Volume 79.2 fL (80.0-98.0); Mean Platelet Volume 11.7 fL (9.4-12.3); Monocytes Absolute Auto 0.7 X10*3/uL (0.1-1.2); Monocytes Percent Auto 8.6 % (2-11); Neutrophils Absolute Auto 5.2 x10*3/uL (2.0-8.3); Neutrophils Percent Auto 65.1 % (45-73); Platelet Count 344 X10*3/uL (160-400); Red Cell Distribution Width 21.1 % (11.0-16.0); White Blood Count 7.9 X10*3/uL (4.8-10.8)
[2021-12-17 13:25] LABS: Alanine Aminotransferase 10 U/L (0-31); Albumin Level 2.3 g/dL (3.5-5.0); Alkaline Phosphatase 72 U/L (39-117); Anion Gap 8 (12-20); Aspartate Amino Transferase 24 U/L (5-31); Bilirubin Direct < 0.2 mg/dL (0.0-0.5); Bilirubin Total 0.2 mg/dL (0.0-1.0); Blood Urea Nitrogen 24 mg/dL (9-16); Calcium 8.7 mg/dL (8.4-10.2); Carbon Dioxide 28 mmol/L (22-29); Chloride 117 mmol/L (96-108); Estimated Glomerular Filt Rate > 60; Glucose Random 119 mg/dL (60-115); Potassium 3.3 mmol/L (3.3-5.1); Sodium 150 mmol/L (135-145); Total Protein 7.7 g/dL (6.5-8.0)
== END 2021-12-17 12:13 | disposition home or self-care (01) ==
LOC: HO.HVNA 12:12
PROVIDERS: Visit Provider Internal Medicine
DX: J12.82 Pneumonia due to coronavirus disease 2019 (principal)
CPT/HCPCS: 36415; 80048; 80076; 85025

== ENCOUNTER 2021-12-24 11:49 | Outpatient (REF) | payer MEDICARE, SELFPAY ==
[2021-12-24 12:02] LABS: MANUAL DIFF FLAG NO
[2021-12-24 12:10] LABS: Basophils Percent Auto 0.3 % (0-2); Eosinophils Absolute Auto 0.2 X10*3/uL (0.0-0.4); Eosinophils Percent Auto 2.2 % (0-4); Hematocrit 25.6 % (37.0-47.0); Hemoglobin 7.2 g/dl (12.0-16.0); Imm Gran Abs Auto 0.07 X10*3/uL (0.00-0.03); Imm Gran Pct Auto 0.7 % (0.0-0.4); Lymphocytes Absolute Auto 2.2 X10*3/uL (1.2-4.9); Lymphocytes Percent Auto 21.9 % (20-40); Mean Corpuscular HGB Conc 28.1 g/dl (31.0-35.0); Monocytes Percent Auto 10.2 % (2-11); Neutrophils Absolute Auto 6.6 x10*3/uL (2.0-8.3); Neutrophils Percent Auto 64.7 % (45-73); Platelet Count 329 X10*3/uL (160-400); Red Blood Count 3.28 X10*6/uL (4.20-5.50); Red Cell Distribution Width 20.7 % (11.0-16.0); White Blood Count 10.2 X10*3/uL (4.8-10.8)
[2021-12-24 13:03] LABS: Alanine Aminotransferase 21 U/L (0-31); Albumin Level 2.4 g/dL (3.5-5.0); Alkaline Phosphatase 125 U/L (39-117); Anion Gap 9 (12-20); Aspartate Amino Transferase 26 U/L (5-31); Bilirubin Direct 0.2 mg/dL (0.0-0.5); Bilirubin Total 0.3 mg/dL (0.0-1.0); Blood Urea Nitrogen 20 mg/dL (9-16); Calcium 8.5 mg/dL (8.4-10.2); Carbon Dioxide 25 mmol/L (22-29); Chloride 112 mmol/L (96-108); Estimated Glomerular Filt Rate > 60; Glucose Random 86 mg/dL (60-115); Potassium 3.6 mmol/L (3.3-5.1); Sodium 142 mmol/L (135-145); Total Protein 7.9 g/dL (6.5-8.0)
== END 2021-12-24 11:50 | disposition home or self-care (01) ==
LOC: HO.HVNA 11:49
PROVIDERS: Visit Provider Internal Medicine
DX: L89.154 Pressure ulcer of sacral region, stage 4 (principal)
CPT/HCPCS: 36415; 80048; 80076; 85025

== ENCOUNTER → 2022-02-11 13:03 | Outpatient (BNVA) | payer MEDICARE, SELFPAY | PROVIDERS: PCP Internal Medicine; Visit Provider Urology | DX: N30.00 Acute cystitis without hematuria (principal); N20.0 Calculus of kidney | CPT/HCPCS: Q3014 ==

== ENCOUNTER → 2022-03-04 13:36 | Outpatient (BNVA) | payer OTHER, SELFPAY | PROVIDERS: PCP Internal Medicine; Referring Provider Internal Medicine; Visit Provider Surgery | DX: L89.152 Pressure ulcer of sacral region, stage 2 (principal); G30.9 Alzheimer's disease, unspecified; F02.80 Dementia in other diseases classified elsewhere, unspecified severity, without behavioral disturbance, psychotic disturbance, mood disturbance, and anxiety; I63.9 Cerebral infarction, unspecified | CPT/HCPCS: 99202 ==

== ENCOUNTER 2022-03-07 12:26 | Outpatient (REF) | payer OTHER, SELFPAY ==
[2022-03-07 13:08] LABS: Basophils Absolute Auto 0.1 X10*3/uL (0.0-0.2); Basophils Percent Auto 0.4 % (0-2); Hematocrit 24.8 % (37.0-47.0); Mean Corpuscular HGB Conc 28.2 g/dl (31.0-35.0); PLT CLUMP 1; SCAN SMEAR FLAG 1
[2022-03-07 13:10] LABS: Eosinophils Absolute Auto 0.2 X10*3/uL (0.0-0.4); Eosinophils Percent Auto 1.4 % (0-4); Estimated Average Glucose 91 mg/dL; Hemoglobin A1c % 4.8 %; Imm Gran Abs Auto 0.04 X10*3/uL (0.00-0.03); Imm Gran Pct Auto 0.3 % (0.0-0.4); Lymphocytes Absolute Auto 1.5 X10*3/uL (1.2-4.9); MANUAL DIFF FLAG SCAN; Mean Corpuscular Hemoglobin 21.1 pg (27.0-33.0); Mean Corpuscular Volume 74.9 fL (80.0-98.0); Mean Platelet Volume 11.8 fL (9.4-12.3); Monocytes Absolute Auto 1.1 X10*3/uL (0.1-1.2); Monocytes Percent Auto 9.5 % (2-11); Neutrophils Absolute Auto 8.6 x10*3/uL (2.0-8.3); Neutrophils Percent Auto 75.4 % (45-73); Red Blood Count 3.31 X10*6/uL (4.20-5.50); Red Cell Distribution Width 18.9 % (11.0-16.0)
[2022-03-07 13:48] LABS: Platelet Count 454 X10*3/uL (160-400); SLIDE REVIEW VERIFIED; White Blood Count 11.5 X10*3/uL (4.8-10.8)
[2022-03-07 14:15] LABS: Anion Gap 13 (12-20); Blood Urea Nitrogen 19 mg/dL (9-16); Calcium 9.1 mg/dL (8.4-10.2); Carbon Dioxide 23 mmol/L (22-29); Chloride 105 mmol/L (96-108); Erythrocyte Sedimentation Rate 104 MM/HR (0-20); Estimated Glomerular Filt Rate > 60; Glucose Random 157 mg/dL (60-115); Potassium 4.8 mmol/L (3.3-5.1); Sodium 136 mmol/L (135-145); Total Protein 8.4 g/dL (6.5-8.0)
== END 2022-03-07 12:27 | disposition home or self-care (01) ==
LOC: HO.HVNA 12:26
PROVIDERS: Visit Provider Surgery
DX: L89.154 Pressure ulcer of sacral region, stage 4 (principal)
CPT/HCPCS: 36415; 80048; 83036; 84134; 84155; 85025; 85652

== ENCOUNTER 2022-04-04 11:30 | Outpatient (REF) | payer OTHER, SELFPAY ==
[2022-04-04 11:34] LABS: MANUAL DIFF FLAG NO
[2022-04-04 11:39] LABS: Basophils Percent Auto 0.3 % (0-2); Eosinophils Absolute Auto 0.1 X10*3/uL (0.0-0.4); Eosinophils Percent Auto 1.3 % (0-4); Hematocrit 26.1 % (37.0-47.0); Hemoglobin 7.1 g/dl (12.0-16.0); Imm Gran Abs Auto 0.03 X10*3/uL (0.00-0.03); Imm Gran Pct Auto 0.3 % (0.0-0.4); Lymphocytes Absolute Auto 1.7 X10*3/uL (1.2-4.9); Lymphocytes Percent Auto 20.2 % (20-40); Mean Corpuscular HGB Conc 27.2 g/dl (31.0-35.0); Mean Corpuscular Hemoglobin 20.6 pg (27.0-33.0); Mean Corpuscular Volume 75.7 fL (80.0-98.0); Mean Platelet Volume 11.4 fL (9.4-12.3); Monocytes Absolute Auto 0.8 X10*3/uL (0.1-1.2); Monocytes Percent Auto 9.1 % (2-11); Neutrophils Absolute Auto 5.9 x10*3/uL (2.0-8.3); Neutrophils Percent Auto 68.8 % (45-73); Platelet Count 477 X10*3/uL (160-400); Red Blood Count 3.45 X10*6/uL (4.20-5.50); White Blood Count 8.6 X10*3/uL (4.8-10.8)
== END 2022-04-04 11:31 | disposition home or self-care (01) ==
LOC: HO.HVNA 11:30
PROVIDERS: Visit Provider Surgery
DX: L89.154 Pressure ulcer of sacral region, stage 4 (principal)
CPT/HCPCS: 84134; 85025

== ENCOUNTER → 2022-04-15 13:25 | Outpatient (BNVA) | payer OTHER, SELFPAY | PROVIDERS: Visit Provider Internal Medicine | DX: L89.154 Pressure ulcer of sacral region, stage 4 (principal); M86.68 Other chronic osteomyelitis, other site | CPT/HCPCS: 99212 ==

== ENCOUNTER 2022-09-19 10:57 | Outpatient (REF) | payer OTHER, SELFPAY ==
[2022-09-19 11:23] LABS: Appearance Urine Turbid; Color Urine Yellow; Glucose Urine UA 100 mg/dL (Negative); Nitrite Urine Positive (Negative); Specific Gravity - Urine >= 1.030 (1.005-1.025); UMIC TRIGGER UA YES; Urine Blood Large (3+) (Negative); Urine Ketones Negative (Negative); Urine Protein 100 (2+) mg/dL (Neg-Trace)
[2022-09-19 11:24] LABS: Leukocyte Esterase Urine Large (3+) (Negative)
[2022-09-19 12:08] LABS: Bacteria Urine 4+ (None Seen); Renal Epithelial Cells Urine Present; WBC Urine >50 /HPF (0-5)
[2022-09-19 12:09] LABS: Hyaline Casts Urine 0-2 /LPF (0-2)
[2022-09-19 13:37] LABS: RBC Urine >20 /HPF (0-2)
== END 2022-09-19 10:58 | disposition home or self-care (01) ==
LOC: HO.HVNA 10:57
PROVIDERS: Visit Provider Internal Medicine
DX: L89.154 Pressure ulcer of sacral region, stage 4 (principal)
CPT/HCPCS: 81001; 87086; 87088; 87186

== ENCOUNTER 2022-10-18 14:50 | Outpatient (REF) | payer OTHER, SELFPAY ==
[2022-10-18 15:04] LABS: Appearance Urine Turbid; Color Urine Yellow; Glucose Urine UA Negative (Negative); Leukocyte Esterase Urine Large (3+) (Negative); Nitrite Urine Negative (Negative); UMIC TRIGGER UA YES; Urine Blood Large (3+) (Negative); Urine Ketones Negative (Negative); Urine Protein 100 (2+) mg/dL (Neg-Trace)
[2022-10-18 15:59] LABS: Bacteria Urine 4+ (None Seen); Hyaline Casts Urine 0-2 /LPF (0-2); RBC Urine >20 /HPF (0-2); Squamous Epithelial Cell Urine 0-2 /HPF (0-2); WBC Urine >50 /HPF (0-5)
== END 2022-10-18 14:51 | disposition home or self-care (01) ==
LOC: HO.HVNA 14:50
PROVIDERS: Visit Provider Internal Medicine
DX: N39.0 Urinary tract infection, site not specified (principal)
CPT/HCPCS: 81001; 81003; 87086; 87186

== ENCOUNTER 2022-12-18 17:54 | Inpatient (IN) | payer OTHER, SELFPAY ==
--- NOTE | ~2022-12-18 | CT_ITS ---
EXAMINATION: CT ABDOMEN AND PELVIS WITHOUT CONTRAST CLINICAL INFORMATION: Severe anemia. Question chronic OM, hematoma. COMPARISON: CT abdomen pelvis 11/18/2021. CT abdomen pelvis 07/17/2020. TECHNIQUE: Multidetector volumetric imaging was performed from the superior aspect of the liver through the pubic symphysis. Sagittal and coronal reformatted images were obtained on the technologist's workstation. This CT examination was performed using dose optimization techniques as appropriate, variously including the following: *Automated exposure control *Adjustment of mA and/or kV according to patient size (this includes techniques or standardized protocols for targeted exams where dose is matched to indication/reason for exam; i.e. extremities or head) *Use of iterative reconstruction technique DLP: 495 mGy-cm FINDINGS: LUNG BASES: Small dependent layering bilateral pleural effusions are partially included within the image [id number]. Visualized heart demonstrates grossly normal size and no gross pericardial thickening or fluid collections. LIVER, GALLBLADDER, AND BILIARY TREE: The liver is normal in size, shape, and attenuation. No focal hepatic lesion or biliary ductal dilatation is present. The gallbladder is unremarkable with no evidence of radiopaque gallstones, gallbladder wall thickening, or obvious pericholecystic inflammatory changes. PANCREAS: Unremarkable. SPLEEN: Unremarkable. ADRENAL GLANDS: Unremarkable. KIDNEYS AND URETERS: Marked hydronephrosis the right kidney is again noted with multifocal pelvic calculi ranging in size up to 1.5 cm in maximum diameter (673 Hounsfield units). Findings are grossly unchanged compared with 11/18/2021. No perinephric inflammatory changes are identified. Marked right-sided ureterectasis is again visualized to maximum diameter of approximately 2.5 cm extending to the level of the pelvic brim. BLADDER: Cherry catheter is present in the urinary bladder which is decompressed and contains a small amount of intraluminal gas. A 2 mm calcification is present along the right lateral aspect of the base of the urinary bladder unchanged compared with 11/18/2021 lateral to the right ureterovesicular junction. A 4 mm calculus within the distal right ureter is unchanged compared with 11/18/2021. The previously noted 4 mm calculus within the inferior left renal pelvis (CT 11/18/2021) is no longer visualized. GASTROINTESTINAL TRACT: No intestinal dilatation or mural thickening is identified. No free intraperitoneal fluid or gas collections are identified. The stomach is decompressed. ABDOMINAL WALL: Diffuse reticulation of the subcutaneous fat is present consistent with anasarca. LYMPH NODES: Normal. VASCULAR: Diffuse calcific atherosclerosis. PELVIC VISCERA: Uterus is not visualized. No adnexal lesions noted. OSSEOUS STRUCTURES: Partial visualization is made of left femoral neck cannulated lag screws. Left hip heterotopic ossification is identified. Right hip joint space narrowing and subchondral sclerosis and cyst formation is present consistent with osteoarthritis. Diffuse osteopenia is noted. No vertebral body compression deformities are visualized. A midline sacral decubitus ulcer is identified with gas extending to the posterior margin of the sacrum consistent with a grade 4 ulcer with findings slightly more pronounced than on 11/18/2021. No associated osseous erosions. Scattered adjacent subcutaneous emphysematous changes are present. Cortical thickening and trabecular irregularity and thickening of the right femur is noted consistent with Paget's disease CT/CT abdomen pelvis wo IV con IMPRESSION: 1. Midline sacral decubitus ulcer with gas extending to the posterior margin of the sacrum consistent with a grade 4 ulcer. Findings are more pronounced than on 11/18/2021. 2. Unchanged marked right-sided hydronephrosis and ureterectasis with multifocal pelvic calculi unchanged compared with 11/18/2021. 3. Unchanged 4 mm calculus within the distal right ureter. 4. Anasarca new compared with 11/18/2021. 5. Small dependent layering bilateral pleural effusions new compared with 11/18/2021. 6. Unchanged chronic findings consistent with Paget's disease of the proximal right femur.
--- NOTE | ~2022-12-18 | XR_ITS ---
EXAMINATION: PORTABLE CHEST 1 VIEW CLINICAL INFORMATION: sob . COMPARISON: 11/18/2021. TECHNIQUE: Portable frontal view of the chest was obtained. FINDINGS: The lungs are hypoexpanded. There is central vascular prominence which may reflect component of mild edema but this may be accentuated by the degree of hypoexpansion. No focal infiltrate, effusion, or pneumothorax. Cardiac and mediastinal silhouettes are within normal limits for size with vascular calcification in the aorta. No acute bony abnormality seen. XR/XR chest 1V IMPRESSION: Hypoexpanded with central vascular prominence which may reflect a component of mild edema in this setting.
[2022-12-18 18:23] VITALS: BMI 14.9
[2022-12-18 18:37] VITALS: BP 146/47; PULSE 100; RESP 22; TEMP 36.6; O2SAT 100
[2022-12-18 20:04] VITALS: BP 146/51; PULSE 111; RESP 22; TEMP 37.1; O2SAT 98
[2022-12-18 20:26] LABS: Appearance Urine Turbid; Color Urine Yellow; Glucose Urine UA Negative (Negative); Leukocyte Esterase Urine Large (3+) (Negative); Nitrite Urine Positive (Negative); PH 5.5 (5.0-9.0); UMIC TRIGGER UACC YES; Urine Blood Large (3+) (Negative); Urine Ketones Negative (Negative); Urine Protein 100 (2+) mg/dL (Neg-Trace)
[2022-12-18 20:45] LABS: Bacteria Urine 3+ (None Seen); Hyaline Casts Urine 0-2 /LPF (0-2); UACC Culture Trigger YES; WBC Urine >50 /HPF (0-5)
--- NOTE | 2022-12-18 20:45 | PC.NURSE ---
This commercial underwriter assumed care of this Pt at 1900. Pt awake, not verbal, son at bedside. Pt has chronic peterson in place draining white sediment with yellow urine, peterson bag changed, urine sample collected and sent to lab. IV placed and blood work collected and sent to lab. Pt has a congestive cough, lung sounds clear. Pt legs are contacted. Pt had two pressure ulcer tunneling wounds, one to coccyx and one to R buttock, son states they are using calcium alginate with daily dressing changes.
[2022-12-18 21:01] LABS: MANUAL DIFF FLAG NO
[2022-12-18 21:06] LABS: Basophils Percent Auto 0.2 % (0-2); Eosinophils Percent Auto 0.1 % (0-4); Lymphocytes Absolute Auto 1.2 X10*3/uL (1.2-4.9); Lymphocytes Percent Auto 11.3 % (20-40); Mean Corpuscular HGB Conc 26.2 g/dl (31.0-35.0); Mean Corpuscular Hemoglobin 16.3 pg (27.0-33.0); Mean Platelet Volume 10.1 fL (9.4-12.3); Monocytes Absolute Auto 0.9 X10*3/uL (0.1-1.2); Monocytes Percent Auto 8.3 % (2-11); Neutrophils Absolute Auto 8.1 x10*3/uL (2.0-8.3); Neutrophils Percent Auto 79.1 % (45-73); Platelet Count 441 X10*3/uL (160-400); Red Blood Count 2.94 X10*6/uL (4.20-5.50); Red Cell Distribution Width 20.2 % (11.0-16.0); White Blood Count 10.2 X10*3/uL (4.8-10.8)
[2022-12-18 21:10] LABS: Hematocrit 18.3 % (37.0-47.0); Mean Corpuscular Volume 62.2 fL (80.0-98.0)
[2022-12-18 21:12] LABS: Hemoglobin 4.8 g/dl (12.0-16.0)
[2022-12-18 21:31] LABS: Hematocrit 17.2 % (37.0-47.0); Hemoglobin 4.6 g/dl (12.0-16.0)
[2022-12-18 21:58] VITALS: BP 117/44; PULSE 102; RESP 24; TEMP 38.1; O2SAT 96
--- NOTE | 2022-12-18 22:04 | ED.GENADULT ---
HPI - General Adult General Chief complaint: General Medical Stated complaint: cough Time Seen by Provider: 12/18/22 21:00 History of Present Illness HPI narrative: Patient is a 72-year-old female history of dementia, history of multiple urinary tract infection in the past. Baseline patient is oriented times 0. Patient has a nonfunctioning kidney. Baseline has a Cherry in place. Presents today with having coughing upper respiratory symptoms noted by family. Patient is vaccinated for COVID. Related Data Home Medications Medication Instructions Recorded Confirmed sennosides 8.6 mg tablet (senna) 8.6 mg PO DAILY 11/19/21 11/27/22 hydrocolloid dressing 6 X 6 12/05/21 11/27/22 (Durafiber Dressing) tamsulosin 0.4 mg capsule 0.4 mg PO DAILY 03/04/22 11/27/22 amlodipine 5 mg tablet 1 tab PO DAILY 12/18/22 12/18/22 aspirin 81 mg chewable tablet 1 tab PO DAILY 12/18/22 12/18/22 cholecalciferol (vitamin D3) 50 1 tab PO DAILY 12/18/22 12/18/22 mcg (2,000 unit) tablet citalopram 10 mg tablet 1 tab PO DAILY 12/18/22 12/18/22 docusate sodium 100 mg capsule 1 cap PO DAILY 12/18/22 12/18/22 memantine 5 mg tablet 1 tab PO BID 12/18/22 12/18/22 tamsulosin 0.4 mg capsule 1 cap PO DAILY 12/18/22 12/18/22 Previous Rx's Medication Instructions Recorded ertapenem 1 gram solution for 1 g IV Q24H #42 ea 11/22/21 injection (Invanz) sodium chloride 0.9 % irrigation 1 irrig irrigation Q3-4H PRN wound 12/05/21 solution (Sterile Saline) care #10,000 mL miscellaneous medical supply 1 ea miscellaneous .five times a 01/17/22 day #200 ea miscellaneous medical supply 1 ea miscellaneous QIDACHS #500 ea 01/17/22 citalopram 10 mg tablet 10 mg PO DAILY #90 tabs 01/29/22 tramadol 50 mg tablet 50 mg PO Q8H PRN pain #20 tabs 04/10/22 memantine 5 mg tablet 5 mg PO BID #180 tabs 04/23/22 food supplemt, lactose-reduced See Rx Instructions .Route 05/19/22 (Ensure oral liquid) .COMPLEX dementia #5,688 mL docusate sodium 100 mg capsule 100 mg PO DAILY #90 caps 06/18/22 cholecalciferol (vitamin D3) 50 50 mcg PO DAILY #28 tabs 07/08/22 mcg (2,000 unit) tablet gauze bandage 2 X 2 (Band-Aid #150 ea 08/26/22 Gauze Pads) silver-calcium alginate 2 X 2 1 ea topical BID #100 ea 08/26/22 bandage aspirin 81 mg chewable tablet 1 tab PO DAILY #28 tabs 09/10/22 topiramate 50 mg tablet 50 mg PO BEDTIME #90 tabs 09/19/22 amlodipine 5 mg tablet 5 mg PO DAILY #90 tabs 11/21/22 Allergies Allergy/AdvReac Type Severity Reaction Status Date / Time morphine [MORPHINE] Allergy Mild NAUSEA & Verified 12/18/22 22:22 VOMITING, vomiting Review of Systems Review of Systems: Unable to obtain review of systems secondary to patient's condition [facility] Past Medical History Attestation statement: The following information was validated with the patient. Medical History AD (Alzheimer's disease) CVA (cerebral vascular accident) Dementia GERD (gastroesophageal reflux disease) Hyperparathyroidism Hypertension Nephrolithiasis Nephrolithiasis Osteoporosis Paget's bone disease Sacral decubitus ulcer, stage II UTI (urinary tract infection) Vitamin D deficiency Surgical History H/O bilateral breast reduction surgery H/O rectal polypectomy H/O: hysterectomy History of cystoscopy History of hip surgery History of lithotripsy History of tubal ligation Hx of tonsillectomy Family History Family History Father No problems noted. Mother No problems noted. Maternal Grandmother Cancer Social History Social History Household Members: Family and Unknown / Unable to assess Housing: Unknown / Unable to assess Do you presently have visiting nurse or other home services: No Unable to assess alcohol history related to: Unable to respond Alcohol intake: never Patient Tobacco Use Status: Never used Tobacco Smoked in Last 30 Days: No e-Cigarette/Vaping Use: Never Used Second Hand Smoke Exposure: No Use of substances other than those prescribed or required for medical reasons: No Advance Directives: Yes Advance Directives on File: Yes Advance Directives Date on File: 07/24/20 service: No Current occupational status: disabled Cognitive needs: Yes (wheelchair chair) Hearing needs: No Vision needs: No Physical Exam ED Vital Signs: Vital Signs - 24 hr 12/18/22 18:37 12/18/22 20:04 12/18/22 21:58 Temperature 97.9 F 98.7 F 100.5 F H Pulse Rate 100 111 H 102 H Respiratory Rate 22 H 22 H 24 H Blood Pressure 146/47 H 146/51 H 117/44 L Pulse Oximetry 100 98 96 Oxygen Delivery Method Room Air Room Air BMI result Body Mass Index 14.9 Appearance: Contracted female, oriented times 0 Eyes: Pupils equal, round and reactive to light. ENT: Pharynx normal. Neck: Normal inspection. Neck supple. No lymph nodes noted. No crepitus CVS: Normal heart rate and rhythm. Pulses normal. Normal S1 and S2 Respiratory: No respiratory distress. Breath sounds normal. No Wheezing. No rales Abdomen: Soft and nontender. No rigidity. No distention. Skin: 2 decubital ulcer noted in the gluteal area down to the muscles. Both approximately 4 cm x 3 cm in size Extremities: No lower extremity edema. Neurovascular intact to all extremities. No Lacerations. No Rash Neuro: Contracted grimace to pain Medications Administered Generic Name Dose Route Start Last Admin Trade Name Freq PRN Reason Stop Dose Admin Sodium Chloride 1,000 mls @ 999 mls/hr 12/18/22 23:00 12/18/22 23:12 Ns IV 12/19/22 00:00 999 mls/hr .Q1H1M MANDEEP Administration Discontinued Medications Generic Name Dose Route Start Last Admin Trade Name Freq PRN Reason Stop Dose Admin Acetaminophen 650 mg 12/18/22 22:05 12/18/22 22:30 Acetaminophen Supp 650 Mg Supp.Rect OR 12/18/22 22:06 650 mg ONCE ONE Administration Meropenem 1 gm/ Sodium 100 mls @ 200 mls/hr 12/18/22 22:02 12/18/22 23:12 Chloride IV 12/18/22 22:31 Infused ONCE ONE Infusion Vancomycin HCl 1,000 mg/ 270 mls @ 270 mls/hr 12/18/22 22:03 12/18/22 22:49 Sodium Chloride IV 12/18/22 23:02 270 mls/hr ONCE ONE Administration Medical Decision Making Medical Decision Making [facility] Narrative: Patient presents today with generalized malaise. Decreased appetite positive coughing. Not quite right. Differential include infection, anemia, COVID/flu/RSV, pneumonia, metabolic derangement. Patient's chest x-ray did not show any focal infiltrate. O2 sat was normal. COVID flu RSV is still pending. Patient's hemoglobin however came back at less than 5. Rectal exam was done it showed brown stool. Patient's stool was sent for Hemoccult it was grossly negative. No evidence for GI bleeding. Question as to the etiology of the anemia. We will go ahead and transfuse the patient with 2 units of blood. Risk and benefit of transfusion discussed with patient's son the power of corporate associate attorney agree with plan. Risk include the risk of human error risk of infection. In the setting of hemoglobin being so low felt it is definitely justified. Patient urine grossly infected. Question colonization versus a true infection in the setting of patient having altered mental status slightly worse than usual and having a low-grade fever will obtain cultures. There is no signs of sepsis. Patient's lactate is less than 2. Patient's cultures was reviewed. It showed pseudomonal cultures. Sensitive to meropenem. Patient started on meropenem. Case discussed with hospitalist team. Additional IV fluid was ordered. Patient to be admitted. Admission/Observation Consideration of admission/observation: Escalation of care including admission/observation considered Consult Healthcare Provider Management of the patient was discussed with: Hospitalist Lab Data [facility] Lab Attestation statement: I reviewed the patient's lab results. 12/18/22 21:24 12/18/22 20:57 Labs: Lab Results 12/18/22 12/18/22 12/18/22 Range/Units 20:13 20:57 21:24 WBC 10.2 (4.8-10.8) X10*3/uL RBC 2.94 L (4.20-5.50) X10*6/uL Hgb 4.8 L* D 4.6 L* (12.0-16.0) g/dl Hct 18.3 L* D 17.2 L* (37.0-47.0) % MCV 62.2 L (80.0-98.0) fL MCH 16.3 L (27.0-33.0) pg MCHC 26.2 L (31.0-35.0) g/dl RDW 20.2 H (11.0-16.0) % Plt Count 441 H (160-400) X10*3/uL MPV 10.1 (9.4-12.3) fL Immature Gran % (Auto) 1.0 H (0.0-0.4) % Neut % (Auto) 79.1 H (45-73) % Lymph % (Auto) 11.3 L (20-40) % [place] % (Auto) 8.3 (2-11) % Eos % (Auto) 0.1 (0-4) % Baso % (Auto) 0.2 (0-2) % Lymph # (Auto) 1.2 (1.2-4.9) X10*3/uL [place] # (Auto) 0.9 (0.1-1.2) X10*3/uL Eos # (Auto) 0.0 (0.0-0.4) X10*3/uL Baso # (Auto) 0.0 (0.0-0.2) X10*3/uL Abs Immat Gran (auto) 0.10 H (0.00-0.03) X10*3/uL Absolute Neuts (auto) 8.1 (2.0-8.3) x10*3/uL Absolute Nucleated RBC 0.000 (0.0-0.012) X10*3/uL Nucleated RBC % (auto) 0.0 (0.0-0.2) /100WBC Sodium (135-145) mmol/L Potassium (3.3-5.1) mmol/L Chloride (96-108) mmol/L Carbon Dioxide (22-29) mmol/L Anion Gap (12-20) BUN (9-16) mg/dL Creatinine (0.5-1.4) mg/dL Estim Creat Clear Calc Estimated GFR Random Glucose (60-115) mg/dL Lactic Acid (0.5-2.0) mmol/L Calcium (8.4-10.2) mg/dL Total Bilirubin (0.0-1.0) mg/dL Direct Bilirubin (0.0-0.5) mg/dL AST (5-31) U/L ALT (0-31) U/L Alkaline Phosphatase (39-117) U/L Total Protein (6.5-8.0) g/dL Albumin (3.5-5.0) g/dL Urine Color Yellow Urine Appearance Turbid Urine pH 5.5 (5.0-9.0) Ur Specific [place] 1.020 (1.005-1.025) Urine Protein 100 (2+) H (Neg-Trace) mg/dL Urine Glucose (UA) Negative (Negative) mg/dL Urine Ketones Negative (Negative) mg/dL Urine Blood Large (3+) H (Negative) Urine Nitrite Positive H (Negative) Ur Leukocyte Esterase Large (3+) H (Negative) Urine RBC 3-5 H (0-2) /HPF Urine WBC >50 H (0-5) /HPF Ur Squamous Epith Cells 3-5 (0-2) /HPF Urine Bacteria 3+ (None Seen) Hyaline Casts 0-2 (0-2) /LPF Stool Occult Blood (NEGATIVE) Blood Type Antibody Screen Crossmatch 12/18/22 12/18/22 12/18/22 Range/Units 22:02 22:27 22:27 WBC (4.8-10.8) X10*3/uL RBC (4.20-5.50) X10*6/uL Hgb (12.0-16.0) g/dl Hct (37.0-47.0) % MCV (80.0-98.0) fL MCH (27.0-33.0) pg MCHC (31.0-35.0) g/dl RDW (11.0-16.0) % Plt Count (160-400) X10*3/uL MPV (9.4-12.3) fL Immature Gran % (Auto) (0.0-0.4) % Neut % (Auto) (45-73) % Lymph % (Auto) (20-40) % [place] % (Auto) (2-11) % Eos % (Auto) (0-4) % Baso % (Auto) (0-2) % Lymph # (Auto) (1.2-4.9) X10*3/uL [place] # (Auto) (0.1-1.2) X10*3/uL Eos # (Auto) (0.0-0.4) X10*3/uL Baso # (Auto) (0.0-0.2) X10*3/uL Abs Immat Gran (auto) (0.00-0.03) X10*3/uL Absolute Neuts (auto) (2.0-8.3) x10*3/uL Absolute Nucleated RBC (0.0-0.012) X10*3/uL Nucleated RBC % (auto) (0.0-0.2) /100WBC Sodium 140 (135-145) mmol/L Potassium 4.5 (3.3-5.1) mmol/L Chloride 111 H (96-108) mmol/L Carbon Dioxide 19 L (22-29) mmol/L Anion Gap 15 (12-20) BUN 38 H (9-16) mg/dL Creatinine 0.71 (0.5-1.4) mg/dL Estim Creat Clear Calc 48.9 Estimated GFR > 60 Random Glucose 104 (60-115) mg/dL Lactic Acid (0.5-2.0) mmol/L Calcium 8.9 (8.4-10.2) mg/dL Total Bilirubin 0.2 (0.0-1.0) mg/dL Direct Bilirubin < 0.2 (0.0-0.5) mg/dL AST 39 H (5-31) U/L ALT 17 (0-31) U/L Alkaline Phosphatase 80 (39-117) U/L Total Protein 9.3 H (6.5-8.0) g/dL Albumin 2.2 L (3.5-5.0) g/dL Urine Color Urine Appearance Urine pH (5.0-9.0) Ur Specific [place] (1.005-1.025) Urine Protein (Neg-Trace) mg/dL Urine Glucose (UA) (Negative) mg/dL Urine Ketones (Negative) mg/dL Urine Blood (Negative) Urine Nitrite (Negative) Ur Leukocyte Esterase (Negative) Urine RBC (0-2) /HPF Urine WBC (0-5) /HPF Ur Squamous Epith Cells (0-2) /HPF Urine Bacteria (None Seen) Hyaline Casts (0-2) /LPF Stool Occult Blood NEGATIVE (NEGATIVE) Blood Type A Positive Antibody Screen NEGATIVE Crossmatch See Detail 12/18/22 Range/Units 22:27 WBC (4.8-10.8) X10*3/uL RBC (4.20-5.50) X10*6/uL Hgb (12.0-16.0) g/dl Hct (37.0-47.0) % MCV (80.0-98.0) fL MCH (27.0-33.0) pg MCHC (31.0-35.0) g/dl RDW (11.0-16.0) % Plt Count (160-400) X10*3/uL MPV (9.4-12.3) fL Immature Gran % (Auto) (0.0-0.4) % Neut % (Auto) (45-73) % Lymph % (Auto) (20-40) % [place] % (Auto) (2-11) % Eos % (Auto) (0-4) % Baso % (Auto) (0-2) % Lymph # (Auto) (1.2-4.9) X10*3/uL [place] # (Auto) (0.1-1.2) X10*3/uL Eos # (Auto) (0.0-0.4) X10*3/uL Baso # (Auto) (0.0-0.2) X10*3/uL Abs Immat Gran (auto) (0.00-0.03) X10*3/uL Absolute Neuts (auto) (2.0-8.3) x10*3/uL Absolute Nucleated RBC (0.0-0.012) X10*3/uL Nucleated RBC % (auto) (0.0-0.2) /100WBC Sodium (135-145) mmol/L Potassium (3.3-5.1) mmol/L Chloride (96-108) mmol/L Carbon Dioxide (22-29) mmol/L Anion Gap (12-20) BUN (9-16) mg/dL Creatinine (0.5-1.4) mg/dL Estim Creat Clear Calc Estimated GFR Random Glucose (60-115) mg/dL Lactic Acid 0.9 (0.5-2.0) mmol/L Calcium (8.4-10.2) mg/dL Total Bilirubin (0.0-1.0) mg/dL Direct Bilirubin (0.0-0.5) mg/dL AST (5-31) U/L ALT (0-31) U/L Alkaline Phosphatase (39-117) U/L Total Protein (6.5-8.0) g/dL Albumin (3.5-5.0) g/dL Urine Color Urine Appearance Urine pH (5.0-9.0) Ur Specific [place] (1.005-1.025) Urine Protein (Neg-Trace) mg/dL Urine Glucose (UA) (Negative) mg/dL Urine Ketones (Negative) mg/dL Urine Blood (Negative) Urine Nitrite (Negative) Ur Leukocyte Esterase (Negative) Urine RBC (0-2) /HPF Urine WBC (0-5) /HPF Ur Squamous Epith Cells (0-2) /HPF Urine Bacteria (None Seen) Hyaline Casts (0-2) /LPF Stool Occult Blood (NEGATIVE) Blood Type Antibody Screen Crossmatch Independent Historian Son External Record Review External record reviewed: Inpatient record and Office record Chronic Conditions Dementia Critical Care Time Critical Care Time Critical Care Time: Yes Total Critical Care Time: 40 Attestation: I have personally provided 40 minutes of critical care time exclusive of time spent on separately billable procedures. Time includes review of lab data, radiology results, discussion with consultants, and monitoring for potential decompensation. Interventions were performed as documented above Discharge Plan Discharge Clinical Impression: Anemia, Urinary tract infection Prescriptions: No Action sodium chloride [Sterile Saline] 0.9 % solution 1 irrig irrigation Q3-4H PRN (Reason: wound care) Qty: 22134 0RF Rx Instructions: To use for wound care (DME) hydrocolloid dressing [Durafiber Dressing] 6 X 6 bandage See Rx Instructions .Route Rx Instructions: To use for wound care miscellaneous medical supply Misc 1 ea miscellaneous QIDACHS Qty: 500 6RF Rx Instructions: Body wipes miscellaneous medical supply Misc 1 ea miscellaneous .five times a day Qty: 200 0RF Rx Instructions: INCONTINENCE BRIEFS SIZE XL citalopram 10 mg tablet 10 mg PO DAILY Qty: 90 8RF tramadol 50 mg tablet 50 mg PO Q8H PRN (Reason: pain) Qty: 20 0RF memantine 5 mg tablet 5 mg PO BID Qty: 180 8RF Ensure Liquid See Rx Instructions .ROUTE .COMPLEX Qty: 5688 3RF Rx Instructions: one can tid; Vanilla docusate sodium 100 mg capsule 100 mg PO DAILY Qty: 90 7RF cholecalciferol (vitamin D3) 50 mcg (2,000 unit) tablet 50 mcg PO DAILY Qty: 28 8RF aspirin 81 mg tablet,chewable 1 tab PO DAILY Qty: 28 8RF topiramate 50 mg tablet 50 mg PO BEDTIME Qty: 90 3RF amlodipine 5 mg tablet 5 mg PO DAILY Qty: 90 0RF citalopram 10 mg tablet 1 tab PO DAILY amlodipine 5 mg tablet 1 tab PO DAILY tamsulosin 0.4 mg capsule 1 cap PO DAILY docusate sodium 100 mg capsule 1 cap PO DAILY aspirin 81 mg tablet,chewable 1 tab PO DAILY memantine 5 mg tablet 1 tab PO BID cholecalciferol (vitamin D3) 50 mcg (2,000 unit) tablet 1 tab PO DAILY sennosides [senna] 8.6 mg Tablet 8.6 mg PO DAILY ertapenem [Invanz] 1 gram recon soln 1 g IV Q24H Qty: 42 0RF silver-calcium alginate 2 X 2 bandage 1 ea topical BID Qty: 100 0RF Rx Instructions: Use for wound care. (DME) gauze bandage [Band-Aid Gauze Pads] 2 X 2 bandage See Rx Instructions .Route Qty: 150 0RF Rx Instructions: to use for wound care tamsulosin 0.4 mg capsule 0.4 mg PO DAILY
[2022-12-18 22:10] LABS: OBS Int Ctl Valid YES; OBS1 NEGATIVE (NEGATIVE)
[2022-12-18] MEDS: Acetaminophen Supp 650 MG SUPP.RECT PR (22:30)
[2022-12-18 22:46] LABS: Lactic Acid 0.9 mmol/L (0.5-2.0)
[2022-12-18] MEDS: vancomycin HCL 1,000 MG in 0.9 % Sodium Chloride 250 ML 270 MG IV (22:49)
[2022-12-18 22:50] LABS: Alanine Aminotransferase 17 U/L (0-31); Albumin Level 2.2 g/dL (3.5-5.0); Alkaline Phosphatase 80 U/L (39-117); Anion Gap 15 (12-20); Aspartate Amino Transferase 39 U/L (5-31); Bilirubin Direct < 0.2 mg/dL (0.0-0.5); Bilirubin Total 0.2 mg/dL (0.0-1.0); Blood Urea Nitrogen 38 mg/dL (9-16); Calcium 8.9 mg/dL (8.4-10.2); Carbon Dioxide 19 mmol/L (22-29); Chloride 111 mmol/L (96-108); Creatinine Clr Calc Pharmacy 48.9; Estimated Glomerular Filt Rate > 60; Glucose Random 104 mg/dL (60-115); Potassium 4.5 mmol/L (3.3-5.1); Sodium 140 mmol/L (135-145); Total Protein 9.3 g/dL (6.5-8.0)
[2022-12-18] MEDS: 0.9 % Sodium Chloride 1,000 ML 999 ML IV (23:12)
[2022-12-18 23:20] LABS: Influenza A PCR NEGATIVE (Negative); Influenza B PCR NEGATIVE (Negative); Resp Syncy Virus RNA Qual PCR NEGATIVE (Negative); SARS COV2 PCR INHOUSE NEGATIVE (Negative)
--- NOTE | 2022-12-18 23:21 | P.HPHOSP_ITS ---
History of Present Illness Date of Service: 12/18/22 Chief Complaint: Lethargy This is a 72-year-old female with pertinent history of dementia, history of CVA, sacral decubitus ulcer, chronic indwelling Cherry, who was brought to the emergency department by her son for lethargy. At baseline, patient is nonambulatory and non conversational. She is awake but disoriented at baseline. As per the son, patient was not eating for the last 2 days and he found her to be tired overall and hence brought to the ER for further evaluation. Unable to obtain review of systems. In the emergency department, patient's hemoglobin was found to be 4.6. Son reports no blood loss. No hematochezia, melena, hematuria or hematemesis Review of Systems Review of Systems: Yes Unobtainable due to mental condition PMFSH Medical History AD (Alzheimer's disease) CVA (cerebral vascular accident) Dementia GERD (gastroesophageal reflux disease) Hyperparathyroidism Hypertension Nephrolithiasis Nephrolithiasis Osteoporosis Paget's bone disease Sacral decubitus ulcer, stage II UTI (urinary tract infection) Vitamin D deficiency Family History Father No problems noted. Mother No problems noted. Maternal Grandmother Cancer Surgical History H/O bilateral breast reduction surgery H/O rectal polypectomy H/O: hysterectomy History of cystoscopy History of hip surgery History of lithotripsy History of tubal ligation Hx of tonsillectomy Social History Household Members: Family and Unknown / Unable to assess Housing: Unknown / Unable to assess Do you presently have visiting nurse or other home services: No Unable to assess alcohol history related to: Unable to respond Alcohol intake: never Patient Tobacco Use Status: Never used Tobacco Smoked in Last 30 Days: No e-Cigarette/Vaping Use: Never Used Second Hand Smoke Exposure: No Use of substances other than those prescribed or required for medical reasons: No Advance Directives: Yes Advance Directives on File: Yes Advance Directives Date on File: 07/24/20 service: No Current occupational status: disabled Cognitive needs: Yes (wheelchair chair) Hearing needs: No Vision needs: No Meds Allergies Allergy/AdvReac Type Severity Reaction Status Date / Time morphine [MORPHINE] Allergy Mild NAUSEA & Verified 12/18/22 22:22 VOMITING, vomiting Active Medications: Current Medications Sodium Chloride (Ns) 1,000 mls @ 999 mls/hr IV .Q1H1M MANDEEP Stop: 12/19/22 00:00 Last Admin: 12/18/22 23:12 Dose: 999 mls/hr Home Medications Medication Instructions Recorded Confirmed Last Taken Type sennosides 8.6 mg tablet (senna) 8.6 mg PO DAILY 11/19/21 11/27/22 Unknown History hydrocolloid dressing 6 X 6 12/05/21 11/27/22 Unknown History (Durafiber Dressing) tamsulosin 0.4 mg capsule 0.4 mg PO DAILY 03/04/22 11/27/22 Unknown History amlodipine 5 mg tablet 1 tab PO DAILY 12/18/22 12/18/22 Unknown History aspirin 81 mg chewable tablet 1 tab PO DAILY 12/18/22 12/18/22 Unknown History cholecalciferol (vitamin D3) 50 1 tab PO DAILY 12/18/22 12/18/22 Unknown History mcg (2,000 unit) tablet citalopram 10 mg tablet 1 tab PO DAILY 12/18/22 12/18/22 Unknown History docusate sodium 100 mg capsule 1 cap PO DAILY 12/18/22 12/18/22 Unknown History memantine 5 mg tablet 1 tab PO BID 12/18/22 12/18/22 Unknown History tamsulosin 0.4 mg capsule 1 cap PO DAILY 12/18/22 12/18/22 Unknown History Physical Exam Vital Signs and Narrative: Vital Signs: Last Vital Signs Temp 100.5 F H 12/18/22 21:58 Pulse 102 H 12/18/22 21:58 Resp 24 H 12/18/22 21:58 BP 117/44 L 12/18/22 21:58 Pulse Ox 96 12/18/22 21:58 O2 Del Method 12/18/22 21:58 BMI result Body Mass Index 14.9 Elderly female lying in bed in no distress Neck supple, no JVD Regular rate and rhythm, S1-S2 heard Decreased breath sounds at bases Abdomen soft nontender, no guarding, no rigidity Patient is awake but disoriented, non conversational Sacral decubitus ulcers x2 No pedal edema Results Labs 12/18/22 21:24 12/18/22 22:27 Labs: Laboratory Results - last 24 hr 12/18/22 12/18/22 12/18/22 20:13 20:57 22:02 MCV 62.2 L MCH 16.3 L MCHC 26.2 L RDW 20.2 H Plt Count 441 H MPV 10.1 Immature Gran % (Auto) 1.0 H Neut % (Auto) 79.1 H Lymph % (Auto) 11.3 L [place] % (Auto) 8.3 Eos % (Auto) 0.1 Baso % (Auto) 0.2 Lymph # (Auto) 1.2 [place] # (Auto) 0.9 Eos # (Auto) 0.0 Baso # (Auto) 0.0 Abs Immat Gran (auto) 0.10 H Absolute Neuts (auto) 8.1 Absolute Nucleated RBC 0.000 Nucleated RBC % (auto) 0.0 Anion Gap Estim Creat Clear Calc Estimated GFR Random Glucose Lactic Acid Calcium Total Bilirubin Direct Bilirubin AST ALT Alkaline Phosphatase Total Protein Albumin Urine Color Yellow Urine Appearance Turbid Urine pH 5.5 Ur Specific [place] 1.020 Urine Protein 100 (2+) H Urine Glucose (UA) Negative Urine Ketones Negative Urine Blood Large (3+) H Urine Nitrite Positive H Ur Leukocyte Esterase Large (3+) H Urine RBC 3-5 H Urine WBC >50 H Ur Squamous Epith Cells 3-5 Urine Bacteria 3+ Hyaline Casts 0-2 Stool Occult Blood NEGATIVE Blood Type Antibody Screen Crossmatch 12/18/22 12/18/22 12/18/22 22:27 22:27 22:27 MCV MCH MCHC RDW Plt Count MPV Immature Gran % (Auto) Neut % (Auto) Lymph % (Auto) [place] % (Auto) Eos % (Auto) Baso % (Auto) Lymph # (Auto) [place] # (Auto) Eos # (Auto) Baso # (Auto) Abs Immat Gran (auto) Absolute Neuts (auto) Absolute Nucleated RBC Nucleated RBC % (auto) Anion Gap 15 Estim Creat Clear Calc 48.9 Estimated GFR > 60 Random Glucose 104 Lactic Acid 0.9 Calcium 8.9 Total Bilirubin 0.2 Direct Bilirubin < 0.2 AST 39 H ALT 17 Alkaline Phosphatase 80 Total Protein 9.3 H Albumin 2.2 L Urine Color Urine Appearance Urine pH Ur Specific [place] Urine Protein Urine Glucose (UA) Urine Ketones Urine Blood Urine Nitrite Ur Leukocyte Esterase Urine RBC Urine WBC Ur Squamous Epith Cells Urine Bacteria Hyaline Casts Stool Occult Blood Blood Type A Positive Antibody Screen NEGATIVE Crossmatch See Detail Imaging Radiologist's Impressions: Impressions Chest X-Ray 12/18/22 22:14 IMPRESSION: Hypoexpanded with central vascular prominence which may reflect a component of mild edema in this setting. Assessment and Plan (1) Anemia: Status: Acute Plan This is a 72-year-old female with pertinent history of dementia, history of CVA, sacral decubitus ulcer, chronic indwelling Cherry, who was brought to the emergency department by her son for lethargy. #. Microcytic anemia, unspecified chronicity: Unclear etiology. Transfusing 2 units PRBC in the ER. Consulted GI to rule out GI bleed. Protonix 80 mg x 1. Monitor H&H #. Sepsis due to ?UTI: Was given meropenem in the ER. Initiating Levaquin based on previous sensitivities. ID was consulted from the ER, jose daniel feliciano. Resuscitated with IV crystalloids. Lactic acid and blood culture obtained. Urine culture pending #. Sacral decubitus ulcer: Consulting Wound Care #. Alzheimer's Dementia: Maintain sleep-wake cycle. On memantine #. Mood disorder: Resume home mood stabilizers once no longer NPO Med rec pending DVT prophylaxis: Mechanical Full code. Son will discuss code status further with his sister NPO. Speech consult pending Admit as inpatient and will require two night minimum hospital stay for close monitoring of H&H and hemodynamics. Specialist consult pending Time Spent With Patient Time: Total time managing care of this patient today ____ minutes. Quality Stroke Does the patient have a stroke diagnosis?: No VTE Prior VTE?: No VTE Risk Level:: Medical - moderate - high VTE Device Contraindication: N/A - Device Ordered VTE Drug Contraindication: Treatment Not Indicated
[2022-12-18 23:48] VITALS: BP 128/50; PULSE 95; RESP 24; TEMP 37.2
--- NOTE | 2022-12-18 23:51 | PC.NURSE ---
First unit of blood started.
[2022-12-18] MEDS: Pantoprazole Sodium 40 MG/10 ML VIAL 80 MG IVPUSH (23:55)
[2022-12-19] VITALS (11 sets, daily range): BP systolic 111–134; BP diastolic 46–89; PULSE 78–98; RESP 18–24; TEMP 36.6–37.4; O2SAT 97–99; BMI 14.9
--- NOTE | 2022-12-19 00:06 | PC.NURSE ---
Blood transfusion running, no SOB or adverse reaction noted. Will CTM. Son at bedside.
[2022-12-19] MEDS: levoFLOXacin/D5W 750 MG/150 ML PIGGYBACK 100 MG IV (00:53)
--- NOTE | 2022-12-19 01:04 | PC.NURSE ---
Pt o2 destat to 88% on RA, placed on 2L NC, 94%. No apparent distress will CTM.
--- NOTE | 2022-12-19 03:18 | PC.NURSE ---
2nd unit of blood transfusion started.
--- NOTE | 2022-12-19 03:33 | PC.NURSE ---
Blood transfusion running, no SOB or adverse reaction noted. Pt sleeping, tolerating well. Will CTM. Son at bedside.
--- NOTE | 2022-12-19 08:41 | PHA.MEDREC ---
Pharmacy Consult ? Medication Reconciliation Pharmacy has completed the medication reconciliation. confirmed with patients son that she is no longer on tramadol and is still on topiramate
[2022-12-19] MEDS: 0.9 % Sodium Chloride Flush 3 ML SYRINGE IVFLUSH ×2 (08:45→18:03)
[2022-12-19 09:57] LABS: MANUAL DIFF FLAG NO
[2022-12-19 09:59] LABS: Basophils Absolute Auto 0.1 X10*3/uL (0.0-0.2); Basophils Percent Auto 0.5 % (0-2); Eosinophils Percent Auto 0.3 % (0-4); Hematocrit 26.6 % (37.0-47.0); Hemoglobin 8.2 g/dl (12.0-16.0); Imm Gran Abs Auto 0.13 X10*3/uL (0.00-0.03); Imm Gran Pct Auto 1.4 % (0.0-0.4); Lymphocytes Absolute Auto 1.1 X10*3/uL (1.2-4.9); Lymphocytes Percent Auto 11.1 % (20-40); Mean Corpuscular HGB Conc 30.8 g/dl (31.0-35.0); Mean Corpuscular Hemoglobin 22.5 pg (27.0-33.0); Mean Corpuscular Volume 72.9 fL (80.0-98.0); Mean Platelet Volume 10.1 fL (9.4-12.3); Monocytes Percent Auto 10.5 % (2-11); Neutrophils Absolute Auto 7.2 x10*3/uL (2.0-8.3); Neutrophils Percent Auto 76.2 % (45-73); Platelet Count 395 X10*3/uL (160-400); Red Blood Count 3.65 X10*6/uL (4.20-5.50); White Blood Count 9.4 X10*3/uL (4.8-10.8)
--- NOTE | 2022-12-19 10:32 | MHC.CLN ---
PT IS MODERATELY MALNOURISHED PT WITH MILDLY DEPLETED MUSCLE MASS, WT LOSS X 1 YEAR PER FAMILY, BMI 14 WITH PRESSURE INJURIES ON BUTTOCK WHICH INCREASE NUTRITION RISK FAMILY [facility] REPORTED PT USUAL WT IS APPROX 100# AND THEY REPORTED THEY HAVE SEEN A DECLINE IN PT OVER THE LAST YEAR, ALTHOUGH UNABLE TO ELABORATE ON EXACT AMOUNT OF WT LOSS. PT APPEARS STATED CURRENT WEIGHT AND HT. PT IS NONVERBAL AND BED BOUND DIET RX: NPO WHEN DIET TO ADVANCE FAMILY MEM[facility]ERS STATED PT WILL BE RECEPTIVE TO DRINKING ENSURE SUPPLEMENTS (ALL FLAVORS) TO INCREASE PO AND PROMOTE WOUND HEALING SUPP TO PROVIDE 1050KCALS, 60G PROTEIN MONITOR PO INTAKE AND SUPPLEMENT ACCEPTANCE SEE ALSO FULL CLINICAL NUTRITION ASSESSMENT
[2022-12-19 10:44] LABS: Anion Gap 13 (12-20); Blood Urea Nitrogen 31 mg/dL (9-16); Calcium 8.5 mg/dL (8.4-10.2); Carbon Dioxide 18 mmol/L (22-29); Chloride 114 mmol/L (96-108); Creatinine Clr Calc Pharmacy 53.4; Estimated Glomerular Filt Rate > 60; Ferritin 172 ng/mL (10-250); Glucose Random 83 mg/dL (60-115); Iron 118 mcg/dL (30-160); Percent Iron Saturation 83 % (15-50); Potassium 4.1 mmol/L (3.3-5.1); Sodium 141 mmol/L (135-145); Total Iron Binding Capacity 143 mcg/dL (228-428); Unsaturated Iron Binding < 25 ug/dL
[2022-12-19 10:58] LABS: Lactate Dehydrogenase 142 U/L (122-220)
--- NOTE | 2022-12-19 11:19 | P.PNIM_ITS ---
Subjective Subjective Date of Service: 12/19/22 Interval History: cough, poor appetite Physical Exam Vital Signs: Vital Signs: Last Vital Signs Temp 98.8 F 12/19/22 08:00 Pulse 91 12/19/22 08:00 Resp 20 12/19/22 08:00 BP 134/51 L 12/19/22 08:00 Pulse Ox 98 12/19/22 08:00 O2 Del Method 12/19/22 08:00 O2 Flow Rate 0.5 12/19/22 08:00 BMI result Body Mass Index 14.9 alert, non verbal, left hemiparesis, sacral decubiti, frail Objective Data Active Medications Piperacillin Sod/Tazobactam (Sod 3.375 gm/ Sodium Chloride) 50 mls @ 100 mls/hr IV Q6H [facility] Omeprazole (Omeprazole 20 Mg Capsule.Dr) 20 mg PO DAILY@0630 [facility] Pharmacy Consult (Consult Rx Perform Med Rec) 1 each MISCELLANE ONCE PRN PRN Reason: Consult order Sodium Chloride (0.9 % Sodium Chloride Flush 3 Ml Syringe) 3 ml IVFLUSH QSHIFT [facility] Last Admin: 12/19/22 08:45 Dose: 3 ml Documented By: HERI Labs 12/19/22 09:41 12/19/22 09:41 Labs: Laboratory Results - last 24 hr 12/18/22 12/18/22 12/18/22 20:13 20:57 22:02 MCV 62.2 L MCH 16.3 L MCHC 26.2 L RDW 20.2 H Plt Count 441 H MPV 10.1 Immature Gran % (Auto) 1.0 H Neut % (Auto) 79.1 H Lymph % (Auto) 11.3 L [place] % (Auto) 8.3 Eos % (Auto) 0.1 Baso % (Auto) 0.2 Lymph # (Auto) 1.2 [place] # (Auto) 0.9 Eos # (Auto) 0.0 Baso # (Auto) 0.0 Abs Immat Gran (auto) 0.10 H Absolute Neuts (auto) 8.1 Absolute Nucleated RBC 0.000 Nucleated RBC % (auto) 0.0 Smear Path Review SEE NOTE Anion Gap Estim Creat Clear Calc Estimated GFR Random Glucose Lactic Acid Calcium Iron TIBC % Saturation Unsat Iron Binding Ferritin Total Bilirubin Direct Bilirubin AST ALT Alkaline Phosphatase Lactate Dehydrogenase Total Protein Albumin Urine Color Yellow Urine Appearance Turbid Urine pH 5.5 Ur Specific [place] 1.020 Urine Protein 100 (2+) H Urine Glucose (UA) Negative Urine Ketones Negative Urine Blood Large (3+) H Urine Nitrite Positive H Ur Leukocyte Esterase Large (3+) H Urine RBC 3-5 H Urine WBC >50 H Ur Squamous Epith Cells 3-5 Urine Bacteria 3+ Hyaline Casts 0-2 Stool Occult Blood NEGATIVE Influenza Type A (PCR) Influenza Type B (PCR) RSV RNA Qual (PCR) SARS-CoV-2 RNA (RT-PCR) Blood Type Antibody Screen Crossmatch 12/18/22 12/18/22 12/18/22 22:27 22:27 22:27 MCV MCH MCHC RDW Plt Count MPV Immature Gran % (Auto) Neut % (Auto) Lymph % (Auto) [place] % (Auto) Eos % (Auto) Baso % (Auto) Lymph # (Auto) [place] # (Auto) Eos # (Auto) Baso # (Auto) Abs Immat Gran (auto) Absolute Neuts (auto) Absolute Nucleated RBC Nucleated RBC % (auto) Smear Path Review Anion Gap 15 Estim Creat Clear Calc 48.9 Estimated GFR > 60 Random Glucose 104 Lactic Acid 0.9 Calcium 8.9 Iron TIBC % Saturation Unsat Iron Binding Ferritin Total Bilirubin 0.2 Direct Bilirubin < 0.2 AST 39 H ALT 17 Alkaline Phosphatase 80 Lactate Dehydrogenase Total Protein 9.3 H Albumin 2.2 L Urine Color Urine Appearance Urine pH Ur Specific [place] Urine Protein Urine Glucose (UA) Urine Ketones Urine Blood Urine Nitrite Ur Leukocyte Esterase Urine RBC Urine WBC Ur Squamous Epith Cells Urine Bacteria Hyaline Casts Stool Occult Blood Influenza Type A (PCR) Influenza Type B (PCR) RSV RNA Qual (PCR) SARS-CoV-2 RNA (RT-PCR) Blood Type A Positive Antibody Screen NEGATIVE Crossmatch See Detail 12/18/22 12/19/22 12/19/22 22:27 09:41 09:41 MCV 72.9 L D MCH 22.5 L MCHC 30.8 L RDW 28.0 H Plt Count 395 MPV 10.1 Immature Gran % (Auto) 1.4 H Neut % (Auto) 76.2 H Lymph % (Auto) 11.1 L [place] % (Auto) 10.5 Eos % (Auto) 0.3 Baso % (Auto) 0.5 Lymph # (Auto) 1.1 L [place] # (Auto) 1.0 Eos # (Auto) 0.0 Baso # (Auto) 0.1 Abs Immat Gran (auto) 0.13 H Absolute Neuts (auto) 7.2 Absolute Nucleated RBC 0.000 Nucleated RBC % (auto) 0.0 Smear Path Review Anion Gap 13 Estim Creat Clear Calc 53.4 Estimated GFR > 60 Random Glucose 83 Lactic Acid Calcium 8.5 Iron 118 TIBC 143 L % Saturation 83 H Unsat Iron Binding < 25 Ferritin 172 Total Bilirubin Direct Bilirubin AST ALT Alkaline Phosphatase Lactate Dehydrogenase 142 Total Protein Albumin Urine Color Urine Appearance Urine pH Ur Specific [place] Urine Protein Urine Glucose (UA) Urine Ketones Urine Blood Urine Nitrite Ur Leukocyte Esterase Urine RBC Urine WBC Ur Squamous Epith Cells Urine Bacteria Hyaline Casts Stool Occult Blood Influenza Type A (PCR) NEGATIVE Influenza Type B (PCR) NEGATIVE RSV RNA Qual (PCR) NEGATIVE SARS-CoV-2 RNA (RT-PCR) NEGATIVE Blood Type Antibody Screen Crossmatch Microbiology Microbiology Results: Microbiology 12/18/22 Unknown Urine Culture - Preliminary Urine Catheterized - Peterson Catheter Culture too young to evaluate. 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 post transfusion iron sats not c/w iron defeciency likely this is anemia of chronic inflammation monitor cbc, check spep, upep, hematology eval check ct abd - ?hematoma or signs of chronic inflammation (likely from sacral ulcers) sepsis due to uti due to chronic indwelling peterson catheter due to urinary retention zosyn, cultures, ID Sacral decubitus ulcer Wound Care history of ICH with left hemiparesis, dysphagia and aphasia ARCHITECT eval Alzheimer's and vascular Dementia Maintain sleep-wake cycle.? On memantine DVT prophylaxis: Mechanical due to severe anemia full code reason for continued hospitalization:working up severe anemia Time Spent With Patient Time: Total time managing care of this patient today ____ minutes. Quality Stroke Does the patient have a stroke diagnosis?: No VTE Prior VTE?: No VTE Risk Level:: Medical - moderate - high VTE Device Contraindication: N/A - Device Ordered VTE Drug Contraindication: Treatment Not Indicated
--- NOTE | 2022-12-19 12:04 | P.CONWO_ITS ---
History of Present Illness Data of Consult Service Date: 12/19/22 Requesting physician: Alicja Moody Primary Care Provider: Maverick Lopez MD HPI Reason for consult: sacral decub [id number]: Went over to ED overflow and is patient not there, bed is not yet assigned in computer. We JUST saw her on Thu and her sacral wound is stable. We are using calcium alginate as the primary dressing. CT Scan in Oct supported osteomyelitis and PICC was placed in early Nov, not currently on IV antibiotics as I understand it. Her son historically takes excellent care of her at home but her daughter is the HCP. She has been slowly deteriorating from Alzheimer's disease and failure to thrive, her wounds are not curable in the setting of malnutrition. On her last clinic evaluation, her current H/H was not known, now 4.6/17.2 and transfusion is ordered. [facility] Medical History AD (Alzheimer's disease) CVA (cerebral vascular accident) Dementia GERD (gastroesophageal reflux disease) Hyperparathyroidism Hypertension Nephrolithiasis Nephrolithiasis Osteoporosis Paget's bone disease Sacral decubitus ulcer, stage II UTI (urinary tract infection) Vitamin D deficiency Family History Father No problems noted. Mother No problems noted. Maternal Grandmother Cancer Surgical History H/O bilateral breast reduction surgery H/O rectal polypectomy H/O: hysterectomy History of cystoscopy History of hip surgery History of lithotripsy History of tubal ligation Hx of tonsillectomy Social History Household Members: Family and Unknown / Unable to assess Housing: Unknown / Unable to assess Do you presently have visiting nurse or other home services: No Unable to assess alcohol history related to: Unable to respond Alcohol intake: never Patient Tobacco Use Status: Never used Tobacco e-Cigarette/Vaping Use: Never Used Second Hand Smoke Exposure: No Advance Directives Date on File: 07/24/20 service: No Current occupational status: disabled Cognitive needs: Yes (wheelchair chair) Hearing needs: No Vision needs: No Meds Allergies Allergy/AdvReac Type Severity Reaction Status Date / Time morphine [MORPHINE] Allergy Mild NAUSEA & Verified 12/18/22 22:22 VOMITING, vomiting Active Medications: Current Medications Piperacillin Sod/Tazobactam (Sod 3.375 gm/ Sodium Chloride) 50 mls @ 100 mls/hr IV Q6H [facility] Omeprazole (Omeprazole 20 Mg Capsule.Dr) 20 mg PO DAILY@0630 [facility] Pharmacy Consult (Consult Rx Perform Med Rec) 1 each MISCELLANE ONCE PRN PRN Reason: Consult order Sodium Chloride (0.9 % Sodium Chloride Flush 3 Ml Syringe) 3 ml IVFLUSH QSHIFT [facility] Last Admin: 12/19/22 08:45 Dose: 3 ml Home Medications Medication Instructions Recorded Confirmed Last Taken Type hydrocolloid dressing 6 X 6 12/05/21 11/27/22 Unknown History (Durafiber Dressing) amlodipine 5 mg tablet 1 tab PO DAILY 12/18/22 12/18/22 Unknown History aspirin 81 mg chewable tablet 1 tab PO DAILY 12/18/22 12/18/22 Unknown History cholecalciferol (vitamin D3) 50 1 tab PO DAILY 12/18/22 12/18/22 Unknown History mcg (2,000 unit) tablet citalopram 10 mg tablet 1 tab PO DAILY 12/18/22 12/18/22 Unknown History docusate sodium 100 mg capsule 1 cap PO DAILY 12/18/22 12/18/22 Unknown History memantine 5 mg tablet 1 tab PO BID 12/18/22 12/18/22 Unknown History tamsulosin 0.4 mg capsule 1 cap PO DAILY 12/18/22 12/18/22 Unknown History Physical Exam Vital Signs and Narrative: Vital Signs: Last Vital Signs Temp 98.8 F 12/19/22 08:00 Pulse 91 12/19/22 08:00 Resp 20 12/19/22 08:00 BP 134/51 L 12/19/22 08:00 Pulse Ox 98 12/19/22 08:00 O2 Del Method 12/19/22 08:00 O2 Flow Rate 0.5 12/19/22 08:00 BMI result Body Mass Index 14.9 see outpatient wound assessment from Dec The wound is located on the Sacrum.?The wound measures 3cm length x 2cm width x 1.5cm depth; 4.712cm^2 area and 7.069cm^3 volume. There is bone and Fat Layer (Subcutaneous Tissue) exposed. There is no tunneling or undermining noted. There is a large amount of serosanguineous drainage noted. There is large (67-100%) red granulation within the wound bed. There is a small (1-33%) amount of necrotic tissue within the wound bed. The wound is located on the Right,Posterior Ilium. The wound measures 4.5cm length x 4cm width x 1.5cm depth; 14.137cm^2 area and 21.206cm^3 volume. There is bone and Fat Layer (Subcutaneous Tissue) exposed. There is a medium amount of serosanguineous drainage noted. There is large (67-100%) red, pink granulation within the wound bed. There is a small (1-33%) amount of necrotic tissue within the wound bed including Adherent Slough. Results Labs 12/19/22 09:41 12/19/22 09:41 Labs: Laboratory Results - last 24 hr 12/18/22 12/18/22 12/18/22 20:13 20:57 22:02 MCV 62.2 L MCH 16.3 L MCHC 26.2 L RDW 20.2 H Plt Count 441 H MPV 10.1 Immature Gran % (Auto) 1.0 H Neut % (Auto) 79.1 H Lymph % (Auto) 11.3 L [place] % (Auto) 8.3 Eos % (Auto) 0.1 Baso % (Auto) 0.2 Lymph # (Auto) 1.2 [place] # (Auto) 0.9 Eos # (Auto) 0.0 Baso # (Auto) 0.0 Abs Immat Gran (auto) 0.10 H Absolute Neuts (auto) 8.1 Absolute Nucleated RBC 0.000 Nucleated RBC % (auto) 0.0 Smear Path Review SEE NOTE Anion Gap Estim Creat Clear Calc Estimated GFR Random Glucose Lactic Acid Calcium Iron TIBC % Saturation Unsat Iron Binding Ferritin Total Bilirubin Direct Bilirubin AST ALT Alkaline Phosphatase Lactate Dehydrogenase Total Protein Albumin Urine Color Yellow Urine Appearance Turbid Urine pH 5.5 Ur Specific [place] 1.020 Urine Protein 100 (2+) H Urine Glucose (UA) Negative Urine Ketones Negative Urine Blood Large (3+) H Urine Nitrite Positive H Ur Leukocyte Esterase Large (3+) H Urine RBC 3-5 H Urine WBC >50 H Ur Squamous Epith Cells 3-5 Urine Bacteria 3+ Hyaline Casts 0-2 Stool Occult Blood NEGATIVE Influenza Type A (PCR) Influenza Type B (PCR) RSV RNA Qual (PCR) SARS-CoV-2 RNA (RT-PCR) Blood Type Antibody Screen Crossmatch 12/18/22 12/18/22 12/18/22 22:27 22:27 22:27 MCV MCH MCHC RDW Plt Count MPV Immature Gran % (Auto) Neut % (Auto) Lymph % (Auto) [place] % (Auto) Eos % (Auto) Baso % (Auto) Lymph # (Auto) [place] # (Auto) Eos # (Auto) Baso # (Auto) Abs Immat Gran (auto) Absolute Neuts (auto) Absolute Nucleated RBC Nucleated RBC % (auto) Smear Path Review Anion Gap 15 Estim Creat Clear Calc 48.9 Estimated GFR > 60 Random Glucose 104 Lactic Acid 0.9 Calcium 8.9 Iron TIBC % Saturation Unsat Iron Binding Ferritin Total Bilirubin 0.2 Direct Bilirubin < 0.2 AST 39 H ALT 17 Alkaline Phosphatase 80 Lactate Dehydrogenase Total Protein 9.3 H Albumin 2.2 L Urine Color Urine Appearance Urine pH Ur Specific [place] Urine Protein Urine Glucose (UA) Urine Ketones Urine Blood Urine Nitrite Ur Leukocyte Esterase Urine RBC Urine WBC Ur Squamous Epith Cells Urine Bacteria Hyaline Casts Stool Occult Blood Influenza Type A (PCR) Influenza Type B (PCR) RSV RNA Qual (PCR) SARS-CoV-2 RNA (RT-PCR) Blood Type A Positive Antibody Screen NEGATIVE Crossmatch See Detail 12/18/22 12/19/22 12/19/22 22:27 09:41 09:41 MCV 72.9 L D MCH 22.5 L MCHC 30.8 L RDW 28.0 H Plt Count 395 MPV 10.1 Immature Gran % (Auto) 1.4 H Neut % (Auto) 76.2 H Lymph % (Auto) 11.1 L [place] % (Auto) 10.5 Eos % (Auto) 0.3 Baso % (Auto) 0.5 Lymph # (Auto) 1.1 L [place] # (Auto) 1.0 Eos # (Auto) 0.0 Baso # (Auto) 0.1 Abs Immat Gran (auto) 0.13 H Absolute Neuts (auto) 7.2 Absolute Nucleated RBC 0.000 Nucleated RBC % (auto) 0.0 Smear Path Review Anion Gap 13 Estim Creat Clear Calc 53.4 Estimated GFR > 60 Random Glucose 83 Lactic Acid Calcium 8.5 Iron 118 TIBC 143 L % Saturation 83 H Unsat Iron Binding < 25 Ferritin 172 Total Bilirubin Direct Bilirubin AST ALT Alkaline Phosphatase Lactate Dehydrogenase 142 Total Protein Albumin Urine Color Urine Appearance Urine pH Ur Specific [place] Urine Protein Urine Glucose (UA) Urine Ketones Urine Blood Urine Nitrite Ur Leukocyte Esterase Urine RBC Urine WBC Ur Squamous Epith Cells Urine Bacteria Hyaline Casts Stool Occult Blood Influenza Type A (PCR) NEGATIVE Influenza Type B (PCR) NEGATIVE RSV RNA Qual (PCR) NEGATIVE SARS-CoV-2 RNA (RT-PCR) NEGATIVE Blood Type Antibody Screen Crossmatch Imaging Radiologist's Impressions: Impressions Chest X-Ray 12/18/22 22:14 IMPRESSION: Hypoexpanded with central vascular prominence which may reflect a component of mild edema in this setting. Assessment and Plan (1) Decubitus ulcer of sacral region, stage 4: Status: Acute Plan Debilitated 72-year-old female with known, established osteomyelitis of the sacrum and no indication for aggressive treatment such as further OR surgical debridement or IV antibiotics planned. Picture is more palliative. Silver alginate is the dressing of choice to fit the open void at the sacrum and also of the right ilium. Use zinc oxide to the periwound for protection and change the dressing every 48 hours or as needed for drainage. See orders. Follow-up discharge from [facility] unless hospice or palliative care take over in the home. Time Spent With Patient Time: Total time managing care of this patient today ____ minutes.
[2022-12-19 12:07] LABS: Iron 20 mcg/dL (30-160); Percent Iron Saturation 16 % (15-50); Total Iron Binding Capacity 127 mcg/dL (228-428); Unsaturated Iron Binding 107 ug/dL
--- NOTE | 2022-12-19 12:14 | MHC.SL.SWA ---
Speech Pathologist Impression: Oropharyngeal dysphagia, risk of aspiration Risk of Aspiration Due to: Neurological Condition Poor PO Intake Reduced Cognition Dysphasia Diet Status: Upgrade Liquid Consistency and Strategies for Safe Swallow: Liquid Intake Recommendation: Honey Thick Liquid Intake Strategies: Small Sips No Straws Liquids by Teaspoon Only Solid Food Consistency: Dietary Recommendations: Pureed (NDD1) Additional Modifications to Solid Foods: Recommend UPGRADE from NPO, start on PUREED (NDD1) solids by half teaspoon with HONEY THICK liquids by TEASPOON ONLY, pills CRUSHED in PUREE. Pt requires total 1:1 ASSIST for all PO intake and close monitoring of tolerance. Do not present PO if pt is lethargic or not attending to meal, hold tray if pt displays any overt s/s of aspiration with PO intake. Minimize distractions during meal time. Provide cues and encouragement as needed to swallow. Ensure strict aspiration precautions and daily oral care. Recommendations discussed with family and written on whiteboard in pt's room. Notified MD, RN, RD via [facility] Message. Will continue to follow. Oral Medication Intake: Crushed with Puree Please contact the pharmacy regarding appropriate crushable or liquid drug formulations that are available whenever modified delivery is recommended. Compensatory Strategies and Precautions to be Taken for Safe Swallow: Sitting Upright (90 deg) No Straw Liquids from Spoon Small Bites and Sips Rate of Ingestion Change Oral Check Avoid Specific Foods Supervision While Eating and Drinking for Safe Swallow: Total Assistance (1:1) Foods to Avoid: Mixed consistencies Swallowing Recommended Treatments: Compens. Strategy Educat. Recommendation for Speech: Inpatient Speech Therapy Dicer Operator Clinican/Clinical Fellow: No Supervisory Statement: I have reviewed and agree with the student/clinical fellow's documentation: N/A Speech Language Pathologist: Kacey Stevens M.A., CCC-BULK DRIVER
[2022-12-19 12:19] LABS: Ferritin 196 ng/mL (10-250)
[2022-12-19] MEDS: Piperacillin Sodium/Tazobactam 3.375 GM in 0.9 % Sodium Chloride 50 ML IV ×3 (12:32→22:12)
--- NOTE | 2022-12-19 12:34 | MHC.CM.PN ---
pt lives with son and dgter pt is in adult foster care program will need amb home is active with [facility] and has vat overhauler hrs is covid vax dc plan is home with олег
--- NOTE | 2022-12-19 15:50 | W.PM.IDCN ---
History of Present Illness Data of Consult Service Date: 12/19/22 Requesting physician: Rasta Herman Primary Care Provider: Maverick Lopez MD [facility] Reason for consult: encephalopathy She presents with confusion and cloudy urine. She has organisms pending; She has had prior UTI concerns. Review of Systems Review of Systems: Yes Unobtainable due to mental condition PMFSH Past Medical History Medical History AD (Alzheimer's disease) CVA (cerebral vascular accident) Dementia GERD (gastroesophageal reflux disease) Hyperparathyroidism Hypertension Nephrolithiasis Nephrolithiasis Osteoporosis Paget's bone disease Sacral decubitus ulcer, stage II UTI (urinary tract infection) Vitamin D deficiency Family History Family History Father No problems noted. Mother No problems noted. Maternal Grandmother Cancer Family history: reviewed and not pertinent Surgical History Surgical History H/O bilateral breast reduction surgery H/O rectal polypectomy H/O: hysterectomy History of cystoscopy History of hip surgery History of lithotripsy History of tubal ligation Hx of tonsillectomy Social History Social History Household Members: Family and Children Housing: House Do you presently have visiting nurse or other home services: Yes Unable to assess alcohol history related to: Unable to respond Alcohol intake: never Patient Tobacco Use Status: Never used Tobacco e-Cigarette/Vaping Use: Never Used Second Hand Smoke Exposure: No Advance Directives Date on File: 07/24/20 service: No Current occupational status: disabled Cognitive needs: Yes (wheelchair chair) Hearing needs: No Vision needs: No Meds Allergies Allergy/AdvReac Type Severity Reaction Status Date / Time morphine [MORPHINE] Allergy Mild NAUSEA & Verified 12/18/22 22:22 VOMITING, vomiting Active Medications: Current Medications Piperacillin Sod/Tazobactam (Sod 3.375 gm/ Sodium Chloride) 50 mls @ 100 mls/hr IV Q6H [facility] Last Infusion: 12/19/22 13:11 Dose: Infused Omeprazole (Omeprazole 20 Mg You.) 20 mg PO DAILY@0630 [facility] Pharmacy Consult (Consult Rx Perform Med Rec) 1 each MISCELLANE ONCE PRN PRN Reason: Consult order Sodium Chloride (0.9 % Sodium Chloride Flush 3 Ml Syringe) 3 ml IVFLUSH QSHIFT [facility] Last Admin: 12/19/22 08:45 Dose: 3 ml Home Medications Medication Instructions Recorded Confirmed Last Taken Type hydrocolloid dressing 6 X 6 12/05/21 11/27/22 Unknown History (Durafiber Dressing) amlodipine 5 mg tablet 1 tab PO DAILY 12/18/22 12/18/22 Unknown History aspirin 81 mg chewable tablet 1 tab PO DAILY 12/18/22 12/18/22 Unknown History cholecalciferol (vitamin D3) 50 1 tab PO DAILY 12/18/22 12/18/22 Unknown History mcg (2,000 unit) tablet citalopram 10 mg tablet 1 tab PO DAILY 12/18/22 12/18/22 Unknown History docusate sodium 100 mg capsule 1 cap PO DAILY 12/18/22 12/18/22 Unknown History memantine 5 mg tablet 1 tab PO BID 12/18/22 12/18/22 Unknown History tamsulosin 0.4 mg capsule 1 cap PO DAILY 12/18/22 12/18/22 Unknown History Physical Exam Vital Signs: Vital Signs: Last Vital Signs Temp 99.3 F 12/19/22 12:00 Pulse 92 12/19/22 12:00 Resp 20 12/19/22 12:00 BP 134/50 L 12/19/22 12:00 Pulse Ox 99 12/19/22 12:00 O2 Del Method 12/19/22 12:00 O2 Flow Rate 0.5 12/19/22 12:00 BMI result Body Mass Index 14.9 Const: General: cooperative HEENT: Head: Yes normal to inspection Face and sinus: Yes normal facial exam Mouth: Normal oral and palatal mucosa present Teeth and gingiva: dentition normal Eyes: General: appearance normal, both eyes and all related structures Pupils: Equal, round and reactive pupils present Resp: Effort & Inspection: normal respiratory effort Cardio: Rate: regular rate Rhythm: regular rhythm GI: Palpation (GI): Soft to palpation and nontender : General: Yes no CVA tenderness Back/Spine/Pelvis: Back: no CVA tenderness Skin: General skin exam: no rashes or lesions noted Neuro: General: moves all extremities Cranial nerves: Yes Equal, round and reactive pupils present Extrem: General: Yes normal to inspection Psych: Other: confusion Results Labs 12/19/22 09:41 12/19/22 09:41 Labs: Short CBC 12/18/22 12/18/22 12/19/22 Range/Units 20:57 21:24 09:41 WBC 10.2 9.4 (4.8-10.8) X10*3/uL Hgb 4.8 L* D 4.6 L* 8.2 L D (12.0-16.0) g/dl Hct 18.3 L* D 17.2 L* 26.6 L D (37.0-47.0) % Plt Count 441 H 395 (160-400) X10*3/uL BMP 12/18/22 12/19/22 22:27 09:41 Sodium 140 141 Potassium 4.5 4.1 Chloride 111 H 114 H Carbon Dioxide 19 L 18 L BUN 38 H 31 H Creatinine 0.71 0.65 Calcium 8.9 8.5 Liver Function 12/18/22 Range/Units 22:27 Total Bilirubin 0.2 (0.0-1.0) mg/dL Direct Bilirubin < 0.2 (0.0-0.5) mg/dL AST 39 H (5-31) U/L ALT 17 (0-31) U/L Alkaline Phosphatase 80 (39-117) U/L Albumin 2.2 L (3.5-5.0) g/dL Urine 12/18/22 Range/Units 20:13 Urine Color Yellow Urine Appearance Turbid Urine pH 5.5 (5.0-9.0) Ur Specific [place] 1.020 (1.005-1.025) Urine Protein 100 (2+) H (Neg-Trace) mg/dL Urine Glucose (UA) Negative (Negative) mg/dL Microbiology Microbiology Results: Microbiology 12/18/22 Unknown Urine Catheterized - Cherry Catheter Urine Culture - Preliminary Culture too young to evaluate. Assessment and Plan (1) Urinary tract infection: Status: Acute She has concerns over possible resistant organisms in urine She has had sacral decubiti in past. (2) Sacral decubitus ulcer, stage II: Status: Acute Plan Would continue piperacillin/tazobactam Await cultures. Would give likely 10 days treatment depending on cultures,possible augmentin Time Spent With Patient Time: Total time managing care of this patient today ____ minutes.
--- NOTE | 2022-12-19 20:37 | PM.HEMONCCN ---
Subjective - Subjective Chief complaint: Consult for: Anemia. Patient: new to practice Consult date: 12/19/22 Requesting Physician: Dr. Moody. Primary Care Provider: Maverick Lopez MD Medical Summary: DIAGNOSIS: ANEMIA. HPI - Consult Narrative Reason for consult: Consult for: Anemia. Narrative: Diann Colon is a 72 year old lady, presented with significant Anemia. CBC: 32:4.6, HCT: 17.7. CBC: 33: 8.2, HCT 26.6. IRON STUDIES:20/127/16/196. Review of Systems - Constitutional Reports system reviewed and no additional complaints, except as documented - Eyes Reports system reviewed and no additional complaints, except as documented - ENT Reports system reviewed and no additional complaints, except as documented - Cardiovascular Reports system reviewed and no additional complaints, except as documented - Respiratory Reports no additional respiratory complaints - Gastrointestinal Reports system reviewed and no additional complaints, except as documented - Genitourinary Reports no additional female genitourinary complaints - Musculoskeletal Reports system reviewed and no additional complaints, except as documented - Integumentary/Breasts Skin/Breast: Reports no additional skin complaints - Neurologic Reports system reviewed and no additional complaints, except as documented - Psychiatric Reports system reviewed and no additional complaints, except as documented - Endocrine Reports no additional endocrine complaints - Hematologic/Lymphatic Reports system reviewed and no additional complaints, except as documented - Allergic/Immunologic Reports system reviewed and no additional complaints, except as documented Oncology Screenings - ECOG Performance Status ECOG Performance Status: 1 [facility] Medical History: Medical History (Last Reviewed 12/19/22 @ 15:51 by Echo Lozano MD) AD (Alzheimer's disease) CVA (cerebral vascular accident) Dementia GERD (gastroesophageal reflux disease) Hyperparathyroidism Hypertension Nephrolithiasis Nephrolithiasis Osteoporosis Paget's bone disease Sacral decubitus ulcer, stage II UTI (urinary tract infection) Vitamin D deficiency Functional capacity: uses cane/walker Patient : No Family History: Family History (Last Reviewed 12/19/22 @ 15:51 by Echo Lozano MD) Father No problems noted. Mother No problems noted. Maternal Grandmother Cancer Family history: reviewed and not pertinent Surgical History: Surgical History (Last Reviewed 12/19/22 @ 15:51 by Echo Lozano MD) H/O bilateral breast reduction surgery H/O rectal polypectomy H/O: hysterectomy History of cystoscopy History of hip surgery History of lithotripsy History of tubal ligation Hx of tonsillectomy Social History: Social History (Last Reviewed 12/19/22 @ 15:51 by Echo Lozano MD) Living Situation History: Household Members: Family Household Members: Children Housing: House Do you presently have visiting nurse or other home services: Yes Alcohol History: Unable to assess alcohol history related to: Unable to respond Tobacco History: Patient Tobacco Use Status: Never used Tobacco e-Cigarette/Vaping Use: Never Used Second Hand Smoke Exposure: No Advance Directives: Advance Directives Date on File: 07/24/20 Occupation Assessmet: service: No Current occupational status: disabled Home Medications and Allergies Current Medications: Current Medications Piperacillin Sod/Tazobactam (Sod 3.375 gm/ Sodium Chloride) 50 mls @ 100 mls/hr IV Q6H [facility] Last Infusion: 12/19/22 18:52 Dose: Infused Omeprazole (Omeprazole 20 Mg You.) 20 mg PO DAILY@0630 [facility] Pharmacy Consult (Consult Rx Perform Med Rec) 1 each MISCELLANE ONCE PRN PRN Reason: Consult order Sodium Chloride (0.9 % Sodium Chloride Flush 3 Ml Syringe) 3 ml IVFLUSH QSHIFT [facility] Last Admin: 12/19/22 18:03 Dose: 3 ml Home Medications Medication Instructions Recorded Confirmed Type hydrocolloid dressing 6 X 6 12/05/21 11/27/22 History (Durafiber Dressing) aspirin 81 mg chewable tablet 1 tab PO DAILY 12/18/22 12/18/22 History cholecalciferol (vitamin D3) 50 1 tab PO DAILY 12/18/22 12/18/22 History mcg (2,000 unit) tablet citalopram 10 mg tablet 1 tab PO DAILY 12/18/22 12/18/22 History tamsulosin 0.4 mg capsule 1 cap PO DAILY 12/18/22 12/18/22 History Allergies Allergy/AdvReac Type Severity Reaction Status Date / Time morphine [MORPHINE] Allergy Mild NAUSEA & Verified 12/18/22 22:22 VOMITING, vomiting Physical Exam Vital signs: Vital Signs Temp 98.7 F 12/19/22 19:48 Pulse 78 12/19/22 19:48 Resp 18 12/19/22 19:48 BP 127/89 12/19/22 19:48 Pulse Ox 97 12/19/22 19:48 O2 Del Method 12/19/22 19:48 O2 Flow Rate 2 12/19/22 19:48 Intake & Output 12/19/22 12/19/22 12/20/22 06:59 18:59 06:59 Intake Total 2220 / 2220 100 / 100 Output Total 750 / 750 Balance 2220 / 2220 -650 / -650 Intake: Intake (Blood Product) Amount 700 / 700 Red Blood Cells (E0336) Unit 350 / 350 [id number] Red Blood Cells (E0382) Unit 350 / 350 [id number] Intake, IV Amount 1520 / 1520 100 / 100 0.9 % Sodium Chloride 1,000 ml 1000 / 1000 @ 999 mls/hr IV .Q1H1M [facility] Rx#: [id number] Meropenem 1 gm In 0.9 % Sodium 100 / 100 Chloride 100 ml @ 200 mls/hr IV ONCE ONE Rx#:[id number] Piperacillin Sodium/Tazobactam 100 / 100 3.375 gm In 0.9 % Sodium Chloride 50 ml @ 100 mls/hr IV Q6H [facility] Rx#:[id number] levoFLOXacin/D5W 750 mg In 150 150 / 150 ml @ 100 mls/hr IV Q24H [facility] Rx# :[id number] vancomycin HCL 1,000 mg In 0.9 270 / 270 % Sodium Chloride 250 ml @ 270 mls/hr IV ONCE ONE Rx#: [id number] Output: Output, Other Amount 750 / 750 Other: Urine Cherry Urine Color Cloudy Last Bowel Movement 12/16/22 Weight 44.6 kg Weight 44.6 kg - Constitutional Present: mild distress - Routine HEENT Exam Head: Present: normal inspection Eye: Present: normal appearance ENT: Present: mucous membranes moist - Routine Neck Exam Present: supple - Routine Respiratory Exam Present: CTAB - Routine Cardiovascular Exam Cardiovascular: Present: RRR, S1, S2 - Routine Abdominal Exam Present: nontender - Routine Extremities Exam Present: normal inspection, nontender - Routine Skin Exam Present: intact - Routine Neurological Exam Present: alert, oriented X3 - Detailed Neurological Exam: Coma Scale Eye Opening: Spontaneous (4) Verbal Response: Oriented (5) Motor Response: Obeys commands (6) Chip Coma Scale Total: 15 - Routine Psychiatric Exam Present: normal affect Hem/Onc Consult Result - Labs CBC & Chem 7: 12/22/22 05:52 12/22/22 05:52 Labs: Short CBC 12/18/22 12/18/22 12/19/22 Range/Units 20:57 21:24 09:41 WBC 10.2 9.4 (4.8-10.8) X10*3/uL Hgb 4.8 L* D 4.6 L* 8.2 L D (12.0-16.0) g/dl Hct 18.3 L* D 17.2 L* 26.6 L D (37.0-47.0) % Plt Count 441 H 395 (160-400) X10*3/uL BMP 12/18/22 12/19/22 22:27 09:41 Sodium 140 141 Potassium 4.5 4.1 Chloride 111 H 114 H Carbon Dioxide 19 L 18 L BUN 38 H 31 H Creatinine 0.71 0.65 Calcium 8.9 8.5 Liver Function 12/18/22 Range/Units 22:27 Total Bilirubin 0.2 (0.0-1.0) mg/dL Direct Bilirubin < 0.2 (0.0-0.5) mg/dL AST 39 H (5-31) U/L ALT 17 (0-31) U/L Alkaline Phosphatase 80 (39-117) U/L Albumin 2.2 L (3.5-5.0) g/dL Urine 12/18/22 Range/Units 20:13 Urine Color Yellow Urine Appearance Turbid Urine pH 5.5 (5.0-9.0) Ur Specific [place] 1.020 (1.005-1.025) Urine Protein 100 (2+) H (Neg-Trace) mg/dL Urine Glucose (UA) Negative (Negative) mg/dL Assessment and Plan Patient Active problem list reviewed?: Yes (1) Anemia Status: Acute Assessment and plan: This is a pleasant 72 year old lady, with significant Anemia. DIFFERENTIAL DIAGNOSIS: 1. IRON DEFICIENCY ANEMIA:Iron studies: //. 2. ACD: Is a possibility. Can be anemia of acute illness, has Urosepsis. 3. B 12/FOLATE DEFICIENCY: Can co-exist. 4. HEMOLYTIC ANEMIA: Is in the differential. 5. MYELOPROLIFERATIVE DISORDER: MDS, Lymphoma vs Multiple Myeloma, Is possible, especially at her age. PLAN: To proceed with further evaluation. Will check her B 12 and folate levels: 664/15.5. Check hemolytic screen. LDH: 142. Check SIEP: no monoclonal spike. Will follow her blood count. If the above work up is non revealing, will proceed with a bone marrow exam for further evaluation. Pt. was given 2 units of PRBCs. Thanks, CC: Maverick Lopez. - Time Spent With Patient Time Spent with Patient (in minutes): 30
[2022-12-20] MEDS: 0.9 % Sodium Chloride Flush 3 ML SYRINGE IVFLUSH ×4 (00:22→20:05)
[2022-12-20] MEDS: Piperacillin Sodium/Tazobactam 3.375 GM in 0.9 % Sodium Chloride 50 ML IV ×4 (02:42→20:04)
[2022-12-20 03:04] VITALS: BP 130/62; PULSE 91; RESP 18; TEMP 36.4; O2SAT 100
[2022-12-20] MEDS: Omeprazole 20 MG CAPSULE.DR PO (05:32)
[2022-12-20 06:41] LABS: Hematocrit 27.9 % (37.0-47.0); Hemoglobin 8.4 g/dl (12.0-16.0); Mean Corpuscular HGB Conc 30.1 g/dl (31.0-35.0); Mean Corpuscular Hemoglobin 21.8 pg (27.0-33.0); Mean Corpuscular Volume 72.3 fL (80.0-98.0); Mean Platelet Volume 10.1 fL (9.4-12.3); Platelet Count 374 X10*3/uL (160-400); Red Blood Count 3.86 X10*6/uL (4.20-5.50); Red Cell Distribution Width 29.3 % (11.0-16.0); White Blood Count 8.1 X10*3/uL (4.8-10.8)
[2022-12-20 07:26] LABS: Anion Gap 13 (12-20); Blood Urea Nitrogen 32 mg/dL (9-16); Calcium 8.3 mg/dL (8.4-10.2); Carbon Dioxide 17 mmol/L (22-29); Chloride 117 mmol/L (96-108); Creatinine Clr Calc Pharmacy 43.9; Estimated Glomerular Filt Rate > 60; Glucose Fasting 81 mg/dL (60-99); Potassium 3.6 mmol/L (3.3-5.1); Sodium 143 mmol/L (135-145)
[2022-12-20 08:00] VITALS: BP 127/58; PULSE 85; RESP 18; TEMP 36.6; O2SAT 100
--- NOTE | 2022-12-20 10:22 | P.PNIM_ITS ---
Subjective Subjective Date of Service: 12/20/22 Interval History: cough, poor appetite Physical Exam Vital Signs: Vital Signs: Last Vital Signs Temp 97.8 F 12/20/22 08:00 Pulse 85 12/20/22 08:00 Resp 18 12/20/22 08:00 BP 127/58 L 12/20/22 08:00 Pulse Ox 100 12/20/22 08:00 O2 Del Method 12/20/22 08:00 O2 Flow Rate 2 12/20/22 08:00 BMI result Body Mass Index 14.9 Const: General: cooperative HEENT: Head: Yes normal to inspection Face and sinus: Yes normal facial exam Mouth: Normal oral and palatal mucosa present Teeth and gingiva: dentition normal Eyes: General: appearance normal, both eyes and all related structures Pupils: Equal, round and reactive pupils present Resp: Effort & Inspection: normal respiratory effort Cardio: Rate: regular rate Rhythm: regular rhythm GI: Palpation (GI): Soft to palpation and nontender : General: Yes no CVA tenderness Back/Spine/Pelvis: Back: no CVA tenderness Skin: General skin exam: no rashes or lesions noted Neuro: General: moves all extremities Cranial nerves: Yes Equal, round and reactive pupils present Extrem: General: Yes normal to inspection Psych: Other: confusion Objective Data Active Medications Piperacillin Sod/Tazobactam (Sod 3.375 gm/ Sodium Chloride) 50 mls @ 100 mls/hr IV Q6H [facility] Last Infusion: 12/20/22 03:14 Dose: 0 mls/hr Documented By: TAMI Omeprazole (Omeprazole 20 Mg Capsule.) 20 mg PO DAILY@0630 [facility] Last Admin: 12/20/22 05:32 Dose: 20 mg Documented By: TAMI Pharmacy Consult (Consult Rx Perform Med Rec) 1 each MISCELLANE ONCE PRN PRN Reason: Consult order Sodium Chloride (0.9 % Sodium Chloride Flush 3 Ml Syringe) 3 ml IVFLUSH QSHIFT [facility] Last Admin: 12/20/22 00:22 Dose: 3 ml Documented By: TAMI Labs 12/20/22 06:22 12/20/22 06:22 Labs: Laboratory Results - last 24 hr 12/18/22 12/19/22 12/20/22 22:27 09:41 06:22 MCV 72.3 L MCH 21.8 L MCHC 30.1 L RDW 29.3 H Plt Count 374 MPV 10.1 Absolute Nucleated RBC 0.000 Nucleated RBC % (auto) 0.0 Anion Gap 13 Estim Creat Clear Calc 53.4 Estimated GFR > 60 Random Glucose 83 Fasting Glucose Calcium 8.5 Iron 20 L 118 TIBC 127 L 143 L % Saturation 16 83 H Unsat Iron Binding 107 < 25 Ferritin 196 172 Lactate Dehydrogenase 142 12/20/22 06:22 MCV MCH MCHC RDW Plt Count MPV Absolute Nucleated RBC Nucleated RBC % (auto) Anion Gap 13 Estim Creat Clear Calc 43.9 Estimated GFR > 60 Random Glucose Fasting Glucose 81 Calcium 8.3 L Iron TIBC % Saturation Unsat Iron Binding Ferritin Lactate Dehydrogenase Microbiology Microbiology Results: Microbiology 12/18/22 22:35 Blood Culture - Preliminary Blood - Venous No growth after 24 hours. 12/18/22 01:00 Blood Culture - Preliminary Blood - Venous No growth after 24 hours. 12/18/22 Unknown Urine Culture - Preliminary Urine Catheterized - Peterson Catheter Culture too young to evaluate. 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, sacral decubitus ulcer, chronic indwelling Peterson, who was brought to the emergency department by her son for lethargy and cough found to have severe anemia severe microcytic anemia given 2 units prbc, hgb improved appropriately iron studies with mixed iron defeciency and anemia of chronic inflammation monitor cbc - stable, follow up spep, upep, hematology appreciated follow up ct abd sepsis due to uti due to chronic indwelling peterson catheter due to urinary retention zosyn, cultures, ID appreciated Sacral decubitus ulcer Wound Care history of ICH with left hemiparesis, dysphagia and aphasia 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 On memantine DVT prophylaxis: Mechanical due to severe anemia full code reason for continued hospitalization:working up severe anemia Time Spent With Patient Time: Total time managing care of this patient today ____ minutes. Quality Stroke Does the patient have a stroke diagnosis?: No VTE Prior VTE?: No VTE Risk Level:: Medical - moderate - high VTE Device Contraindication: N/A - Device Ordered VTE Drug Contraindication: Treatment Not Indicated
[2022-12-20 11:50] VITALS: BP 136/64; PULSE 90; RESP 20; TEMP 36.7; O2SAT 99
[2022-12-20 16:00] VITALS: BP 127/65; PULSE 84; RESP 14; TEMP 36; O2SAT 99
[2022-12-20 20:00] VITALS: BP 127/62; PULSE 90; RESP 14; TEMP 36.3; O2SAT 99
[2022-12-21] VITALS: BP 135/61; PULSE 81; RESP 16; TEMP 36.9; O2SAT 100
[2022-12-21] MEDS: Piperacillin Sodium/Tazobactam 3.375 GM in 0.9 % Sodium Chloride 50 ML IV (02:51)
[2022-12-21 03:42] VITALS: BP 119/40; PULSE 88; RESP 20; TEMP 36.4; O2SAT 93
[2022-12-21] MEDS: Omeprazole 20 MG CAPSULE.DR PO (05:23)
[2022-12-21 06:12] LABS: Hemoglobin 8.6 g/dl (12.0-16.0); Mean Corpuscular HGB Conc 29.7 g/dl (31.0-35.0); Mean Corpuscular Hemoglobin 21.7 pg (27.0-33.0); Mean Corpuscular Volume 73.2 fL (80.0-98.0); Mean Platelet Volume 10.3 fL (9.4-12.3); Platelet Count 391 X10*3/uL (160-400); Red Blood Count 3.96 X10*6/uL (4.20-5.50); Red Cell Distribution Width 30.4 % (11.0-16.0); White Blood Count 12.4 X10*3/uL (4.8-10.8)
[2022-12-21 06:29] LABS: Anion Gap 12 (12-20); Blood Urea Nitrogen 37 mg/dL (9-16); Calcium 8.3 mg/dL (8.4-10.2); Carbon Dioxide 18 mmol/L (22-29); Chloride 120 mmol/L (96-108); Creatinine Clr Calc Pharmacy 41.8; Estimated Glomerular Filt Rate > 60; Glucose Fasting 113 mg/dL (60-99); Potassium 3.3 mmol/L (3.3-5.1); Sodium 147 mmol/L (135-145)
[2022-12-21 07:55] VITALS: BP 127/59; PULSE 80; RESP 16; TEMP 36.3; O2SAT 99
--- NOTE | 2022-12-21 08:58 | P.PNIM_ITS ---
Subjective Subjective Date of Service: 12/21/22 Interval History: cough, poor appetite Physical Exam Vital Signs: Vital Signs: Last Vital Signs Temp 97.4 F 12/21/22 07:55 Pulse 80 12/21/22 07:55 Resp 16 12/21/22 07:55 BP 127/59 L 12/21/22 07:55 Pulse Ox 99 12/21/22 07:55 O2 Del Method 12/21/22 07:55 O2 Flow Rate 2 12/21/22 07:55 BMI result Body Mass Index 14.9 Const: General: cooperative HEENT: Head: Yes normal to inspection Face and sinus: Yes normal facial exam Mouth: Normal oral and palatal mucosa present Teeth and gingiva: dentition normal Eyes: General: appearance normal, both eyes and all related structures Pupils: Equal, round and reactive pupils present Resp: Effort & Inspection: normal respiratory effort Cardio: Rate: regular rate Rhythm: regular rhythm GI: Palpation (GI): Soft to palpation and nontender : General: Yes no CVA tenderness Back/Spine/Pelvis: Back: no CVA tenderness Skin: General skin exam: no rashes or lesions noted Neuro: General: moves all extremities Cranial nerves: Yes Equal, round and reactive pupils present Extrem: General: Yes normal to inspection Psych: Other: confusion Objective Data Active Medications Amoxicillin/Clavulanate Potassium (Amoxicillin/Potassium Clav 875 Mg Tablet) 875 mg PO Q12H [facility] Dextrose (D5w) 1,000 mls @ 100 mls/hr IVCONT .Q10H [facility] Omeprazole (Omeprazole 20 Mg Capsule.Dr) 20 mg PO DAILY@0630 [facility] Last Admin: 12/21/22 05:23 Dose: 20 mg Documented By: TAMI Pharmacy Consult (Consult Rx Perform Med Rec) 1 each MISCELLANE ONCE PRN PRN Reason: Consult order Sodium Chloride (0.9 % Sodium Chloride Flush 3 Ml Syringe) 3 ml IVFLUSH QSHIFT [facility] Last Admin: 12/20/22 20:05 Dose: 3 ml Documented By: ROBINA Labs 12/21/22 05:53 12/21/22 05:53 Labs: Laboratory Results - last 24 hr 12/21/22 12/21/22 05:53 05:53 MCV 73.2 L MCH 21.7 L MCHC 29.7 L RDW 30.4 H Plt Count 391 MPV 10.3 Absolute Nucleated RBC 0.000 Nucleated RBC % (auto) 0.0 Anion Gap 12 Estim Creat Clear Calc 41.8 Estimated GFR > 60 Fasting Glucose 113 H Calcium 8.3 L Microbiology Microbiology Results: Microbiology 12/18/22 22:35 Blood Culture - Preliminary Blood - Venous No growth after 48 hours. 12/18/22 01:00 Blood Culture - Preliminary Blood - Venous No growth after 48 hours. 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, sacral decubitus ulcer, chronic indwelling Peterson, who was brought to the emergency department by her son for lethargy and cough found to have severe anemia severe microcytic anemia given 2 units prbc, hgb improved appropriately iron studies with mixed iron defeciency and anemia of chronic inflammation monitor cbc - stable, follow up spep, upep, hematology appreciated sepsis due to uti due to chronic indwelling peterson catheter due to urinary retention cultures -normal jyoti, ID appreciated will change to augmentin Sacral decubitus ulcer Wound Care hypernatremia d5w, monitor history of ICH with left hemiparesis, dysphagia and aphasia 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 On memantine DVT prophylaxis: lovenox full code reason for continued hospitalization:hypernatremia Time Spent With Patient Time: Total time managing care of this patient today ____ minutes. Quality Stroke Does the patient have a stroke diagnosis?: No VTE Prior VTE?: No VTE Risk Level:: Medical - moderate - high VTE Device Contraindication: N/A - Device Ordered VTE Drug Contraindication: N/A - Med Ordered
[2022-12-21] MEDS: Amoxicillin/Potassium Clav 875 MG TABLET PO ×2 (09:50→20:32)
[2022-12-21] MEDS: Enoxaparin Sodium 40 MG/0.4 ML SYRINGE SUBCUT (09:50)
[2022-12-21] MEDS: 0.9 % Sodium Chloride Flush 3 ML SYRINGE IVFLUSH ×2 (09:51→20:32)
[2022-12-21] MEDS: Dextrose 5 % 1,000 ML 100 ML IVCONT ×2 (10:23→20:32)
[2022-12-21 12:00] VITALS: BP 121/51; PULSE 83; RESP 18; TEMP 36.7; O2SAT 99
[2022-12-21 12:22] LABS: Immature Retic Fraction 17.6 % (3.0-15.9); Retic HGB Equivalent 20.3 pg (30.0-35.0); Reticulocyte Percent 0.4 % (0.5-1.8); Reticulocytes Absolute 0.017 X10*6/uL (0.026-0.095)
[2022-12-21 13:12] LABS: Folate 15.3 ng/mL (> or = 4.0); Vitamin B12 644 pg/mL (200-900)
[2022-12-21 15:59] VITALS: BP 135/54; PULSE 83; RESP 20; TEMP 36.3; O2SAT 100
[2022-12-21 20:00] VITALS: BP 142/50; PULSE 84; RESP 16; TEMP 36.3; O2SAT 100
[2022-12-22] VITALS: BP 139/55; PULSE 84; RESP 20; TEMP 36.6; O2SAT 100
[2022-12-22 03:34] VITALS: BP 137/59; PULSE 85; RESP 18; TEMP 36.7; O2SAT 100
[2022-12-22] MEDS: Dextrose 5 % 1,000 ML 100 ML IVCONT (05:57)
[2022-12-22] MEDS: Omeprazole 20 MG CAPSULE.DR PO (05:57)
[2022-12-22 06:11] LABS: Hematocrit 26.4 % (37.0-47.0); Hemoglobin 7.7 g/dl (12.0-16.0); Mean Corpuscular HGB Conc 29.2 g/dl (31.0-35.0); Mean Corpuscular Hemoglobin 21.4 pg (27.0-33.0); Mean Corpuscular Volume 73.3 fL (80.0-98.0); Mean Platelet Volume 10.1 fL (9.4-12.3); Platelet Count 315 X10*3/uL (160-400); Red Cell Distribution Width 30.5 % (11.0-16.0)
[2022-12-22 06:29] LABS: Anion Gap 12 (12-20); Blood Urea Nitrogen 27 mg/dL (9-16); Calcium 8.1 mg/dL (8.4-10.2); Carbon Dioxide 18 mmol/L (22-29); Chloride 112 mmol/L (96-108); Creatinine Clr Calc Pharmacy 50.3; Estimated Glomerular Filt Rate > 60; Glucose Fasting 138 mg/dL (60-99); Potassium 3.3 mmol/L (3.3-5.1); Sodium 139 mmol/L (135-145)
[2022-12-22 08:00] VITALS: BP 131/45; PULSE 85; RESP 16; TEMP 36.7; O2SAT 100
[2022-12-22] MEDS: Amoxicillin/Potassium Clav 875 MG TABLET PO (09:08)
[2022-12-22] MEDS: Enoxaparin Sodium 40 MG/0.4 ML SYRINGE SUBCUT (09:08)
[2022-12-22] MEDS: 0.9 % Sodium Chloride Flush 3 ML SYRINGE IVFLUSH (09:09)
--- NOTE | 2022-12-22 10:22 | PM.DS ---
DS: Providers Provider Date of Service: 12/22/22 Date of admission: 12/18/22 23:19 Primary care physician: Maverick Lopez MD Consults: 12/18/22 22:02 Consult to Infectious Diseases Routine Consulting Provider: Echo Lozano Reason for consultation: uti Has provider been notified: Yes 12/18/22 23:57 Consult to Wound Care Routine Consulting Provider: [facility] Wound Care Management Reason for consultation: sacral decubitus 12/19/22 11:13 Consult to Hematology / Oncology Routine Consulting Provider: Yana Taylor Reason for consultation: severe anemia, DS: Diagnosis Discharge Diagnosis (1) Anemia: Status: Acute DS: Summary Hospital Course Hospital Course: from initial hpi: This is a 72-year-old female with pertinent history of dementia, history of CVA, sacral decubitus ulcer, chronic indwelling Cherry, who was brought to the emergency department by her son for lethargy.? At baseline, patient is nonambulatory and non conversational.? She is awake but disoriented at baseline.? As per the son, patient was not eating for the last 2 days and he found her to be tired overall and hence brought to the ER for further evaluation.? Unable to obtain review of systems.? In the emergency department, patient's hemoglobin was found to be 4.6.? Son reports no blood loss.? No hematochezia, melena, hematuria or hematemesis hospital course: Patient was admitted for symptomatic chronic severe microcytic anemia. Was given 2 units of packed RBCs and hemoglobin improved appropriately. Iron studies were consistent with mixed iron deficiency anemia and chronic inflammation. Workup including SPEP and UPEP are still pending. Patient will follow up outpatient with Hematology. Patient also presented with sepsis due to urinary tract infection due to chronic indwelling Cherry catheter due to urinary retention. Urine culture showed normal jyoti, blood cultures are negative. Patient was transitioned to oral Augmentin and will complete 3 more days. For patient's stage IV sacral decubitus ulcer she was seen by wound care. Appears clean. Will continue local care. Hypernatremia she received D5W and resolved. For history of intracranial hemorrhage with left hemiparesis, dysphagia, aphasia she was seen by speech therapy recommended pureed with honey thick liquids. For Alzheimer's and vascular dementia she remained stable. Patient is back to baseline will be discharged home. Her antihypertensives have been held for low/normal blood pressures. Time Spent with Patient Time attestation: Total time managing care of this patient today ____ minutes. Discharge coordination time: Greater than 30 minutes Quality: Safe Use of Opioids Does Pt have an Active Cancer Diagnosis on the Problem List?: No Quality: Stroke Does the patient have a stroke diagnosis?: No Physical Exam Vital Signs: Vital Signs: Last Vital Signs Temp 98.0 F 12/22/22 08:00 Pulse 85 12/22/22 08:00 Resp 16 12/22/22 08:00 BP 131/45 L 12/22/22 08:00 Pulse Ox 100 12/22/22 08:00 O2 Del Method 12/22/22 08:00 O2 Flow Rate 2 12/22/22 03:34 BMI result Body Mass Index 14.9 Const: General: cooperative HEENT: Head: Yes normal to inspection Face and sinus: Yes normal facial exam Mouth: Normal oral and palatal mucosa present Teeth and gingiva: dentition normal Eyes: General: appearance normal, both eyes and all related structures Pupils: Equal, round and reactive pupils present Resp: Effort & Inspection: normal respiratory effort Cardio: Rate: regular rate Rhythm: regular rhythm GI: Palpation (GI): Soft to palpation and nontender : General: Yes no CVA tenderness Back/Spine/Pelvis: Back: no CVA tenderness Skin: General skin exam: no rashes or lesions noted Neuro: General: moves all extremities Cranial nerves: Yes Equal, round and reactive pupils present Extrem: General: Yes normal to inspection Psych: Other: confusion DS: Data Data Completed and Pending Completed studies during hospitalization [Text1]: Procedures Dilation of Right Ureter with Intraluminal Device, Via Natural or Artificial Opening Endoscopic (07/17/20) Extirpation of Matter from Right Ureter, Via Natural or Artificial Opening Endoscopic (07/17/20) Fluoroscopy of Right Kidney, Ureter and Bladder (07/17/20) Insertion of Infusion Device into Superior Vena Cava, Percutaneous Approach (11/18/21) Introduction of Remdesivir Anti-infective into Peripheral Vein, Percutaneous Approach, [employer] (11/18/21) Labs on day of discharge: Laboratory Results - last 24 hr 12/20/22 12/21/22 12/21/22 06:22 05:33 05:53 WBC RBC Hgb Hct MCV MCH MCHC RDW Plt Count MPV Absolute Nucleated RBC Nucleated RBC % (auto) Absolute Retic Cancelled 0.017 L Percent Retic Cancelled 0.4 L Immature Retic Fraction Cancelled 17.6 H Retic Hgb Equivalent Cancelled 20.3 L Sodium Potassium Chloride Carbon Dioxide Anion Gap BUN Creatinine Estim Creat Clear Calc Estimated GFR Fasting Glucose Calcium Vitamin B12 644 Folate 15.3 12/22/22 12/22/22 05:52 05:52 WBC 10.0 RBC 3.60 L Hgb 7.7 L Hct 26.4 L MCV 73.3 L MCH 21.4 L MCHC 29.2 L RDW 30.5 H Plt Count 315 MPV 10.1 Absolute Nucleated RBC 0.000 Nucleated RBC % (auto) 0.0 Absolute Retic Percent Retic Immature Retic Fraction Retic Hgb Equivalent Sodium 139 Potassium 3.3 Chloride 112 H Carbon Dioxide 18 L Anion Gap 12 BUN 27 H Creatinine 0.69 Estim Creat Clear Calc 50.3 Estimated GFR > 60 Fasting Glucose 138 H Calcium 8.1 L Vitamin B12 Folate Preliminary micro results at discharge 12/18/22 22:35 Blood Culture - Preliminary Blood - Venous No growth after 48 hours. 12/18/22 01:00 Blood Culture - Preliminary Blood - Venous No growth after 48 hours. Discharge Plan Discharge Anticipated Discharge Date/Time: 12/22/22 10:13 Patient Disposition: Home, Self-Care Discharge Diagnosis: sepsis, anemia Referrals: Maverick Lopez MD [Primary Care Provider] - 1 Week Yana Taylor MD [Physician] - 1 Week Discharge Medications: New omeprazole 20 mg Capsule,Delayed Release(Dr/Ec) 20 mg PO DAILY@0630 Qty: 30 0RF amoxicillin-pot clavulanate 875-125 mg Tablet 875 mg PO Q12H Qty: 6 0RF Continued (DME) hydrocolloid dressing [Durafiber Dressing] 6 X 6 bandage See Rx Instructions .Route Rx Instructions: To use for wound care topiramate 50 mg tablet 50 mg PO BEDTIME Qty: 90 3RF citalopram 10 mg tablet 1 tab PO DAILY tamsulosin 0.4 mg capsule 1 cap PO DAILY aspirin 81 mg tablet,chewable 1 tab PO DAILY cholecalciferol (vitamin D3) 50 mcg (2,000 unit) tablet 1 tab PO DAILY (DME) gauze bandage [Band-Aid Gauze Pads] 2 X 2 bandage See Rx Instructions .Route Qty: 150 0RF Rx Instructions: to use for wound care Discontinued amlodipine 5 mg tablet 1 tab PO DAILY docusate sodium 100 mg capsule 1 cap PO DAILY memantine 5 mg tablet 1 tab PO BID Discharge Orders: Discharge Order (Routine); Ordered 12/22/22 Ordered By: Rasta Herman Diet: pureed, honey thick liqui Activity on Discharge: As tolerated Stand Alone Forms: Patient Portal Discharge page Other Ambulatory Orders: Add Laboratory Test (Routine) Timeframe: 20221219 Facility: [facility] - Location: Laboratory Ordered By: Yana Taylor Care Plan Goals: manage anemia Health Concerns: anemia, uti Plan of Treatment: modified diet, 3 more days augmentin, follow up with hematology Assessment: see above
--- NOTE | 2022-12-22 10:40 | MHC.CM.PN ---
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
--- NOTE | 2022-12-22 11:58 | MHC.SL.SWA ---
Speech Pathologist Impression: Risk of aspiration, oropharyngeal dysphagia Risk of Aspiration Due to: Neurological Condition Poor PO Intake Reduced Cognition Dysphasia Diet Status: No changes at this time Liquid Consistency and Strategies for Safe Swallow: Liquid Intake Recommendation: Honey Thick Liquid Intake Strategies: Small Sips No Straws Liquids by Teaspoon Only Solid Food Consistency: Dietary Recommendations: Pureed (NDD1) Additional Modifications to Solid Foods: Recommend continue on PUREED (NDD1) solids with HONEY THICK liquids by TEASPOON ONLY, pills CRUSHED in PUREE. Pt requires total 1:1 ASSIST for all PO intake and close monitoring of tolerance. Do not present PO if pt is lethargic or not attending to meal, hold tray if pt displays any overt s/s of aspiration with PO intake. Minimize distractions during meal time. Provide cues and encouragement as needed to swallow. Ensure strict aspiration precautions and daily oral care. Will continue to follow. Oral Medication Intake: Crushed with Puree Please contact the pharmacy regarding appropriate crushable or liquid drug formulations that are available whenever modified delivery is recommended. Compensatory Strategies and Precautions to be Taken for Safe Swallow: Sitting Upright (90 deg) Double Swallow No Straw Liquids from Spoon Small Bites and Sips Rate of Ingestion Change Oral Check Avoid Specific Foods Supervision While Eating and Drinking for Safe Swallow: Total Assistance (1:1) Foods to Avoid: Mixed consistencies Swallowing Recommended Treatments: Compens. Strategy Educat. Recommendation for Speech: Inpatient Speech Therapy Streaming Media Specialist Clinican/Clinical Fellow: No Supervisory Statement: I have reviewed and agree with the student/clinical fellow's documentation: N/A Speech Language Pathologist: Kacey Stevens M.A., CCC-SSRS REPORT DEVELOPER
[2022-12-22 12:00] VITALS: BP 137/50; PULSE 85; RESP 18; TEMP 36.8; O2SAT 97
[2022-12-22 16:03] LABS: Haptoglobin 301 mg/dL (43-212)
[2022-12-22 16:03] LABS: IgA 1309 mg/dL (70-320); IgG 4159 mg/dL (600-1540); IgM 92 mg/dL (50-300)
[2022-12-22 22:58] LABS: Prot Elec - Albumin 1.8 g/dL (3.8-4.8); Prot Elec - Alpha1 0.5 g/dL (0.2-0.3); Prot Elec - Alpha2 0.9 g/dL (0.5-0.9); Prot Elec - Beta 1 0.4 g/dL (0.4-0.6); Prot Elec - Beta 2 0.9 g/dL (0.2-0.5); Prot Elec - Gamma 3.5 g/dL (0.8-1.7)
[2022-12-23 13:23] LABS: IgA 1294 mg/dL (70-320); IgG 4023 mg/dL (600-1540); IgM 93 mg/dL (50-300)
[2022-12-25 10:09] LABS: PEU-Protein Creat Ratio Rand 12.444 (0.024-0.184); PEU-Rand. Prot/Creat Ratio 12444 mg/g creat (24-184); PEU-Random Ur. Gamma Globulin 41 %; PEU-Random Urine A1 Globulin 4 %; PEU-Random Urine A2 Globulin 13 %; PEU-Random Urine Albumin 11 %; PEU-Random Urine Beta Globulin 31 %; PEU-Random Urine Creatinine 72 mg/dL (20-275); PEU-Random Urine Protein 896 mg/dL (5-24)
== END 2022-12-22 12:15 | disposition home health service (06) | DRG 698 ==
LOC: HO.ED 21:00 → HO.EDOVER 23:29 → HO.IMC 12-19 07:36
PROVIDERS: Internal Medicine Medical Oncology; Admitting Provider Student in an Organized Health Care Education/Training Program; Emergency Provider Emergency Medicine Emergency Medical Services; PCP Internal Medicine; Visit Provider Internal Medicine
DX: T83.511A Infection and inflammatory reaction due to indwelling urethral catheter, initial encounter (principal); A41.9 Sepsis, unspecified organism; L89.154 Pressure ulcer of sacral region, stage 4; E44.0 Moderate protein-calorie malnutrition; Z68.1 Body mass index [BMI] 19.9 or less, adult; I69.254 Hemiplegia and hemiparesis following other nontraumatic intracranial hemorrhage affecting left non-dominant side; E87.0 Hyperosmolality and hypernatremia; G30.9 Alzheimer's disease, unspecified; F02.80 Dementia in other diseases classified elsewhere, unspecified severity, without behavioral disturbance, psychotic disturbance, mood disturbance, and anxiety; D50.9 Iron deficiency anemia, unspecified; K21.9 Gastro-esophageal reflux disease without esophagitis; N39.0 Urinary tract infection, site not specified; F01.50 Vascular dementia, unspecified severity, without behavioral disturbance, psychotic disturbance, mood disturbance, and anxiety; I69.220 Aphasia following other nontraumatic intracranial hemorrhage; I69.291 Dysphagia following other nontraumatic intracranial hemorrhage; R13.10 Dysphagia, unspecified; Z20.822 Contact with and (suspected) exposure to COVID-19; Z87.440 Personal history of urinary (tract) infections; Z88.5 Allergy status to narcotic agent; Z79.82 Long term (current) use of aspirin; Z79.899 Other long term (current) drug therapy
CPT/HCPCS: 0241U; 36415; 71045; 74176; 80048; 80076; 81001; 82272; 82570; 82607; 82728; 82746; 82784; 83010; 83540; 83605; 83615; 84156; 84165; 84166; 85014; 85018; 85025; 85027; 85045; 86334; 86335; 86850; 86900; 86901; 86923; 87040; 87086; 92526; 92610; 99285; J1650; J1956; J2185; J2543; J3370; P9016

== ENCOUNTER 2023-01-29 12:36 | Outpatient (REF) | payer OTHER, SELFPAY ==
[2023-01-29 13:18] LABS: Appearance Urine Turbid; Color Urine Yellow; Glucose Urine UA Negative (Negative); Leukocyte Esterase Urine Large (3+) (Negative); Nitrite Urine Positive (Negative); PH 6.5 (5.0-9.0); UMIC TRIGGER UA YES; Urine Blood Large (3+) (Negative); Urine Ketones Negative (Negative); Urine Protein 300 (3+) mg/dL (Neg-Trace)
[2023-01-29 13:56] LABS: Bacteria Urine 4+ (None Seen); RBC Urine >20 /HPF (0-2); Squamous Epithelial Cell Urine >20 /HPF (0-2); WBC Urine >50 /HPF (0-5)
== END 2023-01-29 12:37 | disposition home or self-care (01) ==
LOC: HO.HVNA 12:36
PROVIDERS: Visit Provider Internal Medicine
DX: F03.90 Unspecified dementia, unspecified severity, without behavioral disturbance, psychotic disturbance, mood disturbance, and anxiety (principal); N39.0 Urinary tract infection, site not specified
CPT/HCPCS: 81001; 81003; 87086

== ENCOUNTER 2023-03-06 12:45 | Outpatient (REF) | payer OTHER, SELFPAY ==
[2023-03-06 12:56] LABS: Appearance Urine Turbid; Color Urine BROWN; Glucose Urine UA Negative (Negative); Nitrite Urine Positive (Negative); Specific Gravity - Urine >= 1.030 (1.005-1.025); UMIC TRIGGER UA YES; Urine Blood Large (3+) (Negative); Urine Ketones Trace mg/dL (Negative); Urine Protein 100 (2+) mg/dL (Neg-Trace)
[2023-03-06 12:57] LABS: Leukocyte Esterase Urine Large (3+) (Negative)
[2023-03-06 13:05] LABS: Bacteria Urine 4+ (None Seen); Hyaline Casts Urine 0-2 /LPF (0-2); RBC Urine >20 /HPF (0-2); Squamous Epithelial Cell Urine 0-2 /HPF (0-2); WBC Urine >50 /HPF (0-5)
== END 2023-03-06 12:46 | disposition home or self-care (01) ==
LOC: HO.HVNA 12:45
PROVIDERS: Visit Provider Internal Medicine
DX: G30.9 Alzheimer's disease, unspecified (principal); R82.90 Unspecified abnormal findings in urine
CPT/HCPCS: 81001; 87086; 87088; 87186

== ENCOUNTER 2023-05-06 18:46 | Emergency (ER) | payer OTHER, SELFPAY ==
--- NOTE | ~2023-05-06 | XR_ITS ---
EXAMINATION: XR CHEST CLINICAL INFORMATION: Rule out pneumonia. COMPARISON: Prior chest radiographs, most recently 12/18/2022. TECHNIQUE: Frontal view of the chest was obtained. FINDINGS: There is stable cardiomegaly. There is atherosclerotic calcification of the aortic knob. There is stable prominence of the central pulmonary vasculature. There is pulmonary vascular congestion, without overt pulmonary edema. There is lordotic positioning. There is new right base plate-like atelectasis, with elevation of the right hemidiaphragm. The left lung is clear. There is no pleural effusion or pneumothorax. No acute osseous abnormality is seen. A benign, chronic bone island is seen within the right humeral head. XR/XR chest 1V IMPRESSION: 1. There is borderline cardiomegaly. There is pulmonary vascular congestion, without overt pulmonary edema. 2. There is stable prominence of the central pulmonary arteries, raising the possibility of pulmonary artery hypertension. 3. There is new moderate plate-like atelectasis at the right base. There is associated elevation of the right hemidiaphragm. Recommend short-term follow-up chest radiographs to ensure stability/clearance and exclude the possibility of underlying obstructive process.
[2023-05-06 19:06] VITALS: BP 158/67; BP 158/74; PULSE 84; PULSE 86; RESP 16; TEMP 36.9; O2SAT 98; BMI 19.2
--- NOTE | 2023-05-06 19:36 | ED.GENADULT ---
HPI - General Adult General Chief complaint: General Medical Stated complaint: diminished lung sounds, per ems Time Seen by Provider: 05/06/23 19:36 Source: patient Mode of arrival: ambulatory Limitations: no limitations Related Data Home Medications Medication Instructions Recorded Confirmed hydrocolloid dressing 6 X 6 12/05/21 12/31/22 (Durafiber Dressing) aspirin 81 mg chewable tablet 1 tab PO DAILY 12/18/22 05/06/23 docusate sodium 100 mg capsule 100 mg PO DAILY 05/06/23 05/06/23 Previous Rx's Medication Instructions Recorded gauze bandage 2 X 2 (Band-Aid #150 ea 08/26/22 Gauze Pads) topiramate 50 mg tablet 50 mg PO BEDTIME #90 tabs 09/19/22 disposable bed pads #50 ea 01/06/23 gloves #1 ea 01/06/23 gloves #1 ea 01/15/23 cholecalciferol (vitamin D3) 50 50 mcg PO DAILY #90 tabs 01/28/23 mcg (2,000 unit) tablet omeprazole 20 mg capsule,delayed 20 mg PO DAILY@0630 #30 caps 02/10/23 release citalopram 10 mg tablet 10 mg PO DAILY #30 tabs 02/25/23 memantine 5 mg tablet 5 mg PO BID #180 tabs 03/25/23 cefpodoxime 200 mg tablet 200 mg PO BID #20 tabs 05/06/23 furosemide 20 mg tablet (Lasix) 20 mg PO QAM #30 tabs 05/06/23 Allergies Allergy/AdvReac Type Severity Reaction Status Date / Time morphine [MORPHINE] Allergy Mild NAUSEA & Verified 12/31/22 13:39 VOMITING, vomiting PMFSH Past Medical History Medical History AD (Alzheimer's disease) CVA (cerebral vascular accident) Dementia GERD (gastroesophageal reflux disease) Hyperparathyroidism Hypertension Nephrolithiasis Nephrolithiasis Osteoporosis Paget's bone disease Sacral decubitus ulcer, stage II UTI (urinary tract infection) Vitamin D deficiency Surgical History H/O bilateral breast reduction surgery H/O rectal polypectomy H/O: hysterectomy History of cystoscopy History of hip surgery History of lithotripsy History of tubal ligation Hx of tonsillectomy Family History Family History Father No problems noted. Mother No problems noted. Maternal Grandmother Cancer Social History Social History Household Members: Family and Children Housing: House Do you presently have visiting nurse or other home services: Yes Unable to assess alcohol history related to: Unable to respond Alcohol intake: never Patient Tobacco Use Status: Never used Tobacco e-Cigarette/Vaping Use: Never Used Second Hand Smoke Exposure: No Advance Directives Date on File: 07/24/20 service: No Current occupational status: disabled Cognitive needs: Yes (wheelchair chair) Hearing needs: No Vision needs: No Physical Exam ED Vital Signs: Vital Signs - 24 hr 05/06/23 19:06 Temperature 98.4 F Pulse Rate 86 Respiratory Rate 16 Blood Pressure 158/67 H Pulse Oximetry 98 Oxygen Delivery Method Room Air BMI result Body Mass Index 19.2 Medications Administered Discontinued Medications Generic Name Dose Route Start Last Admin Trade Name Freq PRN Reason Stop Dose Admin Sodium Chloride 1,000 mls @ 999 mls/hr 05/06/23 21:14 05/06/23 22:40 Ns IV 05/06/23 22:14 Infused .Q1H1M ONE Infusion Ceftriaxone Sodium 1 gm/ 50 mls @ 100 mls/hr 05/06/23 21:14 05/06/23 22:00 Sodium Chloride IV 05/06/23 21:43 Infused ONCE ONE Infusion Medical Decision Making Lab Data 05/06/23 19:13 05/06/23 19:13 Labs: Lab Results 05/06/23 05/06/23 05/06/23 Range/Units 19:13 19:13 19:13 WBC 7.5 (4.8-10.8) X10*3/uL RBC 3.65 L (4.20-5.50) X10*6/uL Hgb 8.1 L (12.0-16.0) g/dl Hct 27.9 L (37.0-47.0) % MCV 76.4 L (80.0-98.0) fL MCH 22.2 L (27.0-33.0) pg MCHC 29.0 L (31.0-35.0) g/dl RDW 21.1 H (11.0-16.0) % Plt Count 279 (160-400) X10*3/uL MPV 9.8 (9.4-12.3) fL Immature Gran % (Auto) 1.5 H (0.0-0.4) % Neut % (Auto) 65.8 (45-73) % Lymph % (Auto) 19.1 L (20-40) % [place] % (Auto) 11.5 H (2-11) % Eos % (Auto) 1.7 (0-4) % Baso % (Auto) 0.4 (0-2) % Lymph # (Auto) 1.4 (1.2-4.9) X10*3/uL [place] # (Auto) 0.9 (0.1-1.2) X10*3/uL Eos # (Auto) 0.1 (0.0-0.4) X10*3/uL Baso # (Auto) 0.0 (0.0-0.2) X10*3/uL Abs Immat Gran (auto) 0.11 H (0.00-0.03) X10*3/uL Absolute Neuts (auto) 4.9 (2.0-8.3) x10*3/uL Absolute Nucleated RBC 0.000 (0.0-0.012) X10*3/uL Nucleated RBC % (auto) 0.0 (0.0-0.2) /100WBC Sodium 137 (135-145) mmol/L Potassium 4.7 D (3.3-5.1) mmol/L Chloride 108 (96-108) mmol/L Carbon Dioxide 22 (22-29) mmol/L Anion Gap 12 (12-20) BUN 19 H (9-16) mg/dL Creatinine 0.65 (0.5-1.4) mg/dL Estim Creat Clear Calc 64.7 Estimated GFR > 60 Random Glucose 131 H (60-115) mg/dL Lactic Acid (0.5-2.0) mmol/L Calcium 8.8 D (8.4-10.2) mg/dL Total Bilirubin 0.2 (0.0-1.0) mg/dL AST 101 H (5-31) U/L ALT 88 H (0-31) U/L Alkaline Phosphatase 342 H (39-117) U/L Troponin I High Sens (<3.5-17.0) ng/L B-Natriuretic Peptide 802 H (<100) pg/mL Total Protein 8.9 H (6.5-8.0) g/dL Albumin 2.3 L (3.5-5.0) g/dL Urine Color Urine Appearance Urine pH (5.0-9.0) Ur Specific [place] (1.005-1.025) Urine Protein (Neg-Trace) mg/dL Urine Glucose (UA) (Negative) mg/dL Urine Ketones (Negative) mg/dL Urine Blood (Negative) Urine Nitrite (Negative) Ur Leukocyte Esterase (Negative) Urine RBC (0-2) /HPF Urine WBC (0-5) /HPF Ur Squamous Epith Cells (0-2) /HPF Urine Bacteria (None Seen) Hyaline Casts (0-2) /LPF COVID-19 (DOMINIK) (Negative) COVID-19 Clin Com 05/06/23 05/06/23 05/06/23 Range/Units 19:13 19:13 20:55 WBC (4.8-10.8) X10*3/uL RBC (4.20-5.50) X10*6/uL Hgb (12.0-16.0) g/dl Hct (37.0-47.0) % MCV (80.0-98.0) fL MCH (27.0-33.0) pg MCHC (31.0-35.0) g/dl RDW (11.0-16.0) % Plt Count (160-400) X10*3/uL MPV (9.4-12.3) fL Immature Gran % (Auto) (0.0-0.4) % Neut % (Auto) (45-73) % Lymph % (Auto) (20-40) % [place] % (Auto) (2-11) % Eos % (Auto) (0-4) % Baso % (Auto) (0-2) % Lymph # (Auto) (1.2-4.9) X10*3/uL [place] # (Auto) (0.1-1.2) X10*3/uL Eos # (Auto) (0.0-0.4) X10*3/uL Baso # (Auto) (0.0-0.2) X10*3/uL Abs Immat Gran (auto) (0.00-0.03) X10*3/uL Absolute Neuts (auto) (2.0-8.3) x10*3/uL Absolute Nucleated RBC (0.0-0.012) X10*3/uL Nucleated RBC % (auto) (0.0-0.2) /100WBC Sodium (135-145) mmol/L Potassium (3.3-5.1) mmol/L Chloride (96-108) mmol/L Carbon Dioxide (22-29) mmol/L Anion Gap (12-20) BUN (9-16) mg/dL Creatinine (0.5-1.4) mg/dL Estim Creat Clear Calc Estimated GFR Random Glucose (60-115) mg/dL Lactic Acid 1.4 (0.5-2.0) mmol/L Calcium (8.4-10.2) mg/dL Total Bilirubin (0.0-1.0) mg/dL AST (5-31) U/L ALT (0-31) U/L Alkaline Phosphatase (39-117) U/L Troponin I High Sens 5.3 (<3.5-17.0) ng/L B-Natriuretic Peptide (<100) pg/mL Total Protein (6.5-8.0) g/dL Albumin (3.5-5.0) g/dL Urine Color Dark Yellow Urine Appearance Turbid Urine pH 6.0 (5.0-9.0) Ur Specific [place] 1.020 (1.005-1.025) Urine Protein 300 (3+) H (Neg-Trace) mg/dL Urine Glucose (UA) Negative (Negative) mg/dL Urine Ketones Negative (Negative) mg/dL Urine Blood Large (3+) H (Negative) Urine Nitrite Positive H (Negative) Ur Leukocyte Esterase Large (3+) H (Negative) Urine RBC 0-2 (0-2) /HPF Urine WBC 21-50 (0-5) /HPF Ur Squamous Epith Cells 0-2 (0-2) /HPF Urine Bacteria 3+ (None Seen) Hyaline Casts 0-2 (0-2) /LPF COVID-19 (DOMINIK) (Negative) COVID-19 Clin Com 05/06/23 Range/Units 20:58 WBC (4.8-10.8) X10*3/uL RBC (4.20-5.50) X10*6/uL Hgb (12.0-16.0) g/dl Hct (37.0-47.0) % MCV (80.0-98.0) fL MCH (27.0-33.0) pg MCHC (31.0-35.0) g/dl RDW (11.0-16.0) % Plt Count (160-400) X10*3/uL MPV (9.4-12.3) fL Immature Gran % (Auto) (0.0-0.4) % Neut % (Auto) (45-73) % Lymph % (Auto) (20-40) % [place] % (Auto) (2-11) % Eos % (Auto) (0-4) % Baso % (Auto) (0-2) % Lymph # (Auto) (1.2-4.9) X10*3/uL [place] # (Auto) (0.1-1.2) X10*3/uL Eos # (Auto) (0.0-0.4) X10*3/uL Baso # (Auto) (0.0-0.2) X10*3/uL Abs Immat Gran (auto) (0.00-0.03) X10*3/uL Absolute Neuts (auto) (2.0-8.3) x10*3/uL Absolute Nucleated RBC (0.0-0.012) X10*3/uL Nucleated RBC % (auto) (0.0-0.2) /100WBC Sodium (135-145) mmol/L Potassium (3.3-5.1) mmol/L Chloride (96-108) mmol/L Carbon Dioxide (22-29) mmol/L Anion Gap (12-20) BUN (9-16) mg/dL Creatinine (0.5-1.4) mg/dL Estim Creat Clear Calc Estimated GFR Random Glucose (60-115) mg/dL Lactic Acid (0.5-2.0) mmol/L Calcium (8.4-10.2) mg/dL Total Bilirubin (0.0-1.0) mg/dL AST (5-31) U/L ALT (0-31) U/L Alkaline Phosphatase (39-117) U/L Troponin I High Sens (<3.5-17.0) ng/L B-Natriuretic Peptide (<100) pg/mL Total Protein (6.5-8.0) g/dL Albumin (3.5-5.0) g/dL Urine Color Urine Appearance Urine pH (5.0-9.0) Ur Specific [place] (1.005-1.025) Urine Protein (Neg-Trace) mg/dL Urine Glucose (UA) (Negative) mg/dL Urine Ketones (Negative) mg/dL Urine Blood (Negative) Urine Nitrite (Negative) Ur Leukocyte Esterase (Negative) Urine RBC (0-2) /HPF Urine WBC (0-5) /HPF Ur Squamous Epith Cells (0-2) /HPF Urine Bacteria (None Seen) Hyaline Casts (0-2) /LPF COVID-19 (DOMINIK) Negative (Negative) COVID-19 Clin Com See Note Discharge Plan Discharge Clinical Impression: UTI (urinary tract infection) due to urinary indwelling Cherry catheter, Mild congestive heart failure Patient Disposition: Home, Self-Care Instructions: Heart Failure (ED), Catheter-associated Urinary Tract Infection (ED) Additional Instructions: Take antibiotic as prescribed Start low-dose water pill daily Follow-up with your PCP Prescriptions: New cefpodoxime 200 mg tablet 200 mg PO BID Qty: 20 0RF Rx Instructions: must administer with a meal/food furosemide [Lasix] 20 mg tablet 20 mg PO QAM Qty: 30 0RF No Action (DME) hydrocolloid dressing [Durafiber Dressing] 6 X 6 bandage See Rx Instructions .Route Rx Instructions: To use for wound care topiramate 50 mg tablet 50 mg PO BEDTIME Qty: 90 3RF (DME) gloves See Rx Instructions .Route .MEDSUPPLY Qty: 1 0RF Rx Instructions: large (DME) disposable bed pads See Rx Instructions .Route .MEDSUPPLY Qty: 50 5RF Rx Instructions: As directed (DME) gloves See Rx Instructions .Route .MEDSUPPLY Qty: 1 5RF Rx Instructions: medium cholecalciferol (vitamin D3) 50 mcg (2,000 unit) tablet 50 mcg PO DAILY Qty: 90 3RF omeprazole 20 mg capsule,delayed release(DR/EC) 20 mg PO DAILY@0630 Qty: 30 8RF citalopram 10 mg tablet 10 mg PO DAILY Qty: 30 7RF memantine 5 mg tablet 5 mg PO BID Qty: 180 1RF aspirin 81 mg tablet,chewable 1 tab PO DAILY docusate sodium 100 mg capsule 100 mg PO DAILY (DME) gauze bandage [Band-Aid Gauze Pads] 2 X 2 bandage See Rx Instructions .Route Qty: 150 0RF Rx Instructions: to use for wound care Interventions: ED Discharge Assessment Last Done: 05/06/23 23:37 Discharge Date/Time: 05/07/23 01:00
[2023-05-06 19:39] LABS: MANUAL DIFF FLAG NO
[2023-05-06 19:48] LABS: Appearance Urine Turbid; Color Urine Dark Yellow; Glucose Urine UA Negative (Negative); Leukocyte Esterase Urine Large (3+) (Negative); Nitrite Urine Positive (Negative); UMIC TRIGGER UACC YES; Urine Blood Large (3+) (Negative); Urine Ketones Negative (Negative); Urine Protein 300 (3+) mg/dL (Neg-Trace)
[2023-05-06 19:52] LABS: Basophils Percent Auto 0.4 % (0-2); Eosinophils Absolute Auto 0.1 X10*3/uL (0.0-0.4); Eosinophils Percent Auto 1.7 % (0-4); Hematocrit 27.9 % (37.0-47.0); Hemoglobin 8.1 g/dl (12.0-16.0); Imm Gran Abs Auto 0.11 X10*3/uL (0.00-0.03); Imm Gran Pct Auto 1.5 % (0.0-0.4); Lymphocytes Absolute Auto 1.4 X10*3/uL (1.2-4.9); Lymphocytes Percent Auto 19.1 % (20-40); Mean Corpuscular Hemoglobin 22.2 pg (27.0-33.0); Mean Corpuscular Volume 76.4 fL (80.0-98.0); Mean Platelet Volume 9.8 fL (9.4-12.3); Monocytes Absolute Auto 0.9 X10*3/uL (0.1-1.2); Monocytes Percent Auto 11.5 % (2-11); Neutrophils Absolute Auto 4.9 x10*3/uL (2.0-8.3); Neutrophils Percent Auto 65.8 % (45-73); Platelet Count 279 X10*3/uL (160-400); Red Blood Count 3.65 X10*6/uL (4.20-5.50); Red Cell Distribution Width 21.1 % (11.0-16.0); White Blood Count 7.5 X10*3/uL (4.8-10.8)
[2023-05-06 20:05] LABS: Alanine Aminotransferase 88 U/L (0-31); Albumin Level 2.3 g/dL (3.5-5.0); Alkaline Phosphatase 342 U/L (39-117); Aspartate Amino Transferase 101 U/L (5-31); Bacteria Urine 3+ (None Seen); Bilirubin Total 0.2 mg/dL (0.0-1.0); Blood Urea Nitrogen 19 mg/dL (9-16); Calcium 8.8 mg/dL (8.4-10.2); Chloride 108 mmol/L (96-108); Creatinine Clr Calc Pharmacy 64.7; Estimated Glomerular Filt Rate > 60; Glucose Random 131 mg/dL (60-115); Hyaline Casts Urine 0-2 /LPF (0-2); Potassium 4.7 mmol/L (3.3-5.1); RBC Urine 0-2 /HPF (0-2); Sodium 137 mmol/L (135-145); Squamous Epithelial Cell Urine 0-2 /HPF (0-2); Total Protein 8.9 g/dL (6.5-8.0); UACC Culture Trigger YES; WBC Urine 21-50 /HPF (0-5)
[2023-05-06 20:07] LABS: B Type Natriuretic Peptide 802 pg/mL (<100)
--- NOTE | 2023-05-06 20:30 | PC.NURSE ---
Attempt at peripheral IV unsuccessful. Dr.Anwar pereira.
--- NOTE | 2023-05-06 21:02 | PC.NURSE ---
used ultrasound to place 18 R-IJ, labs drawn, BC x2 and lactic sent to lab.
[2023-05-06 21:18] LABS: COVID-19 Test Negative (Negative); IDNOW Serial# 08D9AD1C
[2023-05-06 21:20] LABS: Lactic Acid 1.4 mmol/L (0.5-2.0)
[2023-05-06 21:29] VITALS: BP 165/69; PULSE 94; RESP 16; TEMP 37.2; O2SAT 97
[2023-05-06] MEDS: cefTRIAXone sodium 1 GM in 0.9 % Sodium Chloride 50 ML IV (21:30)
[2023-05-06] MEDS: 0.9 % Sodium Chloride 1,000 ML 999 ML IV (21:35)
--- NOTE | 2023-05-06 21:54 | PHA.MEDREC ---
Pharmacy Consult ? Medication Reconciliation Pharmacy has completed the medication reconciliation.
--- NOTE | 2023-05-06 22:14 | P.HPHOSP_ITS ---
History of Present Illness Date of Service: 05/06/23 Attending physician on admission: Alicja Moody Chief Complaint: sob 72-year-old female with history of GERD, Alzheimer's dementia, history CVA, osteoporosis, Paget's bone disease, chronic nonhealing sacral ulcer presented to the ED earlier today via EMS when home nurse this morning noted diminished lung sounds in the right lower lobe. The patient lives at home with her son and is unable to provide meaningful history. Review of Systems Review of Systems: Yes Unobtainable due to mental status PMFSH Medical History AD (Alzheimer's disease) CVA (cerebral vascular accident) Dementia GERD (gastroesophageal reflux disease) Hyperparathyroidism Hypertension Nephrolithiasis Nephrolithiasis Osteoporosis Paget's bone disease Sacral decubitus ulcer, stage II UTI (urinary tract infection) Vitamin D deficiency Family History Father No problems noted. Mother No problems noted. Maternal Grandmother Cancer Surgical History H/O bilateral breast reduction surgery H/O rectal polypectomy H/O: hysterectomy History of cystoscopy History of hip surgery History of lithotripsy History of tubal ligation Hx of tonsillectomy Social History Household Members: Family and Children Housing: House Do you presently have visiting nurse or other home services: Yes Unable to assess alcohol history related to: Unable to respond Alcohol intake: never Patient Tobacco Use Status: Never used Tobacco e-Cigarette/Vaping Use: Never Used Second Hand Smoke Exposure: No Advance Directives: Yes Advance Directives on File: Yes Advance Directives Date on File: 07/24/20 service: No Current occupational status: disabled Cognitive needs: Yes (wheelchair chair) Hearing needs: No Vision needs: No Meds Allergies Allergy/AdvReac Type Severity Reaction Status Date / Time morphine [MORPHINE] Allergy Mild NAUSEA & Verified 12/31/22 13:39 VOMITING, vomiting Active Medications: Current Medications Sodium Chloride (Ns) 1,000 mls @ 999 mls/hr IV .Q1H1M ONE Stop: 05/06/23 22:14 Last Admin: 05/06/23 21:35 Dose: 999 mls/hr Home Medications Medication Instructions Recorded Confirmed Last Taken Type hydrocolloid dressing 6 X 6 12/05/21 12/31/22 Unknown History (Durafiber Dressing) aspirin 81 mg chewable tablet 1 tab PO DAILY 12/18/22 05/06/23 Unknown History docusate sodium 100 mg capsule 100 mg PO DAILY 05/06/23 05/06/23 Unknown History Physical Exam Vital Signs and Narrative: Vital Signs: Last Vital Signs Temp 99.0 F 05/06/23 21:29 Pulse 94 05/06/23 21:29 Resp 16 05/06/23 21:29 BP 165/69 H 05/06/23 21:29 Pulse Ox 97 05/06/23 21:29 O2 Del Method Room Air 05/06/23 21:29 BMI result Body Mass Index 19.2 Constitutional - Awake and Alert, No apparent distress Eyes - PERRLA, EOMI Cardiovascular - S1S2, RRR, No edema Respiratory - Normal lung expansion, Normal respiratory effort, No respiratory distress, CTA bilaterally Gastrointestinal - NT / ND; +BS; No rebound or guarding - No CVA tenderness Extremities - no calf tenderness bilaterally, no swelling Musculoskeletal - Normal inspection, normal ROM Skin - Warm/Dry Neurological - Alert & oriented x3, CN II-XII in tact, 5/5 strength BUE and BLE Psychological - Appropriate affect Results Labs 05/06/23 19:13 05/06/23 19:13 Labs: Laboratory Results - last 24 hr 05/06/23 05/06/23 05/06/23 19:13 19:13 19:13 MCV 76.4 L MCH 22.2 L MCHC 29.0 L RDW 21.1 H Plt Count 279 MPV 9.8 Immature Gran % (Auto) 1.5 H Neut % (Auto) 65.8 Lymph % (Auto) 19.1 L [place] % (Auto) 11.5 H Eos % (Auto) 1.7 Baso % (Auto) 0.4 Lymph # (Auto) 1.4 [place] # (Auto) 0.9 Eos # (Auto) 0.1 Baso # (Auto) 0.0 Abs Immat Gran (auto) 0.11 H Absolute Neuts (auto) 4.9 Absolute Nucleated RBC 0.000 Nucleated RBC % (auto) 0.0 Estim Creat Clear Calc 64.7 Estimated GFR > 60 Random Glucose 131 H Lactic Acid Calcium 8.8 D Total Bilirubin 0.2 AST 101 H ALT 88 H Alkaline Phosphatase 342 H B-Natriuretic Peptide 802 H Total Protein 8.9 H Albumin 2.3 L Urine Color Urine Appearance Urine pH Ur Specific [place] Urine Protein Urine Glucose (UA) Urine Ketones Urine Blood Urine Nitrite Ur Leukocyte Esterase Urine RBC Urine WBC Ur Squamous Epith Cells Urine Bacteria Hyaline Casts COVID-19 (DOMINIK) COVID-19 Clin Com 05/06/23 05/06/23 05/06/23 19:13 20:55 20:58 MCV MCH MCHC RDW Plt Count MPV Immature Gran % (Auto) Neut % (Auto) Lymph % (Auto) [place] % (Auto) Eos % (Auto) Baso % (Auto) Lymph # (Auto) [place] # (Auto) Eos # (Auto) Baso # (Auto) Abs Immat Gran (auto) Absolute Neuts (auto) Absolute Nucleated RBC Nucleated RBC % (auto) Estim Creat Clear Calc Estimated GFR Random Glucose Lactic Acid 1.4 Calcium Total Bilirubin AST ALT Alkaline Phosphatase B-Natriuretic Peptide Total Protein Albumin Urine Color Dark Yellow Urine Appearance Turbid Urine pH 6.0 Ur Specific [place] 1.020 Urine Protein 300 (3+) H Urine Glucose (UA) Negative Urine Ketones Negative Urine Blood Large (3+) H Urine Nitrite Positive H Ur Leukocyte Esterase Large (3+) H Urine RBC 0-2 Urine WBC 21-50 Ur Squamous Epith Cells 0-2 Urine Bacteria 3+ Hyaline Casts 0-2 COVID-19 (DOMINIK) Negative COVID-19 Clin Com See Note Imaging Radiologist's Impressions: Impressions Chest X-Ray 05/06/23 19:47 IMPRESSION: 1. There is borderline cardiomegaly. There is pulmonary vascular congestion, without overt pulmonary edema. 2. There is stable prominence of the central pulmonary arteries, raising the possibility of pulmonary artery hypertension. 3. There is new moderate plate-like atelectasis at the right base. There is associated elevation of the right hemidiaphragm. Recommend short-term follow-up chest radiographs to ensure stability/clearance and exclude the possibility of underlying obstructive process. Assessment and Plan Plan 72-year-old female with history of GERD, Alzheimer's dementia, history CVA, osteoporosis, Paget's bone disease, chronic indwelling Cherry, chronic nonhealing sacral ulcer admitted for new onset CHF and UTI. #New onset CHF -BNP >800, CXR with pulmonary congestion, no hypoxia -40mg IV lasix daily -cardiac diet -strict I&O -echocardiogram ordered -cardiology consult -monitor on telemetry # acute urinary tract infection -UA with 3+ leukocytes, positive nitrites, 3+ blood, slight urinary sediment, 3+ bacteria. -continue Cherry catheter -IV ceftriaxone (initiated 05/06) Time Spent With Patient Time: Total time managing care of this patient today ____ minutes.
--- NOTE | 2023-05-06 22:20 | ECG_ITS ---
Test Reason : CHF Blood Pressure : / mmHG Vent. Rate : 092 BPM Atrial Rate : 092 BPM P-R Int : 114 ms QRS Dur : 070 ms QT Int : 358 ms P-R-T Axes : 055 -25 034 degrees QTc Int : 442 ms Normal sinus rhythm Normal ECG When compared to the previous EKG of No significant changes seen Referred By: hCeo Chance Electronically Signed By:Mauri Monsivais
[2023-05-06 22:50] LABS: Troponin-I High Sensitivity 5.3 ng/L (<3.5-17.0)
[2023-05-06 23:35] VITALS: BP 153/70; PULSE 94; RESP 23; O2SAT 98
--- NOTE | 2023-05-07 00:17 | MHC.EDTECH ---
Call out to [facility] @0002 ETA of 1 hour was given
--- NOTE | 2023-05-07 01:20 | PC.NURSE ---
0100, Patient discharged into care of [facility] for ambulance transport home with son/caregiver.
[2023-05-07 05:11] LABS: Carbon Dioxide 22 mmol/L (22-29)
[2023-05-07 05:27] LABS: Anion Gap 12 (12-20)
== END 2023-05-07 01:00 | disposition home or self-care (01) ==
PROVIDERS: Emergency Provider Internal Medicine; PCP Internal Medicine
DX: T83.511A Infection and inflammatory reaction due to indwelling urethral catheter, initial encounter (principal); N39.0 Urinary tract infection, site not specified; B96.5 Pseudomonas (aeruginosa) (mallei) (pseudomallei) as the cause of diseases classified elsewhere; B96.89 Other specified bacterial agents as the cause of diseases classified elsewhere; I11.0 Hypertensive heart disease with heart failure; I50.9 Heart failure, unspecified; D64.9 Anemia, unspecified; Z86.73 Personal history of transient ischemic attack (TIA), and cerebral infarction without residual deficits; Z79.82 Long term (current) use of aspirin; Z79.899 Other long term (current) drug therapy
CPT/HCPCS: 36415; 71045; 80053; 81001; 83605; 83880; 84484; 85025; 87040; 87086; 87088; 87186; 87635; 93005; 96361; 96365; 99284; J0696

== ENCOUNTER → 2023-05-06 22:20 | Outpatient (BNV) | payer OTHER, SELFPAY | PROVIDERS: Emergency Provider Internal Medicine; PCP Internal Medicine; Visit Provider Internal Medicine Cardiovascular Disease | DX: I50.20 Unspecified systolic (congestive) heart failure (principal) | CPT/HCPCS: 93010 ==

== ENCOUNTER 2023-05-11 10:54 | Outpatient (AMB) | payer OTHER, SELFPAY ==
--- NOTE | 2023-05-11 10:56 | A.OFFPC_ITS ---
Vital Signs 05/11/23 10:59 Height 5 ft 6 in Weight 140 lb BMI 22.6 BP 120/64 Blood Pressure Location Lt brachial Position Sitting Pulse 76 Pulse Source Pulse Oximeter Pulse Oximetry (%) 96 Oxygen Delivery Method Room Air Intake Visit Reasons: ED follow up [facility] uti Intake Note: Patient is here to follow-up after a visit the emergency department at [facility] on 05/08/23 . An/Sqq 89(V)15 Sonar System Journeyman Required: Yes An/Sqq 89(V)15 Sonar System Journeyman Language: Service Tester Name: Markell (son) Information Interpreted: non-clinical & clinical Generator Mechanic: Present Accompanied by: Son Allergies morphine [MORPHINE] Allergy (Mild, Verified 05/11/23 10:58) NAUSEA & VOMITING, vomiting Medication List - Last Reconciled 05/11/23 by Maverick Lopez MD aspirin 1 tab PO DAILY cefpodoxime 200 mg PO BID cholecalciferol (vitamin D3) 50 mcg PO DAILY citalopram 10 mg PO DAILY [disposable bed pads As directed] docusate sodium 100 mg PO DAILY furosemide (Lasix) 20 mg PO QAM gauze bandage (Band-Aid Gauze Pads) to use for wound care [gloves medium] [gloves large ] hydrocolloid dressing (Durafiber Dressing) To use for wound care memantine 5 mg PO BID omeprazole 20 mg PO DAILY@0630 topiramate 50 mg PO BEDTIME Tobacco use date assessed: 05/11/23 Fall risk assessment: No Falls in past year Last assessed Fall Risk: 05/11/23 Dental Screening Dental Screen Date: 05/11/23 Did you have a dental visit in the last 12 months?: No Did you have a dental problem in the last 6 months where you did not have access to dental care?: No Was dental information given to patient?: No HPI ED follow up [facility] uti HPI Details uti on rx; back to baseline [facility] Medical History AD (Alzheimer's disease) CVA (cerebral vascular accident) Dementia GERD (gastroesophageal reflux disease) Hyperparathyroidism Hypertension Nephrolithiasis Nephrolithiasis Osteoporosis Paget's bone disease Sacral decubitus ulcer, stage II UTI (urinary tract infection) Vitamin D deficiency Surgical History H/O bilateral breast reduction surgery H/O rectal polypectomy H/O: hysterectomy History of cystoscopy History of hip surgery History of lithotripsy History of tubal ligation Hx of tonsillectomy Family History Father No problems noted. Mother No problems noted. Maternal Grandmother Cancer Social History Household Members: Family and Children Housing: House Do you presently have visiting nurse or other home services: Yes Unable to assess alcohol history related to: Unable to respond Alcohol intake: never Patient Tobacco Use Status: Never used Tobacco e-Cigarette/Vaping Use: Never Used Second Hand Smoke Exposure: No Advance Directives Date on File: 07/24/20 service: No Current occupational status: disabled Cognitive needs: Yes (wheelchair chair) Hearing needs: No Vision needs: No Questionnaire Thrive Questionnaire Date Thrive assessed: 11/27/22 ANKIT-7 AMB Questionnaire ANKIT-7 Date ANKIT - 7 assessed: 11/27/22 Source: Developed by Drs. Sreedhar Brown, Gabriela Guzman, Josh Sanders and colleagues, with an educational jennifer from [employer]. Review of Systems Const Denies chills, Denies headache(s) and Denies weight loss ENT Denies headache(s) Card Denies chest pain, Denies syncope, Denies irregular heart rhythm and Denies dyspnea Resp Denies chest congestion, Denies cough and Denies dyspnea GI Denies abdominal pain, Denies change in stool character, Denies nausea and Denies vomiting Musc Denies deformity and Denies joint swelling Neuro Denies syncope and Denies headache(s) Physical exam (Primary Care) Vital Signs: Last Vital Signs Pulse 76 05/11/23 10:59 BP 120/64 05/11/23 10:59 Pulse Ox 96 05/11/23 10:59 Oxygen Delivery Method Room Air 05/11/23 10:59 BMI result Body Mass Index 22.6 Tobacco/Smoking Status: Tobacco use Status Tobacco use date assessed 05/11/23 05/11/23 11:07 Patient Tobacco Use Status Never used Tobacco 05/11/23 10:56 e-Cigarette/Vaping Use Never Used 05/11/23 10:56 Thrive Assessment: Date of Thrive Assessment Date Thrive assessed 11/27/22 05/11/23 10:56 Advance Care Planning discussion: On file, no changes Forms completed: Health Care Proxy Const General: cooperative, healthy appearing and no acute distress Orientation/consciousness: oriented to person, oriented to place and oriented to time HENMT Head: Yes normal to inspection, Yes normocephalic and Yes atraumatic Mouth: Normal oral and palatal mucosa present and tongue normal Throat: Yes posterior oropharynx normal and Yes uvula midline Eyes General: appearance normal, both eyes and all related structures Neck Neck: Yes normal visual inspection, Yes full ROM and Yes no lymphadenopathy Thyroid: Thyroid normal Carotids: normal carotid upstroke Chest Chest palpation & inspection: normal inspection of the chest Resp Effort & Inspection: normal respiratory effort and able to speak in complete sentences Auscultation: clear to auscultation bilaterally Cardio Jugular venous distension: no JVD Palpation: normal PMI Rate: regular rate Rhythm: regular rhythm Heart sounds: S1 normal heart sound present and S2 normal heart sound present GI Inspection: Yes normal to inspection Palpation (GI): Soft to palpation and No hepatosplenomegaly present Auscultation: normal bowel sounds General: Yes no CVA tenderness Back/Spine/Pelvis Back: no CVA tenderness Skin General skin exam: no rashes or lesions noted Neuro General: oriented to person, oriented to place and oriented to time Extrem General: Yes normal to inspection and Yes full ROM Assessment and Plan Assessment & Plan (1) Urinary tract infection: Code(s): N39.0 - Urinary tract infection, site not specified Plan: stable; same rx Coding Level of Care Code Est Pt Level 3 (35801) Diagnoses Urinary tract infection N39.0 Additional Codes Vital Signs *Quality* - Advance Care Planning discussion: On file, no changes ([id number])
[2023-05-11 10:59] VITALS: BP 120/64; PULSE 76; O2SAT 96; BMI 22.6
== END 2023-05-11 11:15 | disposition home or self-care (01) ==
PROVIDERS: PCP Internal Medicine; Visit Provider Internal Medicine
DX: N39.0 Urinary tract infection, site not specified (principal); Z00.00 Encounter for general adult medical examination without abnormal findings
CPT/HCPCS: 1123F; 99213

== ENCOUNTER 2023-08-21 10:14 | Outpatient (AMB) | payer OTHER, SELFPAY ==
--- NOTE | 2023-08-21 10:09 | A.OFFPC_ITS ---
Vital Signs 08/21/23 10:10 Height 5 ft 6 in Blood Pressure Location Lt brachial Position Sitting Pulse Source Pulse Oximeter Oxygen Delivery Method Room Air Intake Visit Reasons: 3mth f/u [phone] (Tracy) Senior Qualitative Researcher Required: No Allergies morphine [MORPHINE] Allergy (Mild, Verified 08/21/23 10:10) NAUSEA & VOMITING, vomiting Medication List - Last Reconciled 08/21/23 by Maverick Lopez MD adhesive tape (Paper Tape) As directed adhesive tape As directed aspirin 1 tab PO DAILY cefpodoxime 200 mg PO BID cholecalciferol (vitamin D3) 50 mcg PO DAILY citalopram 10 mg PO DAILY [disposable bed pads As directed] docusate sodium 100 mg PO DAILY furosemide (Lasix) 20 mg PO QAM gauze bandage (Band-Aid Gauze Pads) to use for wound care gauze bandage (Band-Aid Gauze Pads) As directed gauze bandage As directed [gloves medium] [gloves large ] hydrocolloid dressing (Durafiber Dressing) To use for wound care memantine 5 mg PO BID omeprazole 20 mg PO DAILY@0630 [sheep skin elbow protectors As directed] topiramate 50 mg PO BEDTIME Tobacco use date assessed: 05/11/23 Fall risk assessment: No Falls in past year Last assessed Fall Risk: 08/21/23 Dental Screening Dental Screen Date: 08/21/23 Did you have a dental visit in the last 12 months?: No Did you have a dental problem in the last 6 months where you did not have access to dental care?: No Was dental information given to patient?: Patient has dentist HPI 3mth f/u [phone] (Tracy) HPI Details severe AD; cared for at home; stable [facility] Medical History (Updated 08/21/23 @ 12:36 by Maverick Lopez MD) Sacral decubitus ulcer, stage II Vitamin D deficiency Nephrolithiasis AD (Alzheimer's disease) Paget's bone disease Hyperparathyroidism Osteoporosis UTI (urinary tract infection) GERD (gastroesophageal reflux disease) Hypertension Dementia CVA (cerebral vascular accident) Nephrolithiasis Surgical History H/O bilateral breast reduction surgery History of lithotripsy History of tubal ligation H/O rectal polypectomy History of hip surgery Hx of tonsillectomy H/O: hysterectomy History of cystoscopy Family History Father No problems noted. Mother No problems noted. Maternal Grandmother Cancer Social History Household Members: Family and Children Housing: House Do you presently have visiting nurse or other home services: Yes Unable to assess alcohol history related to: Unable to respond Alcohol intake: never Patient Tobacco Use Status: Never used Tobacco e-Cigarette/Vaping Use: Never Used Second Hand Smoke Exposure: No Advance Directives Date on File: 07/24/20 service: No Current occupational status: disabled Cognitive needs: Yes (wheelchair chair) Hearing needs: No Vision needs: No Questionnaire PHQ-9 Over the last 2 weeks, how often have you been bothered by any of the following problems? 1. Little interest or pleasure in doing things: not at all 2. Feeling down, depressed, or hopeless: not at all 3. Trouble falling or staying asleep, or sleeping too much: not at all 4. Feeling tired or having little energy: not at all 5. Poor appetite or overeating: not at all 6. Feeling bad about yourself - or that you are a failure or have let yourself or your family down: not at all 7. Trouble concentrating on things, such as reading the newspaper or watching television: not at all 8. Moving or speaking so slowly that other people could have noticed. Or the opposite - being so fidgety or restless that you have been moving around a lot more than usual: not at all 9. Thoughts that you would be better off or of hurting yourself in some way: not at all Total score: 0 Depression Screening Interpretation: Negative Depression Screening Done: Yes 73598 - PHQ-9 Billing: Yes Source: Developed by Drs. Sreedhar Brown, Gabriela Guzman, Josh Sanders and colleagues, with an educational jennifer from [employer]. Thrive Questionnaire Date Thrive assessed: 11/27/22 AUDIT C Alcohol Use Questionnaire (AUDIT-C) 1. How often do you have a drink containing alcohol?: Never 3. How often do you have six or more drinks on one occasion?: Never Total Score: 0 Score Reviewed/Action Taken: Yes ANKIT-7 AMB Questionnaire ANKIT-7 Date ANKIT - 7 assessed: 11/27/22 Source: Developed by Drs. Sreedhar Brown, Gabriela Guzman, Josh Sanders and colleagues, with an educational jennifer from [employer]. Review of Systems Const Denies chills, Denies headache(s) and Denies weight loss ENT Denies headache(s) Card Denies chest pain, Denies syncope, Denies irregular heart rhythm and Denies dyspnea Resp Denies chest congestion, Denies cough and Denies dyspnea GI Denies abdominal pain, Denies change in stool character, Denies nausea and Denies vomiting Musc Denies deformity and Denies joint swelling Neuro Denies syncope and Denies headache(s) Physical exam (Primary Care) Vital Signs: Oxygen Delivery Method Room Air 08/21/23 10:10 Tobacco/Smoking Status: Tobacco use Status Tobacco use date assessed 05/11/23 08/21/23 10:11 Patient Tobacco Use Status Never used Tobacco 08/21/23 10:11 e-Cigarette/Vaping Use Never Used 08/21/23 10:11 PHQ-9: PHQ-9 Score PHQ-9: Total score 0 08/21/23 10:14 Depression Screening Interpretation: Negative Thrive Assessment: Date of Thrive Assessment Date Thrive assessed 11/27/22 08/21/23 10:11 Telehealth Telehealth Location of provider rendering services: practice address Location of patient: address on file Patient Identification confirmed using: Name, : Yes Telehealth method: voice only Patient verbally consented to treatment: Yes Patient verbally consented to billing insurance company: Yes Patient informed of any privacy concerns related to visit: Yes Minutes spent on Phone/Video with Pt.: 15 (telephone) Assessment and Plan Assessment & Plan (1) Dementia: Code(s): F03.90 - Unspecified dementia, unspecified severity, without behavioral disturbance, psychotic disturbance, mood disturbance, and anxiety Plan: stable; same rx Coding Level of Care Code Tele Est Pt Level 3 (05009) Diagnoses Dementia F03.90
== END 2023-08-21 11:42 | disposition home or self-care (01) ==
LOC: HO.HMGH 10:15
PROVIDERS: PCP Internal Medicine; Visit Provider Internal Medicine
DX: F03.90 Unspecified dementia, unspecified severity, without behavioral disturbance, psychotic disturbance, mood disturbance, and anxiety (principal)
CPT/HCPCS: 99442

== ENCOUNTER 2023-10-07 12:05 | Outpatient (AMB) | payer OTHER, SELFPAY ==
--- NOTE | 2023-10-07 12:06 | A.OFFVIS_ITS ---
Intake Intake Visit Reasons: Incontinence- follow up Intake Note: Patient is Present for Telephone Follow Up Urology Med: None Antibiotic Allergy: None Blood Thinner: Aspirin Allergies morphine [MORPHINE] Allergy (Mild, Verified 10/07/23 12:07) NAUSEA & VOMITING, vomiting HPI HPI Comments History of Present Illness Details Diann is a pleasant Norwegian-speaking female. Her daughter typically translates for her. - recurrent UTI Telemedicine evaluation 15 minute consultation Doximity attempted Discussed with daughter Now has indwelling Cherry catheter Significantly reduced activity Bed-bound Add methenamine and vitamin-C to try to reduce the chance for infection Nonfunctional right kidney Had prior procedures Imaging - 10/07 renogram right 0% left 100% - 11/09 CT scan with massive hydronephros is on right side and stones, minimal stones on left Recurring UTI Has been prescribed Estrace cream but not to be refill to December Previous treatment with nitrofurantoin PFSH Medical History Sacral decubitus ulcer, stage II Vitamin D deficiency Nephrolithiasis AD (Alzheimer's disease) Paget's bone disease Hyperparathyroidism Osteoporosis UTI (urinary tract infection) GERD (gastroesophageal reflux disease) Hypertension Dementia CVA (cerebral vascular accident) Nephrolithiasis Surgical History H/O bilateral breast reduction surgery History of lithotripsy History of tubal ligation H/O rectal polypectomy History of hip surgery Hx of tonsillectomy H/O: hysterectomy History of cystoscopy Family History Father No problems noted. Mother No problems noted. Maternal Grandmother Cancer Social History Household Members: Family and Children Housing: House Do you presently have visiting nurse or other home services: Yes Unable to assess alcohol history related to: Unable to respond Alcohol intake: never Comment: camera in room Patient Tobacco Use Status: Never used Tobacco e-Cigarette/Vaping Use: Never Used Second Hand Smoke Exposure: No Advance Directives Date on File: 07/24/20 service: No Current occupational status: disabled Cognitive needs: Yes (wheelchair chair) Hearing needs: No Vision needs: No Review of Systems Const All systems reviewed & are unremarkable except as noted in HPI and below Reports no additional complaints Card Reports no additional complaints and Denies syncope Resp Reports no additional complaints GI Reports no additional complaints Reports as per HPI and Denies change in libido Musc Reports no additional complaints Neuro Denies syncope Psych Denies change in libido Endo Denies change in libido Physical Exam Telemedicine evaluation Appropriate responses Regular breathing rate and rhythm Const General: cooperative, healthy appearing, comfortable and no acute distress Orientation/consciousness: patient oriented x3 HEENT Head: Yes normal to inspection Ears: hearing grossly normal bilaterally Face and sinus: Yes normal facial exam Mouth: moist mucous membranes Eyes General: appearance normal, both eyes and all related structures Neck Neck: Yes normal visual inspection Chest Chest palpation & inspection: normal inspection of the chest Resp Effort & Inspection: normal respiratory effort and able to speak in complete sentences GI Inspection: Yes normal to inspection Back/Spine/Pelvis Cervical Spine: normal cervical lordosis Thoracic/Lumbar Spine: thoracic and lumbar spine normal to inspection Skin General skin exam: no rashes or lesions noted Neuro General: patient oriented x3, gait normal, tone normal and moves all extremities Extrem General: Yes normal to inspection and Yes capillary refill normal Assessment & Plan Assessment & Plan (1) UTI (urinary tract infection) due to urinary indwelling Cherry catheter: Code(s): T83.511A - Infection and inflammatory reaction due to indwelling urethral catheter, initial encounter; N39.0 - Urinary tract infection, site not specified Plan Six month follow-up Medications: New methenamine hippurate 1 g PO DAILY 90 tabs 1RF 90 days N30.00 - Acute cystitis without hematuria, N39.0 - Urinary tract infection, site not specified ascorbic acid (vitamin C) 1 g PO DAILY 90 tabs 1RF 90 days N30.00 - Acute cystitis without hematuria, N39.0 - Urinary tract infection, site not specified Patient Instructions: Imaging studies, laboratory and physical exam results were discussed and reviewed in detail. No major barriers to patient understanding were identified. An opportunity to ask questions regarding the treatment plan was provided. All questions were answered. The patient expressed understanding and agreement with the above treatment plan. The patient is aware they should contact our office by phone for worsening of their current condition or the appearance of new urologic symptoms. Compliance is encouraged with any medications and followup testing that is ordered. It is a privilege to participate in the urologic care of your patient. If you have any questions or concerns regarding treatment for the above conditions, or other urologic issues, please do not hesitate to contact me. The office telephone contact is [phone]. This note is constructed using voice recognition software. While every effort has been made to ensure accuracy roller mill tender errors may have been included. Yours sincerely, Dr Subhash Gonzalez MD, [facility] - Urology Providers of Expert, Compassionate Care for the Genitourinary System Telehealth Telehealth Location of provider rendering services: practice address Location of patient: address on file Patient Identification confirmed using: Name, : Yes Telehealth method: video Patient verbally consented to treatment: Yes Patient verbally consented to billing insurance company: Yes Patient informed of any privacy concerns related to visit: Yes Coding Level of Care Code Tele Est Pt Level 3 (15135) Diagnoses UTI (urinary tract infection) due to urinary indwelling Cherry catheter T83.511A; N39.0
== END 2023-10-07 13:59 | disposition home or self-care (01) ==
LOC: HO.HUSH 12:05
PROVIDERS: PCP Internal Medicine; Visit Provider Urology
DX: T83.511A Infection and inflammatory reaction due to indwelling urethral catheter, initial encounter (principal); N39.0 Urinary tract infection, site not specified
CPT/HCPCS: 99213

== ENCOUNTER → 2023-10-07 12:05 | Outpatient (BNVA) | payer OTHER, SELFPAY | PROVIDERS: PCP Internal Medicine; Visit Provider Urology ==

== ENCOUNTER 2024-04-06 13:25 | Outpatient (AMB) | payer OTHER, SELFPAY ==
--- NOTE | 2024-04-06 13:25 | MHC.OFFVIS ---
Intake Visit Reasons: 6m follow up Intake Note: Patient is Present for Telephone Follow Up For Urology Med: Vitamin C,Methenamine Antibiotic Allergy: None Blood Thinner:Aspirin Allergies morphine [MORPHINE] Allergy (Mild, Verified 04/06/24 13:27) NAUSEA & VOMITING, vomiting Medication List - Last Reconciled 04/06/24 by Subhash Gonzalez MD adhesive tape (Paper Tape) As directed adhesive tape As directed ascorbic acid (vitamin C) 1 g PO DAILY 90 days aspirin 1 tab PO DAILY cefpodoxime 200 mg PO BID cholecalciferol (vitamin D3) 50 mcg PO DAILY citalopram 10 mg PO DAILY [disposable bed pads As directed] docusate sodium 100 mg PO DAILY furosemide (Lasix) 20 mg PO QAM gauze bandage (Band-Aid Gauze Pads) to use for wound care gauze bandage (Band-Aid Gauze Pads) As directed gauze bandage As directed [gloves medium] [gloves large ] hydrocolloid dressing (Durafiber Dressing) To use for wound care memantine 5 mg PO BID methenamine hippurate 1 g PO DAILY 90 days omeprazole 20 mg PO DAILY@0630 [sheep skin elbow protectors As directed] topiramate 50 mg PO BEDTIME HPI Comments Details: Diann is a pleasant Czech-speaking female. Her daughter typically translates for her. - recurrent UTI Telemedicine evaluation 15 minute consultation Doximity attempted Follow-up from addition of methenamine and vitamin-C Relatively stable Will continue with current medications Has indwelling Cherry catheter Significantly reduced activity Bed-bound Nonfunctional right kidney Had prior procedures Imaging - 10/07 renogram right 0% left 100% - 11/09 CT scan with massive hydronephrosis on right side and stones, minimal stones on left Recurring UTI Has been prescribed Estrace cream but not to be refill to December Previous treatment with nitrofurantoin PFSH Medical History Sacral decubitus ulcer, stage II Vitamin D deficiency Nephrolithiasis AD (Alzheimer's disease) Paget's bone disease Hyperparathyroidism Osteoporosis UTI (urinary tract infection) GERD (gastroesophageal reflux disease) Hypertension Dementia CVA (cerebral vascular accident) Nephrolithiasis Surgical History H/O bilateral breast reduction surgery History of lithotripsy History of tubal ligation H/O rectal polypectomy History of hip surgery Hx of tonsillectomy H/O: hysterectomy History of cystoscopy Family History Father No problems noted. Mother No problems noted. Maternal Grandmother Cancer Social History Household Members: Family and Children Housing: House Do you presently have visiting nurse or other home services: Yes Unable to assess alcohol history related to: Unable to respond Alcohol intake: never Comment: camera in room Patient Tobacco Use Status: Never used Tobacco e-Cigarette/Vaping Use: Never Used Second Hand Smoke Exposure: No Advance Directives Date on File: 07/24/20 service: No Current occupational status: disabled Cognitive needs: Yes (wheelchair chair) Hearing needs: No Vision needs: No Review of Systems Const All systems reviewed & are unremarkable except as noted in HPI and below Reports no additional complaints Resp Reports no additional complaints GI Reports no additional complaints Reports as per HPI Musc Reports no additional complaints Physical Exam Telemedicine evaluation Appropriate responses Regular breathing rate and rhythm HEENT Head: Yes normal to inspection Ears: hearing grossly normal bilaterally Eyes General: appearance normal, both eyes and all related structures Neck Neck: Yes normal visual inspection Chest Chest palpation & inspection: normal inspection of the chest Resp Effort & Inspection: normal respiratory effort and able to speak in complete sentences Telehealth Telehealth Telehealth Platform: [facility] Location of provider rendering services: practice address Location of patient: address on file Patient Identification confirmed using: Name, : Yes Telehealth method: video Patient verbally consented to treatment: Yes Patient verbally consented to billing insurance company: Yes Patient informed of any privacy concerns related to visit: Yes Minutes spent on Phone/Video with Pt.: 15 Assessment & Plan Assessment & Plan (1) UTI (urinary tract infection) due to urinary indwelling Cherry catheter: Code(s): T83.511A - Infection and inflammatory reaction due to indwelling urethral catheter, initial encounter; N39.0 - Urinary tract infection, site not specified Category: Medical Plan Six-month follow-up Medications: Refilled methenamine hippurate 1 g PO DAILY 90 days 90 tabs 1RF N30.00 - Acute cystitis without hematuria, N39.0 - Urinary tract infection, site not specified ascorbic acid (vitamin C) 1 g PO DAILY 90 days 90 tabs 1RF N30.00 - Acute cystitis without hematuria, N39.0 - Urinary tract infection, site not specified Patient Instructions: Imaging studies, laboratory and physical exam results were discussed and reviewed in detail. No major barriers to patient understanding were identified. An opportunity to ask questions regarding the treatment plan was provided. All questions were answered. The patient expressed understanding and agreement with the above treatment plan. The patient is aware they should contact our office by phone for worsening of their current condition or the appearance of new urologic symptoms. Compliance is encouraged with any medications and followup testing that is ordered. It is a privilege to participate in the urologic care of your patient. If you have any questions or concerns regarding treatment for the above conditions, or other urologic issues, please do not hesitate to contact me. The office telephone contact is [phone]. This note is constructed using voice recognition software. While every effort has been made to ensure accuracy forestry faculty member errors may have been included. Yours sincerely, Dr Subhash Gonzalez MD, [facility] - Urology Providers of Expert, Compassionate Care for the Genitourinary System Coding Level of Care Code Tele Est Pt Level 3 (32569) Diagnoses UTI (urinary tract infection) due to urinary indwelling Cherry catheter T83.511A; N39.0
== END 2024-04-06 14:04 | disposition home or self-care (01) ==
LOC: HO.HUSH 13:25
PROVIDERS: PCP Internal Medicine; Visit Provider Urology
DX: T83.511A Infection and inflammatory reaction due to indwelling urethral catheter, initial encounter (principal); N39.0 Urinary tract infection, site not specified
CPT/HCPCS: 99213

== ENCOUNTER → 2024-04-06 13:25 | Outpatient (BNVA) | payer OTHER, SELFPAY | PROVIDERS: PCP Internal Medicine; Visit Provider Urology ==

== ENCOUNTER 2024-04-12 13:01 | Outpatient (AMB) | payer OTHER, SELFPAY ==
--- NOTE | 2024-04-12 12:58 | MHC.PC.OV ---
Vital Signs 04/12/24 13:00 Height 5 ft 6 in Intake Visit Reasons: medication discussion [phone]( Tracy) Invertebrate Paleontologist: Present Accompanied by: Daughter Allergies morphine [MORPHINE] Allergy (Mild, Verified 04/06/24 13:27) NAUSEA & VOMITING, vomiting Tobacco use date assessed: 04/12/24 Fall risk assessment: No Falls in past year Last assessed Fall Risk: 04/12/24 Dental Screening Dental Screen Date: 04/12/24 Did you have a dental visit in the last 12 months?: No Did you have a dental problem in the last 6 months where you did not have access to dental care?: No Was dental information given to patient?: Patient has dentist HPI medication discussion [phone]( Tracy) HPI Details dementia; bed bound; cared for by family [facility] Medical History Sacral decubitus ulcer, stage II Vitamin D deficiency Nephrolithiasis AD (Alzheimer's disease) Paget's bone disease Hyperparathyroidism Osteoporosis UTI (urinary tract infection) GERD (gastroesophageal reflux disease) Hypertension Dementia CVA (cerebral vascular accident) Nephrolithiasis Surgical History H/O bilateral breast reduction surgery History of lithotripsy History of tubal ligation H/O rectal polypectomy History of hip surgery Hx of tonsillectomy H/O: hysterectomy History of cystoscopy Family History Father No problems noted. Mother No problems noted. Maternal Grandmother Cancer Social History Household Members: Family and Children Housing: House Do you presently have visiting nurse or other home services: Yes Unable to assess alcohol history related to: Unable to respond Alcohol intake: never Comment: camera in room Patient Tobacco Use Status: Never used Tobacco e-Cigarette/Vaping Use: Never Used Second Hand Smoke Exposure: No Advance Directives Date on File: 07/24/20 service: No Current occupational status: disabled Cognitive needs: Yes (wheelchair chair) Hearing needs: No Vision needs: No Questionnaire PHQ-9 Over the last 2 weeks, how often have you been bothered by any of the following problems? 1. Little interest or pleasure in doing things: not at all 2. Feeling down, depressed, or hopeless: not at all 3. Trouble falling or staying asleep, or sleeping too much: not at all 4. Feeling tired or having little energy: not at all 5. Poor appetite or overeating: not at all 6. Feeling bad about yourself - or that you are a failure or have let yourself or your family down: not at all 7. Trouble concentrating on things, such as reading the newspaper or watching television: not at all 8. Moving or speaking so slowly that other people could have noticed. Or the opposite - being so fidgety or restless that you have been moving around a lot more than usual: not at all 9. Thoughts that you would be better off or of hurting yourself in some way: not at all Total score: 0 Depression Screening Interpretation: Negative Depression Screening Done: Yes 70798 - PHQ-9 Billing: Yes Source: Developed by Drs. Sreedhar Brown, Gabriela Guzman, Josh Sanders and colleagues, with an educational jennifer from [employer]. Thrive Questionnaire Date Thrive assessed: 04/12/24 I am a: Patient What is your living situation today?: I have a steady place to live Within the past 12 months, did the food you bought not last and you didn't have the money to get more?: Never true Within the past 12 months, did you worry whether your food would run out before you got money to buy more?: Never true Do you have trouble paying for medicines?: No Do you have trouble getting transportation to medical appointments?: No Do you have trouble paying your heating and electricity bill?: No Do you have trouble taking care of your child, family member or friend?: No Do you have trouble with day-to-day activities such as bathing, preparing meals, shopping, managing finances, etc.?: No Are you currently unemployed and looking for a job?: No Are you interested in more education?: No Please select the resources that you would like help with: None THRIVE Score: 0 AUDIT C Alcohol Use Questionnaire (AUDIT-C) 1. How often do you have a drink containing alcohol?: Never 3. How often do you have six or more drinks on one occasion?: Never Total Score: 0 Score Reviewed/Action Taken: Yes ANKIT-7 AMB Questionnaire ANKIT-7 Date ANKIT - 7 assessed: 04/12/24 Feeling nervous, anxious, or on edge: 0 = Not at all Not being able to stop or control worryin = Not at all Worrying too much about different things: 0 = Not at all Trouble relaxin = Not at all Being so restless that it is hard to sit still: 0 = Not at all Becoming easily annoyed or irritable: 0 = Not at all Feeling afraid as if something awful might happen: 0 = Not at all Total ANKIT-7 score (0-4 normal; 5-9 mild; 10-14 moderate; 15-21 severe): 0 Source: Developed by Drs. Sreedhar Brown, Gabriela Guzman, Josh Sanders and colleagues, with an educational jennifer from [employer]. Review of Systems Const Denies chills, Denies headache(s) and Denies weight loss ENT Denies headache(s) Card Denies chest pain, Denies syncope, Denies irregular heart rhythm and Denies dyspnea Resp Denies chest congestion, Denies cough and Denies dyspnea GI Denies abdominal pain, Denies change in stool character, Denies nausea and Denies vomiting Musc Denies deformity and Denies joint swelling Neuro Denies syncope and Denies headache(s) Physical exam (Primary Care) Tobacco/Smoking Status: Tobacco use Status Tobacco use date assessed 04/12/24 04/12/24 13:00 Patient Tobacco Use Status Never used Tobacco 04/12/24 13:00 e-Cigarette/Vaping Use Never Used 04/12/24 13:00 PHQ-9: PHQ-9 Score PHQ-9: Total score 0 04/12/24 13:00 Depression Screening Interpretation: Negative Thrive Assessment: Date of Thrive Assessment Date Thrive assessed 04/12/24 04/12/24 13:00 Telehealth Telehealth Telehealth Platform: Telephone Location of provider rendering services: practice address Location of patient: address on file Patient Identification confirmed using: Name, : Yes Telehealth method: voice only Patient verbally consented to treatment: Yes Patient verbally consented to billing insurance company: Yes Patient informed of any privacy concerns related to visit: Yes Minutes spent on Phone/Video with Pt.: 15 (telephone) Assessment and Plan Assessment & Plan (1) Dementia: Code(s): F03.90 - Unspecified dementia, unspecified severity, without behavioral disturbance, psychotic disturbance, mood disturbance, and anxiety Plan: slowly progressive; same rx Coding Level of Care Code Tele Est Pt Level 3 (99242) Diagnoses Dementia F03.90
== END 2024-04-12 15:01 | disposition home or self-care (01) ==
LOC: HO.HMGH 13:01
PROVIDERS: PCP Internal Medicine; Visit Provider Internal Medicine
DX: F03.90 Unspecified dementia, unspecified severity, without behavioral disturbance, psychotic disturbance, mood disturbance, and anxiety (principal)
CPT/HCPCS: 99442

== ENCOUNTER 2024-10-05 13:01 | Outpatient (AMB) | payer OTHER, SELFPAY ==
--- NOTE | 2024-10-05 13:02 | A.OFFVIS_ITS ---
Intake Visit Reasons: 6m follow up Intake Note: Patient is present for 6 month follow up Urology Med: Methenamine, Vitamin C Antibiotic Allergy: None Blood Thinner: Aspirin Patient Symptoms: Patient's daughter states patient is still has the Catheter, no symptoms of discomfort. Accompanied by: Daughter Allergies morphine [MORPHINE] Allergy (Mild, Verified 10/05/24 13:06) NAUSEA & VOMITING, vomiting HPI Comments Details: Diann is a pleasant [place]er-speaking female. Her daughter typically translates for her. - recurrent UTI Telemedicine evaluation 15 minute consultation Doximity attempted Discussion with daughter Rae [phone] Follow-up Relatively stable - only 1 breakthrough UTI Will continue with current medications Has indwelling Cherry catheter Significantly reduced activity Bed-bound Continue suppression plus esterase Nonfunctional right kidney Had prior procedures Imaging - 10/07 renogram right 0% left 100% - 11/09 CT scan with massive hydronephrosis on right side and stones, minimal stones on left Recurring UTI Has been prescribed Estrace cream but not to be refill to December Previous treatment with nitrofurantoin [facility] Medical History Sacral decubitus ulcer, stage II Vitamin D deficiency Nephrolithiasis AD (Alzheimer's disease) Paget's bone disease Hyperparathyroidism Osteoporosis UTI (urinary tract infection) GERD (gastroesophageal reflux disease) Hypertension Dementia CVA (cerebral vascular accident) Nephrolithiasis Surgical History H/O bilateral breast reduction surgery History of lithotripsy History of tubal ligation H/O rectal polypectomy History of hip surgery Hx of tonsillectomy H/O: hysterectomy History of cystoscopy Family History Father No problems noted. Mother No problems noted. Maternal Grandmother Cancer Social History Household Members: Family and Children Housing: House Do you presently have visiting nurse or other home services: Yes Unable to assess alcohol history related to: Unable to respond Alcohol intake: never Comment: camera in room Patient Tobacco Use Status: Never used Tobacco e-Cigarette/Vaping Use: Never Used Second Hand Smoke Exposure: No Advance Directives Date on File: 07/24/20 service: No Current occupational status: disabled Cognitive needs: Yes (wheelchair chair) Hearing needs: No Vision needs: No Review of Systems Const Denies chills and Denies fever(s) Card Reports no additional complaints and Denies syncope Resp Denies cough GI Denies abdominal pain and Denies heartburn Reports as per HPI and Denies change in libido Neuro Denies syncope Psych Denies change in libido Endo Denies change in libido Physical Exam Const General: cooperative, healthy appearing, comfortable and no acute distress Orientation/consciousness: patient oriented x3 HEENT Face and sinus: Yes normal facial exam Mouth: moist mucous membranes Neck Neck: Yes normal visual inspection, Yes full ROM and Yes trachea midline Chest Chest palpation & inspection: normal inspection of the chest Resp Effort & Inspection: normal respiratory effort, able to speak in complete sentences and no respiratory distress GI Inspection: Yes normal to inspection Back/Spine/Pelvis Cervical Spine: normal cervical lordosis Thoracic/Lumbar Spine: thoracic and lumbar spine normal to inspection Skin General skin exam: no rashes or lesions noted Neuro General: patient oriented x3, gait normal, tone normal and moves all extremities Extrem General: Yes normal to inspection and Yes capillary refill normal Telehealth Telehealth Telehealth Platform: [facility] Location of provider rendering services: practice address Location of patient: address on file Telehealth method: video Patient verbally consented to treatment: Yes Patient verbally consented to billing insurance company: Yes Patient informed of any privacy concerns related to visit: Yes Minutes spent on Phone/Video with Pt.: 15 Assessment & Plan Assessment & Plan (1) Nephrolithiasis: Code(s): N20.0 - Calculus of kidney Category: Medical (2) UTI (urinary tract infection): Code(s): N39.0 - Urinary tract infection, site not specified Category: Medical Qualifiers: Hematuria presence: without hematuria Urinary tract infection type: acute cystitis Qualified Code(s): N30.00 - Acute cystitis without hematuria Plan Six-month follow-up Medications: New estradiol 0.01%(0.1mg/gram) pea-sized to urethra 2 times a week; 30 days 42.5 grams 2RF N36.2 - Urethral caruncle, N39.0 - Urinary tract infection, site not specified, N95.2 - Postmenopausal atrophic vaginitis, T83.511A - Infection and inflammatory reaction due to indwelling urethral catheter, initial encounter Patient Instructions: Imaging studies, laboratory and physical exam results were discussed and reviewed in detail. No major barriers to patient understanding were identified. An opportunity to ask questions regarding the treatment plan was provided. All questions were answered. The patient expressed understanding and agreement with the above treatment plan. The patient is aware they should contact our office by phone for worsening of their current condition or the appearance of new urologic symptoms. Compliance is encouraged with any medications and followup testing that is ordered. It is a privilege to participate in the urologic care of your patient. If you h ave any questions or concerns regarding treatment for the above conditions, or other urologic issues, please do not hesitate to contact me. The office telephone contact is [phone]. This note is constructed using voice recognition software. While every effort has been made to ensure accuracy c t tech errors may have been included. Yours sincerely, Dr Subhash Gonzalez MD, [facility] - Urology Providers of Expert, Compassionate Care for the Genitourinary System Coding Level of Care Code Tele Est Pt Level 4 (45378) Diagnoses Nephrolithiasis N20.0 UTI (urinary tract infection) N30.00 Hematuria presence: without hematuria Urinary tract infection type: acute cystitis
--- OUTSIDE RECORDS SUMMARY | 2024-10-05 13:02 | XMS_ITS | Clinical Summary ---
Author Organization Unknown Care Team Providers Care Pipe Smoker Machine Operator Name Role Phone ELDER , EM NEWBERRY Unavailable Unavailable FRANKY RN, DARSHANA Unavailable Unavailable RAISSA RN, KAMINI Unavailable Unavailable JANNETTE RN, WYATT Unavailable Unavailfabian ENRIQUEZ RN, TUCKER Unavailable Unavailable SULAIMAN ATWOOD, HA Unavailable Unavailable VAL ATWOOD, INDER Unavailable Unavailfabian RUIZ COLOR DRUM WORKER, HUBERT Unavailable Unavailable CURET CH, TRESSA Unavailable Unavailable CINDY SEAMAN, NATALIE Unavailable Unavailfabian LERMA RN, MAYKEL Unavailable Unavailable Payers Payer Name Policy Type Policy Number Effective Date Expira tion Date MEDICARE.NGS.HSP [id number] Problems Condition Name Condition Details Condition Category Status Onset Date Resolution Date Last Treatment Date Treating Clinician Comments ALZHEIMER'S DISEASE, UNSPECIFIED Active 2022-10 00:00: 00 DEM IN OTH DIS CLASSD ELSWHR,UNSP SEV,W/O BEH/PSYCH/MO OD/ANX Active 2022-10 00:00: 00 PRESSURE ULCER OF UNSPECIFIED BUTTOCK, UNSPECIFIED STAGE Active 2022-10 00:00: 00 PRSNL HX OF TIA (TIA), AND CEREB INFRC W/O RESID DEFICITS Active 12-17 00:00: 00 URINARY TRACT INFECTION, SITE NOT SPECIFIED Active 06-19 00:00: 00 Allergies, Adverse Reactions, Alerts Allergy Name Allergy Type Status Severity Reaction(s) Onset Date Inactive Date Treating Clinician Comments OPIOID ANALGESICS Propensity to adverse reactions Active 2022-10 09:19: 31 Medications Ordered Medication Name Filled Medication Name Start Date Stop Date Current Medication? Ordering Clinician Indication Dosage Frequency Signature (SIG) Comments Components aspirin 81 mg chewable tablet 2022-10 00:00: 00 Yes [id number] HEART HEALTH 1 tablet DAILY 1 tablet DAILY (route: oral) Med Classific ation: Hematolog ical Agents citalopram 10 mg tablet 2022-10 00:00: 00 Yes [id number] DEPRESSION 1 tablet DAILY 1 tablet DAILY (route: oral) Med Classific ation: Central Nervous System Agents furosemide 20 mg tablet 2022-10 00:00: 00 12-17 15:24 :56 No [id number] HEART 1 tablet DAILY 1 tablet DAILY (route: oral) Med Classific ation: Cardiovas cular Therapy Agents memantine 5 mg tablet 2022-10 00:00: 00 Yes [id number] DEMENTIA 1 tablet DAILY 1 tablet DAILY (route: oral) Med Classific ation: Cognitive Disorder Therapy omeprazole 20 mg capsule,del ayed release 2022-10 00:00: 00 Yes [id number] GERD 1 capsule DAILY 1 capsule DAILY (route: oral) Med Classific ation: Gastroint estinal Therapy Agents topiramate 50 mg tablet 2022-10 00:00: 00 01-21 23:59 :00 No [id number] SPASTICITY 1 tablet BEDTIME 1 tablet BEDTIME (route: oral) Med Classific ation: Central Nervous System Agents cholecalcif sukh (vitamin D3) 50 mcg (2,000 unit) tablet 2022-10 00:00: 00 Yes [id number] SUPPLEMENT 1 tablet DAILY 1 tablet DAILY (route: oral) Med Classific ation: Electroly te Balance-N utritiona l Products acetaminoph en 500 mg tablet 2022-10 00:00: 00 Yes [id number] PAIN MANAGEMENT 2 tablet 2 TIMES DAILY 2 tablet 2 TIMES DAILY (route: oral) Med Classific ation: Analgesic , Anti-infl ammatory or Antipyret ic Colace 100 mg capsule 2022-10 00:00: 00 Yes [id number] CONSTIPATIO N 1 capsule BEDTIME 1 capsule BEDTIME (route: oral) Med Classific ation: Gastroint estinal Therapy Agents Senna Plus 8.6 mg-50 mg tablet 2022-10 00:00: 00 Yes [id number] CONSTIPATIO N 1 tablet BEDTIME 1 tablet BEDTIME (route: oral) Med Classific ation: Gastroint estinal Therapy Agents azithromyci n 250 mg tablet - 00:00: 00 12-13 23:59 :00 No [id number] RESP CONGESTION Per instruc tions DAILY Per instructio ns DAILY (route: oral) Med Classific ation: Anti-Infe ctive Agents Levsin 0.125 mg tablet 12-09 00:00: 00 Yes [id number] SECRETIONS 1 tablet EVERY 6 HOURS 1 tablet EVERY 6 HOURS (route: oral) Med Classific ation: Gastroint estinal Therapy Agents prednisone 5 mg tablet 12-09 00:00: 00 12-15 23:59 :00 No [id number] RESP DISTRES 1 tablet DAILY 1 tablet DAILY (route: oral) Med Classific ation: Endocrine Cipro 250 mg tablet 04-06 00:00: 00 04-13 23:59 :00 No [id number] UTI 1 tablet 2 TIMES DAILY 1 tablet 2 TIMES DAILY (route: oral) Med Classific ation: Anti-Infe ctive Agents oxygen gas for inhalation 05-13 00:00: 00 Yes [id number] DYSPNEA/COM FORT 3 Liter O2 - PRN 3 Liter O2 - PRN (route: inhalation ) Alternate Route: OXYGEN (O2) - NASAL CANNULA. Med Classific ation: Medical Supplies and Durable Medical Equipment (DME) nitrofurant oin macrocrysta l 100 mg capsule 06-19 00:00: 00 06-26 23:59 :00 No [id number] UTI 1 capsule 2 TIMES DAILY 1 capsule 2 TIMES DAILY (route: oral) Med Classific ation: Genitouri nary Therapy lorazepam 0.5 mg tablet 2023-10 0-11 00:00: 00 Yes [id number] NAUSEA AND ANXIETY 1 tablet EVERY 4 HOURS 1 tablet EVERY 4 HOURS (route: oral) Med Classific ation: Central Nervous System Agents Vital Signs Vital Name Observation Time Observation Value Commen ts Temperature 2024-10-03 11:55:00.000 99.1 [degF] Temperature 2024-09-08 10:40:00.000 98.9 [degF] Pulse 2024-10-03 11:55:00.000 103 /min Pulse 2024-09-08 10:40:00.000 98 /min O2 Saturation (%) 2024-09-08 10:41:00.000 96 % Respirations 2024-10-03 11:55:00.000 18 /min Respirations 2024-09-08 10:40:00.000 20 /min Systolic Blood Pressure 2024-10-03 11:55:00.000 97 mm[ Hg] Systolic Blood Pressure 2024-09-08 10:40:00.000 128 mm [Hg] Diastolic Blood Pressure 2024-10-03 11:55:00.000 46 mm [Hg] Diastolic Blood Pressure 2024-09-08 10:40:00.000 60 mm [Hg] Encounters Start Date/Time End Date/Time Encounter Type Admission Type Attending [facility] Care Department Encounter ID Discharge Date Discharge Status Discharge Condition Discharge Reason Percent Goals Met 2023-10-06 00:00:00 2024-11-28 00:00:00 Outpatient RECERTIFIC DARSHANA MERINO [facility] [id number] 2.33
== END 2024-10-05 13:50 | disposition home or self-care (01) ==
LOC: HO.HUSH 13:01
PROVIDERS: PCP Internal Medicine; Visit Provider Urology
DX: N20.0 Calculus of kidney (principal); N30.00 Acute cystitis without hematuria
CPT/HCPCS: 99214

== ENCOUNTER 2024-12-30 16:57 | Inpatient (IN) | payer OTHER, SELFPAY ==
--- NOTE | ~2024-12-30 | CT_ITS ---
CLINICAL HISTORY: hb 3.[address] abdomen and pelvis with contrast Comparison: None Findings: Moderate atherosclerotic vascular disease mostly involving the aortoiliac system. Associated moderate bilateral proximal renal artery stenoses. Mesenteric arteries are patent. Small left pleural effusion. Scattered atelectasis both lower lungs. Moderate to large amount of stool, especially at the rectum. Chronic severe right hydronephrosis with enlarged kidney up to 18.5 cm in length. There are a few scattered nonobstructing renal stones. There is an obstructing 6 mm distal ureteral stone on image 177. There is significant urothelial thickening, especially at the ureter. Significant periureteral fat stranding. Gallbladder and solid organs are otherwise unremarkable. No bowel obstruction, pneumoperitoneum, or pneumatosis. Generalized body wall edema. Pelvic contents unremarkable. Normal appendix. Cherry catheter decompresses urinary bladder. 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 Old left proximal femur fracture with open reduction internal fixation. No hardware complications. Bones osteopenic. No acute fracture or dislocation. IMPRESSION: 1. No active GI bleed. 2. Severe chronic right renal hydronephrosis with obstructing distal ureteral 6 mm stone. There is significant urothelial thickening and periureteral fat stranding which may be due to a secondary urinary tract infection. 3. [id number]-tc-[id number] amount of stool without bowel obstruction. 4. Small left pleural effusion of uncertain etiology. 5. Additional findings as above. This document has been electronically signed by: Yahir Cano MD on 12/31/2024 00:23:17
--- NOTE | ~2024-12-30 | CT_ITS ---
CLINICAL HISTORY: ams CT cervical spine without contrast. COMPARISON: None FINDINGS: Rightward curvature of the lower cervical spine Vertebral body heights are maintained. Apical pleural thickening present bilaterally, qdxd-adheclr-pxbd-right. Calcified plaque present at the carotid bulbs. Small amount of fluid present at the base of the left mastoid air cells. Visualized portions of the skull base and intracranial structures are unremarkable. C2-C3: Facet joint arthrosis. No significant neural foraminal narrowing. C3-C4: Facet joint arthrosis. Severe right and mild left neural foraminal narrowing. C4-C5: Facet joint arthrosis. Moderate right neural foraminal narrowing. C5-C6: Facet joint arthrosis. Mild right neural foraminal narrowing. C6-C7: No significant neuroforaminal narrowing or spinal canal stenosis. IMPRESSION: 1. No evidence of acute injury to the cervical spine. This document has been electronically signed by: Aashish Xiao MD on 12/30/2024 19:24:38
--- NOTE | ~2024-12-30 | CT_ITS ---
CLINICAL HISTORY: ams CT head without contrast. COMPARISON: None FINDINGS: Mild mucosal thickening present within the sphenoid sinus. Small amount of fluid present within the mastoid air cells bilaterally. No calvarial fracture. Atherosclerotic intracranial vasculature. Cerumen present within the external auditory canals bilaterally. No evidence for mass or mass effect. No intracranial hemorrhage or abnormal extra-axial fluid collection. No CT evidence of acute infarct. Encephalomalacia within the anterior right frontal lobe with associated dilatation of the anterior horn of the right lateral ventricle. The ventricles are proportional with the degree of severe global cerebral volume loss without evidence of hydrocephalus. Basilar cisterns are patent. There are periventricular areas of low attenuation compatible with mild white matter small vessel disease. Posterior fossa appears unremarkable. IMPRESSION: 1. No acute intracranial findings. 2. Small amount of fluid present within the mastoid air cells bilaterally. Nonspecific finding can be associated with mastoiditis. This document has been electronically signed by: Aashish Xiao MD on 12/30/2024 19:27:17
--- NOTE | ~2024-12-30 | XR_ITS ---
CLINICAL HISTORY: ams Single view of the chest. COMPARISON: None FINDINGS: Normal heart size. Atherosclerotic thoracic aorta. Low lung volumes. Linear atelectasis versus scarring within the right midlung. Crowding of the bronchovascular markings, likely secondary to low lung volumes. No pleural effusion. No pneumothorax. No acute fracture identified. IMPRESSION: 1. Low lung volumes. 2. Linear atelectasis versus scarring within the right midlung. This document has been electronically signed by: Aashish Xiao MD on 12/30/2024 19:57:14
--- NOTE | 2024-12-30 17:21 | ED_ITS ---
HPI - Altered Mental Status General Chief Complaint: Altered Mental Status Stated Complaint: AMS Time Seen by Provider: 12/30/24 17:21 Source: EMS, RN notes reviewed and old records reviewed Mode of arrival: EMS History of Present Illness ED Provider: Rima Hill PA-C HPI narrative: 74-year-old female with unknown past medical history presenting to the ED via EMS from home due to patient being found unresponsive, blue, & not breathing by family. Upon EMS arrival patient was breathing and alert to painful stimuli. Patient is contracted, appears nonverbal, no family at bedside/no contact information in chart. Unknown baseline. History limited. Related Data Home Medications ?Medication ?Instructions ?Recorded ?Confirmed hydrocolloid dressing 6 X 6 12/05/21 04/06/24 (Durafiber Dressing) Previous Rx's ?Medication ?Instructions ?Recorded gauze bandage 2 X 2 (Band-Aid #150 ea 08/26/22 Gauze Pads) disposable bed pads #50 ea 01/06/23 gloves #1 ea 01/06/23 gloves #1 ea 01/15/23 cefpodoxime 200 mg tablet 200 mg PO BID #20 tabs 05/06/23 gauze bandage 2 X 2 (Band-Aid #2,400 ea 07/09/23 Gauze Pads) adhesive tape 1 1/2 X 10 yard #4 ea 07/29/23 adhesive tape 1 X 10 yard (Paper #2 ea 07/29/23 Tape) gauze bandage 4 X 4 #100 ea 07/29/23 sheep skin elbow protectors #2 ea 08/14/23 docusate sodium 100 mg capsule 100 mg PO DAILY #30 caps 10/08/23 furosemide 20 mg tablet (Lasix) 20 mg PO QAM #30 tabs 12/02/23 ascorbic acid (vitamin C) 1,000 mg 1 g PO DAILY 90 days #90 tabs 10/05/24 tablet estradiol 0.01% (0.1 mg/gram) See Rx Instructions .Route 2XW 30 10/05/24 vaginal cream days #42.5 grams methenamine hippurate 1 gram tablet 1 g PO DAILY 90 days #90 tabs 10/05/24 memantine 5 mg tablet 5 mg PO BID #180 tabs 11/07/24 cholecalciferol (vitamin D3) 50 50 mcg PO DAILY #90 tabs 11/30/24 mcg (2,000 unit) tablet citalopram 10 mg tablet 10 mg PO DAILY #30 tabs 12/28/24 omeprazole 20 mg capsule,delayed 20 mg PO DAILY@0630 #30 caps 12/28/24 release aspirin 81 mg chewable tablet 1 tab PO DAILY #30 tabs 12/29/24 topiramate 50 mg tablet 50 mg PO BEDTIME #90 tabs 12/29/24 Allergies Allergy/AdvReac Type Severity Reaction Status Date / Time morphine [MORPHINE] Allergy Mild NAUSEA & Verified 10/05/24 13:06 VOMITING, vomiting Review of Systems 2 Review of Systems: Yes all other systems are reviewed and are negative Constitutional: Constitutional: Reports as per [facility] Past Medical History Attestation statement: The following information was validated with the patient. Source: old records reviewed Medical History Sacral decubitus ulcer, stage II Vitamin D deficiency Nephrolithiasis AD (Alzheimer's disease) Paget's bone disease Hyperparathyroidism Osteoporosis UTI (urinary tract infection) GERD (gastroesophageal reflux disease) Hypertension Dementia CVA (cerebral vascular accident) Nephrolithiasis Surgical History H/O bilateral breast reduction surgery History of lithotripsy History of tubal ligation H/O rectal polypectomy History of hip surgery Hx of tonsillectomy H/O: hysterectomy History of cystoscopy Family History Family History Father No problems noted. Mother No problems noted. Maternal Grandmother Cancer Social History Social History Household Members: Family and Children Housing: House Do you presently have visiting nurse or other home services: Yes Unable to assess alcohol history related to: Unable to respond Alcohol intake: never Comment: camera in room Patient Tobacco Use Status: Never used Tobacco e-Cigarette/Vaping Use: Never Used Second Hand Smoke Exposure: No Advance Directives: Yes Advance Directives on File: Yes Advance Directives Date on File: 12/23/22 service: No Current occupational status: disabled Cognitive needs: Yes (wheelchair chair) Hearing needs: No Vision needs: No Physical Exam ED Vital Signs: Vital Signs - 24 hr 12/30/24 17:27 12/30/24 21:17 12/30/24 21:33 Temperature 98.4 F 98.6 F 98.6 F Pulse Rate 95 99 100 Respiratory Rate 18 20 20 Blood Pressure 114/48 L 135/50 L 145/66 H Pulse Oximetry 96 Oxygen Delivery Method Room Air 12/30/24 22:59 12/31/24 00:02 12/31/24 00:33 Temperature 98.6 F 98.6 F 98.6 F Pulse Rate 99 92 86 Respiratory Rate 20 20 19 Blood Pressure 131/56 L 129/51 L 115/43 L Pulse Oximetry 97 Oxygen Delivery Method Room Air 12/31/24 00:48 Temperature 98.6 F Pulse Rate 88 Respiratory Rate 20 Blood Pressure 116/46 L Pulse Oximetry Oxygen Delivery Method BMI result Body Mass Index 18.0 Const Other: Contracted General: no acute distress, alert and awake Nutritional Appearance: thin Limitations: physical limitations HENMT Head: Yes normal to inspection and Yes atraumatic Ears: hearing grossly normal bilaterally General nose exam: Normal external nose present Face and sinus: Yes normal facial exam Eyes General: appearance normal, both eyes and all related structures Pupils: Equal, round and reactive pupils present EOM: EOMs intact bilaterally Neck Neck: Yes normal visual inspection and Yes no meningeal signs Resp Effort & Inspection: normal respiratory effort and no respiratory distress Auscultation: rhonchi throughout Cardio Rate: regular rate Heart sounds: S1 normal heart sound present and S2 normal heart sound present GI Inspection: Yes normal to inspection Palpation (GI): Soft to palpation, nontender, no guarding and not rigid Back/Spine/Pelvis Other: No midline cervical/thoracic/lumbar spinous tenderness/step-off or deformity Skin Rashes: no rashes Wounds: no wounds Neuro General: no meningeal signs Cranial nerves: Yes Equal, round and reactive pupils present Course Course Course Narrative: -1826--H/H critically low to 3.9/15 >> two provider blood consent signed and in patient's chart. Will obtain type and screen and transfuse 2 units -UA infected will give empiric Rocephin -family is now at bedside, Daughter (HCP). Patient lives at home he is with , baseline staff nonverbal, bed-bound, dementia care with [facility]. Prior CVA in 2014, CKD > states patient had episode of unresponsiveness/increased lethargy while sitting at the table, no reported choking, improved with airway repositioning. Daughter states patient is currently on hospice care. We are unable to obtain access on patient, will require either ultrasound-guided access or central line to give blood. Discussed with the daughter at length, myself, and Dr. Centeno about making patient COMPLEX DIRECTOR, however daughter currently not agreeable, she will discuss with family and we will re-convene -after many discussions with family they would like to proceed with blood transfusions. Blood consent signed with daughter, HCP -BUN 22, initial troponin 27.5 will obtain repeat. Viral testing negative XR chest 1V IMPRESSION: 1. Low lung volumes. 2. Linear atelectasis versus scarring within the right midlung. -patient initially registered under the incorrect last name. All imaging not crossing over due to this. > low suspicion for acute mastoiditis CT abdomen and pelvis with contrast IMPRESSION: 1. No active GI bleed. 2. Severe chronic right renal hydronephrosis with obstructing distal ureteral 6 mm stone. There is significant urothelial thickening and periureteral fat stranding which may be due to a secondary urinary tract infection. 3. [id number] amount of stool without bowel obstruction. 4. Small left pleural effusion of uncertain etiology. 5. Additional findings as above. > will discuss case with hospitalist Dr. Garnica. Hydronephrosis and ureteral stone known, chronic. -troponin increasing > likely demand from severe anemia however will continue to monitor Reevaluation(s) Reevaluation #1: Attending note Dr. Garcia: the patient is a 74-year-old woman who was extremely anemic. She is DNR / DNI. She is apparently receiving hospice care at home. she had some kind of an event which prompted an ambulance to be called. The patient's daughter was at the bedside. The patient's daughter is the healthcare proxy. The patient's daughter told me that they have hospice services to assist in care but the daughter tells me that not have hospice with the expectation of the patient dying imminently. I explained to the patient that based on the patient's severe anemia, the fact that he is bedbound and nonverbal with contractions of her extremities that I thought that this might be a good time to let nature take its course. The daughter consulted with many of her family members ultimately decided that they did not wish to make the patient COMPLEX DIRECTOR today. They would like her to be transfused and received care. I therefore used an ultrasound to place an IV in the patient's left upper arm. Blood transfusions were initiated and she was admitted to the hospitalist service. Medications Administered Discontinued Medications Generic Name Dose Route Start Last Admin Trade Name Simin PRN Reason Stop Dose Admin Ceftriaxone Sodium 1 gm 12/30/24 18:27 12/30/24 21:10 Ceftriaxone Sodium 1 Gm Vial IVPUSH 12/30/24 18:28 1 gm ONCE ONE Administration Sodium Chloride 1,000 mls @ 999 mls/hr 12/30/24 17:45 12/30/24 22:50 Ns IV 12/30/24 18:45 Infused .Q1H1M MANDEEP Infusion Iohexol 80 ml 12/30/24 23:01 12/30/24 23:01 Iohexol 350 Mg/Ml 100 Ml Infus..Btl IV 12/30/24 23:02 80 ml ONCE ONE Administration Medical Decision Making Medical Decision Making [facility] Narrative: 74-year-old female with unknown past medical history presenting to the ED via EMS from home due to patient being found unresponsive, blue, & not breathing by family. On exam vital signs stable, NAD, awake/alert to verbal stimuli, no evidence of trauma. Contracted, appears bed-bound and nonverbal. Unknown baseline. History and exam limited. No family at bedside or contact information in the chart. Concern for metabolic/infectious etiologies vs ? ICH vs aspiration vs ACS Plan: EKG, labs, UA, head/C-spine CT, CXR, +/-admission Please refer to course for remaining clinical decision making, interpretation of labs/imaging results, and discussions with consultants and/or family members. Differential Diagnosis Differential Diagnoses: The differential diagnosis associated with the presentation includes As above Admission/Observation Consideration of admission/observation: Escalation of care including admission/observation considered Lab Data [facility] Lab Attestation statement: I reviewed the patient's lab results. 12/30/24 18:03 12/30/24 18:03 Labs: Lab Results 12/30/24 12/30/24 12/30/24 Range/Units 18:03 18:13 18:43 WBC 12.9 H (4.8-10.8) X10*3/uL RBC 2.37 L (4.20-5.50) X10*6/uL Hgb 3.9 L* (12.0-16.0) g/dl Hct 15.0 L* (37.0-47.0) % MCV 63.3 L (80.0-98.0) fL MCH 16.5 L (27.0-33.0) pg MCHC 26.0 L (31.0-35.0) g/dl RDW 21.7 H (11.0-16.0) % Plt Count 393 (160-400) X10*3/uL MPV 9.3 L (9.4-12.3) fL Immature Gran % (Auto) 0.7 H (0.0-0.4) % Neut % (Auto) 84.9 H (45-73) % Lymph % (Auto) 6.7 L (20-40) % [place] % (Auto) 7.1 (2-11) % Eos % (Auto) 0.5 (0-4) % Baso % (Auto) 0.1 (0-2) % Lymph # (Auto) 0.9 L (1.2-4.9) X10*3/uL [place] # (Auto) 0.9 (0.1-1.2) X10*3/uL Eos # (Auto) 0.1 (0.0-0.4) X10*3/uL Baso # (Auto) 0.0 (0.0-0.2) X10*3/uL Abs Immat Gran (auto) 0.09 H (0.00-0.03) X10*3/uL Absolute Neuts (auto) 10.9 H (2.0-8.3) x10*3/uL Absolute Nucleated RBC 0.020 H (0.0-0.012) X10*3/uL Nucleated RBC % (auto) 0.2 (0.0-0.2) /100WBC VBG pH 7.44 H (7.32-7.43) VBG pCO2 27 mmHg VBG pO2 86 mmHg VBG HCO3 19 L (22-26) mmol/L VBG O2 Saturation TNP VBG Base Excess -4.1 mmol/L Sodium 134 L (135-145) mmol/L Potassium 4.8 (3.3-5.1) mmol/L Chloride 106 (96-108) mmol/L Carbon Dioxide 19 L (22-29) mmol/L Anion Gap 14 (12-20) BUN 22 H (9-16) mg/dL Creatinine 0.87 (0.5-1.4) mg/dL Estim Creat Clear Calc 39.9 Estimated GFR > 60 Random Glucose 155 H (60-115) mg/dL Calcium 8.7 (8.4-10.2) mg/dL Magnesium 2.0 (1.6-2.6) mg/dL Iron 21 L (30-160) mcg/dL TIBC 188 L (228-428) mcg/dL % Saturation 11 L (15-50) % Unsat Iron Binding 167 ug/dL Total Bilirubin 0.1 (0.0-1.0) mg/dL Direct Bilirubin < 0.2 (0.0-0.5) mg/dL AST 54 H (5-31) U/L ALT 8 (0-31) U/L Alkaline Phosphatase 94 (39-117) U/L Ammonia 42 (13-55) umol/L Total Creatine Kinase 35 (26-140) U/L Troponin I High Sens 27.5 H (<3.5-17.0) ng/L Total Protein 11.8 H (6.5-8.0) g/dL Albumin 2.4 L (3.5-5.0) g/dL Urine Color Yellow Urine Appearance Turbid Urine pH 5.5 (5.0-9.0) Ur Specific [place] 1.020 (1.005-1.025) Urine Protein 100 (2+) H (Neg-Trace) mg/dL Urine Glucose (UA) Negative (Negative) mg/dL Urine Ketones Negative (Negative) mg/dL Urine Blood Large (3+) H (Negative) Urine Nitrite Positive H (Negative) Ur Leukocyte Esterase Large (3+) H (Negative) Urine RBC >20 H (0-2) /HPF Urine WBC >50 H (0-5) /HPF Ur Squamous Epith Cells 3-5 (0-2) /HPF Urine Bacteria 4+ (None Seen) Hyaline Casts >20 (0-2) /LPF Stool Occult Blood (NEGATIVE) Influenza Type A (PCR) NEGATIVE (Negative) Influenza Type B (PCR) NEGATIVE (Negative) RSV RNA Qual (PCR) NEGATIVE (Negative) SARS-CoV-2 RNA (RT-PCR) NEGATIVE (Negative) Blood Type A Positive Antibody Screen NEGATIVE Crossmatch See Detail 12/30/24 12/30/24 12/31/24 Range/Units 21:10 21:38 00:04 WBC (4.8-10.8) X10*3/uL RBC (4.20-5.50) X10*6/uL Hgb (12.0-16.0) g/dl Hct (37.0-47.0) % MCV (80.0-98.0) fL MCH (27.0-33.0) pg MCHC (31.0-35.0) g/dl RDW (11.0-16.0) % Plt Count (160-400) X10*3/uL MPV (9.4-12.3) fL Immature Gran % (Auto) (0.0-0.4) % Neut % (Auto) (45-73) % Lymph % (Auto) (20-40) % [place] % (Auto) (2-11) % Eos % (Auto) (0-4) % Baso % (Auto) (0-2) % Lymph # (Auto) (1.2-4.9) X10*3/uL [place] # (Auto) (0.1-1.2) X10*3/uL Eos # (Auto) (0.0-0.4) X10*3/uL Baso # (Auto) (0.0-0.2) X10*3/uL Abs Immat Gran (auto) (0.00-0.03) X10*3/uL Absolute Neuts (auto) (2.0-8.3) x10*3/uL Absolute Nucleated RBC (0.0-0.012) X10*3/uL Nucleated RBC % (auto) (0.0-0.2) /100WBC VBG pH (7.32-7.43) VBG pCO2 mmHg VBG pO2 mmHg VBG HCO3 (22-26) mmol/L VBG O2 Saturation VBG Base Excess mmol/L Sodium (135-145) mmol/L Potassium (3.3-5.1) mmol/L Chloride (96-108) mmol/L Carbon Dioxide (22-29) mmol/L Anion Gap (12-20) BUN (9-16) mg/dL Creatinine (0.5-1.4) mg/dL Estim Creat Clear Calc Estimated GFR Random Glucose (60-115) mg/dL Calcium (8.4-10.2) mg/dL Magnesium (1.6-2.6) mg/dL Iron (30-160) mcg/dL TIBC (228-428) mcg/dL % Saturation (15-50) % Unsat Iron Binding ug/dL Total Bilirubin (0.0-1.0) mg/dL Direct Bilirubin (0.0-0.5) mg/dL AST (5-31) U/L ALT (0-31) U/L Alkaline Phosphatase (39-117) U/L Ammonia (13-55) umol/L Total Creatine Kinase (26-140) U/L Troponin I High Sens 87.6 H* D 96.1 H* (<3.5-17.0) ng/L Total Protein (6.5-8.0) g/dL Albumin (3.5-5.0) g/dL Urine Color Urine Appearance Urine pH (5.0-9.0) Ur Specific [place] (1.005-1.025) Urine Protein (Neg-Trace) mg/dL Urine Glucose (UA) (Negative) mg/dL Urine Ketones (Negative) mg/dL Urine Blood (Negative) Urine Nitrite (Negative) Ur Leukocyte Esterase (Negative) Urine RBC (0-2) /HPF Urine WBC (0-5) /HPF Ur Squamous Epith Cells (0-2) /HPF Urine Bacteria (None Seen) Hyaline Casts (0-2) /LPF Stool Occult Blood NEGATIVE (NEGATIVE) Influenza Type A (PCR) (Negative) Influenza Type B (PCR) (Negative) RSV RNA Qual (PCR) (Negative) SARS-CoV-2 RNA (RT-PCR) (Negative) Blood Type Antibody Screen Crossmatch Independent Interpretation I performed an independent interpretation of an: EKG, Plain X-Ray and CT Scan Radiology Impression Discussion of test interpretation with radiology: I have reviewed the radiologist's reading. Independent Historian Clinical information obtained from an independent historian. History obtained from or confirmed by: EMS External Record Review External record reviewed: Inpatient record, Office record, Outpatient record, Prior outpatient labs, Prior outpatient radiology, Primary care record and Outside ED record Tests considered The following testing was considered but not selected: As above Prescription Management I considered prescription management with: Pain Medication and Antibiotic Chronic Conditions Patient?s care impacted by: Other Social Determinants Patient?s care significantly limited by Social Determinants of Health including: Problems related to primary support group and Other Social Determinant of Health Procedures EJ/Peripheral Line Arm L: Time Out Performed: Yes Skin Cleansed in Sterile Fashion: Yes Size (gauge): 18 IV Secured and Dressing Applied: Yes Patient Tolerated Procedure: well and no complications Additional Comments: Dr. Centeno' note: Ultrasound assisted placement of an IV catheter and the patient has left upper arm seems to be successful. I was able to easily withdrawal blood and flush the IV multiple times. IV fluids seemed to flow easily through the IV. Critical Care Time Critical Care Time Critical Care Time: Yes Total Critical Care Time: 60 Attestation: I have personally provided critical care time exclusive of time spent on separately billable procedures. Time includes review of lab data, radiology results, discussion with consultants, and monitoring for potential decompensation. Intervention performed as documented. Discharge Plan Discharge Clinical Impression: Constipation, Elevated troponin, Acute UTI Anemia Qualifiers: Anemia type: unspecified type Qualified Code(s): D64.9 - Anemia, unspecified Patient Disposition: Admitted As Inpatient
[2024-12-30 17:27] VITALS: BP 114/48; BP 146/67; PULSE 103; PULSE 95; RESP 18; TEMP 36.9; O2SAT 96; BMI 18.0
--- NOTE | 2024-12-30 17:31 | ECG_ITS ---
Test Reason : ams Blood Pressure : */* mmHG Vent. Rate : 100 BPM Atrial Rate : 100 BPM P-R Int : 112 ms QRS Dur : 80 ms QT Int : 364 ms P-R-T Axes : 50 -17 40 degrees QTcB Int : 469 ms Sinus rhythm with Fusion complexes Minimal voltage criteria for LVH, may be normal variant ( Helm product ) Borderline ECG No previous ECGs available Referred By: Rima Hill Electronically Signed By:
[2024-12-30 18:08] LABS: MANUAL DIFF FLAG NO
[2024-12-30 18:09] LABS: Appearance Urine Turbid; Basophils Percent Auto 0.1 % (0-2); Color Urine Yellow; Eosinophils Absolute Auto 0.1 X10*3/uL (0.0-0.4); Eosinophils Percent Auto 0.5 % (0-4); Glucose Urine UA Negative (Negative); Imm Gran Abs Auto 0.09 X10*3/uL (0.00-0.03); Imm Gran Pct Auto 0.7 % (0.0-0.4); Leukocyte Esterase Urine Large (3+) (Negative); Lymphocytes Absolute Auto 0.9 X10*3/uL (1.2-4.9); Lymphocytes Percent Auto 6.7 % (20-40); Mean Corpuscular Hemoglobin 16.5 pg (27.0-33.0); Mean Platelet Volume 9.3 fL (9.4-12.3); Monocytes Absolute Auto 0.9 X10*3/uL (0.1-1.2); Monocytes Percent Auto 7.1 % (2-11); NRBC Pct Auto 0.2 /100WBC (0.0-0.2); Neutrophils Absolute Auto 10.9 x10*3/uL (2.0-8.3); Neutrophils Percent Auto 84.9 % (45-73); Nitrite Urine Positive (Negative); PH 5.5 (5.0-9.0); Platelet Count 393 X10*3/uL (160-400); Red Blood Count 2.37 X10*6/uL (4.20-5.50); Red Cell Distribution Width 21.7 % (11.0-16.0); UMIC TRIGGER UACC YES; Urine Blood Large (3+) (Negative); Urine Ketones Negative (Negative); Urine Protein 100 (2+) mg/dL (Neg-Trace); White Blood Count 12.9 X10*3/uL (4.8-10.8)
[2024-12-30 18:17] LABS: VBG Base Excess -4.1 mmol/L; VBG HCO3 19 mmol/L (22-26); VBG pCO2 27 mmHg; VBG pH 7.44 (7.32-7.43); VBG pO2 86 mmHg
--- NOTE | 2024-12-30 18:17 | PC.NURSE ---
pt is a difficult stick. labs were obtained but not an IV. Per Rima CASSIDY, wait on IVF for now.
[2024-12-30 18:19] LABS: Ammonia 42 umol/L (13-55); Mean Corpuscular Volume 63.3 fL (80.0-98.0)
[2024-12-30 18:20] LABS: Venous Blood Gas Refer to POC result
[2024-12-30 18:20] LABS: Bacteria Urine 4+ (None Seen); Hemoglobin 3.9 g/dl (12.0-16.0); Hyaline Casts Urine >20 /LPF (0-2); RBC Urine >20 /HPF (0-2); UACC Culture Trigger YES; WBC Urine >50 /HPF (0-5)
[2024-12-30 18:29] LABS: Troponin-I High Sensitivity 27.5 ng/L (<3.5-17.0)
[2024-12-30 18:31] LABS: Alanine Aminotransferase 8 U/L (0-31); Albumin Level 2.4 g/dL (3.5-5.0); Anion Gap 14 (12-20); Aspartate Amino Transferase 54 U/L (5-31); Bilirubin Direct < 0.2 mg/dL (0.0-0.5); Bilirubin Total 0.1 mg/dL (0.0-1.0); Blood Urea Nitrogen 22 mg/dL (9-16); Calcium 8.7 mg/dL (8.4-10.2); Carbon Dioxide 19 mmol/L (22-29); Chloride 106 mmol/L (96-108); Creatinine Clr Calc Pharmacy 39.9; Estimated Glomerular Filt Rate > 60; Glucose Random 155 mg/dL (60-115); Potassium 4.8 mmol/L (3.3-5.1); Sodium 134 mmol/L (135-145); Total Protein 11.8 g/dL (6.5-8.0)
[2024-12-30 18:44] LABS: Alkaline Phosphatase 94 U/L (39-117)
--- OUTSIDE RECORDS SUMMARY | 2024-12-30 18:47 | XMS_ITS | Clinical Summary ---
Author Organization Unknown Care Team Providers Care Biostatistician Name Role Phone CAROL TATE, KELTON Unavailable Unavailable JOSEPH ENTRY TECH, HUBERT Unavailable Unavailable JANNETTE RN, WYATT Unavailable Unavailfabian ENRIQUEZ RN, TUCKER Unavailable Unavailable CURET MACHO, TRESSA Unavailable Unavailable VAL RN, INDER Unavailable Unavailfabian HAJI RN, KAMINI Unavailable Unavailable FRANKY RN, DARSHANA Unavailable Unavailable SULAIMAN RN, HA Unavailable Unavailable CINDY SEAMAN, NATALIE Unavailable Unavailfabian LERMA RN, MAYKEL Unavailable Unavailable MEREDITH ATWOOD, MEKHI Unavailable Unavailable Payers Payer Name Policy Type Policy Number Effective Date Expira tion Date MEDICARE.NGS.HSP [id number] Problems Condition Name Condition Details Condition Category Status Onset Date Resolution Date Last Treatment Date Treating Clinician Comments ALZHEIMER'S DISEASE, UNSPECIFIED Active 2022-10 00:00: 00 DEM IN OTH DIS CLASSD ELSWHR,UNSP SEV,W/O BEH/PSYCH/MO OD/ANX Active 2022-10 00:00: 00 PRESSURE ULCER OF UNSPECIFIED BUTTOCK, UNSPECIFIED STAGE Active 2022-10 00:00: 00 PRSNL HX OF TIA (TIA), AND CEREB INFRC W/O RESID DEFICITS Active 3- 00:00: 00 URINARY TRACT INFECTION, SITE NOT SPECIFIED Active 1- 00:00: 00 Allergies, Adverse Reactions, Alerts Allergy Name Allergy Type Status Severity Reaction(s) Onset Date Inactive Date Treating Clinician Comments OPIOID ANALGESICS Propensity to adverse reactions Active 2022-10 09:19: 31 Medications Ordered Medication Name Filled Medication Name Start Date Stop Date Current Medication? Ordering Clinician Indication Dosage Frequency Signature (SIG) Comments Components aspirin 81 mg chewable tablet 2022-10 00:00: 00 Yes [id number] HEART HEALTH 1 tablet DAILY 1 tablet DAILY (route: oral) Med Classific ation: Hematolog ical Agents citalopram 10 mg tablet 2022-10 00:00: 00 Yes [id number] DEPRESSION 1 tablet DAILY 1 tablet DAILY (route: oral) Med Classific ation: Central Nervous System Agents furosemide 20 mg tablet 2022-10 00:00: 00 12-17 15:24 :56 No [id number] HEART 1 tablet DAILY 1 tablet DAILY (route: oral) Med Classific ation: Cardiovas cular Therapy Agents memantine 5 mg tablet 2022-10 00:00: 00 Yes [id number] DEMENTIA 1 tablet DAILY 1 tablet DAILY (route: oral) Med Classific ation: Cognitive Disorder Therapy omeprazole 20 mg capsule,del ayed release 2022-10 00:00: 00 Yes [id number] GERD 1 capsule DAILY 1 capsule DAILY (route: oral) Med Classific ation: Gastroint estinal Therapy Agents topiramate 50 mg tablet 2022-10 00:00: 00 01-21 23:59 :00 No [id number] SPASTICITY 1 tablet BEDTIME 1 tablet BEDTIME (route: oral) Med Classific ation: Central Nervous System Agents cholecalcif sukh (vitamin D3) 50 mcg (2,000 unit) tablet 2022-10 00:00: 00 Yes [id number] SUPPLEMENT 1 tablet DAILY 1 tablet DAILY (route: oral) Med Classific ation: Electroly te Balance-N utritiona l Products acetaminoph en 500 mg tablet 2022-10 00:00: 00 Yes [id number] PAIN MANAGEMENT 2 tablet 2 TIMES DAILY 2 tablet 2 TIMES DAILY (route: oral) Med Classific ation: Analgesic , Anti-infl ammatory or Antipyret ic Colace 100 mg capsule 2022-10 00:00: 00 Yes [id number] CONSTIPATIO N 1 capsule BEDTIME 1 capsule BEDTIME (route: oral) Med Classific ation: Gastroint estinal Therapy Agents Senna Plus 8.6 mg-50 mg tablet 2022-10 00:00: 00 Yes [id number] CONSTIPATIO N 1 tablet BEDTIME 1 tablet BEDTIME (route: oral) Med Classific ation: Gastroint estinal Therapy Agents azithromyci n 250 mg tablet 2- 00:00: 00 12-13 23:59 :00 No [id number] RESP CONGESTION Per instruc tions DAILY Per instructio ns DAILY (route: oral) Med Classific ation: Anti-Infe ctive Agents Levsin 0.125 mg tablet 2- 00:00: 00 Yes [id number] SECRETIONS 1 tablet EVERY 6 HOURS 1 tablet EVERY 6 HOURS (route: oral) Med Classific ation: Gastroint estinal Therapy Agents prednisone 5 mg tablet - 00:00: 00 12-15 23:59 :00 No [id number] RESP DISTRES 1 tablet DAILY 1 tablet DAILY (route: oral) Med Classific ation: Endocrine Cipro 250 mg tablet 6-19 00:00: 00 04-13 23:59 :00 No [id number] UTI 1 tablet 2 TIMES DAILY 1 tablet 2 TIMES DAILY (route: oral) Med Classific ation: Anti-Infe ctive Agents oxygen gas for inhalation 05-13 00:00: 00 Yes [id number] DYSPNEA/COM FORT 3 Liter O2 - PRN 3 Liter O2 - PRN (route: inhalation ) Alternate Route: OXYGEN (O2) - NASAL CANNULA. Med Classific ation: Medical Supplies and Durable Medical Equipment (DME) nitrofurant oin macrocrysta l 100 mg capsule 9- 00:00: 00 06-26 23:59 :00 No [id number] UTI 1 capsule 2 TIMES DAILY 1 capsule 2 TIMES DAILY (route: oral) Med Classific ation: Genitouri nary Therapy lorazepam 0.5 mg tablet 2023-10 0-11 00:00: 00 Yes [id number] NAUSEA AND ANXIETY 1 tablet EVERY 4 HOURS 1 tablet EVERY 4 HOURS (route: oral) Med Classific ation: Central Nervous System Agents nitrofurant oin macrocrysta l 100 mg capsule 1-15 00:00: 00 11-10 23:59 :00 No [id number] UTI 1 capsule 2 TIMES DAILY 1 capsule 2 TIMES DAILY (route: oral) Med Classific ation: Genitouri nary Therapy Vital Signs Vital Name Observation Time Observation Value Commen ts Temperature 2024-12-22 10:47:00.000 101.6 [degF] Temperature 2024-12-15 14:46:00.000 100.7 [degF] Temperature 2024-12-08 11:23:00.000 98.8 [degF] Temperature 2024-12-02 10:50:00.000 99.6 [degF] Temperature 2024-11-14 16:18:00.000 99 [degF] Pulse 2024-12-22 10:47:00.000 91 /min Pulse 2024-12-15 14:46:00.000 94 /min Pulse 2024-12-08 11:23:00.000 95 /min Pulse 2024-12-02 10:50:00.000 72 /min Pulse 2024-11-14 16:18:00.000 98 /min O2 Saturation (%) 2024-12-22 10:47:00.000 98 % O2 Saturation (%) 2024-12-15 14:46:00.000 96 % O2 Saturation (%) 2024-12-08 11:23:00.000 96 % O2 Saturation (%) 2024-12-02 10:50:00.000 97 % O2 Saturation (%) 2024-11-14 16:18:00.000 88 % Respirations 2024-12-22 10:47:00.000 18 /min Respirations 2024-12-15 14:46:00.000 20 /min Respirations 2024-12-08 11:23:00.000 18 /min Respirations 2024-12-02 10:50:00.000 18 /min Respirations 2024-11-14 16:18:00.000 20 /min Systolic Blood Pressure 2024-12-22 10:47:00.000 142 mm [Hg] Systolic Blood Pressure 2024-12-15 14:46:00.000 114 mm [Hg] Systolic Blood Pressure 2024-12-08 11:23:00.000 120 mm [Hg] Systolic Blood Pressure 2024-12-02 10:50:00.000 118 mm [Hg] Systolic Blood Pressure 2024-11-14 16:18:00.000 118 mm [Hg] Diastolic Blood Pressure 2024-12-22 10:47:00.000 56 mm [Hg] Diastolic Blood Pressure 2024-12-15 14:46:00.000 55 mm [Hg] Diastolic Blood Pressure 2024-12-08 11:23:00.000 55 mm [Hg] Diastolic Blood Pressure 2024-12-02 10:50:00.000 53 mm [Hg] Diastolic Blood Pressure 2024-11-14 16:18:00.000 52 mm [Hg] Encounters Start Date/Time End Date/Time Encounter Type Admission Type Attending [facility] Care Department Encounter ID Discharge Date Discharge Status Discharge Condition Discharge Reason Percent Goals Met 2023-10-06 00:00:00 2025-01-27 00:00:00 Outpatient RECERTIFIC ATMEKHI QUINN [facility] [id number] 2.08
--- OUTSIDE RECORDS SUMMARY | 2024-12-30 18:47 | XMS_ITS | Clinical Summary ---
Author Organization Unknown Care Team Providers Care Casket Assembler Name Role Phone CAROL TATE, KELTON Unavailable Unavailable JOSEPH TELESALES SPECIALIST, HUBERT Unavailable Unavailable JANNETTE RN, WYATT Unavailable [...] Number Effective Date Expira tion Date MEDICARE.NGS.HSP [id number] Problems Condition Name Condition Details Condition Category [...] mg chewable tablet 2022-10 00:00: 00 Yes [id number] HEART HEALTH 1 tablet DAILY 1 tablet DAILY (route: oral) Med Classific ation: Hematolog ical Agents citalopram 10 mg tablet 2022-10 00:00: 00 Yes [id number] DEPRESSION 1 tablet DAILY 1 tablet DAILY (route: oral) Med Classific ation: Central Nervous System Agents furosemide 20 mg tablet 2022-10 00:00: 00 12-17 15:24 :56 No [id number] HEART 1 tablet DAILY 1 tablet DAILY (route: oral) Med Classific ation: Cardiovas cular Therapy Agents memantine 5 mg tablet 2022-10 00:00: 00 Yes [id number] DEMENTIA 1 tablet DAILY 1 tablet DAILY (route: oral) Med Classific ation: Cognitive Disorder Therapy omeprazole 20 mg capsule,del ayed release 2022-10 00:00: 00 Yes [id number] GERD 1 capsule DAILY 1 capsule DAILY (route: oral) Med Classific ation: Gastroint estinal Therapy Agents topiramate 50 mg tablet 2022-10 00:00: 00 01-21 23:59 :00 No [id number] SPASTICITY 1 tablet BEDTIME 1 tablet BEDTIME (route: oral) Med Classific ation: Central Nervous System Agents cholecalcif sukh (vitamin D3) 50 mcg (2,000 unit) tablet 2022-10 00:00: 00 Yes [id number] SUPPLEMENT 1 tablet DAILY 1 tablet DAILY (route: oral) Med Classific ation: Electroly te Balance-N utritiona l Products acetaminoph en 500 mg tablet 2022-10 00:00: 00 Yes [id number] PAIN MANAGEMENT 2 tablet 2 TIMES DAILY 2 tablet 2 TIMES DAILY (route: oral) Med Classific ation: Analgesic , Anti-infl ammatory or Antipyret ic Colace 100 mg capsule 2022-10 00:00: 00 Yes [id number] CONSTIPATIO N 1 capsule BEDTIME 1 capsule BEDTIME (route: oral) Med Classific ation: Gastroint estinal Therapy Agents Senna Plus 8.6 mg-50 mg tablet 2022-10 00:00: 00 Yes [id number] CONSTIPATIO N 1 tablet BEDTIME 1 tablet BEDTIME (route: oral) Med Classific ation: Gastroint estinal Therapy Agents azithromyci n 250 mg tablet 2- 00:00: 00 12-13 23:59 :00 No [id number] RESP CONGESTION Per instruc tions DAILY Per instructio ns DAILY (route: oral) Med Classific ation: Anti-Infe ctive Agents Levsin 0.125 mg tablet 2- 00:00: 00 Yes [id number] SECRETIONS 1 tablet EVERY 6 HOURS 1 tablet EVERY 6 HOURS (route: oral) Med Classific ation: Gastroint estinal Therapy Agents prednisone 5 mg tablet - 00:00: 00 12-15 23:59 :00 No [id number] RESP DISTRES 1 tablet DAILY 1 tablet DAILY (route: oral) Med Classific ation: Endocrine Cipro 250 mg tablet 6-19 00:00: 00 04-13 23:59 :00 No [id number] UTI 1 tablet 2 TIMES DAILY 1 tablet 2 TIMES DAILY (route: oral) Med Classific ation: Anti-Infe ctive Agents oxygen gas for inhalation 05-13 00:00: 00 Yes [id number] DYSPNEA/COM FORT 3 Liter O2 - PRN 3 Liter O2 - PRN (route: inhalation ) Alternate Route: OXYGEN (O2) - NASAL CANNULA. Med Classific ation: Medical Supplies and Durable Medical Equipment (DME) nitrofurant oin macrocrysta l 100 mg capsule 9- 00:00: 00 06-26 23:59 :00 No [id number] UTI 1 capsule 2 TIMES DAILY 1 capsule 2 TIMES DAILY (route: oral) Med Classific ation: Genitouri nary Therapy lorazepam 0.5 mg tablet 2023-10 0-11 00:00: 00 Yes [id number] NAUSEA AND ANXIETY 1 tablet EVERY 4 HOURS 1 tablet EVERY 4 HOURS (route: oral) Med Classific ation: Central Nervous System Agents nitrofurant oin macrocrysta l 100 mg capsule 1-15 00:00: 00 11-10 23:59 :00 No [id number] UTI 1 capsule 2 TIMES DAILY 1 [...] End Date/Time Encounter Type Admission Type Attending [facility] Care Department Encounter ID Discharge Date Discharge Status Discharge Condition Discharge Reason Percent Goals Met 2023-10-06 00:00:00 2025-01-27 00:00:00 Outpatient RECERTIFIC ATMEKHI QUINN [facility] [id number] 2.08
[2024-12-30 18:51] LABS: Influenza A PCR NEGATIVE (Negative); Influenza B PCR NEGATIVE (Negative); Resp Syncy Virus RNA Qual PCR NEGATIVE (Negative); SARS COV2 PCR INHOUSE NEGATIVE (Negative)
--- NOTE | 2024-12-30 19:46 | PC.NURSE ---
this rn assumed care of pt. per Rima CASSIDY and , hold off on placing IV access and administering medications at this time until family is contacted.
--- NOTE | 2024-12-30 20:24 | PC.NURSE ---
attempted to obtain iv access on pt. previous RN tried x4. per he will look for access with US.
[2024-12-30] MEDS: cefTRIAXone sodium 1 GM VIAL IVPUSH (21:10)
[2024-12-30] MEDS: 0.9 % Sodium Chloride 1,000 ML 999 ML IV (21:10)
[2024-12-30 21:17] VITALS: BP 135/50; PULSE 99; RESP 20; TEMP 37
--- NOTE | 2024-12-30 21:18 | PC.NURSE ---
18G US guided iv placed in left upper arm by . pt medicated per dec, no blood cultures needed prior to antibiotic administration. blood transfusion started at this time.
[2024-12-30 21:33] VITALS: BP 145/66; PULSE 100; RESP 20; TEMP 37
--- NOTE | 2024-12-30 21:41 | PC.NURSE ---
this rn at bedside with Rima CASSIDY doing rectal. pt noted to have extra stool, rima removed a lot of stool and pt was able to move her bowels. pt cleaned up by this rn. rectal probe placed in pt due to pt not able to give oral temp. 600ml thick urine removed from peterson.
[2024-12-30 21:47] LABS: Troponin-I High Sensitivity 87.6 ng/L (<3.5-17.0)
[2024-12-30 22:06] LABS: OBS Int Ctl Valid YES; OBS1 NEGATIVE (NEGATIVE)
[2024-12-30 22:59] VITALS: BP 131/56; PULSE 99; RESP 20; TEMP 37; O2SAT 97
[2024-12-30] MEDS: iohexoL 350 MG/ML 100 ML INFUS..BTL 80 ML IV (23:01)
--- NOTE | 2024-12-30 23:01 | PC.NURSE ---
Returned from CT scan. Blood continues to transfuse as ordered. Currently infusing at 100 ml/hour. Primary RN Ebony Shin aware. Continuous monitoring in place.
[2024-12-31] VITALS (14 sets, daily range): BP systolic 115–164; BP diastolic 43–70; PULSE 73–98; RESP 16–20; TEMP 36.9–38.7; O2SAT 93–98
[2024-12-31 00:33] LABS: Troponin-I High Sensitivity 96.1 ng/L (<3.5-17.0)
--- NOTE | 2024-12-31 01:19 | P.HPHOSP_ITS ---
History of Present Illness Date of Service: 12/31/24 Chief Complaint: Brief unresponsive episode 74-year-old female with a past medical history of Alzheimer's dementia, osteoporosis, nephrolithiasis, chronic severe right-sided hydronephrosis, decubitus ulcers, nonverbal, bed-bound, dysphagia-puree Diet with the feeding assistance, recurrent UTI, chronic indwelling Cherry, lives with the family, anemia, on home oxygen at nighttime, presented to the hospital today with a chief complaint of brief unresponsive episode. Most of the history obtained from the patient's family at bedside. Reportedly patient was sitting on the table, her was feeding and suddenly patient became unresponsive, turned blue; placed her on the home oxygen; subsequently called the EMS team; patient was noted to be mildly hypoxic subsequently brought her to the hospital for further evaluation. Denies patient complaining of any fevers. Reports patient was diagnosed with UTI last week and was about to start on cefpodoxime. Her Cherry was since last week. Reports patient has known history of dysphagia and is on puree diet-family members feeds her. Reports that patient has known decubitus ulcers and family changes the dressings regularly. No concern for new infection. Review of all other systems is limited. ER course: Per ER team, patient was alert awake, nonverbal lying in the bed comfortably on presentation. Mental status is at her baseline-confirmed by the family. CT head and CT C-spine were done which showed acute findings; CT head showed possible mastoiditis. EKG was nonischemic. Troponins elevated from 27-97. Patient does not appear to be in pain. Presumed to be secondary to demand from severe anemia. CT abdomen pelvis was done which showed known chronic right-sided hydronephrosis with ureteral stones. Severe constipation-disimpacted partially in the ER. On labs noted to have severe anemia of hemoglobin 3.9. Patient baseline hemoglobin around 7-8. Stool guaiac was negative per ER team. Patient being ordered for 2 units of blood transfusion. [facility] Medical History Sacral decubitus ulcer, stage II Vitamin D deficiency Nephrolithiasis AD (Alzheimer's disease) Paget's bone disease Hyperparathyroidism Osteoporosis UTI (urinary tract infection) GERD (gastroesophageal reflux disease) Hypertension Dementia CVA (cerebral vascular accident) Nephrolithiasis Family History Father No problems noted. Mother No problems noted. Maternal Grandmother Cancer Surgical History H/O bilateral breast reduction surgery History of lithotripsy History of tubal ligation H/O rectal polypectomy History of hip surgery Hx of tonsillectomy H/O: hysterectomy History of cystoscopy Social History Household Members: Family and Children Housing: House Do you presently have visiting nurse or other home services: Yes Unable to assess alcohol history related to: Unable to respond Alcohol intake: never Comment: camera in room Patient Tobacco Use Status: Never used Tobacco e-Cigarette/Vaping Use: Never Used Second Hand Smoke Exposure: No Advance Directives Date on File: 12/23/22 service: No Current occupational status: disabled Cognitive needs: Yes (wheelchair chair) Hearing needs: No Vision needs: No Meds Allergies Allergy/AdvReac Type Severity Reaction Status Date / Time morphine [MORPHINE] Allergy Mild NAUSEA & Verified 10/05/24 13:06 VOMITING, vomiting Active Medications: Current Medications Acetaminophen (Acetaminophen 325 Mg Tablet) 650 mg PO Q6H PRN PRN Reason: Pain, Mild 1-3,fever,headache Dextrose/Sodium Chloride (D5ns) 1,000 mls @ 50 mls/hr IVCONT .Q20H [facility] Pantoprazole Sodium (Pantoprazole Sodium 40 Mg/10 Ml Vial) 40 mg IVPUSH DAILY@0630 [facility] Home Medications ?Medication ?Instructions ?Recorded ?Confirmed ?Last Taken ?Type hydrocolloid dressing 6 X 6 12/05/21 04/06/24 Unknown History (Durafiber Dressing) Physical Exam 2 Vital Signs and Narrative: Vital Signs: Last Vital Signs Temp 98.6 F 12/31/24 00:48 Pulse 88 12/31/24 00:48 Resp 20 12/31/24 00:48 BP 116/46 L 12/31/24 00:48 Pulse Ox 97 12/30/24 22:59 O2 Del Method Room Air 12/30/24 22:59 BMI result Body Mass Index 18.0 Gen: Appears be in no acute distress HEENT: NCAT, Moist mucosa. Pulmonary: Vesicular breath sounds, fair air entry CVS: Normal S1-S2 Abdomen: BS+, Soft, Nontender Extremities: Warm well perfused, contracted Neuro: Alert and awake. Skin: Patient has 2 pressure ulcers on her low back. Appears healing. No new signs of infection around the ulcers. Results Labs 12/31/24 03:32 12/30/24 18:03 Labs: Laboratory Results - last 24 hr 12/30/24 12/30/24 12/30/24 18:03 18:13 18:43 MCV 63.3 L MCH 16.5 L MCHC 26.0 L RDW 21.7 H Plt Count 393 MPV 9.3 L Immature Gran % (Auto) 0.7 H Neut % (Auto) 84.9 H Lymph % (Auto) 6.7 L [place] % (Auto) 7.1 Eos % (Auto) 0.5 Baso % (Auto) 0.1 Lymph # (Auto) 0.9 L [place] # (Auto) 0.9 Eos # (Auto) 0.1 Baso # (Auto) 0.0 Abs Immat Gran (auto) 0.09 H Absolute Neuts (auto) 10.9 H Absolute Nucleated RBC 0.020 H Nucleated RBC % (auto) 0.2 VBG pH 7.44 H VBG pCO2 27 VBG pO2 86 VBG HCO3 19 L VBG O2 Saturation TNP VBG Base Excess -4.1 Anion Gap 14 Estim Creat Clear Calc 39.9 Estimated GFR > 60 Random Glucose 155 H Calcium 8.7 Magnesium 2.0 Total Bilirubin 0.1 Direct Bilirubin < 0.2 AST 54 H ALT 8 Alkaline Phosphatase 94 Ammonia 42 Total Creatine Kinase 35 Total Protein 11.8 H Albumin 2.4 L Urine Color Yellow Urine Appearance Turbid Urine pH 5.5 Ur Specific [place] 1.020 Urine Protein 100 (2+) H Urine Glucose (UA) Negative Urine Ketones Negative Urine Blood Large (3+) H Urine Nitrite Positive H Ur Leukocyte Esterase Large (3+) H Urine RBC >20 H Urine WBC >50 H Ur Squamous Epith Cells 3-5 Urine Bacteria 4+ Hyaline Casts >20 Stool Occult Blood Influenza Type A (PCR) NEGATIVE Influenza Type B (PCR) NEGATIVE RSV RNA Qual (PCR) NEGATIVE SARS-CoV-2 RNA (RT-PCR) NEGATIVE Blood Type A Positive Antibody Screen NEGATIVE Crossmatch See Detail 03/14/25 21:38 MCV MCH MCHC RDW Plt Count MPV Immature Gran % (Auto) Neut % (Auto) Lymph % (Auto) [place] % (Auto) Eos % (Auto) Baso % (Auto) Lymph # (Auto) [place] # (Auto) Eos # (Auto) Baso # (Auto) Abs Immat Gran (auto) Absolute Neuts (auto) Absolute Nucleated RBC Nucleated RBC % (auto) VBG pH VBG pCO2 VBG pO2 VBG HCO3 VBG O2 Saturation VBG Base Excess Anion Gap Estim Creat Clear Calc Estimated GFR Random Glucose Calcium Magnesium Total Bilirubin Direct Bilirubin AST ALT Alkaline Phosphatase Ammonia Total Creatine Kinase Total Protein Albumin Urine Color Urine Appearance Urine pH Ur Specific [place] Urine Protein Urine Glucose (UA) Urine Ketones Urine Blood Urine Nitrite Ur Leukocyte Esterase Urine RBC Urine WBC Ur Squamous Epith Cells Urine Bacteria Hyaline Casts Stool Occult Blood NEGATIVE Influenza Type A (PCR) Influenza Type B (PCR) RSV RNA Qual (PCR) SARS-CoV-2 RNA (RT-PCR) Blood Type Antibody Screen Crossmatch Assessment and Plan (1) Anemia: Qualifiers: Anemia type: unspecified type Qualified Code(s): D64.9 - Anemia, unspecified Status: Acute Plan 74-year-old female with a past medical history of Alzheimer's dementia, osteoporosis, nephrolithiasis, chronic severe right-sided hydronephrosis, decubitus ulcers, nonverbal, bed-bound, dysphagia-puree Diet with the feeding assistance, recurrent UTI, chronic indwelling Cherry, lives with the family, anemia, on home oxygen at nighttime, presented to the hospital today with a chief complaint of brief unresponsive episode. Noted to have severe anemia, elevated troponin, UTI Brief unresponsive episode: Patient currently alert and awake, mental status at her baseline per family. CT head and CT C-spine showed no acute findings. EKG nonischemic Blood pressure is stable Patient was briefly hypoxic per family but currently patient is saturating 98% on room air. Chest x-ray showed no acute cardiopulmonary process. Troponins elevated-presumed to be in the setting of demand. Supportive care Severe anemia: Patient baseline hemoglobin around 7-8. Hemoglobin on presentation was 3.9 Two guaiac as negative per ER physician CT and pelvis showed no active bleeding. Patient being transfused 3 units of PRBC Will also obtain iron studies, folate B12. Elevated troponins: Presumed to be in the setting of demand. EKG nonischemic. Patient does not appear to be in pain. Echocardiogram. Cardiology consult. Discussed the risks and benefits with the family, given severe anemia decided not to go with heparin drip. Recurrent UTI: Patient has chronic indwelling Cherry. To be changed in the ER. 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 Last Cherry change was about a week ago. Empirically covered with ceftriaxone Follow-up cultures Chronic right severe hydronephrosis: Ureteral stones: Patient has known severe hydronephrosis per family. Mentioned discussed with urology in the past and deemed not a surgical candidate, and being monitored currently. Dysphagia: Patient is on pureed diet at home and family feeds patient. Currently NPO. HOSPICE TEAM LEAD eval in a.m.. Dementia: Mental status at baseline per family. Delirium precautions. Continue home memantine. Decubitus ulcers: Present on admission. Stable per family. Pressure ulcer care per RN. Wound consult. Goals of care: Discussed goals of care with the family/healthcare proxy-daughters at bedside. Family decided To continue with all necessary treatment possible including blood transfusions. Mentioned patient is DNR/DNI. DVT prophylaxis: SCD boots Code status: DNR/DNI-confirmed with the family Quality Stroke Does the patient have a stroke diagnosis?: No VTE Prior VTE?: No VTE Risk Level:: Medical - moderate - high VTE Device Contraindication: N/A - Device Ordered VTE Drug Contraindication: Treatment Not Tolerated
[2024-12-31 01:59] LABS: Iron 21 mcg/dL (30-160); Percent Iron Saturation 11 % (15-50); Total Iron Binding Capacity 188 mcg/dL (228-428); Unsaturated Iron Binding 167 ug/dL
--- NOTE | 2024-12-31 02:06 | PC.NURSE ---
per provider, remove already placed peterson and replace it. New 18F peterson placed, pt tolerated well, very thick urine voided into peterson with mucus. pt noted to have 2 open wounds (updated into chart) and one non open wound, 3 pressure pads placed on pt at this time. provider at bedside to assess wounds.
[2024-12-31] MEDS: Dextrose 5 % and 0.9 % NaCl 1,000 ML 50 ML IVCONT (03:36)
[2024-12-31 03:40] LABS: Hematocrit 18.3 % (37.0-47.0); Hemoglobin 5.6 g/dl (12.0-16.0)
--- NOTE | 2024-12-31 04:13 | PC.NURSE ---
provider aware of pt repeat H&H. plan to transfuse another unit of PRBC
[2024-12-31 04:29] LABS: Mean Corpuscular HGB Conc 30.1 g/dl (31.0-35.0); Mean Corpuscular Volume 69.7 fL (80.0-98.0); Mean Platelet Volume 9.4 fL (9.4-12.3); NRBC Pct Auto 0.2 /100WBC (0.0-0.2); Platelet Count 326 X10*3/uL (160-400); Red Blood Count 2.67 X10*6/uL (4.20-5.50); White Blood Count 9.1 X10*3/uL (4.8-10.8)
[2024-12-31 04:43] LABS: Hematocrit 18.6 % (37.0-47.0); Hemoglobin 5.6 g/dl (12.0-16.0)
[2024-12-31 04:58] LABS: Alanine Aminotransferase < 6 U/L (0-31); Albumin Level 2.1 g/dL (3.5-5.0); Alkaline Phosphatase 77 U/L (39-117); Anion Gap 12 (12-20); Aspartate Amino Transferase 49 U/L (5-31); Bilirubin Total 0.3 mg/dL (0.0-1.0); Blood Urea Nitrogen 20 mg/dL (9-16); Carbon Dioxide 20 mmol/L (22-29); Chloride 110 mmol/L (96-108); Creatinine Clr Calc Pharmacy 40.9; Estimated Glomerular Filt Rate > 60; Glucose Random 83 mg/dL (60-115); Potassium 4.1 mmol/L (3.3-5.1); Sodium 138 mmol/L (135-145); Total Protein 9.6 g/dL (6.5-8.0)
[2024-12-31 05:03] LABS: Troponin-I High Sensitivity 66.4 ng/L (<3.5-17.0)
[2024-12-31 05:22] LABS: Vitamin B12 1774 pg/mL (200-900)
--- NOTE | 2024-12-31 06:01 | PC.NURSE ---
pt placed onto hospital bed for comfort, pillow placed onto the left side.
[2024-12-31] MEDS: Pantoprazole Sodium 40 MG/10 ML VIAL IVPUSH (07:22)
--- NOTE | 2024-12-31 07:23 | PC.NURSE ---
3rd unit of RBCs completely infused at this time. vitals remained stable throughout. nsr on the replenishment analyst. pt tolerated blood transfusion well w/o any difficulties. pt transitioned back to D5NS infusing @ 50mls/hr. medication administered per provider order. pt remains on RA w/o difficulty. no sob/wob noted. respirations even/unlabored. bed alarm turned on for safety precautions. plan of care ongoing.
[2024-12-31 08:30] LABS: Baso%MD 0.3 %; Hematocrit 24.4 % (37.0-47.0); Hemoglobin 7.6 g/dl (12.0-16.0); IG%MD 0.7 %; Lymph%MD 16.8 %; Mean Corpuscular HGB Conc 31.1 g/dl (31.0-35.0); Mean Corpuscular Hemoglobin 22.4 pg (27.0-33.0); Mean Corpuscular Volume 71.8 fL (80.0-98.0); Mean Platelet Volume 9.5 fL (9.4-12.3); Mono%MD 14.3 %; Neut%MD 66.9 %; Platelet Count 331 X10*3/uL (160-400); Red Cell Distribution Width 25.1 % (11.0-16.0); White Blood Count 9.1 X10*3/uL (4.8-10.8)
[2024-12-31 09:20] LABS: Band Neutrophils Percent 1 % (3-5); Lymphocytes Absolute Manual 1.6 X10*3/uL (1.2-4.9); Lymphocytes Percent Manual 18 % (20-40); Monocytes Absolute Manual 0.6 X10*3/uL (0.1-1.2); Monocytes Percent Manual 7 % (2-11); Neutrophils Absolute Manual 6.8 X10*3/uL (2.0-8.3); Neutrophils Percent Manual 74 % (45-73)
[2024-12-31 09:23] LABS: RBC Morphology NOTED
[2024-12-31 09:24] LABS: Microcytosis 1+ (5-14) /OIF; Tear Drop Cells 1+ (0-2) /OIF
[2024-12-31 09:25] LABS: Hypochromasia 2+ (15-30) /OIF; Platelet Estimate NORMAL (NORMAL); Platelet Morphology Comment NORMAL; Polychromasia 2+ (3-5) /OIF
[2024-12-31 09:26] LABS: Schistocytes 1+ (0-2) /OIF
[2024-12-31] MEDS: Topiramate 25 MG TABLET 50 MG PO (09:36)
[2024-12-31] MEDS: Memantine HCl 5 MG TABLET PO (09:36)
[2024-12-31] MEDS: Escitalopram Oxalate 5 MG TABLET PO (09:36)
--- NOTE | 2024-12-31 10:17 | PHA.MEDREC ---
Pharmacy Consult ? Medication Reconciliation Pharmacy has completed the medication reconciliation. Spoke to patient's daughter Misty at bedside and she confirmed patient's medication list by showing me the list of meds that are filled at [facility]. Daughter confirmed patient is NOT using any eye drops, thyroid medications, nor vaginal creams. The list from [facility] reflects what patient is taking at home. Last dose of medications was yesterday morning 12/30/24.
--- NOTE | 2024-12-31 10:59 | HO.PM.IMPN ---
Subjective Subjective Date of Service: 12/31/24 Review of Systems Review of Systems: Yes Unobtainable due to mental condition Physical Exam Vital Signs: Vital Signs: Last Vital Signs Temp 98.6 F 12/31/24 07:30 Pulse 86 12/31/24 07:30 Resp 19 12/31/24 07:30 BP 147/64 H 12/31/24 07:30 Pulse Ox 98 12/31/24 07:23 O2 Del Method Room Air 12/31/24 07:23 BMI result Body Mass Index 18.0 Alert, nonverbal, no acute distress Objective Data Active Medications Acetaminophen (Acetaminophen 325 Mg Tablet) 650 mg PO Q6H PRN PRN Reason: Pain, Mild 1-3,fever,headache Ceftriaxone Sodium (Ceftriaxone Sodium 1 Gm Vial) 1 gm IVPUSH BEDTIME [facility] Escitalopram Oxalate (Escitalopram Oxalate 5 Mg Tablet) 5 mg PO DAILY [facility] Last Admin: 12/31/24 09:36 Dose: 5 mg Documented By: KRISTEN Dextrose/Sodium Chloride (D5ns) 1,000 mls @ 50 mls/hr IVCONT .Q20H [facility] Last Infusion: 12/31/24 07:16 Dose: 50 mls/hr Documented By: KRISTEN Memantine (Memantine Hcl 5 Mg Tablet) 5 mg PO DAILY [facility] Last Admin: 12/31/24 09:36 Dose: 5 mg Documented By: KRISTEN Pantoprazole Sodium (Pantoprazole Sodium 40 Mg/10 Ml Vial) 40 mg IVPUSH DAILY@0630 [facility] Last Admin: 12/31/24 07:22 Dose: 40 mg Documented By: KRISTEN Topiramate (Topiramate 25 Mg Tablet) 50 mg PO DAILY [facility] Last Admin: 12/31/24 09:36 Dose: 50 mg Documented By: KRISTEN Labs 12/31/24 08:22 12/31/24 03:42 Labs: Laboratory Results - last 24 hr 12/30/24 12/30/24 12/30/24 18:03 18:13 18:43 MCV 63.3 L MCH 16.5 L MCHC 26.0 L RDW 21.7 H Plt Count 393 MPV 9.3 L Immature Gran % (Auto) 0.7 H Neut % (Auto) 84.9 H Lymph % (Auto) 6.[address] [place] % (Auto) 7.1 Eos % (Auto) 0.5 Baso % (Auto) 0.1 Lymph # (Auto) 0.[address] [place] # (Auto) 0.9 Eos # (Auto) 0.1 Baso # (Auto) 0.0 Abs Immat Gran (auto) 0.09 H Absolute Neuts (auto) 10.9 H Absolute Nucleated RBC 0.020 H Nucleated RBC % (auto) 0.2 Neutrophils % (Manual) Band Neutrophils % Lymphocytes % (Manual) Monocytes % (Manual) Abs Neuts (Manual) Lymphocytes # (Manual) Monocytes # (Manual) Platelet Estimate Plt Morphology Comment RBC Morphology Polychromasia Hypochromasia Microcytosis Tear Drop Cells Schistocytes VBG pH 7.44 H VBG pCO2 27 VBG pO2 86 VBG HCO3 19 L VBG O2 Saturation TNP VBG Base Excess -4.1 Anion Gap 14 Estim Creat Clear Calc 39.9 Estimated GFR > 60 Random Glucose 155 H Calcium 8.7 Magnesium 2.0 Iron 21 L TIBC 188 L % Saturation 11 L Unsat Iron Binding 167 Total Bilirubin 0.1 Direct Bilirubin < 0.2 AST 54 H ALT 8 Alkaline Phosphatase 94 Ammonia 42 Total Creatine Kinase 35 Total Protein 11.8 H Albumin 2.4 L Vitamin B12 Folate Urine Color Yellow Urine Appearance Turbid Urine pH 5.5 Ur Specific [place] 1.020 Urine Protein 100 (2+) H Urine Glucose (UA) Negative Urine Ketones Negative Urine Blood Large (3+) H Urine Nitrite Positive H Ur Leukocyte Esterase Large (3+) H Urine RBC >20 H Urine WBC >50 H Ur Squamous Epith Cells 3-5 Urine Bacteria 4+ Hyaline Casts >20 Stool Occult Blood Influenza Type A (PCR) NEGATIVE Influenza Type B (PCR) NEGATIVE RSV RNA Qual (PCR) NEGATIVE SARS-CoV-2 RNA (RT-PCR) NEGATIVE Blood Type A Positive Antibody Screen NEGATIVE Crossmatch See Detail 12/30/24 12/31/24 12/31/24 21:38 03:42 08:22 MCV 69.7 L D 71.8 L MCH 21.0 L 22.4 L MCHC 30.1 L 31.1 RDW 26.0 H 25.1 H Plt Count 326 331 MPV 9.4 9.5 Immature Gran % (Auto) Neut % (Auto) Lymph % (Auto) [place] % (Auto) Eos % (Auto) Baso % (Auto) Lymph # (Auto) [place] # (Auto) Eos # (Auto) Baso # (Auto) Abs Immat Gran (auto) Absolute Neuts (auto) Absolute Nucleated RBC 0.020 H 0.000 Nucleated RBC % (auto) 0.2 0.0 Neutrophils % (Manual) 74 H Band Neutrophils % 1 L Lymphocytes % (Manual) 18 L Monocytes % (Manual) 7 Abs Neuts (Manual) 6.8 Lymphocytes # (Manual) 1.6 Monocytes # (Manual) 0.6 Platelet Estimate NORMAL Plt Morphology Comment NORMAL RBC Morphology NOTED Polychromasia 2+ (3-5) Hypochromasia 2+ (15-30) Microcytosis 1+ (5-14) Tear Drop Cells 1+ (0-2) Schistocytes 1+ (0-2) VBG pH VBG pCO2 VBG pO2 VBG HCO3 VBG O2 Saturation VBG Base Excess Anion Gap 12 Estim Creat Clear Calc 40.9 Estimated GFR > 60 Random Glucose 83 Calcium 8.0 L D Magnesium Iron TIBC % Saturation Unsat Iron Binding Total Bilirubin 0.3 Direct Bilirubin AST 49 H ALT < 6 Alkaline Phosphatase 77 Ammonia Total Creatine Kinase Total Protein 9.6 H Albumin 2.1 L Vitamin B12 1774 H Folate 17.0 Urine Color Urine Appearance Urine pH Ur Specific [place] Urine Protein Urine Glucose (UA) Urine Ketones Urine Blood Urine Nitrite Ur Leukocyte Esterase Urine RBC Urine WBC Ur Squamous Epith Cells Urine Bacteria Hyaline Casts Stool Occult Blood NEGATIVE Influenza Type A (PCR) Influenza Type B (PCR) RSV RNA Qual (PCR) SARS-CoV-2 RNA (RT-PCR) Blood Type Antibody Screen Crossmatch Assessment and Plan (1) Constipation: Status: Acute Plan 74F PMH advanced Alzheimer's dementia nonverbal and bed-bound, osteoporosis, nephrolithiasis, chronic severe right-sided hydronephrosis, decubitus ulcers, dysphagia, recurrent UTI with chronic indwelling Cherry presented with episode of unresponsiveness Acute metabolic encephalopathy due to severe acute on chronic anemia Resolved, anemia improved with transfusions, likely primarily due to chronic inflammation Elevated troponin Demand ischemia due to severe anemia, no need for cardio eval Recurrent UTI due to chronic indwelling Cherry Continue ceftriaxone and follow up cultures Chronic severe right hydronephrosis Due to ureteral stone, discussed with Urology no plan for intervention Advanced Alzheimer's dementia At baseline DNR/DNI DVT prophylaxis-mechanical due to severe anemia reason for continued hospitalization: anemia Quality Stroke Does the patient have a stroke diagnosis?: No VTE Prior VTE?: No VTE Risk Level:: Medical - moderate - high VTE Device Contraindication: N/A - Device Ordered VTE Drug Contraindication: Treatment Not Tolerated
--- NOTE | 2024-12-31 14:19 | PM.UROCN ---
History of Present Illness Consult details Consult date: 12/31/24 Narrative: 74-year-old female with a past medical history of Alzheimer's dementia, osteoporosis, h/o stroke, nephrolithiasis, chronic severe right-sided hydronephrosis, decubitus ulcers, nonverbal, bed-bound, dysphagia-puree diet with the feeding assistance, recurrent UTI, chronic indwelling Peterson, lives with the family,on home oxygen at nighttime. Labs severe anemia, pt received transfusion. CTAP. 12/30/24--Marked right hydronephrosis, ureteral stone. Review of chart: Lasix renal scan--08/31/20--LEFT KIDNEY: Normal perfusion and function. Left 100% and RIGHT KIDNEY: Marked hydronephrosis is demonstrated by by a thin nonfunctioning cortical rim -right 0%. Review of Systems Review of Systems: Yes Unobtainable due to mental condition PMFSH Past Medical History Medical History Sacral decubitus ulcer, stage II Vitamin D deficiency Nephrolithiasis AD (Alzheimer's disease) Paget's bone disease Hyperparathyroidism Osteoporosis UTI (urinary tract infection) GERD (gastroesophageal reflux disease) Hypertension Dementia CVA (cerebral vascular accident) Nephrolithiasis Family History Family History Father No problems noted. Mother No problems noted. Maternal Grandmother Cancer Surgical History Surgical History H/O bilateral breast reduction surgery History of lithotripsy History of tubal ligation H/O rectal polypectomy History of hip surgery Hx of tonsillectomy H/O: hysterectomy History of cystoscopy Social History Social History Household Members: Family Household Members Other:: daughter Housing: House Do you presently have visiting nurse or other home services: Yes Unable to assess alcohol history related to: Unable to respond Alcohol intake: never Comment: camera in room Patient Tobacco Use Status: Never used Tobacco e-Cigarette/Vaping Use: Never Used Second Hand Smoke Exposure: No Advance Directives Date on File: 12/23/22 service: No Current occupational status: disabled Cognitive needs: Yes (wheelchair chair) Hearing needs: No Vision needs: No Meds Allergies Allergy/AdvReac Type Severity Reaction Status Date / Time morphine [MORPHINE] Allergy Mild NAUSEA & Verified 10/05/24 13:06 VOMITING, vomiting Active Medications: Current Medications Acetaminophen (Acetaminophen 325 Mg Tablet) 650 mg PO Q6H PRN PRN Reason: Pain, Mild 1-3,fever,headache Ascorbic Acid (Ascorbic Acid 500 Mg Tablet) 1,000 mg PO DAILY [facility] Ceftriaxone Sodium (Ceftriaxone Sodium 1 Gm Vial) 1 gm IVPUSH BEDTIME [facility] Escitalopram Oxalate (Escitalopram Oxalate 5 Mg Tablet) 5 mg PO DAILY [facility] Last Admin: 12/31/24 09:36 Dose: 5 mg Dextrose/Sodium Chloride (D5ns) 1,000 mls @ 50 mls/hr IVCONT .Q20H [facility] Last Infusion: 12/31/24 07:16 Dose: 50 mls/hr Memantine (Memantine Hcl 5 Mg Tablet) 5 mg PO DAILY [facility] Last Admin: 12/31/24 09:36 Dose: 5 mg Omeprazole (Omeprazole 20 Mg Capsule.Dr) 20 mg PO DAILY@0630 [facility] Pantoprazole Sodium (Pantoprazole Sodium 40 Mg/10 Ml Vial) 40 mg IVPUSH DAILY@0630 [facility] Last Admin: 12/31/24 07:22 Dose: 40 mg Topiramate (Topiramate 25 Mg Tablet) 50 mg PO DAILY [facility] Last Admin: 12/31/24 09:36 Dose: 50 mg Vitamin D (Cholecalciferol (Vitamin D3) 25 Mcg Tablet) 50 mcg PO DAILY [facility] Home Medications ?Medication ?Instructions ?Recorded ?Confirmed ?Last Taken ?Type hydrocolloid dressing 6 X 6 12/05/21 04/06/24 Unknown History (Durafiber Dressing) Physical Exam Vital Signs: Vital Signs: Last Vital Signs Temp 98.5 F 12/31/24 11:38 Pulse 73 12/31/24 11:38 Resp 18 12/31/24 11:38 BP 154/70 H 12/31/24 11:38 Pulse Ox 98 12/31/24 11:38 O2 Del Method Room Air 12/31/24 11:38 BMI result Body Mass Index 18.0 Results Labs 12/31/24 08:22 12/31/24 03:42 Labs: Abnormal lab results 12/30/24 12/30/24 12/30/24 Range/Units 18:03 18:13 18:43 WBC 12.9 H (4.8-10.8) X10*3/uL RBC 2.37 L (4.20-5.50) X10*6/uL Hgb 3.9 L* (12.0-16.0) g/dl Hct 15.0 L* (37.0-47.0) % MCV 63.3 L (80.0-98.0) fL MCH 16.5 L (27.0-33.0) pg MCHC 26.0 L (31.0-35.0) g/dl RDW 21.7 H (11.0-16.0) % MPV 9.3 L (9.4-12.3) fL Immature Gran % (Auto) 0.7 H (0.0-0.4) % Neut % (Auto) 84.9 H (45-73) % Lymph % (Auto) 6.7 L (20-40) % Lymph # (Auto) 0.9 L (1.2-4.9) X10*3/uL Abs Immat Gran (auto) 0.09 H (0.00-0.03) X10*3/uL Absolute Neuts (auto) 10.9 H (2.0-8.3) x10*3/uL Absolute Nucleated RBC 0.020 H (0.0-0.012) X10*3/uL Neutrophils % (Manual) (45-73) % Band Neutrophils % (3-5) % Lymphocytes % (Manual) (20-40) % VBG pH 7.44 H (7.32-7.43) VBG HCO3 19 L (22-26) mmol/L Sodium 134 L (135-145) mmol/L Chloride (96-108) mmol/L Carbon Dioxide 19 L (22-29) mmol/L BUN 22 H (9-16) mg/dL Random Glucose 155 H (60-115) mg/dL Calcium (8.4-10.2) mg/dL Iron 21 L (30-160) mcg/dL TIBC 188 L (228-428) mcg/dL % Saturation 11 L (15-50) % AST 54 H (5-31) U/L Troponin I High Sens 27.5 H (<3.5-17.0) ng/L Total Protein 11.8 H (6.5-8.0) g/dL Albumin 2.4 L (3.5-5.0) g/dL Vitamin B12 (200-900) pg/mL Urine Protein 100 (2+) H (Neg-Trace) mg/dL Urine Blood Large (3+) H (Negative) Urine Nitrite Positive H (Negative) Ur Leukocyte Esterase Large (3+) H (Negative) Urine RBC >20 H (0-2) /HPF Urine WBC >50 H (0-5) /HPF Crossmatch See Detail 12/30/24 12/31/24 12/31/24 Range/Units 21:10 00:04 03:32 WBC (4.8-10.8) X10*3/uL RBC (4.20-5.50) X10*6/uL Hgb 5.6 L* D (12.0-16.0) g/dl Hct 18.3 L* D (37.0-47.0) % MCV (80.0-98.0) fL MCH (27.0-33.0) pg MCHC (31.0-35.0) g/dl RDW (11.0-16.0) % MPV (9.4-12.3) fL Immature Gran % (Auto) (0.0-0.4) % Neut % (Auto) (45-73) % Lymph % (Auto) (20-40) % Lymph # (Auto) (1.2-4.9) X10*3/uL Abs Immat Gran (auto) (0.00-0.03) X10*3/uL Absolute Neuts (auto) (2.0-8.3) x10*3/uL Absolute Nucleated RBC (0.0-0.012) X10*3/uL Neutrophils % (Manual) (45-73) % Band Neutrophils % (3-5) % Lymphocytes % (Manual) (20-40) % VBG pH (7.32-7.43) VBG HCO3 (22-26) mmol/L Sodium (135-145) mmol/L Chloride (96-108) mmol/L Carbon Dioxide (22-29) mmol/L BUN (9-16) mg/dL Random Glucose (60-115) mg/dL Calcium (8.4-10.2) mg/dL Iron (30-160) mcg/dL TIBC (228-428) mcg/dL % Saturation (15-50) % AST (5-31) U/L Troponin I High Sens 87.6 H* D 96.1 H* (<3.5-17.0) ng/L Total Protein (6.5-8.0) g/dL Albumin (3.5-5.0) g/dL Vitamin B12 (200-900) pg/mL Urine Protein (Neg-Trace) mg/dL Urine Blood (Negative) Urine Nitrite (Negative) Ur Leukocyte Esterase (Negative) Urine RBC (0-2) /HPF Urine WBC (0-5) /HPF Crossmatch 12/31/24 12/31/24 Range/Units 03:42 08:22 WBC (4.8-10.8) X10*3/uL RBC 2.67 L 3.40 L D (4.20-5.50) X10*6/uL Hgb 5.6 L* 7.6 L D (12.0-16.0) g/dl Hct 18.6 L* 24.4 L D (37.0-47.0) % MCV 69.7 L D 71.8 L (80.0-98.0) fL MCH 21.0 L 22.4 L (27.0-33.0) pg MCHC 30.1 L (31.0-35.0) g/dl RDW 26.0 H 25.1 H (11.0-16.0) % MPV (9.4-12.3) fL Immature Gran % (Auto) (0.0-0.4) % Neut % (Auto) (45-73) % Lymph % (Auto) (20-40) % Lymph # (Auto) (1.2-4.9) X10*3/uL Abs Immat Gran (auto) (0.00-0.03) X10*3/uL Absolute Neuts (auto) (2.0-8.3) x10*3/uL Absolute Nucleated RBC 0.020 H (0.0-0.012) X10*3/uL Neutrophils % (Manual) 74 H (45-73) % Band Neutrophils % 1 L (3-5) % Lymphocytes % (Manual) 18 L (20-40) % VBG pH (7.32-7.43) VBG HCO3 (22-26) mmol/L Sodium (135-145) mmol/L Chloride 110 H (96-108) mmol/L Carbon Dioxide 20 L (22-29) mmol/L BUN 20 H (9-16) mg/dL Random Glucose (60-115) mg/dL Calcium 8.0 L D (8.4-10.2) mg/dL Iron (30-160) mcg/dL TIBC (228-428) mcg/dL % Saturation (15-50) % AST 49 H (5-31) U/L Troponin I High Sens 66.4 H* (<3.5-17.0) ng/L Total Protein 9.6 H (6.5-8.0) g/dL Albumin 2.1 L (3.5-5.0) g/dL Vitamin B12 1774 H (200-900) pg/mL Urine Protein (Neg-Trace) mg/dL Urine Blood (Negative) Urine Nitrite (Negative) Ur Leukocyte Esterase (Negative) Urine RBC (0-2) /HPF Urine WBC (0-5) /HPF Crossmatch Short CBC 12/30/24 12/31/24 12/31/24 Range/Units 18:03 03:32 03:42 WBC 12.9 H 9.1 (4.8-10.8) X10*3/uL Hgb 3.9 L* 5.6 L* D 5.6 L* (12.0-16.0) g/dl Hct 15.0 L* 18.3 L* D 18.6 L* (37.0-47.0) % Plt Count 393 326 (160-400) X10*3/uL 12/31/24 Range/Units 08:22 WBC 9.1 (4.8-10.8) X10*3/uL Hgb 7.6 L D (12.0-16.0) g/dl Hct 24.4 L D (37.0-47.0) % Plt Count 331 (160-400) X10*3/uL BMP 12/30/24 12/31/24 18:03 03:42 Sodium 134 L 138 Potassium 4.8 4.1 Chloride 106 110 H Carbon Dioxide 19 L 20 L BUN 22 H 20 H Creatinine 0.87 0.85 Calcium 8.7 8.0 L D Cardiac Enzymes 12/30/24 Range/Units 18:03 Total Creatine Kinase 35 (26-140) U/L Liver Function 12/30/24 12/31/24 Range/Units 18:03 03:42 Total Bilirubin 0.1 0.3 (0.0-1.0) mg/dL Direct Bilirubin < 0.2 (0.0-0.5) mg/dL AST 54 H 49 H (5-31) U/L ALT 8 < 6 (0-31) U/L Alkaline Phosphatase 94 77 (39-117) U/L Albumin 2.4 L 2.1 L (3.5-5.0) g/dL Urine 12/30/24 Range/Units 18:03 Urine Color Yellow Urine Appearance Turbid Urine pH 5.5 (5.0-9.0) Ur Specific [place] 1.020 (1.005-1.025) Urine Protein 100 (2+) H (Neg-Trace) mg/dL Urine Glucose (UA) Negative (Negative) mg/dL Imaging Abdomen CT scan report/results: report reviewed and image reviewed CT scan - pelvis: report reviewed and image reviewed Additional studies: Date of Service: 12/30/24 CLINICAL HISTORY: hb 3.[address] abdomen and pelvis with contrast Comparison: None Findings: Moderate atherosclerotic vascular disease mostly involving the aortoiliac system. Associated moderate bilateral proximal renal artery stenoses. Mesenteric arteries are patent. Small left pleural effusion. Scattered atelectasis both lower lungs. Moderate to large amount of stool, especially at the rectum. Chronic severe right hydronephrosis with enlarged kidney up to 18.5 cm in length. There are a few scattered nonobstructing renal stones. There is an obstructing 6 mm distal ureteral stone on image 177. There is significant urothelial thickening, especially at the ureter. Significant periureteral fat stranding. Gallbladder and solid organs are otherwise unremarkable. No bowel obstruction, pneumoperitoneum, or pneumatosis. Generalized body wall edema. Pelvic contents unremarkable. Normal appendix. Peterson catheter decompresses urinary bladder. 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 Old left proximal femur fracture with open reduction internal fixation. No hardware complications. Bones osteopenic. No acute fracture or dislocation. IMPRESSION: 1. No active GI bleed. 2. Severe chronic right renal hydronephrosis with obstructing distal ureteral 6 mm stone. There is significant urothelial thickening and periureteral fat stranding which may be due to a secondary urinary tract infection. 3. [id number] amount of stool without bowel obstruction. 4. Small left pleural effusion of uncertain etiology. 5. Additional findings as above. Assessment and Plan (1) Urinary tract infection: Status: Acute (2) Hydronephrosis, right: Status: Acute (3) Ureteral stone: Status: Acute (4) Alzheimer dementia: Status: Acute (5) Anemia: Qualifiers: Anemia type: unspecified type Qualified Code(s): D64.9 - Anemia, unspecified Status: Acute (6) Constipation: Status: Acute (7) Chronic indwelling Peterson catheter: Status: Acute Plan Pt with alzheimer dementia, debilitated, h/o stroke, nonverbal, h/o chronic peterson, Chronic right hydro with ureteral stone, non functional right kidney. Chemistry lab data indicate overal renal function is stable. Cont IV abx for UTI. Procedures Date of Service Date of Service: 12/31/24
[2024-12-31] MEDS: Acetaminophen 325 MG TABLET 650 MG PO (19:32)
[2024-12-31] MEDS: cefTRIAXone sodium 1 GM VIAL IVPUSH (19:32)
[2025-01-01] MEDS: Dextrose 5 % and 0.9 % NaCl 1,000 ML 50 ML IVCONT ×2 (01:11→18:09)
[2025-01-01 03:02] VITALS: BP 140/63; PULSE 90; RESP 22; TEMP 37.6; O2SAT 97
[2025-01-01] MEDS: Pantoprazole Sodium 40 MG/10 ML VIAL IVPUSH (05:54)
[2025-01-01 06:13] LABS: Hematocrit 23.2 % (37.0-47.0); Mean Corpuscular HGB Conc 30.2 g/dl (31.0-35.0); Mean Corpuscular Hemoglobin 21.7 pg (27.0-33.0); Mean Platelet Volume 9.6 fL (9.4-12.3); Platelet Count 317 X10*3/uL (160-400); Red Blood Count 3.22 X10*6/uL (4.20-5.50); Red Cell Distribution Width 25.5 % (11.0-16.0); White Blood Count 10.8 X10*3/uL (4.8-10.8)
[2025-01-01 06:28] LABS: Anion Gap 10 (12-20); Blood Urea Nitrogen 16 mg/dL (9-16); Calcium 8.1 mg/dL (8.4-10.2); Carbon Dioxide 19 mmol/L (22-29); Chloride 111 mmol/L (96-108); Creatinine Clr Calc Pharmacy 40.9; Estimated Glomerular Filt Rate > 60; Glucose Random 88 mg/dL (60-115); Potassium 3.6 mmol/L (3.3-5.1); Sodium 136 mmol/L (135-145)
[2025-01-01 07:16] VITALS: BP 137/63; PULSE 92; RESP 18; TEMP 37.6; O2SAT 96
--- NOTE | 2025-01-01 09:56 | HO.PM.IMPN ---
Subjective Subjective Date of Service: 01/01/25 Review of Systems Review of Systems: Yes Unobtainable due to mental condition Physical Exam Vital Signs: Vital Signs: Last Vital Signs Temp 99.7 F 01/01/25 07:16 Pulse 92 01/01/25 07:16 Resp 18 01/01/25 07:16 BP 137/63 01/01/25 07:16 Pulse Ox 96 01/01/25 07:16 O2 Del Method Room Air 01/01/25 07:16 BMI result Body Mass Index 18.0 Alert, nonverbal, no acute distress Objective Data Active Medications Acetaminophen (Acetaminophen 325 Mg Tablet) 650 mg PO Q6H PRN PRN Reason: Pain, Mild 1-3,fever,headache Last Admin: 12/31/24 19:32 Dose: 650 mg Documented By: GEO Ascorbic Acid (Ascorbic Acid 500 Mg Tablet) 1,000 mg PO DAILY [facility] Ceftriaxone Sodium (Ceftriaxone Sodium 1 Gm Vial) 1 gm IVPUSH BEDTIME [facility] Last Admin: 12/31/24 19:32 Dose: 1 gm Documented By: GEO Escitalopram Oxalate (Escitalopram Oxalate 5 Mg Tablet) 5 mg PO DAILY [facility] Last Admin: 12/31/24 09:36 Dose: 5 mg Documented By: KRISTEN Dextrose/Sodium Chloride (D5ns) 1,000 mls @ 50 mls/hr IVCONT .Q20H [facility] Last Admin: 01/01/25 01:11 Dose: 50 mls/hr Documented By: GEO Memantine (Memantine Hcl 5 Mg Tablet) 5 mg PO DAILY [facility] Last Admin: 12/31/24 09:36 Dose: 5 mg Documented By: KRISTEN Omeprazole (Omeprazole 20 Mg Capsule.Dr) 20 mg PO DAILY@0630 [facility] Last Admin: 01/01/25 05:39 Dose: Not Given Documented By: GEO Non-Admin Reason: pt refusing to open mouth to take meds Topiramate (Topiramate 25 Mg Tablet) 50 mg PO DAILY [facility] Last Admin: 12/31/24 09:36 Dose: 50 mg Documented By: KRISTEN Vitamin D (Cholecalciferol (Vitamin D3) 25 Mcg Tablet) 50 mcg PO DAILY [facility] Labs 01/01/25 05:33 01/01/25 05:33 Labs: Laboratory Results - last 24 hr 01/01/25 05:33 MCV 72.0 L MCH 21.7 L MCHC 30.2 L RDW 25.5 H Plt Count 317 MPV 9.6 Absolute Nucleated RBC 0.000 Nucleated RBC % (auto) 0.0 Anion Gap 10 L Estim Creat Clear Calc 40.9 Estimated GFR > 60 Random Glucose 88 Calcium 8.1 L Microbiology Microbiology Results: Microbiology 12/30/24 Unknown Urine Culture - Final Urine clean catch - Clean Catch Midstream Escherichia coli Assessment and Plan (1) Constipation: Status: Acute Plan 74F PMH advanced Alzheimer's dementia nonverbal and bed-bound, osteoporosis, nephrolithiasis, chronic severe right-sided hydronephrosis, decubitus ulcers, dysphagia, recurrent UTI with chronic indwelling Cherry presented with episode of unresponsiveness Acute metabolic encephalopathy due to severe acute on chronic anemia Resolved, anemia improved with transfusions, likely primarily due to chronic inflammation continue to monitor, transfuse if hgb < 7 Elevated troponin Demand ischemia due to severe anemia Recurrent UTI due to chronic indwelling Cherry Continue ceftriaxone culture negative Chronic severe right hydronephrosis Due to ureteral stone, discussed with Urology no plan for intervention Advanced Alzheimer's dementia At baseline DNR/DNI DVT prophylaxis-mechanical due to severe anemia reason for continued hospitalization: anemia Quality Stroke Does the patient have a stroke diagnosis?: No VTE Prior VTE?: No VTE Risk Level:: Medical - moderate - high VTE Device Contraindication: N/A - Device Ordered VTE Drug Contraindication: Treatment Not Tolerated
[2025-01-01] MEDS: Ascorbic Acid 500 MG TABLET 1000 MG PO (10:20)
[2025-01-01] MEDS: Omeprazole 20 MG CAPSULE.DR PO (10:20)
[2025-01-01] MEDS: Escitalopram Oxalate 5 MG TABLET PO (10:20)
[2025-01-01] MEDS: Cholecalciferol (Vitamin D3) 25 MCG TABLET 50 MCG PO (10:21)
[2025-01-01] MEDS: Topiramate 25 MG TABLET 50 MG PO (10:21)
[2025-01-01] MEDS: Memantine HCl 5 MG TABLET PO (10:21)
[2025-01-01 11:37] VITALS: BP 145/65; PULSE 98; RESP 18; TEMP 37.4; O2SAT 98
[2025-01-01] MEDS: Acetaminophen 325 MG TABLET 650 MG PO (14:03)
[2025-01-01 15:50] VITALS: BP 129/62; PULSE 72; RESP 18; TEMP 36.8; O2SAT 100
--- NOTE | 2025-01-01 16:36 | MHC.CM.PN ---
Addendum entered by Whitney Bruno 01/01/25 16:41: PT ALSO HAS O2 FROM [place] SHE USES PRN Original Note: CM MET WITH PTS DAUGHTER/HCP/LEGAL GUARDIAN, BONIFACIO AT BEDSIDE SHE REPORTS THE PT LIVES WITH HER AND HAS DAILY [facility] AND WEEKLY [facility] SHE SAYS PT IS DEPENDENT FOR CARE AND BED BOUND, SHE HAS CARE 24/ GUARDIANSHIP AND HCP ARE ON FILE PCP: CURRENTLY KERMIT KAUR, HOWEVER HE IS RETIRING SO THEY ARE UNSURE WHO IT WILL BE IMM DELIVERED DCP: HOME, RESUME [facility] AND [facility] BLS TRANSPORT
[2025-01-01 20:00] VITALS: PULSE 89; RESP 16; TEMP 37.1; O2SAT 100
[2025-01-01] MEDS: cefTRIAXone sodium 1 GM VIAL IVPUSH (20:44)
[2025-01-01 23:34] VITALS: BP 136/62; PULSE 89; RESP 16; TEMP 36.9; O2SAT 97
[2025-01-02 03:27] VITALS: BP 143/64; PULSE 80; RESP 16; O2SAT 99
[2025-01-02 07:50] VITALS: BP 152/61; PULSE 91; RESP 18; TEMP 36.9; O2SAT 98
[2025-01-02] MEDS: Cholecalciferol (Vitamin D3) 25 MCG TABLET 50 MCG PO (09:00)
[2025-01-02] MEDS: Ascorbic Acid 500 MG TABLET 1000 MG PO (09:00)
[2025-01-02] MEDS: Escitalopram Oxalate 5 MG TABLET PO (09:00)
[2025-01-02] MEDS: Memantine HCl 5 MG TABLET PO (09:00)
[2025-01-02] MEDS: Topiramate 25 MG TABLET 50 MG PO (09:00)
[2025-01-02 09:49] LABS: Hematocrit 26.9 % (37.0-47.0); Hemoglobin 7.7 g/dl (12.0-16.0); Mean Corpuscular HGB Conc 28.6 g/dl (31.0-35.0); Mean Corpuscular Hemoglobin 21.5 pg (27.0-33.0); Mean Corpuscular Volume 75.1 fL (80.0-98.0); Mean Platelet Volume 9.3 fL (9.4-12.3); Platelet Count 310 X10*3/uL (160-400); Red Blood Count 3.58 X10*6/uL (4.20-5.50); Red Cell Distribution Width 26.1 % (11.0-16.0); White Blood Count 10.1 X10*3/uL (4.8-10.8)
--- NOTE | 2025-01-02 09:50 | HO.PM.IMPN ---
Subjective Subjective Date of Service: 01/02/25 Review of Systems Review of Systems: Yes Unobtainable due to mental condition Physical Exam Vital Signs: Vital Signs: Last Vital Signs Temp 98.5 F 01/02/25 07:50 Pulse 91 01/02/25 07:50 Resp 18 01/02/25 07:50 BP 152/61 H 01/02/25 07:50 Pulse Ox 98 01/02/25 07:50 O2 Del Method Room Air 01/02/25 07:50 BMI result Body Mass Index 18.0 Alert, nonverbal, no acute distress Objective Data Active Medications Acetaminophen (Acetaminophen 325 Mg Tablet) 650 mg PO Q6H PRN PRN Reason: Pain, Mild 1-3,fever,headache Last Admin: 01/01/25 14:03 Dose: 650 mg Documented By: KENAN Comments: fever 100.6 Ascorbic Acid (Ascorbic Acid 500 Mg Tablet) 1,000 mg PO DAILY [facility] Last Admin: 01/02/25 09:00 Dose: 1,000 mg Documented By: MARCIA Ceftriaxone Sodium (Ceftriaxone Sodium 1 Gm Vial) 1 gm IVPUSH BEDTIME [facility] Last Admin: 01/01/25 20:44 Dose: 1 gm Documented By: JACLYN Escitalopram Oxalate (Escitalopram Oxalate 5 Mg Tablet) 5 mg PO DAILY [facility] Last Admin: 01/02/25 09:00 Dose: 5 mg Documented By: MARCIA Memantine (Memantine Hcl 5 Mg Tablet) 5 mg PO DAILY [facility] Last Admin: 01/02/25 09:00 Dose: 5 mg Documented By: MARCIA Omeprazole (Omeprazole 20 Mg Capsule.) 20 mg PO DAILY@0630 [facility] Last Admin: 01/01/25 10:20 Dose: 20 mg Documented By: KENAN Topiramate (Topiramate 25 Mg Tablet) 50 mg PO DAILY [facility] Last Admin: 01/02/25 09:00 Dose: 50 mg Documented By: MARCIA Vitamin D (Cholecalciferol (Vitamin D3) 25 Mcg Tablet) 50 mcg PO DAILY [facility] Last Admin: 01/02/25 09:00 Dose: 50 mcg Documented By: MARCIA Labs 01/02/25 09:27 01/01/25 05:33 Labs: Laboratory Results - last 24 hr 01/02/25 09:27 MCV 75.1 L MCH 21.5 L MCHC 28.6 L RDW 26.1 H Plt Count 310 MPV 9.3 L Absolute Nucleated RBC 0.000 Nucleated RBC % (auto) 0.0 Microbiology Microbiology Results: Microbiology 12/30/24 Unknown Urine Culture - Final Urine clean catch - Clean Catch Midstream Escherichia coli Assessment and Plan (1) Constipation: Status: Acute Plan 74F PMH advanced Alzheimer's dementia nonverbal and bed-bound, osteoporosis, nephrolithiasis, chronic severe right-sided hydronephrosis, decubitus ulcers, dysphagia, recurrent UTI with chronic indwelling Cherry presented with episode of unresponsiveness Acute metabolic encephalopathy due to severe acute on chronic anemia Resolved, anemia improved with transfusions, likely primarily due to chronic inflammation continue to monitor, transfuse if hgb < 7 Elevated troponin Demand ischemia due to severe anemia Recurrent UTI due to chronic indwelling Cherry Continue ceftriaxone culture pansensitive E coli Chronic severe right hydronephrosis Due to ureteral stone, discussed with Urology no plan for intervention Advanced Alzheimer's dementia At baseline DNR/DNI DVT prophylaxis-mechanical due to severe anemia reason for continued hospitalization: Safe dispo Quality Stroke Does the patient have a stroke diagnosis?: No VTE Prior VTE?: No VTE Risk Level:: Medical - moderate - high VTE Device Contraindication: N/A - Device Ordered VTE Drug Contraindication: Treatment Not Tolerated
[2025-01-02 10:04] LABS: Anion Gap 11 (12-20); Blood Urea Nitrogen 13 mg/dL (9-16); Calcium 8.3 mg/dL (8.4-10.2); Carbon Dioxide 19 mmol/L (22-29); Chloride 114 mmol/L (96-108); Creatinine Clr Calc Pharmacy 41.8; Estimated Glomerular Filt Rate > 60; Glucose Random 114 mg/dL (60-115); Potassium 3.6 mmol/L (3.3-5.1); Sodium 140 mmol/L (135-145)
--- NOTE | 2025-01-02 10:16 | PM.DS ---
DS: Providers Provider Date of Service: 01/02/25 Date of admission: 12/31/24 01:14 Date of discharge: 01/02/25 Primary care physician: Unknown Physician Consults: 12/31/24 07:57 Consult to Urology Routine Consulting Provider: [facility] Reason for consultation: obstructing stone DS: Diagnosis Discharge Diagnosis (1) Constipation: Status: Acute DS: Summary Hospital Course Hospital Course: from initial hpi: 74-year-old female with a past medical history of Alzheimer's dementia, osteoporosis, nephrolithiasis, chronic severe right-sided hydronephrosis, decubitus ulcers, nonverbal, bed-bound, dysphagia-puree Diet with the feeding assistance, recurrent UTI, chronic indwelling Cherry, lives with the family, anemia, on home oxygen at nighttime, presented to the hospital today with a chief complaint of brief unresponsive episode. Most of the history obtained from the patient's family at bedside. Reportedly patient was sitting on the table, her was feeding and suddenly patient became unresponsive, turned blue; placed her on the home oxygen; subsequently called the EMS team; patient was noted to be mildly hypoxic subsequently brought her to the hospital for further evaluation. Denies patient complaining of any fevers. Reports patient was diagnosed with UTI last week and was about to start on cefpodoxime. Her Cherry was since last week. Reports patient has known history of dysphagia and is on puree diet-family members feeds her. Reports that patient has known decubitus ulcers and family changes the dressings regularly. No concern for new infection. Review of all other systems is limited. ER course: Per ER team, patient was alert awake, nonverbal lying in the bed comfortably on presentation. Mental status is at her baseline-confirmed by the family. CT head and CT C-spine were done which showed acute findings; CT head showed possible mastoiditis. EKG was nonischemic. Troponins elevated from 27-97. Patient does not appear to be in pain. Presumed to be secondary to demand from severe anemia. CT abdomen pelvis was done which showed known chronic right-sided hydronephrosis with ureteral stones. Severe constipation-disimpacted partially in the ER. On labs noted to have severe anemia of hemoglobin 3.9. Patient baseline hemoglobin around 7-8. Stool guaiac was negative per ER team. Patient being ordered for 2 units of blood transfusion. hospital course: Patient was admitted for acute metabolic encephalopathy due to severe acute on chronic anemia that was mostly consistent with chronic inflammation, some element of chronic iron deficiency as well. Patient was transfused and hemoglobin improved appropriately and remained stable between 7 and 8. Elevated troponin due to demand ischemia from severe anemia, no evidence of acute coronary syndrome. For recurrent UTI due to chronic indwelling Cherry was treated ceftriaxone, culture grew pansensitive E coli and will be discharged on 3 more days of Ceftin. For chronic severe right hydronephrosis due to ureteral stone case was discussed with Urology and given chronicity no plan for intervention. For advanced Alzheimer's dementia patient returned to baseline and will be discharged home. Time Attestation Discharge Coordination Time (in mins): 33 Quality: Safe Use of Opioids Does Pt have an Active Cancer Diagnosis on the Problem List?: No Quality: Stroke Does the patient have a stroke diagnosis?: No Physical Exam Vital Signs: Vital Signs: Last Vital Signs Temp 98.5 F 01/02/25 07:50 Pulse 91 01/02/25 07:50 Resp 18 01/02/25 07:50 BP 152/61 H 01/02/25 07:50 Pulse Ox 98 01/02/25 07:50 O2 Del Method Room Air 01/02/25 07:50 BMI result Body Mass Index 18.0 Alert, nonverbal, no acute distress DS: Data Data Completed and Pending Completed studies during hospitalization [Text1]: Procedures Dilation of Right Ureter with Intraluminal Device, Via Natural or Artificial Opening Endoscopic (07/17/20) Extirpation of Matter from Right Ureter, Via Natural or Artificial Opening Endoscopic (07/17/20) Fluoroscopy of Right Kidney, Ureter and Bladder (07/17/20) Insertion of Infusion Device into Superior Vena Cava, Percutaneous Approach (11/18/21) Introduction of Remdesivir Anti-infective into Peripheral Vein, Percutaneous Approach, [employer] (11/18/21) Transfusion of Nonautologous Red Blood Cells into Peripheral Vein, Percutaneous Approach (12/18/22) Labs on day of discharge: Laboratory Results - last 24 hr 01/02/25 09:27 WBC 10.1 RBC 3.58 L Hgb 7.7 L Hct 26.9 L MCV 75.1 L MCH 21.5 L MCHC 28.6 L RDW 26.1 H Plt Count 310 MPV 9.3 L Absolute Nucleated RBC 0.000 Nucleated RBC % (auto) 0.0 Sodium 140 Potassium 3.6 Chloride 114 H Carbon Dioxide 19 L Anion Gap 11 L BUN 13 Creatinine 0.83 Estim Creat Clear Calc 41.8 Estimated GFR > 60 Random Glucose 114 Calcium 8.3 L Discharge Plan Discharge Anticipated Discharge Date/Time: 01/02/25 10:14 Patient Disposition: Home, Self-Care Discharge Diagnosis: anemia, uti Referrals: Physician,Unknown J [Primary Care Provider] - 1 Week Discharge Medications: New cefuroxime axetil 500 mg tablet 500 mg PO BID Qty: 6 0RF Continued (DME) hydrocolloid dressing [Durafiber Dressing] 6 X 6 bandage See Rx Instructions .Route Rx Instructions: To use for wound care (DME) gloves See Rx Instructions .Route .MEDSUPPLY Qty: 1 0RF Rx Instructions: large (DME) disposable bed pads See Rx Instructions .Route .MEDSUPPLY Qty: 50 5RF Rx Instructions: As directed (DME) gloves See Rx Instructions .Route .MEDSUPPLY Qty: 1 5RF Rx Instructions: medium (DME) gauze bandage [Band-Aid Gauze Pads] 2 X 2 bandage See Rx Instructions .Route Qty: 2400 3RF Rx Instructions: As directed (DME) gauze bandage 4 X 4 bandage See Rx Instructions .Route Qty: 100 12RF Rx Instructions: As directed (DME) adhesive tape [Paper Tape] 1 X 10 -yard tape See Rx Instructions .Route Qty: 2 12RF Rx Instructions: As directed (DME) adhesive tape 1 1/2 X 10 -yard tape See Rx Instructions .Route Qty: 4 5RF Rx Instructions: As directed (DME) sheep skin elbow protectors See Rx Instructions .Route .MEDSUPPLY Qty: 2 0RF Rx Instructions: As directed memantine 5 mg tablet 5 mg PO BID Qty: 180 0RF cholecalciferol (vitamin D3) 50 mcg (2,000 unit) tablet 50 mcg PO DAILY Qty: 90 0RF omeprazole 20 mg capsule,delayed release(DR/EC) 20 mg PO DAILY@0630 Qty: 30 0RF citalopram 10 mg tablet 10 mg PO DAILY Qty: 30 0RF aspirin 81 mg tablet,chewable 1 tab PO DAILY Qty: 30 0RF topiramate 50 mg tablet 50 mg PO BEDTIME Qty: 90 0RF (DME) gauze bandage [Band-Aid Gauze Pads] 2 X 2 bandage See Rx Instructions .Route Qty: 150 0RF Rx Instructions: to use for wound care methenamine hippurate 1 gram tablet 1 g PO DAILY 90 Days Qty: 90 1RF ascorbic acid (vitamin C) 1,000 mg tablet 1 g PO DAILY 90 Days Qty: 90 1RF Discharge Orders: Discharge Order (Routine); Ordered 01/02/25 Ordered By: Rasta Herman Diet: Advance to usual diet Activity on Discharge: As tolerated Stand Alone Forms: Patient Portal Discharge page Print Language: Bulgarian Care Plan Goals: recovery Health Concerns: chornic ulcer, anemia, uti Plan of Treatment: 3 more days ceftin, local wound care, monitor anemia - tranfuse as needed Assessment: see above
--- NOTE | 2025-01-02 10:51 | MHC.CM.PN ---
Pt has been medically cleared, she will go home via BLS, she is cared for by her family, and has [facility], referral sent via careport to update them.
--- NOTE | 2025-01-02 11:14 | MHC.SLORD ---
Speech Language Pathology Order Status: RN requested bedside swallow evaluation as pt was on HTL and daughter reported pt drinks thin liquids. Pt sleeping when ROLLWAY MAN arrived, daughter said pt is drinking regular liquids and will be discharged today with services. Daughter politely declined bedside evaluation, ROLLWAY MAN provided education on aspiration precautions and overt s/s of airway compromise to be aware of when assisting pt with PO. MD and RN notified.
[2025-01-02 11:37] VITALS: BP 136/64; PULSE 87; RESP 17; TEMP 36.7; O2SAT 98
== END 2025-01-02 15:02 | disposition home or self-care (01) | DRG 698 ==
LOC: HO.ED 12-31 00:58 → HO.EDOVER 12-31 01:20 → HO.IMC 12-31 08:05
PROVIDERS: Physician Assistant; Admitting Provider Hospitalist; Emergency Provider Emergency Medicine; PCP Internal Medicine; Visit Provider Internal Medicine
DX: T83.511A Infection and inflammatory reaction due to indwelling urethral catheter, initial encounter (principal); G93.41 Metabolic encephalopathy; N13.6 Pyonephrosis; K59.00 Constipation, unspecified; G30.9 Alzheimer's disease, unspecified; D50.9 Iron deficiency anemia, unspecified; Z66 Do not resuscitate; L89.109 Pressure ulcer of unspecified part of back, unspecified stage; B96.20 Unspecified Escherichia coli [E. coli] as the cause of diseases classified elsewhere; R13.10 Dysphagia, unspecified; F02.80 Dementia in other diseases classified elsewhere, unspecified severity, without behavioral disturbance, psychotic disturbance, mood disturbance, and anxiety; Z74.01 Bed confinement status; Z20.822 Contact with and (suspected) exposure to COVID-19; Z87.440 Personal history of urinary (tract) infections; Z79.82 Long term (current) use of aspirin; Z79.899 Other long term (current) drug therapy
CPT/HCPCS: 0241U; 36415; 70450; 71045; 72125; 74178; 80048; 80053; 80076; 81001; 82140; 82272; 82550; 82607; 82746; 82803; 83540; 83735; 84484; 85007; 85014; 85018; 85025; 85027; 86850; 86900; 86901; 86923; 87086; 87088; 87186; 93005; 99285; J0696; J2470; P9016; Q9957; Q9967

== ENCOUNTER → 2024-12-30 17:31 | Outpatient (BNV) | payer OTHER, SELFPAY | PROVIDERS: Emergency Provider Emergency Medicine; Visit Provider Radiology Diagnostic Radiology | DX: N13.2 Hydronephrosis with renal and ureteral calculous obstruction (principal); K56.41 Fecal impaction; J90 Pleural effusion, not elsewhere classified | CPT/HCPCS: 70450; 72125; 74178 ==

== ENCOUNTER → 2024-12-31 01:14 | Outpatient (BNV) | payer OTHER, SELFPAY | PROVIDERS: Admitting Provider Hospitalist; Emergency Provider Emergency Medicine; Visit Provider Urology | DX: N39.0 Urinary tract infection, site not specified (principal); N13.30 Unspecified hydronephrosis; N20.1 Calculus of ureter; G30.9 Alzheimer's disease, unspecified; F02.80 Dementia in other diseases classified elsewhere, unspecified severity, without behavioral disturbance, psychotic disturbance, mood disturbance, and anxiety; D64.9 Anemia, unspecified; K59.00 Constipation, unspecified; Z97.8 Presence of other specified devices | CPT/HCPCS: 99222 ==

== ENCOUNTER → 2024-12-31 01:14 | Outpatient (BNV) | payer OTHER, SELFPAY | PROVIDERS: Admitting Provider Hospitalist; Emergency Provider Emergency Medicine; Visit Provider Internal Medicine | DX: K59.00 Constipation, unspecified (principal); D64.9 Anemia, unspecified | CPT/HCPCS: 99223; 99232; 99239; 99499 ==

== ENCOUNTER 2025-02-08 14:03 | Outpatient (AMB) | payer OTHER, SELFPAY ==
--- NOTE | 2025-02-08 14:05 | MHC.PC.OV ---
Vital Signs 02/08/25 14:08 Height 5 ft 3 in BMI Reason not done Patient refused/unable BP 134/70 Blood Pressure Location Lt brachial Position Sitting Pulse 92 Pulse Source Pulse Oximeter Pulse Oximetry (%) 97 Oxygen Delivery Method Room Air Intake Visit Reasons: MARIANO DR Lopez Intake Note: Patients daughter is requesting VNA services to wound care and peterson catheter care. Patient currently has 2 wounds on her back. Allergies morphine [MORPHINE] Allergy (Mild, Verified 02/08/25 14:09) NAUSEA & VOMITING, vomiting Tobacco use date assessed: 02/08/25 Fall risk assessment: No Falls in past year Last assessed Fall Risk: 02/08/25 Dental Screening Dental Screen Date: 02/08/25 Did you have a dental visit in the last 12 months?: No Did you have a dental problem in the last 6 months where you did not have access to dental care?: No Was dental information given to patient?: No HPI MARIANO DR Lopez HPI Details hospice dropped patient as she was brought to the ER recently. [facility] Medical History (Updated 02/08/25 @ 14:42 by Yana Avila MD) Dementia Sacral decubitus ulcer, stage II Vitamin D deficiency Nephrolithiasis AD (Alzheimer's disease) Paget's bone disease Hyperparathyroidism Osteoporosis UTI (urinary tract infection) GERD (gastroesophageal reflux disease) Hypertension CVA (cerebral vascular accident) Nephrolithiasis Surgical History H/O bilateral breast reduction surgery History of lithotripsy History of tubal ligation H/O rectal polypectomy History of hip surgery Hx of tonsillectomy H/O: hysterectomy History of cystoscopy Family History Father No problems noted. Mother No problems noted. Maternal Grandmother Cancer Social History Household Members: Family Household Members Other:: daughter Housing: House Do you presently have visiting nurse or other home services: Yes Unable to assess alcohol history related to: Unable to respond Alcohol intake: never Comment: family at bedside Patient Tobacco Use Status: Never used Tobacco e-Cigarette/Vaping Use: Never Used Second Hand Smoke Exposure: No Advance Directives Date on File: 12/23/22 service: No Current occupational status: disabled Cognitive needs: Yes (wheelchair chair) Hearing needs: No Vision needs: No Questionnaire Thrive Questionnaire Date Thrive assessed: 01/01/25 ANKIT-7 AMB Questionnaire ANKIT-7 Date ANKIT - 7 assessed: 04/12/24 Source: Developed by Drs. Sreedhar Brown, Gabriela Guzman, Josh Sanders and colleagues, with an educational jennifer from [employer]. Physical exam (Primary Care) Vital Signs: Last Vital Signs Pulse 92 02/08/25 14:08 BP 134/70 02/08/25 14:08 Pulse Ox 97 02/08/25 14:08 Oxygen Delivery Method Room Air 02/08/25 14:08 Tobacco/Smoking Status: Tobacco use Status Tobacco use date assessed 02/08/25 02/08/25 14:20 Patient Tobacco Use Status Never used Tobacco 02/08/25 14:20 e-Cigarette/Vaping Use Never Used 02/08/25 14:20 Patient is bed bound, with leg contractures of gthe leg, makes repeated sounds with the mouth, has a urinay catheter. family shows me a pressure sore on the lower back x 2 and L heel pressure sore, catheter has a pus /yellowish discharge. monthly replacement being doneby hospice nurses Thrive Assessment: Date of Thrive Assessment Date Thrive assessed 01/01/25 02/08/25 14:20 Eyes Conjunctivae: conjunctivae normal Resp Auscultation: clear to auscultation bilaterally Cardio Rate: regular rate Rhythm: regular rhythm GI Inspection: Yes normal to inspection Coding Level of Care Code Est Pt Level 4 (31854) Diagnoses Alzheimer dementia G30.9; F02.80 Hydronephrosis, right N13.30 Chronic indwelling Peterson catheter Z97.8 Anemia, unspecified type D64.9 Anemia type: unspecified type Decubitus ulcer of sacral region, stage 4 L89.154 CVA (cerebral vascular accident) I63.9 Hypertension I10 Assessment & Plan Assessment & Plan (1) Alzheimer dementia: Code(s): G30.9 - Alzheimer's disease, unspecified; F02.80 - Dementia in other diseases classified elsewhere, unspecified severity, without behavioral disturbance, psychotic disturbance, mood disturbance, and anxiety Category: Medical Plan: Supportive treatment (2) Hydronephrosis, right: Code(s): N13.30 - Unspecified hydronephrosis Category: Medical Plan: This is treated supportively and followed up by Urology (3) Chronic indwelling Peterson catheter: Code(s): Z97.8 - Presence of other specified devices Category: Medical Plan: Regular replacements. (4) Anemia: Code(s): D64.9 - Anemia, unspecified Category: Medical Qualifiers: Anemia type: unspecified type Qualified Code(s): D64.9 - Anemia, unspecified Plan: Continuing to monitor (5) Decubitus ulcer of sacral region, stage 4: Comment: There is nonhealing ulcer despite treatment for 18 weeks. There is chronic osteomyelitis with no specific organism She has failed IV antibiotics for six weeks and has no plan by Plastics to cover area. Code(s): L89.154 - Pressure ulcer of sacral region, stage 4 Category: Medical Plan: Supportive treatment (6) CVA (cerebral vascular accident): Code(s): I63.9 - Cerebral infarction, unspecified Category: Medical Plan: Continue with aspirin (7) Hypertension: Code(s): I10 - Essential (primary) hypertension Category: Medical Plan: Stable Plan History of Present Illness The patient is a 74-year-old female presenting with chronic care management and follow-up concerns. She has a complex medical history including essential hypertension, dementia, cerebrovascular accident (CVA), right renal atrophy, osteoporosis, hyperparathyroidism, chronic constipation, metabolic encephalopathy, anemia, and recurrent urinary tract infections. Notably, she experiences severe constipation managed through a puree diet due to her nonverbal status linked to dementia. She also presents with chronic right-sided hydronephrosis and urolithiasis, requiring an indwelling Peterson catheter. Recent hospitalization included treatment for urinary tract infections using intravenous ceftriaxone and a blood transfusion for severe anemia. As of January 02, laboratory results indicated a hemoglobin level of 7.7 g/dL, hematocrit at 26.9%, with maintained renal functions and appropriate electrolyte levels. Monitoring of blood parameters continues, with a recent hemoglobin record of 12.8 g/dL. Health Maintenance - Blood sugar monitoring with a result of 114 mg/dL. - Management of anemia with blood transfusions. - Oxygen therapy for potential respiratory support. - Continued use of indwelling Peterson catheter due to hydronephrosis. Social History - Patient is nonverbal. - Requires puree diet. - Uses an indwelling Peterson catheter. - Oxygen therapy is in use. Review of Systems - Neurological: Reports nonverbal status. - Gastrointestinal: Reports severe constipation. - Genitourinary: Reports frequent urinary tract infections. - Respiratory: Reports use of supplemental oxygen. Physical Exam Results - Labs: Hemoglobin of 7.7 g/dL (January 02), 12.8 g/dL (recent), hematocrit of 26.9%, blood sugar of 114 mg/dL. - Tests and Diagnostics: Renal function and electrolytes within normal limits. Plan Ongoing management of chronic conditions including monitoring of urinary tract infections with a focus on catheter care. Metabolic encephalopathy to be managed by treating contributing anemia and monitoring symptoms, including continuation of supportive treatments. Dietary adjustments to address constipation are maintained through a puree diet. Regular blood monitoring ensures that anemia is managed, and there is a planned coordination with VNA services for consistent catheter care to prevent infection. Follow-up includes attention to hypertension, osteoporosis, and overall well-being. Patient was informed and verbally consented to the use of an ambient scribe for clinic note documentation during this visit. Discussion Notes I discussed with the patient's caregiver the importance of chronic care management considering the numerous ongoing conditions. The caregiver was informed about the risk of urinary tract infections related to indwelling Peterson catheters and strategies to prevent them. Treatment for the anemia was reviewed in the context of previous blood transfusions, and importance placed on continued monitoring of blood levels. We emphasized the management of diet and constipation through a puree diet. [facility]-up with [facility] for [facility] care was suggested as a priority, alongside future monitoring of blood pressure and bone health due to osteoporosis. All parties were advised of current health conditions and follow-up appointments were encouraged to continue comprehensive care. Patient Instructions - Ensure regular catheter care to prevent infections. - Follow a puree diet to manage constipation. - Use oxygen as instructed. - Monitor for any signs of infection and seek medical attention if symptoms arise. - Keep follow-up appointments with healthcare providers for regular monitoring and care. Orders: Orders Complete Blood Count Auto Diff Today D64.9 - Anemia, unspecified Comprehensive Met. Panel Today D64.9 - Anemia, unspecified Magnesium Today D64.9 - Anemia, unspecified UA CC w/rflx Micro + Cult Today D64.9 - Anemia, unspecified, R30.0 - Dysuria Ferritin Today D64.9 - Anemia, unspecified Reticulocyte Count Today D64.9 - Anemia, unspecified Free T4 (Free Thyroxine) Today D64.9 - Anemia, unspecified Thyroid Stimulating Hormone Today D64.9 - Anemia, unspecified IRON PROFILE Today D64.9 - Anemia, unspecified Vitamin B12 and Folate Today D64.9 - Anemia, unspecified Medications: New hyoscyamine sulfate 0.125 mg orally PRN; Q 2 hours orally prn oral secretions 30 tabs 0RF dyspepsia I63.9 - Cerebral infarction, unspecified
[2025-02-08 14:08] VITALS: BP 134/70; PULSE 92; O2SAT 97
--- OUTSIDE RECORDS SUMMARY | 2025-02-08 16:54 | XMS_ITS | Data Portability ---
Author Organization [employer] [employer] Address [address] [place] [id number] Care Team Providers Care Crop Adjuster Name Role Phone [facility] Referring Provider Assessment Encounter Date Assessment Date Assessment LastModified by Organization Details LastModified Time 05/06/2023 05/06/2023 I provided real -time medical direction via phone for this encounter, and was available for additional phone based assistance as needed. I have reviewed and agree with the Assessment and Plan as documented by the Certified Pedorthotist. Patient given the opportunity to ask questions. As per above, patient with approximately 2 weeks of cough. The cough is nonproductive and the physical exam is unrevealing. There has been no temperature. Certified Pedorthotist at the scene describes some edema. No localizing symptoms to suggest an infection such as pneumonia. The son states that the patient does not have any problems with swallowing liquids or food. There is no coughing after meals or drinking which speaks against aspiration. There are no other localizing symptoms however the patient does have chronic edema primarily in the lower extremities. Stable vitals and no hypoxemia. Discussed with son and in shared decision making the patient would need a chest x-ray to evaluate. He would like to have her seen in the ED and they will arrange for her to be transported there. He states there are problems with PCP follow-up in regards to getting test done. Red flags be discussed as to when to seek a higher level of care. [email or web address] Not available 05/06/2023 20:35:48 Plan of Treatment Reminders Order Date Submit Date Provider Last Modified By Organization Details Last Modified Time Details Appointments None record ed. Lab None record ed. Referral None record ed. Procedures None record ed. Surgeries None record ed. Imaging None record ed. Medication Orders None record ed. Patient TargetsNo targets recorded. Patient InstructionsNo instructions recorded. Reason for Referral None Reported. Medical Equipment None Reported. Allergies Allergen ID Allergen Name Allergen Category Reaction Reaction Severity Criticality Documentation Date Start Date Code Code System Note Provider Name and Address Organization Details Recorded Time 7515 morphine medicatio n Not available Not available Not available 08/16/2024 7052 RxNorm Not Available [facility] 03:38:03 Medications Name Sig Start Date Stop Date Status Note LastModified by Organization Details LastModified Time delivery fee active Not Available Not Available Not Available citalopram 10 mg tablet active Not Available Not Available Not Available ciprofloxacin 250 mg tablet active Not Available Not Available No t Available amlodipine 5 mg tablet active Not Available Not Available Not Available sulfamethoxazole 800 mg-trimethoprim 160 mg tablet active Not Available Not Availabl e Not Available nystatin-triamcino lone 100,000 unit/g-0.1 % topical cream active Not Available Not Availabl e Not Available docusate sodium 100 mg capsule active Not Available Not Availab le Not Available omeprazole 20 mg capsule,delayed release active Not Available Not Available Not Available aspirin 81 mg chewable tablet active Not Available Not Availa ble Not Available amoxicillin 875 mg-potassium clavulanate 125 mg tablet active Not Available Not Available Not Available memantine 5 mg tablet active Not Available Not Available Not Available topiramate 50 mg tablet active Not Available Not Available Not Available cholecalciferol (vitamin D3) 50 mcg (2,000 unit) tablet active Not Available Not Available Not Available Vitals Date Recorded Respiratory rate Heart rate Body temperature Oxygen saturation Oxygen saturation in Arterial blood by Pulse oximetry Systolic blood pressure Diastolic blood pressure Provider Name and Address Organization Details Last Updated DateTime 3 24 /min 87 /min 98.6 [degF] 99 % 99 % 168 mm[Hg] 76 mm[Hg] Not Available [facility] 17:50:15 Social History None recorded. Functional Status None recorded. Mental Status None recorded. Family History Nothing Reported. Medical History No medical history recorded. Gynecological HistoryNo gynecological history recorded. Obstetrics History GPAL:G 0 P 0 0 0 0 Past Encounters Encounter ID Performer Location Encounter Start Date Encounter Closed Date Diagnosis/Indication Diagnosis SNOMED-CT Code Diagnosis ICD10 Code Diagnosis Note [id number] Germania Kessler MD [facility] [address] [place] [phone] 05/06/2023 17:50:13 05/06/2023 23:08:50 Cough 91797271 R05.9 Health Concerns Section Related Observation LastModified by Organization Detai ls LastModified Time None Recorded Concern Status LastModified by Organization Details LastModified Time None Recorded Advance Directives Directive None Recorded Payers Encounter Date Sequence Insurance Name Policy Number Policy Alegria Covered Member ID A[employer] Member ID Guarantor Name 05/06/2023 1 [facility] - DOS ON OR AFTER 2023 - DUAL ELIGIBLE - SNF OPTIONS AND ONE CARE (MEDICARE REPLACEMENT/ADV ANTAGE - HMO) Diann Carter [id number] Diann Raul Notes Date Note Type Note Provider Name and Address Organization Details Recorded Time 05/06/2023 text/html [facility] Nursing Assessment: Patient Reports: Cough Chief Complaints: Cough PMH: Severe Dementia Allergies: Morphine Comments: Daughter calling on behalf of member with request for [facility] visit for eval cough x 2-3 weeks Deny fever/chills. ?wheezing noted by VNA this am. no OTC's Verify member name/- Germania Kessler MD [address] [facility],[address], [place], [phone], [employer] 05/06/2023 20:36:05 OBGyn Episode No OBEpisode recorded.
== END 2025-02-08 15:19 | disposition home or self-care (01) ==
LOC: HO.HMCH 14:03
PROVIDERS: PCP Internal Medicine; Visit Provider Internal Medicine
DX: G30.9 Alzheimer's disease, unspecified (principal); F02.80 Dementia in other diseases classified elsewhere, unspecified severity, without behavioral disturbance, psychotic disturbance, mood disturbance, and anxiety; I63.9 Cerebral infarction, unspecified; L89.154 Pressure ulcer of sacral region, stage 4; N13.30 Unspecified hydronephrosis; Z97.8 Presence of other specified devices; D64.9 Anemia, unspecified; I10 Essential (primary) hypertension

== ENCOUNTER → 2025-02-08 14:03 | Outpatient (BNVA) | payer OTHER, SELFPAY | PROVIDERS: PCP Internal Medicine; Visit Provider Internal Medicine | DX: G30.9 Alzheimer's disease, unspecified (principal); F02.80 Dementia in other diseases classified elsewhere, unspecified severity, without behavioral disturbance, psychotic disturbance, mood disturbance, and anxiety; N13.30 Unspecified hydronephrosis; D64.9 Anemia, unspecified; L89.154 Pressure ulcer of sacral region, stage 4; I10 Essential (primary) hypertension; M81.0 Age-related osteoporosis without current pathological fracture; K59.09 Other constipation; Z87.440 Personal history of urinary (tract) infections; Z97.8 Presence of other specified devices; Z86.73 Personal history of transient ischemic attack (TIA), and cerebral infarction without residual deficits | CPT/HCPCS: 99212 ==

== ENCOUNTER 2025-04-05 12:58 | Outpatient (AMB) | payer OTHER, SELFPAY ==
--- NOTE | 2025-04-05 12:58 | A.OFFVIS_ITS ---
Intake Visit Reasons: 6m follow up Intake Note: Patient is present for 6 month follow up Urology Med: Methenamine, Vitamin C Antibiotic Allergy: None Blood Thinner: Aspirin Accompanied by: Daughter Allergies morphine (MORPHINE) Allergy (Mild, Verified 04/05/25 12:59) NAUSEA & VOMITING, vomiting HPI Comments Details: Diann is a pleasant [place]-speaking female. Her daughter typically translates for her. - recurrent UTI Telemedicine evaluation 15 minute consultation Doximity attempted Discussion with daughter Rae [phone] 6m f/u Has indwelling Cherry catheter Significantly reduced activity Bed-bound Continue suppression plus esterase - vitamin-C plus methenamine Manages constipation - beto extra strength Nonfunctional right kidney Had prior procedures Imaging - 10/07 renogram right 0% left 100% - 11/09 CT scan with massive hydronephrosis on right side and stones, minimal stones on left Recurring UTI Has been prescribed Estrace cream but not to be refill to December Previous treatment with nitrofurantoin [facility] Medical History (Updated 03/14/25 @ 15:25 by Yana Avila MD) Dementia Sacral decubitus ulcer, stage II Vitamin D deficiency Nephrolithiasis AD (Alzheimer's disease) Paget's bone disease Hyperparathyroidism Osteoporosis UTI (urinary tract infection) GERD (gastroesophageal reflux disease) Hypertension CVA (cerebral vascular accident) Nephrolithiasis Surgical History H/O bilateral breast reduction surgery History of lithotripsy History of tubal ligation H/O rectal polypectomy History of hip surgery Hx of tonsillectomy H/O: hysterectomy History of cystoscopy Family History Father No problems noted. Mother No problems noted. Maternal Grandmother Cancer Social History Household Members: Family Household Members Other:: daughter Housing: House Do you presently have visiting nurse or other home services: Yes Unable to assess alcohol history related to: Unable to respond Alcohol intake: never Comment: family at bedside Patient Tobacco Use Status: Never used Tobacco e-Cigarette/Vaping Use: Never Used Second Hand Smoke Exposure: No Advance Directives Date on File: 12/23/22 service: No Current occupational status: disabled Cognitive needs: Yes (wheelchair chair) Hearing needs: No Vision needs: No Review of Systems Const All systems reviewed & are unremarkable except as noted in HPI and below Reports no additional complaints Resp Reports no additional complaints GI Reports no additional complaints Reports as per HPI Musc Reports no additional complaints Physical Exam Telemedicine evaluation Appropriate responses Regular breathing rate and rhythm HEENT Head: Yes normal to inspection Ears: hearing grossly normal bilaterally Eyes General: appearance normal, both eyes and all related structures Neck Neck: Yes normal visual inspection Chest Chest palpation & inspection: normal inspection of the chest Resp Effort & Inspection: normal respiratory effort and able to speak in complete sentences Telehealth Telehealth Telehealth Platform: [employer] Location of provider rendering services: practice address Location of patient: address on file Patient Identification confirmed using: Name, : Yes Telehealth method: video Patient verbally consented to treatment: Yes Patient verbally consented to billing insurance company: Yes Patient informed of any privacy concerns related to visit: Yes Assessment & Plan Assessment & Plan (1) Decreased renal clearance: Code(s): R94.4 - Abnormal results of kidney function studies Category: Medical (2) Nephrolithiasis: Code(s): N20.0 - Calculus of kidney Category: Medical Plan 6m f/u Medications: Changed From methenamine hippurate 1 g PO DAILY 90 days 90 tabs 1RF N30.00 - Acute cystitis without hematuria, N39.0 - Urinary tract infection, site not specified To methenamine hippurate 1 g PO BID 180 tabs 1RF 90 days N30.00 - Acute cystitis without hematuria, N39.0 - Urinary tract infection, site not specified Refilled ascorbic acid (vitamin C) 1 g PO DAILY 90 tabs 1RF 90 days N30.00 - Acute cystitis without hematuria, N39.0 - Urinary tract infection, site not specified Patient Instructions: This note is constructed using voice recognition software. While every effort has been made to ensure accuracy comber tender errors may have been included. Imaging studies, laboratory and physical exam results were discussed and reviewed in detail. No major barriers to patient understanding were identified. An opportunity to ask questions regarding the treatment plan was provided. All questions were answered. The patient expressed understanding and agreement with the above treatment plan. The patient is aware they should contact our office by phone for worsening of their current condition or the appearance of new urologic symptoms. Compliance is encouraged with any medications and followup testing that is ordered. It is a privilege to participate in the urologic care of your patient. If you have any questions or concerns regarding treatment for the above conditions, or other urologic issues, please do not hesitate to contact me. The office telephone contact is [phone]. Sincerely, Dr Subhash Gonzalez MD, [facility] - Urology Compassionate Specialist Care for the Genitourinary System Coding Level of Care Code Tele Est Pt Level 3 (89304) Complex EM visit Add On G2211 Diagnoses Decreased renal clearance R94.4 Nephrolithiasis N20.0
--- OUTSIDE RECORDS SUMMARY | 2025-04-05 14:52 | XMS_ITS | Data Portability ---
Author Organization [place] [place] [facility] [employer] [facility] Address [address] [place] [address] Care Team Providers Care Coater Smoking Pipe Name Role Phone [facility] Referring Provider Assessment Encounter Date Assessment Date Assessment LastModified by Organization Details LastModified Time 05/06/2023 05/06/2023 I provided real -time medical direction via phone for this encounter, and was available for additional phone based assistance as needed. I have reviewed and agree with the Assessment and Plan as documented by the Senior Loss Control Specialist. Patient given the opportunity to ask questions. As per above, patient with approximately 2 weeks of cough. The cough is nonproductive and the physical exam is unrevealing. There has been no temperature. Senior Loss Control Specialist at the scene describes some edema. No [...] Not available 08/16/2024 [id number] RxNorm Not Available [email or web address] 03:38:03 Medications Name Sig Start Date [...] % 168 mm[Hg] 76 mm[Hg] Not Available [email or web address] 3 17:50:15 Social History None recorded. Functional Status None recorded. Mental Status None recorded. Family History Nothing Reported. Medical History No medical history recorded. Gynecological HistoryNo gynecological history recorded. Obstetrics History GPAL:G 0 P 0 0 0 0 Past Encounters Encounter ID Performer Location Encounter Start Date Encounter Closed Date Diagnosis/Indication Diagnosis SNOMED-CT Code Diagnosis ICD10 Code Diagnosis Note [id number] Germania Kessler MD [facility] [address] [place] [id number] 05/06/2023 17:50:13 05/06/2023 23:08:50 Cough 97634731 R05.9 Health Concerns Section Related Observation LastModified by Organization Detai ls LastModified Time None Recorded Concern Status LastModified by Organization Details LastModified Time None Recorded Advance Directives Directive None Recorded Payers Insurance Date Sequence Insurance Name Policy Number Policy Alegria Covered Member ID Alegria Member ID Guarantor Name 03/12/2024 1 [facility] - DOS ON OR AFTER 2023 - DUAL ELIGIBLE - JAIL OPTIONS AND ONE CARE (MEDICARE REPLACEMENT/ADV ANTAGE - HMO) Diann Carter [id number] Diann Raul Notes Date Note Type Note Provider Name and Address Organization Details Recorded Time 05/06/2023 text/html [facility] Nursing Assessment: Patient Reports: Cough Chief Complaints: Cough PMH: Severe Dementia Allergies: Morphine Comments: Daughter calling on behalf of member with request for [facility] visit for eval cough x 2-3 weeks Deny fever/chills. ?wheezing noted by [facility] this am. no OTC's Verify member name/- Germania Kessler MD [address] [facility], [place], [address], [employer] 05/06/2023 20:36:05 OBGyn Episode No OBEpisode recorded.
== END 2025-04-05 14:59 | disposition home or self-care (01) ==
LOC: HO.HUSH 12:58
PROVIDERS: PCP Internal Medicine; Visit Provider Urology
DX: R94.4 Abnormal results of kidney function studies (principal); N20.0 Calculus of kidney
CPT/HCPCS: 99213; G2211

== ENCOUNTER 2025-04-17 00:07 | Inpatient (IN) | payer OTHER, SELFPAY ==
[2025-04-17] VITALS (22 sets, daily range): BP systolic 103–160; BP diastolic 34–62; PULSE 80–130; RESP 16–36; TEMP 36.1–39.9; O2SAT 86–99; BMI 21.7
--- NOTE | 2025-04-17 | ECG_ITS ---
Test Reason : tachy Blood Pressure : */* mmHG Vent. Rate : 122 BPM Atrial Rate : 122 BPM P-R Int : 118 ms QRS Dur : 72 ms QT Int : 320 ms P-R-T Axes : 48 -25 43 degrees QTcB Int : 456 ms Sinus tachycardia with Premature supraventricular complexes Otherwise normal ECG When compared with ECG of 06-May-2023 22:31, Premature supraventricular complexes are now Present Referred By: Generic ED Physician Electronically Signed By: TERE ANDERSEN MD
--- NOTE | ~2025-04-17 | XR_ITS ---
CLINICAL HISTORY: hypoxic 1 view chest x-ray Comparison: CR/SR - XR CHEST 1V - 05/06/23 19:40 EDT Findings: Patchy airspace opacities in the right lung concerning for pneumonia. No large effusion or pneumothorax. Normal heart size. Aortic atherosclerosis. No acute fracture. IMPRESSION: 1. Right lung patchy airspace opacities concerning for pneumonia. This document has been electronically signed by: Dixon Kraft MD on 04/17/2025 01:49:53
--- NOTE | ~2025-04-17 | CT_ITS ---
CLINICAL HISTORY: Abd distention,vomiting,worsening lactic acidosis CT abdomen and pelvis with contrast Comparison: 12/19/2022 01:48 PM EST: CTSR: CT ABDOMEN PELVIS WO IV CON (12:48 PM CS Findings: Visualized lungs demonstrate new patchy multifocal airspace consolidation. The liver, gallbladder, spleen, adrenal glands and pancreas are stable. Severe dilation of the right renal collecting system with near-complete renal cortical thinning. Abnormal enhancement and thickening of the right ureter. The bladder is decompressed by Cherry catheter. Variable sized calculi are again noted within the right kidney. The left kidney is unremarkable. No bowel obstruction or free air. Chronic destructive changes of the left hip. Diffuse chronic osseous findings including probable Paget's disease of involving the right femur. Severe atherosclerotic disease. Impression: Probable multifocal pneumonia. Pronounced abnormality of the right kidney and ureter, chronic. 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 Several incidental and/or chronic findings. This document has been electronically signed by: Lavon Bradley MD on 04/17/2025 07:42:59
[2025-04-17] MEDS: Acetaminophen Supp 650 MG SUPP.RECT PR (00:30)
--- NOTE | 2025-04-17 01:01 | ED.GENADULT ---
HPI - General Adult General Chief complaint: Nausea/Vomiting/Diarrhea Stated complaint: nonverbal, bed bound, v med, sepsis/ 84% O2 Time Seen by Provider: 04/17/25 00:45 Source: family and EMS Mode of arrival: EMS Limitations: other History of Present Illness ED Provider: Dr. April Stanford HPI narrative: patient comes to the emergency room via ambulance accompanied by her son. According to the patient's son, patient has been coughing quite a bit, seems that she has been vomiting phlegm, no diarrhea. Also, patient is known to have recurrent UTIs. Patient was here 3 months ago for similar complaints. According to EMS, patient's oxygen saturation was 86% on room air, patient is not oxygen dependent. Patient is awake, however she is demented and she does not talk at baseline. Related Data Home Medications ?Medication ?Instructions ?Recorded ?Confirmed hydrocolloid dressing 6 X 6 12/05/21 01/03/25 (Durafiber Dressing) Previous Rx's ?Medication ?Instructions ?Recorded gauze bandage 2 X 2 (Band-Aid #150 ea 08/26/22 Gauze Pads) disposable bed pads #50 ea 01/06/23 gloves #1 ea 01/06/23 gloves #1 ea 01/15/23 gauze bandage 2 X 2 (Band-Aid #2,400 ea 07/09/23 Gauze Pads) adhesive tape 1 1/2 X 10 yard #4 ea 07/29/23 adhesive tape 1 X 10 yard (Paper #2 ea 07/29/23 Tape) gauze bandage 4 X 4 #100 ea 07/29/23 sheep skin elbow protectors #2 ea 08/14/23 citalopram 10 mg tablet 10 mg PO DAILY #90 tabs 01/27/25 memantine 5 mg tablet 5 mg PO BID #180 tabs 01/27/25 hyoscyamine sulfate 0.125 mg tablet 0.125 mg PO .COMPLEX PRN dyspepsia 02/08/25 #30 tabs omeprazole 20 mg capsule,delayed 20 mg PO DAILY@0630 #90 caps 02/27/25 release Oxygen Home Use #1 ea 02/28/25 cholecalciferol (vitamin D3) 50 50 mcg PO DAILY #90 tabs 02/28/25 mcg (2,000 unit) tablet topiramate 50 mg tablet 50 mg PO BEDTIME #90 tabs 03/22/25 aspirin 81 mg chewable tablet 1 tab PO DAILY #30 tabs 04/03/25 ascorbic acid (vitamin C) 1,000 mg 1 g PO DAILY 90 days #90 tabs 04/05/25 tablet methenamine hippurate 1 gram tablet 1 g PO BID 90 days #180 tabs 04/05/25 nitrofurantoin macrocrystal 100 mg 100 mg PO BID 5 days #10 caps 04/05/25 capsule Allergies Allergy/AdvReac Type Severity Reaction Status Date / Time morphine (MORPHINE) Allergy Mild NAUSEA & Verified 04/17/25 00:16 VOMITING, vomiting Review of Systems Review of Systems: Yes Unobtainable due to mental condition and Other ( Advanced dementia) [facility] Past Medical History Medical History Dementia Sacral decubitus ulcer, stage II Vitamin D deficiency Nephrolithiasis AD (Alzheimer's disease) Paget's bone disease Hyperparathyroidism Osteoporosis UTI (urinary tract infection) GERD (gastroesophageal reflux disease) Hypertension CVA (cerebral vascular accident) Nephrolithiasis Surgical History H/O bilateral breast reduction surgery History of lithotripsy History of tubal ligation H/O rectal polypectomy History of hip surgery Hx of tonsillectomy H/O: hysterectomy History of cystoscopy Family History Family History Father No problems noted. Mother No problems noted. Maternal Grandmother Cancer Social History Social History Household Members: Family Household Members Other:: daughter Housing: House Do you presently have visiting nurse or other home services: Yes Unable to assess alcohol history related to: Unable to respond Alcohol intake: never Comment: family at bedside Patient Tobacco Use Status: Never used Tobacco Smoked in Last 30 Days: No e-Cigarette/Vaping Use: Never Used Second Hand Smoke Exposure: No Use of substances other than those prescribed or required for medical reasons: No Advance Directives: Yes Advance Directives on File: Yes Advance Directives Date on File: 12/23/22 service: No Current occupational status: disabled Cognitive needs: Yes (wheelchair chair) Hearing needs: No Vision needs: No Physical Exam ED Vital Signs: Vital Signs - 24 hr 04/17/25 00:14 04/17/25 02:17 Temperature 103.9 F H 101.2 F H Pulse Rate 124 H 118 H Respiratory Rate 36 H 26 H Blood Pressure 114/34 L 118/47 L Pulse Oximetry 90 L 97 Oxygen Delivery Method Room Air Nasal Cannula Oxygen Flow Rate 2 BMI result Body Mass Index 21.7 Const Other: Appearance: awake, no acute distress, seems weak Eyes: Pupils equal, round and reactive to light. ENT: Pharynx normal. Neck: Normal inspection. Neck supple. No lymph nodes noted. No crepitus CVS: Normal heart rate and rhythm. Pulses normal. Normal S1 and S2 Respiratory: No respiratory distress. Breath sounds normal. No Wheezing. No rales Abdomen: Soft and nontender. No rigidity. No distention. Skin: Skin warm and dry. Normal skin color. Normal skin turgor. patient has chronic wounds in her buttocks, they look clean, while taking care of. See pictures below Extremities: No lower extremity edema. No Lacerations. No Rash patient has chronic contractures, patient in position Neuro: Oriented X 3. No motor deficit. No sensory deficit. Moving all extremities. No slurred speech. CN 2 through 12 grossly intact Psych: calm, cooperative, normal affect Course Course Course Narrative: on arrival, it was noted that patient has a temperature of 103.9 degrees F rectal. Patient is well known to have recurrent UTIs. Patient is empirically being treated with IV fluids and antibiotics. Last time that patient was here in December of this year, patient's urine was positive for E coli and Pseudomonas, susceptible to cephalosporins Medications Administered Generic Name Dose Route Start Last Admin Trade Name Freq PRN Reason Stop Dose Admin Sodium Chloride 2,000 mls @ 999 mls/hr 04/17/25 00:49 04/17/25 01:08 Ns IVCONT 04/17/25 02:49 999 mls/hr .Q2H1M ONE Administration Azithromycin 500 mg/ Sodium 250 mls @ 125 mls/hr 04/17/25 01:55 04/17/25 02:06 Chloride IV 04/17/25 03:54 125 mls/hr ONCE ONE Administration Discontinued Medications Generic Name Dose Route Start Last Admin Trade Name Freq PRN Reason Stop Dose Admin Acetaminophen 650 mg 04/17/25 00:21 04/17/25 00:30 Acetaminophen Supp 650 Mg Supp.Rect TX 04/17/25 00:22 650 mg ONCE ONE Administration Ceftriaxone Sodium 1 gm 04/17/25 00:49 04/17/25 01:08 Ceftriaxone Sodium 1 Gm Vial IVPUSH 04/17/25 00:50 1 gm ONCE ONE Administration Medical Decision Making Medical Decision Making [facility] Narrative: my interpretation of labs: Patient's white blood cell count 17.8. Hemoglobin 6.8, hematocrit 23.9, platelets 365. I reviewed patient's records, patient has been anemic in the past, no GI bleed. Patient has history of blood transfusions. Patient's baseline is between 7-8, But closer to 8 Patient is not on blood thinners, patient's chemistry does not show any acute abnormality. LFTs at baseline. Troponin 11.3. Patient's urinalysis positive for leukocyte esterase and WBCs, negative for nitrite. Last time the patient was here, patient had a UTI, patient grew in the cultures Pseudomonas and E coli, resistant to all antibiotics. Patient already received IV ceftriaxone and fluids. Serology negative for influenza COVID and RSV. Chest x-ray positive for right lower lobe pneumonia. Patient is on 2 L of oxygen I discussed with the patient's son the risks versus benefits of a blood transfusion. I discussed with the patient's son the option of waiting to do blood work tomorrow in the morning, if the hemoglobin stabilizes, she may not need a blood transfusion. However, if the blood keeps dropping, she may need a blood transfusion. Patient's son states that he would prefer to go ahead with a blood transfusion. Patient's son aware of risks versus benefits, consent signed. I discussed the patient with Dr. Singleton of the Medicine team, patient being admitted patient's fever is improving, now 101.2, blood pressure is 118/47, heart rate 118 Differential Diagnosis Differential Diagnoses: The differential diagnosis associated with the presentation includes ( pneumonia, UTI, anemia) Admission/Observation Consideration of admission/observation: Escalation of care including admission/observation considered Consult Healthcare Provider Management of the patient was discussed with: Hospitalist Lab Data [facility] Lab Attestation statement: I reviewed the patient's lab results. 04/17/25 00:50 04/17/25 00:50 Labs: Lab Results 04/17/25 04/17/25 04/17/25 Range/Units 00:50 01:04 02:11 WBC 17.8 H (4.8-10.8) X10*3/uL RBC 3.04 L (4.20-5.50) X10*6/uL Hgb 6.9 L* (12.0-16.0) g/dl Hct 23.9 L (37.0-47.0) % MCV 78.6 L (80.0-98.0) fL MCH 22.7 L (27.0-33.0) pg MCHC 28.9 L (31.0-35.0) g/dl RDW 18.6 H (11.0-16.0) % Plt Count 365 (160-400) X10*3/uL MPV 11.1 (9.4-12.3) fL Immature Gran % (Auto) 0.4 (0.0-0.4) % Neut % (Auto) 92.2 H (45-73) % Lymph % (Auto) 3.9 L (20-40) % Dougherty % (Auto) 3.1 (2-11) % Eos % (Auto) 0.1 (0-4) % Baso % (Auto) 0.3 (0-2) % Lymph # (Auto) 0.7 L (1.2-4.9) X10*3/uL Dougherty # (Auto) 0.6 (0.1-1.2) X10*3/uL Eos # (Auto) 0.0 (0.0-0.4) X10*3/uL Baso # (Auto) 0.1 (0.0-0.2) X10*3/uL Abs Immat Gran (auto) 0.07 H (0.00-0.03) X10*3/uL Absolute Neuts (auto) 16.4 H (2.0-8.3) x10*3/uL Absolute Nucleated RBC 0.000 (0.0-0.012) X10*3/uL Nucleated RBC % (auto) 0.0 (0.0-0.2) /100WBC Smear Tech's Comments VERIFIED Sodium 137 (135-145) mmol/L Potassium 4.7 D (3.3-5.1) mmol/L Chloride 109 H (96-108) mmol/L Carbon Dioxide 18 L (22-29) mmol/L Anion Gap 15 (12-20) BUN 31 H (9-16) mg/dL Creatinine 1.16 (0.5-1.4) mg/dL Estim Creat Clear Calc 29.6 Estimated GFR 45 Random Glucose 138 H (60-115) mg/dL Calcium 9.1 D (8.4-10.2) mg/dL Total Bilirubin 0.2 (0.0-1.0) mg/dL AST 36 H (5-31) U/L ALT 15 (0-31) U/L Alkaline Phosphatase 139 H (39-117) U/L Troponin I High Sens 11.3 D (<3.5-17.0) ng/L Total Protein 10.6 H (6.5-8.0) g/dL Albumin 2.6 L (3.5-5.0) g/dL Urine Color Yellow Urine Appearance Turbid Urine pH 7.0 (5.0-9.0) Ur Specific [place] 1.015 (1.005-1.025) Urine Protein Negative (Neg-Trace) mg/dL Urine Glucose (UA) Negative (Negative) mg/dL Urine Ketones Negative (Negative) mg/dL Urine Blood Large (3+) H (Negative) Urine Nitrite Negative (Negative) Ur Leukocyte Esterase Large (3+) H (Negative) Urine RBC 6-10 H (0-2) /HPF Urine WBC >50 H (0-5) /HPF Ur Squamous Epith Cells 0-2 (0-2) /HPF Urine Bacteria Trace (None Seen) Hyaline Casts 3-5 (0-2) /LPF Influenza Type A (PCR) NEGATIVE (Negative) Influenza Type B (PCR) NEGATIVE (Negative) RSV RNA Qual (PCR) NEGATIVE (Negative) SARS-CoV-2 RNA (RT-PCR) NEGATIVE (Negative) Crossmatch See Detail Independent Interpretation I performed an independent interpretation of an: EKG and Plain X-Ray Radiology Impression Discussion of test interpretation with radiology: I have reviewed the radiologist's reading. Radiologist Impression: Patchy airspace opacities in the right lung concerning for pneumonia. No large effusion or pneumothorax. Normal heart size. Aortic atherosclerosis. No acute fracture. IMPRESSION: 1. Right lung patchy airspace opacities concerning for pneumonia. Critical Care Time Critical Care Time Critical Care Time: Yes Total Critical Care Time: 75 Attestation: I have personally provided critical care time. Time includes review of lab data, radiology results, discussion with consultants, and monitoring for potential decompensation. Intervention performed as documented. Discharge Plan Discharge Clinical Impression: Pneumonia, Acute UTI, Anemia Patient Disposition: Admitted As Inpatient Print Language: Citizen [place]
[2025-04-17 01:02] LABS: Hematocrit 23.9 % (37.0-47.0); Imm Gran Abs Auto 0.07 X10*3/uL (0.00-0.03); Imm Gran Pct Auto 0.4 % (0.0-0.4); Lymphocytes Absolute Auto 0.7 X10*3/uL (1.2-4.9); MANUAL DIFF FLAG SCAN; Mean Corpuscular HGB Conc 28.9 g/dl (31.0-35.0); Mean Corpuscular Hemoglobin 22.7 pg (27.0-33.0); Mean Corpuscular Volume 78.6 fL (80.0-98.0); NRBC Abs Auto 0.000 X10*3/uL (0.0-0.012); NRBC Pct Auto 0.0 /100WBC (0.0-0.2); Platelet Count 365 X10*3/uL (160-400); Red Blood Count 3.04 X10*6/uL (4.20-5.50); SCAN SMEAR FLAG 1; White Blood Count 17.8 X10*3/uL (4.8-10.8)
[2025-04-17 01:07] LABS: Hemoglobin 6.9 g/dl (12.0-16.0)
[2025-04-17 01:16] LABS: Alanine Aminotransferase 15 U/L (0-31); Albumin Level 2.6 g/dL (3.5-5.0); Alkaline Phosphatase 139 U/L (39-117); Anion Gap 15 (12-20); Aspartate Amino Transferase 36 U/L (5-31); Blood Urea Nitrogen 31 mg/dL (9-16); Calcium 9.1 mg/dL (8.4-10.2); Carbon Dioxide 18 mmol/L (22-29); Chloride 109 mmol/L (96-108); Creatinine Clr Calc Pharmacy 29.6; Estimated Glomerular Filt Rate 45; Potassium 4.7 mmol/L (3.3-5.1); Sodium 137 mmol/L (135-145); Total Protein 10.6 g/dL (6.5-8.0)
[2025-04-17 01:19] LABS: Troponin-I High Sensitivity 11.3 ng/L (<3.5-17.0)
[2025-04-17 01:46] LABS: Resp Syncy Virus RNA Qual PCR NEGATIVE (Negative); SARS COV2 PCR INHOUSE NEGATIVE (Negative)
[2025-04-17 01:51] LABS: Appearance Urine Turbid; Glucose Urine UA Negative (Negative); PH 7.0 (5.0-9.0); Specific Gravity - Urine 1.015 (1.005-1.025)
[2025-04-17 01:52] LABS: UMIC TRIGGER UACC YES
[2025-04-17 02:06] LABS: UACC Culture Trigger YES
[2025-04-17 02:57] LABS: Reflex Lactate? Lactic Acid Added
--- NOTE | 2025-04-17 02:58 | P.HPHOSP_ITS ---
History of Present Illness Date of Service: 04/17/25 Attending physician on admission: Ziyad Rizzomez Isaiah Chief Complaint: Vomiting Diann Colon is a 74 years old woman with past medical history of Alzheimer's dementia, bed-bound and nonverbal, chronic severe right-sided hydronephrosis, chronic sacral/decubitus ulcer, chronic indwelling urinary catheter, recurrent UTI, chronic anemia and dysphagia after the patient started to to vomit (phlegm) in the afternoon. She also vomit upon swallowing her nighttime medications. She also started to breathe very fast. This happened around 22:30. For the last today she has been occasionally coughing. Son who was at bedside said that he took her temperature it was 98. EMS found her to have a temperature 100.2 degrees. She has not been having diarrhea. She has history of constipation but has been having adequate bowel movement. She has been eating well (purred food). Her indwelling urinary catheter was changed last week. In the ED, she was found to to have fever, tachycardia and tachypnea. Blood pressure has been stable. Last BP was 116/52. Oxygen saturation was 90 % on room air and currently requiring 2 L/min supplemental O2 via nasal cannula. Blood workup was remarkable for leukocytosis of 17.8. Hemoglobin 6.9 and hematocrit 23.9. There is lactic acidosis of 2.6. Platelets are normal. CO2 is 18, chloride 109. Other electrolytes are normal. BUN is 31 and creatinine 1.16. AST is 36, ALT 15, alk-phos 139 and bilirubin 0.2. Total proteins are elevated. Albumin is 2.6. Urinalysis consistent with urinary tract infection. ECG showed sinus tachycardia without ischemic changes. CXR showed right lung patchy airspace opacity concerning for pneumonia. ED tx: Acetaminophen 650 mg MD, ceftriaxone 1 g, NS 2 L bolus, azithromycin 500 mg IV Review of Systems 2 Review of Systems: Yes Unobtainable due to mental status [facility] Medical History Dementia Sacral decubitus ulcer, stage II Vitamin D deficiency Nephrolithiasis AD (Alzheimer's disease) Paget's bone disease Hyperparathyroidism Osteoporosis UTI (urinary tract infection) GERD (gastroesophageal reflux disease) Hypertension CVA (cerebral vascular accident) Nephrolithiasis Family History Father No problems noted. Mother No problems noted. Maternal Grandmother Cancer Surgical History H/O bilateral breast reduction surgery History of lithotripsy History of tubal ligation H/O rectal polypectomy History of hip surgery Hx of tonsillectomy H/O: hysterectomy History of cystoscopy Social History Household Members: Family Household Members Other:: daughter Housing: House Do you presently have visiting nurse or other home services: Yes Unable to assess alcohol history related to: Unable to respond Alcohol intake: never Comment: family at bedside Patient Tobacco Use Status: Never used Tobacco Smoked in Last 30 Days: No e-Cigarette/Vaping Use: Never Used Second Hand Smoke Exposure: No Use of substances other than those prescribed or required for medical reasons: No Advance Directives: Yes Advance Directives on File: Yes Advance Directives Date on File: 12/23/22 service: No Current occupational status: disabled Cognitive needs: Yes (wheelchair chair) Hearing needs: No Vision needs: No Meds Allergies Allergy/AdvReac Type Severity Reaction Status Date / Time morphine (MORPHINE) Allergy Mild NAUSEA & Verified 04/17/25 00:16 VOMITING, vomiting Active Medications: Current Medications Heparin Sodium (Porcine) (Heparin Sodium,Porcine 5,000 Unit/Ml Vial) 5,000 unit SUBCUT Q12H MANDE[facility] Azithromycin 500 mg/ Sodium (Chloride) 250 mls @ 125 mls/hr IV ONCE ONE Stop: 04/17/25 03:54 Last Admin: 04/17/25 02:06 Dose: 125 mls/hr Lactated Ringer's (Lr) 1,000 mls @ 125 mls/hr IVCONT .Q8H [facility] Acetaminophen (Ofirmev) 1,000 mg in 100 mls @ 400 mls/hr IV Q6H [facility] Piperacillin Sod/Tazobactam (Sod 3.375 gm/ Sodium Chloride) 50 mls @ 100 mls/hr IV Q6H [facility] Melatonin (Melatonin 3 Mg Tablet) 6 mg PO BEDTIME PRN PRN Reason: Insomnia Pantoprazole Sodium (Pantoprazole Sodium 40 Mg/10 Ml Vial) 40 mg IVPUSH BID@0630,1630 [facility]DE[facility] Sodium Chloride (0.9 % Sodium Chloride Flush 3 Ml Syringe) 3 ml IVFLUSH QSHIFT [facility] Home Medications ?Medication ?Instructions ?Recorded ?Confirmed ?Last Taken ?Type hydrocolloid dressing 6 X 6 12/05/21 01/03/25 Unkno wn History (Durafiber Dressing) Physical Exam 2 Vital Signs and Narrative: Vital Signs: Last Vital Signs Temp 101.2 F H 04/17/25 02:17 Pulse 118 H 04/17/25 02:17 Resp 26 H 04/17/25 02:17 BP 118/47 L 04/17/25 02:17 Pulse Ox 97 04/17/25 02:17 O2 Del Method Nasal Cannula 04/17/25 02:17 O2 Flow Rate 2 04/17/25 02:17 BMI result Body Mass Index 21.7 Constitutional - Open eyes upon calling her name. No verbal. Chronically ill appearing. Cachectic. HEENT - Atraumatic head. PER, EOMI. Temporal wasting. Dry oral mucosa. Heart - Tachycardic. Regular rhythm. No murmurs. Lungs - Normal lung expansion, poor respiratory effort, No respiratory distress. Tachypnea. Bibasilar crackles. No wheezing. No rhonchi. Abdomen - Mildly distended, increased BS. ?tenderness to palpation. Extremities - no edema. Musculoskeletal - generalized muscular atrophy, contracted. Skin - Warm/Dry. Pallor. No jaundice. Two decubitus ulcers with clean margins and no purulent discharges. See picture below. Neurological - Open eyes upon calling her name. No facial droop. Aphasia. Psychological - No agitation. Results Labs 04/17/25 00:50 04/17/25 00:50 Labs: Laboratory Results - last 24 hr 04/17/25 04/17/25 04/17/25 00:50 01:04 02:11 MCV 78.6 L MCH 22.7 L MCHC 28.9 L RDW 18.6 H Plt Count 365 MPV 11.1 Immature Gran % (Auto) 0.4 Neut % (Auto) 92.2 H Lymph % (Auto) 3.9 L [place] % (Auto) 3.1 Eos % (Auto) 0.1 Baso % (Auto) 0.3 Lymph # (Auto) 0.7 L [place] # (Auto) 0.6 Eos # (Auto) 0.0 Baso # (Auto) 0.1 Abs Immat Gran (auto) 0.07 H Absolute Neuts (auto) 16.4 H Absolute Nucleated RBC 0.000 Nucleated RBC % (auto) 0.0 Smear Tech's Comments VERIFIED Anion Gap 15 Estim Creat Clear Calc 29.6 Estimated GFR 45 Random Glucose 138 H Lactic Acid 2.6 H* Calcium 9.1 D Total Bilirubin 0.2 AST 36 H ALT 15 Alkaline Phosphatase 139 H Troponin I High Sens 11.3 D Total Protein 10.6 H Albumin 2.6 L Urine Color Yellow Urine Appearance Turbid Urine pH 7.0 Ur Specific [place] 1.015 Urine Protein Negative Urine Glucose (UA) Negative Urine Ketones Negative Urine Blood Large (3+) H Urine Nitrite Negative Ur Leukocyte Esterase Large (3+) H Urine RBC 6-10 H Urine WBC >50 H Ur Squamous Epith Cells 0-2 Urine Bacteria Trace Hyaline Casts 3-5 Influenza Type A (PCR) NEGATIVE Influenza Type B (PCR) NEGATIVE RSV RNA Qual (PCR) NEGATIVE SARS-CoV-2 RNA (RT-PCR) NEGATIVE Blood Type A Positive Antibody Screen NEGATIVE Crossmatch See Detail Assessment and Plan (1) Acute on chronic anemia: Status: Acute (2) Acute hypoxic respiratory failure: Status: Acute (3) Aspiration pneumonia: Qualifiers: Aspiration pneumonia type: unspecified Laterality: right Lung location: unspecified part of lung Qualified Code(s): J69.0 - Pneumonitis due to inhalation of food and vomit Status: Acute Plan Diann Colon is a 74 y/o woman with PMHx of Alzheimer's dementia, bed-bound and nonverbal and dysphagia * Hypoxic respiratory failure secondary to aspiration pneumonia; right lung. Admit to hospitalist service. Telemetry. Pulse oximetry. Aspiration precautions. NPO. Continue supplemental O2 sats to keep O2 sats > 90%. Empiric IV antibiotic therapy with Zosyn. Antiemetic therapy with Zofran. * Catheter-associated UTI. History of recurrent UTI: E coli, Pseudomonas aeruginosa, Enterobacter aerogenous, Klebsiella pneumoniae. Empiric IV antibiotic therapy with Zosyn. Urine culture obtained -will follow results. Catheter to be changed. * Acute on chronic anemia; microcytic. Baseline 7-8. Likely due to chronic inflammation (per previous anemia workup; B12 and folate are normal). Previous stool for occult blood negative. Abd and pelvic CT scan showed no acute bleeding (done December 2024). Protonix IV. Transfused PRBCs to keep Hgb > 7. Monitor H&H. * Acute lactic acidosis, tachycardia, fever, tachypnea and leukocytosis. Secondary to pneumonia, UTI and vomiting/volume depletion. No severe sepsis. Continue IV fluids: 2 L NS given in ED. continue to monitor WBC count, lactic acid and vital signs. * History of CVA. Continue aspirin. * Chronic decubitus ulcers (two), POA. Stage IV. Clean. No signs of infection. Wound consult. * Chronic severe right-sided hydronephrosis and nephrolithiasis. * Protein calorie malnourishment. Dietary consult. * Constipation. Continue stool softener and laxative. DVT prophylaxis: Heparin. Code status: DNR/DNI Patient will need hospitalization for at least 2 midnight for pneumonia and catheter associated UTI treatment with supplemental oxygen and IV antibiotic therapy; patient also will need PRBC transfusion due to worsening anemia. Quality Stroke Does the patient have a stroke diagnosis?: No VTE Prior VTE?: No VTE Risk Level:: Medical - moderate - high VTE Device Contraindication: Treatment Not Indicated VTE Drug Contraindication: N/A - Med Ordered
[2025-04-17 03:16] LABS: Reticulocytes Absolute 0.076 X10*6/uL (0.026-0.095)
[2025-04-17 03:35] LABS: Iron < 7 mcg/dL (30-160); Percent Iron Saturation 4 % (15-50); Total Iron Binding Capacity 156 mcg/dL (228-428); Unsaturated Iron Binding 149 ug/dL
[2025-04-17 04:52] LABS: ~Lactic Acid-LAB USE ONLY 5.3 mmol/L (0.5-2.0)
[2025-04-17] MEDS: Lactated Ringers 1,000 ML 999 ML IV (05:00)
[2025-04-17 05:10] LABS: Hematocrit 26.2 % (37.0-47.0); Hemoglobin 7.8 g/dl (12.0-16.0); Mean Corpuscular HGB Conc 29.8 g/dl (31.0-35.0); Mean Corpuscular Hemoglobin 24.1 pg (27.0-33.0); Mean Corpuscular Volume 81.1 fL (80.0-98.0); NRBC Abs Auto 0.000 X10*3/uL (0.0-0.012); NRBC Pct Auto 0.0 /100WBC (0.0-0.2); Platelet Count 270 X10*3/uL (160-400); Red Blood Count 3.23 X10*6/uL (4.20-5.50); White Blood Count 19.3 X10*3/uL (4.8-10.8)
[2025-04-17] MEDS: iohexoL 350 MG/ML 100 ML INFUS..BTL 85 ML IV (05:39)
[2025-04-17] MEDS: Lactated Ringers 1,000 ML 125 ML IVCONT ×2 (06:17→17:42)
[2025-04-17 06:19] LABS: Reflex Lactate? 2 Y
[2025-04-17 07:44] LABS: Hematocrit 22.7 % (37.0-47.0); Mean Corpuscular HGB Conc 30.0 g/dl (31.0-35.0); Mean Corpuscular Hemoglobin 23.6 pg (27.0-33.0); Mean Corpuscular Volume 78.8 fL (80.0-98.0); NRBC Abs Auto 0.000 X10*3/uL (0.0-0.012); NRBC Pct Auto 0.0 /100WBC (0.0-0.2); Platelet Count 278 X10*3/uL (160-400); Red Blood Count 2.88 X10*6/uL (4.20-5.50); White Blood Count 24.5 X10*3/uL (4.8-10.8)
[2025-04-17 07:51] LABS: Hemoglobin 6.8 g/dl (12.0-16.0)
[2025-04-17 07:52] LABS: ~Lactic Acid-LAB USE ONLY 1.5 mmol/L (0.5-2.0)
[2025-04-17 07:57] LABS: Anion Gap 10 (12-20); Blood Urea Nitrogen 29 mg/dL (9-16); Calcium 7.8 mg/dL (8.4-10.2); Carbon Dioxide 18 mmol/L (22-29); Chloride 114 mmol/L (96-108); Creatinine Clr Calc Pharmacy 34.3; Estimated Glomerular Filt Rate 54; Magnesium 1.6 mg/dL (1.6-2.6); Potassium 4.7 mmol/L (3.3-5.1); Sodium 137 mmol/L (135-145)
[2025-04-17 08:22] LABS: Ferritin 96 ng/mL (10-250)
--- NOTE | 2025-04-17 08:59 | MHC.EDTECH ---
This tech took over care of pt at 0700am,rounded and introduced self to pt,vitals taken,emptied 100MLS from Cherry,(purulent in color) son at bedside,patient appears comfortable resting quietly,call cotter in reach
[2025-04-17] MEDS: 0.9 % Sodium Chloride Flush 3 ML SYRINGE IVFLUSH ×2 (09:24→15:37)
--- NOTE | 2025-04-17 12:40 | PHA.MEDREC ---
Addendum entered by Hugo Samaniego PharmD 04/17/25 12:50: reviewed Original Note: Pharmacy Consult ? Medication Reconciliation Pharmacy has completed the medication reconciliation. Spoke with pt son (Markell) at bedside and he was able to confirm what the pt currently takes with the help of his sister, Misty. The son and sister confirmed the pt is not taking Rosuvastatin, Losartan or Levothyroxine, stating the family stopped them when the pt got transferred fully from [facility] to [place]. The son and daughter stated the pt is not taking Citalopram stating it wasn't working well with the pt.
--- NOTE | 2025-04-17 12:54 | MHC.CM.PN ---
Patient has Alzheimer's Dementia and is non-verbal; CM spoke with Daughter/HCP/Misty @ [phone] and addressed IMM with her (original will be mailed certified letter to Daughter and a copy will be placed on the chart). 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 Home/resume said services is the goal and CM has initiated and will follow for dc planning. PCP is Dr. Avila and Patient will require BLS transport to home at time of dc.
--- NOTE | 2025-04-17 13:29 | PM.EVENT ---
Event Note Date of Service: 04/17/25 Event Note: Diann Colon is a 74 y/o woman with PMHx of Alzheimer's dementia, bed-bound and nonverbal and dysphagia Hypoxic respiratory failure secondary to aspiration pneumonia; right lung. Telemetry. Pulse oximetry. Aspiration precautions. NPO. Continue supplemental O2 sats to keep O2 sats > 90%. Empiric IV antibiotic therapy with Zosyn. Antiemetic therapy with Zofran. Catheter-associated UTI. History of recurrent UTI E coli, Pseudomonas aeruginosa, Enterobacter aerogenous, Klebsiella pneumoniae. Empiric IV antibiotic therapy with Zosyn. Urine culture obtained -will follow results. Catheter to be changed. Acute on chronic anemia; microcytic. Baseline 7-8. Likely due to chronic inflammation (per previous anemia workup; B12 and folate are normal). Previous stool for occult blood negative. Abd and pelvic CT scan showed no acute bleeding (done December 2024). Protonix IV. Transfused PRBCs x2 Acute lactic acidosis, tachycardia, fever, tachypnea and leukocytosis. Secondary to pneumonia, UTI and vomiting/volume depletion. No severe sepsis. Continue IV fluids: 2 L NS given in ED. continue to monitor WBC count, lactic acid and vital signs. History of CVA. Continue aspirin. Chronic decubitus ulcers (two), POA. Stage IV. Clean. No signs of infection. Wound consult. Chronic severe right-sided hydronephrosis and nephrolithiasis. Protein calorie malnourishment. Dietary consult. Constipation. Continue stool softener and laxative. DVT prophylaxis: Heparin. Code status: DNR/DNI Time Spent With Patient Time: Total time managing care of this patient today ____ minutes.
--- NOTE | 2025-04-17 15:35 | MHC.CLN ---
NUTRITION NPO PENDING SWALLOW EVAL. HX DYSPHAGIA AND NOW WITH ASPIRATION PNEUMONIA. TWO STAGE IV CHRONIC PRESSURE INJURIES TO SACRAL AREA. SON REPORTS THAT PATIENT HAD BEEN EATING WELL AT HOME. TAKES PUREE FOOD AND BOOST SUPPLEMENT AT HOME. FOLLOW FOR DIET ADVANCEMENT, PO INTAKE AND SKIN INTEGRITY. SEE CLINICAL NUTRITION ASSESSMENT 04/17/25.
[2025-04-17 15:50] LABS: Hematocrit 27.1 % (37.0-47.0); Hemoglobin 8.3 g/dl (12.0-16.0)
[2025-04-18 03:27] VITALS: BP 115/54; PULSE 95; RESP 18; TEMP 36.2; O2SAT 96
[2025-04-18] MEDS: Lactated Ringers 1,000 ML 125 ML IVCONT ×3 (04:11→21:18)
[2025-04-18 07:22] VITALS: BP 109/54; PULSE 89; RESP 20; TEMP 36.1; O2SAT 96
[2025-04-18] MEDS: 0.9 % Sodium Chloride Flush 3 ML SYRINGE IVFLUSH ×2 (10:29→16:25)
[2025-04-18 11:02] VITALS: BP 118/58; PULSE 91; RESP 18; TEMP 36.3; O2SAT 97
--- NOTE | 2025-04-18 11:29 | MHC.CLN ---
F/U NPO PENDING SWALLOW EVAL HX DYSPHAGIA AND NOW WITH ASPIRATION PNEUMONIA TWO STAGE IV CHRONIC PRESSURE INJURIES TO SACRAL AREA SON REPORTS THAT PATIENT HAD BEEN EATING WELL AT HOME PT DOES NOT QUALIFY MALNOURISHED AT THIS TIME TAKES PUREE FOOD AND BOOST SUPPLEMENT AT HOME WHEN DIET ADVANCED, WILL ADD SUPPLEMENTS TO PROMOTE WOUND HEALING FOLLOWING FOR DIET ADVANCEMENT
--- NOTE | 2025-04-18 14:42 | P.PNIM_ITS ---
Subjective Subjective Date of Service: 04/18/25 Physical Exam 2 Vital Signs: Vital Signs: Last Vital Signs Temp 97.4 F 04/18/25 11:02 Pulse 91 04/18/25 11:02 Resp 18 04/18/25 11:02 BP 118/58 L 04/18/25 11:02 Pulse Ox 97 04/18/25 11:02 O2 Del Method Nasal Cannula 04/18/25 11:02 O2 Flow Rate 2 04/18/25 11:02 BMI result Body Mass Index 21.7 Objective Data Active Medications Heparin Sodium (Porcine) (Heparin Sodium,Porcine 5,000 Unit/Ml Vial) 5,000 unit SUBCUT Q12H [facility] Last Admin: 04/18/25 10:28 Dose: 5,000 unit Documented By: JORGE L Lactated Ringer's (Lr) 1,000 mls @ 125 mls/hr IVCONT .Q8H [facility] Last Admin: 04/18/25 12:08 Dose: 125 mls/hr Documented By: JORGE L Acetaminophen (Ofirmev) 1,000 mg in 100 mls @ 400 mls/hr IV Q6H [facility] Last Infusion: 04/18/25 11:15 Dose: Infused Documented By: JORGE L Piperacillin Sod/Tazobactam (Sod 3.375 gm/ Sodium Chloride) 50 mls @ 100 mls/hr IV Q6H [facility] Last Infusion: 04/18/25 11:58 Dose: Infused Documented By: JORGE L Melatonin (Melatonin 3 Mg Tablet) 6 mg PO BEDTIME PRN PRN Reason: Insomnia Ondansetron HCl (Ondansetron Hcl 4 Mg/2 Ml Vial) 4 mg IVPUSH Q6H [facility] Last Admin: 04/18/25 10:29 Dose: 4 mg Documented By: JORGE L Pantoprazole Sodium (Pantoprazole Sodium 40 Mg/10 Ml Vial) 40 mg IVPUSH BID@0630,1630 [facility] Last Admin: 04/18/25 06:50 Dose: 40 mg Documented By: MAYRA Sodium Chloride (0.9 % Sodium Chloride Flush 3 Ml Syringe) 3 ml IVFLUSH QSHIFT [facility] Last Admin: 04/18/25 10:29 Dose: 3 ml Documented By: JORGE L Labs 04/17/25 15:43 04/17/25 07:31 Microbiology Microbiology Results: Microbiology 04/17/25 01:04 Urine Culture - Final Urine Catheterized - Cherry Catheter 04/17/25 00:50 Blood Culture - Preliminary Blood - Venous No growth after 24 hours. 04/17/25 00:50 Blood Culture - Preliminary Blood - Venous No growth after 24 hours. Assessment and Plan (1) Hypertension: Status: Acute Plan Diann Colon is a 74 y/o woman with PMHx of Alzheimer's dementia, bed-bound and nonverbal and dysphagia Hypoxic respiratory failure secondary to aspiration pneumonia; right lung. Pulse oximetry. Aspiration precautions. NPO. Continue supplemental O2 sats to keep O2 sats > 90%. Empiric IV antibiotic therapy with Zosyn. Antiemetic therapy with Zofran. Catheter-associated UTI. History of recurrent UTI E coli, Pseudomonas aeruginosa, Enterobacter aerogenous, Klebsiella pneumoniae. Empiric IV antibiotic therapy with Zosyn. Urine culture mixed, blood cx neg Catheter to be changed. Acute on chronic anemia; microcytic. Baseline 7-8. Likely due to chronic inflammation (per previous anemia workup; B12 and folate are normal). Previous stool for occult blood negative. Abd and pelvic CT scan showed no acute bleeding (done December 2024). Protonix IV. Transfused PRBCs x2 Acute lactic acidosis, tachycardia, fever, tachypnea and leukocytosis. Secondary to pneumonia, UTI and vomiting/volume depletion. No severe sepsis. Continue IV fluids: 2 L NS given in ED. continue to monitor WBC count, lactic acid and vital signs. History of CVA. Continue aspirin. Chronic decubitus ulcers (two), POA. Stage IV. Clean. No signs of infection. Wound consult. Chronic severe right-sided hydronephrosis and nephrolithiasis. Protein calorie malnourishment. Dietary consult. Constipation. Continue stool softener and laxative. DVT prophylaxis: Heparin. Code status: DNR/DNI Quality Stroke Does the patient have a stroke diagnosis?: No VTE Prior VTE?: No VTE Risk Level:: Medical - moderate - high VTE Device Contraindication: Treatment Not Indicated VTE Drug Contraindication: N/A - Med Ordered
--- NOTE | 2025-04-18 15:41 | MHC.CM.PN ---
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
[2025-04-18 15:51] VITALS: BP 125/50; PULSE 92; RESP 16; TEMP 36.3; O2SAT 98
--- NOTE | 2025-04-18 15:59 | MHC.SL.SWA ---
Liquid Consistency and Strategies for Safe Swallow: Liquid Intake Recommendation: Thin Solid Food Consistency: Dietary Recommendations: Pureed (NDD1) Oral Medication Intake: Crushed with Puree Please contact the pharmacy regarding appropriate crushable or liquid drug formulations that are available whenever modified delivery is recommended. Supervision While Eating and Drinking for Safe Swallow: Total Assistance (1:1) Recommendation for Speech: Inpatient Speech Therapy Comment: Recommend UPGRADE to baseline diet of puree solids (NDD1) and thin liquids w/ pills crushed in puree. Requires 1-1 feed. Pt presents w/ holding PO prior to swallow, wait for pt to swallow prior to offering more PO. Cue pt to take small sips, otherwise she will chug liquids. MOBILE SALES EXPERT to continue to follow. Frequency/Duration: M-F Tractor Mechanic Clinican/Clinical Fellow: No Supervisory Statement: I have reviewed and agree with the student/clinical fellow's documentation: N/A Speech Language Pathologist: Rachele Hanna M.A., CCC-MOBILE SALES EXPERT
--- NOTE | 2025-04-18 17:03 | HO.WOUND ---
Wound Consult: Initial 73yr old?female admitted to [facility] on 04/17/25 - See progress notes and H&P for detailed history.? Wound consult placed for Multiple areas on admission.? Patient's son is agreeable to assessment and photo documentation, he is her HCP and the patient is nonverbal at baseline. Patients son reports she does all of her wound care at home - he reports she was on Hospice and was providing all her care for her he is requesting certain treatments and not others. He is kind and understands my role in the care and my expertise but is requesting we only use saline wet to moist dressing to the coccyx sacral area - he reports hydrofibers and alginates have only made the wounds and periwounds worse - I attempted to educate him on the benefits of Hydrofiber he is requesting saline moist dressing. This is not contraindicated and although this wound not be my first line treatment her wounds are treated at home and appear healthy and not infected on assessment. Agreeable to saline wet dressing and follow up if she remains inpatient. ? Patients son is also not suing foam dressing to sacrum but to use tegaderm instead. Coccyx and Right Sacrum Etiology: Stage 4 pressure injury ??Present on Admission Wound Bed: m,arbled wound bed with pink red tissue and white adherent slough Drainage / Odor: [place] no odor Edges: ? rolled Bárbara wound: pink red hyperpigmentation noted ? No Induration, Fluctuance or Warmth noted Goals of Treatment: ? wet to moist dressing for autorlytic debridement Left Elbow Etiology: Unstageable pressure injury ??Present on Admission Wound Bed: yellow white adherent slough Drainage / Odor: [place] no odor Edges: ? rolled Bár[place] wound: pink red hyperpigmentation noted ? No Induration, Fluctuance or Warmth noted Goals of Treatment: ? Durafiber Right ischium Etiology: Stage 4 pressure injury ??Present on Admission Wound Bed: marbled wound bed with pink red tissue and white adherent slough Drainage / Odor: [place] no odor Edges: ? rolled Bár[place] wound: pink red hyperpigmentation noted ? No Induration, Fluctuance or Warmth noted Goals of Treatment: ? wet to moist dressing for autorlytic debridement Right Heel - DTI POA - Heel boot protectors in place Left L;ateral Foot - DTI POA - Heel boot protectors in place Recommendations: 1. Turn and Reposition every 2 hours and as needed for patient comfort.? Use pillows or wedges to support off loading positions. 2. Off Load all bony prominences with use of pillows and heel boots if needed.? Apply Preventative foams where needed. ? 3. Monitor for incontinence and moisture control, use barrier creams when needed for prevention and treatment. 4. Provide adequate and supplemental nutrition.? 5. Order low air loss mattress. 6. When applicable maintain blood glucose levels per Providers order. Coccyx Sacrum and Ischium - Cleanse and irrigate with saline, Apply skin prep to periwound. Lightly pack wound beds with saline moist gauze, cover with dry gauze and Tegaderm. Change Daily. Bilateral Heels and Feet - Elevate heels off of bed surface with heel boot protectors. Left Elbow - Off load pressure with use of pillows. Cleanse with saline moist gauze, pat dry. Apply skin prep cover with durafiber AG, and foam dressing change every other day. Re-consult wound care Nurse for wound deterioration or wound changes.
[2025-04-18 19:56] VITALS: BP 144/61; PULSE 85; RESP 18; TEMP 36.1; O2SAT 99
[2025-04-18 23:22] VITALS: BP 129/59; PULSE 85; RESP 18; TEMP 36.3; O2SAT 97
[2025-04-19] MEDS: 0.9 % Sodium Chloride Flush 3 ML SYRINGE IVFLUSH ×2 (03:08→09:58)
[2025-04-19 03:23] VITALS: BP 132/78; PULSE 87; RESP 18; TEMP 36.5; O2SAT 94
[2025-04-19 07:21] VITALS: BP 122/57; PULSE 84; RESP 20; TEMP 36.7; O2SAT 97
[2025-04-19 07:28] LABS: Hematocrit 28.9 % (37.0-47.0); Hemoglobin 8.7 g/dl (12.0-16.0); Mean Corpuscular HGB Conc 30.1 g/dl (31.0-35.0); Mean Corpuscular Hemoglobin 23.6 pg (27.0-33.0); Mean Corpuscular Volume 78.3 fL (80.0-98.0); NRBC Abs Auto 0.000 X10*3/uL (0.0-0.012); NRBC Pct Auto 0.0 /100WBC (0.0-0.2); PLT CLUMP 1; Red Blood Count 3.69 X10*6/uL (4.20-5.50)
[2025-04-19 07:29] LABS: White Blood Count 18.1 X10*3/uL (4.8-10.8)
[2025-04-19 09:03] LABS: Platelet Count 294 X10*3/uL (160-400)
--- NOTE | 2025-04-19 11:04 | PM.DS ---
DS: Providers Provider Date of Service: 04/19/25 Date of admission: 04/17/25 02:47 Date of discharge: 04/19/25 Primary care physician: Yana Avila MD Consults: 04/17/25 03:54 Consult to Wound Care Routine Reason for consultation: Decubitus ulcers DS: Diagnosis Discharge Diagnosis (1) Hypertension: Status: Acute DS: Summary Hospital Course Hospital Course: History and physical as per admitting provider. Diann Colon is a 74 years old woman with past medical history of Alzheimer's dementia, bed-bound and nonverbal, chronic severe right-sided hydronephrosis, chronic sacral/decubitus ulcer, chronic indwelling urinary catheter, recurrent UTI, chronic anemia and dysphagia after the patient started to to vomit (phlegm) in the afternoon. She also vomit upon swallowing her nighttime medications. She also started to breathe very fast. This happened around 22:30. For the last today she has been occasionally coughing. Son who was at bedside said that he took her temperature it was 98. EMS found her to have a temperature 100.2 degrees. She has not been having diarrhea. She has history of constipation but has been having adequate bowel movement. She has been eating well (purred food). Her indwelling urinary catheter was changed last week. In the ED, she was found to to have fever, tachycardia and tachypnea. Blood pressure has been stable. Last BP was 116/52. Oxygen saturation was 90 % on room air and currently requiring 2 L/min supplemental O2 via nasal cannula. Blood workup was remarkable for leukocytosis of 17.8. Hemoglobin 6.9 and hematocrit 23.9. There is lactic acidosis of 2.6. Platelets are normal. CO2 is 18, chloride 109. Other electrolytes are normal. BUN is 31 and creatinine 1.16. AST is 36, ALT 15, alk-phos 139 and bilirubin 0.2. Total proteins are elevated. Albumin is 2.6. Urinalysis consistent with urinary tract infection. ECG showed sinus tachycardia without ischemic changes. CXR showed right lung patchy airspace opacity concerning for pneumonia. ED tx: Acetaminophen 650 mg NH, ceftriaxone 1 g, NS 2 L bolus, azithromycin 500 mg IV 74-year-old woman treated for acute respiratory failure secondary to aspiration pneumonia. Patient has aphasic with Alzheimer's and bed-bound. She was treated with IV Zosyn, antiemetic therapy. Initially NPO but seen by speech and place back on her usual pureed diet. Plan will be to send home with 4 more days of Augmentin. Catheter associated UTI. History of recurrent UTIs. Treated with empiric Zosyn. Urine culture was mixed. We will continue a few more days of antibiotics as she will be treated for her pneumonia any ways. Acute on chronic anemia, microcytic. Stable. Did receive a total of 2 packed red blood cells with good effect Acute lactic acidosis, tachycardia, fever, tachypnea and leukocytosis. Secondary to pneumonia, UTI vomiting and volume depletion. No severe sepsis. Treated with IV fluids and resolved History of CVA. Continue aspirin Chronic decubitus ulcer. Present on admission. Wounds appear clean. No signs of infection. Continue wound care at home. Chronic severe right-sided hydronephrosis nephrolithiasis Protein calorie malnutrition. Add protein to diet History of constipation. Continue bowel regimen Time Attestation Discharge Coordination Time (in mins): 42 Quality: Safe Use of Opioids Does Pt have an Active Cancer Diagnosis on the Problem List?: No Quality: Stroke Does the patient have a stroke diagnosis?: No Physical Exam Vital Signs: Vital Signs: Last Vital Signs Temp 98.1 F 04/19/25 07:21 Pulse 84 04/19/25 07:21 Resp 20 04/19/25 07:21 BP 122/57 L 04/19/25 07:21 Pulse Ox 97 04/19/25 07:21 O2 Del Method Nasal Cannula 04/19/25 07:21 O2 Flow Rate 2 04/19/25 07:21 BMI result Body Mass Index 21.7 Appearing in no acute distress head is normocephalic atraumatic eyes pupils are PERRLA sclera is anicteric mouth throat mucous membranes are intact and moist neck is supple no lymphadenopathy, no JVD noted lung sounds are clear to auscultation heart regular rate rhythm, clear S1, S2 positive bowel sounds, abdomen is soft, nontender neuro patient is alert, opens eyes, aphasic, contractures, bed-bound DS: Data Data Completed and Pending Completed studies during hospitalization [Text1]: Procedures Dilation of Right Ureter with Intraluminal Device, Via Natural or Artificial Opening Endoscopic (07/17/20) Extirpation of Matter from Right Ureter, Via Natural or Artificial Opening Endoscopic (07/17/20) Fluoroscopy of Right Kidney, Ureter and Bladder (07/17/20) Insertion of Infusion Device into Superior Vena Cava, Percutaneous Approach (11/18/21) Insertion of Infusion Device into Upper Vein, Percutaneous Approach (12/31/24) Introduction of Remdesivir Anti-infective into Peripheral Vein, Percutaneous Approach, [employer] (11/18/21) Transfusion of Nonautologous Red Blood Cells into Peripheral Vein, Percutaneous Approach (12/31/24) Labs on day of discharge: Laboratory Results - last 24 hr 04/19/25 06:38 WBC 18.1 H RBC 3.69 L D Hgb 8.7 L Hct 28.9 L MCV 78.3 L MCH 23.6 L MCHC 30.1 L RDW 19.1 H Plt Count 294 MPV 11.8 Absolute Nucleated RBC 0.000 Nucleated RBC % (auto) 0.0 Preliminary micro results at discharge 04/17/25 00:50 Blood Culture - Preliminary Blood - Venous No growth after 48 hours. 04/17/25 00:50 Blood Culture - Preliminary Blood - Venous No growth after 48 hours. Discharge Plan Discharge Anticipated Discharge Date/Time: 04/19/25 07:57 Patient Disposition: Home Health Service Discharge Diagnosis: Hypoxic respiratory failure Aspiration pneumonia Catheter associated UTI Referrals: Po,Yana Beck MD [Primary Care Provider, Internal Medicine] - 1 Week Discharge Medications: New amoxicillin-pot clavulanate 875-125 mg tablet 1 tab PO BID Qty: 6 0RF Continued (DME) hydrocolloid dressing [Durafiber Dressing] 6 X 6 bandage See Rx Instructions .Route Rx Instructions: To use for wound care (DME) gloves See Rx Instructions .Route .MEDSUPPLY Qty: 1 0RF Rx Instructions: large (DME) disposable bed pads See Rx Instructions .Route .MEDSUPPLY Qty: 50 5RF Rx Instructions: As directed (DME) gloves See Rx Instructions .Route .MEDSUPPLY Qty: 1 5RF Rx Instructions: medium (DME) gauze bandage [Band-Aid Gauze Pads] 2 X 2 bandage See Rx Instructions .Route Qty: 2400 3RF Rx Instructions: As directed (DME) gauze bandage 4 X 4 bandage See Rx Instructions .Route Qty: 100 12RF Rx Instructions: As directed (DME) adhesive tape [Paper Tape] 1 X 10 -yard tape See Rx Instructions .Route Qty: 2 12RF Rx Instructions: As directed (DME) adhesive tape 1 1/2 X 10 -yard tape See Rx Instructions .Route Qty: 4 5RF Rx Instructions: As directed (DME) sheep skin elbow protectors See Rx Instructions .Route .MEDSUPPLY Qty: 2 0RF Rx Instructions: As directed memantine 5 mg tablet 5 mg PO BID Qty: 180 0RF omeprazole 20 mg capsule,delayed release(DR/EC) 20 mg PO DAILY@0630 Qty: 90 0RF cholecalciferol (vitamin D3) 50 mcg (2,000 unit) tablet 50 mcg PO DAILY Qty: 90 0RF (DME) Oxygen Home Use Kit See Rx Instructions .Route Qty: 1 0RF Rx Instructions: As directed 2L NC topiramate 50 mg tablet 50 mg PO BEDTIME Qty: 90 2RF aspirin 81 mg tablet,chewable 1 tab PO DAILY Qty: 30 3RF cyclosporine [Restasis] 0.05 % dropperette 1 drp ophthalmic (eye) BID sennosides [senna] 8.6 mg Tablet 17.2 mg PO DAILY PRN (Reason: Constipation) (DME) gauze bandage [Band-Aid Gauze Pads] 2 X 2 bandage See Rx Instructions .Route Qty: 150 0RF Rx Instructions: to use for wound care ascorbic acid (vitamin C) 1,000 mg tablet 1 g PO DAILY 90 Days Qty: 90 1RF methenamine hippurate 1 gram tablet 1 g PO BID 90 Days Qty: 180 1RF Discharge Orders: Discharge Order (Routine); Ordered 04/19/25 Ordered By: Kim Vera Diet: Advance to usual diet Activity on Discharge: As tolerated Stand Alone Forms: Patient Portal Discharge page Print Language: Citizen Of [place] Care Plan Goals: Complete antiobiotics Health Concerns: Hypoxic respiratory failure Aspiration pneumonia Catheter associated UTI Plan of Treatment: Follow up with primary care provider as needed Take all medications as prescribed Assessment: See discharge summary
[2025-04-19 11:10] VITALS: BP 122/56; PULSE 90; RESP 18; TEMP 36.6; O2SAT 93
--- NOTE | 2025-04-19 11:22 | MHC.CM.PN ---
Addendum entered by Nikki Hassan 04/19/25 11:23: and ИВАН Original Note: Second IMM 04/19/25, Pt has been medically cleared, she will go home via BLS and resume her family and CONTACT CENTER REPRESENTATIVE care.
--- NOTE | 2025-04-19 11:23 | MHC.SL.SWA ---
Speech Pathologist Impression: Dysphagia in setting of advancing dementia Risk of Aspiration Due to: oropharyngeal weakness decreased cognition hx of dysphagia Dysphasia Diet Status: Purees/thins with 1:1 feeding, aspiration precautions. Liquid Consistency and Strategies for Safe Swallow: Liquid Intake Recommendation: Thin Liquid Intake Strategies: Solid Food Consistency: Dietary Recommendations: Pureed (NDD1) Additional Modifications to Solid Foods: Oral Medication Intake: Crushed with Puree Please contact the pharmacy regarding appropriate crushable or liquid drug formulations that are available whenever modified delivery is recommended. Compensatory Strategies and Precautions to be Taken for Safe Swallow: Sitting Upright (90 deg) Liquids from Straw Small Bites and Sips Alternate Liquids/Solids Rate of Ingestion Change Oral Check Supervision While Eating and Drinking for Safe Swallow: Total Assistance (1:1) Foods to Avoid: Mixed consistencies Swallowing Recommended Treatments: Compens. Strategy Educat. Recommendation for Speech: Inpatient Speech Therapy Comment: Pt on baseline diet of puree solids (NDD1) and thin liquids w/ pills crushed in puree. Requires 1-1 feed. Pt presents w/ holding PO prior to swallow, wait for pt to swallow prior to offering more PO. Cue pt to take small sips, otherwise she will chug liquids. COMSEC MANAGER intervention recc at d/t for dysphagia management. Frequency/Duration: M-F Date Range for Service Req: Timeline to reassess: Master Control Operator Clinican/Clinical Fellow: No Supervisory Statement: I have reviewed and agree with the student/clinical fellow's documentation: N/A Speech Language Pathologist: Anahy Soto M.S., [facility]-COMSEC MANAGER
--- NOTE | 2025-04-19 14:23 | P.CDIM_ITS ---
PROVIDER RESPONSE TEXT: To clarify, the appropriate diagnosis supported by the clinical indicators: Mild QUERY TEXT: PHYSICIAN'S DOCUMENTATION REQUEST Date of Query: 04/18/2025 10:02 AM EDT Patient Name: Diann Box Admit Date: 04/17/2025 Dear Kim Vera ACCOUNTS RECEIVABLE ANALYST, A review of the medical record indicates additional documentation may be needed. Please review below and update the documentation accordingly. Documentation of malnutrition: H&P: Protein calorie malnutrition BMI 21.7 Nutrition notes: Increased demand protein/two Stage IV chronic pressure injuries. Takes puree food and boost supplement at home. If possible, please provide additional specificity regarding the severity of the malnutrition using the above information: Mild Moderate Severe Other (explain) Clinically unable to determine (explain) Thank you, Carla Martinez, CCS, CDIS Use of terms such as suspected, likely, concern for, or probable (associated with a specific diagnosis that is being evaluated, monitored, or treated as if it exists) are acceptable and can be coded in the inpatient setting, when documented at the time of discharge. Please use your independent medical judgment in providing your response. THIS QUERY IS PART OF THE PERMANENT MEDICAL RECORD
--- NOTE | 2025-04-19 14:23 | P.CDIM_ITS ---
PROVIDER RESPONSE TEXT: To clarify, the appropriate diagnosis supported by the clinical indicators: Acute hypoxic respiratory failure: Diagnosed QUERY TEXT: PHYSICIAN'S DOCUMENTATION REQUEST Date of Query: 04/18/2025 05:22 AM EDT Patient Name: Diann Box Admit Date: 04/17/2025 Dear Kim Vera METAL TESTER, A review of the medical record indicates additional documentation may be needed. Please review below and update the documentation accordingly. Clinical Indicators: Note dated 04/17/25 - Hypoxic respiratory failure secondary to aspiration pneumonia. Telemetry Pulse oximetry Continue supplemental O2 sats to keep O2 sats > 90%. Clarify which of the following accurately represents the acuity of the Hypoxic respiratory failure: Possible options might include: Acute hypoxic respiratory failure possible, probable, suspected etc. Acute on chronic hypoxic respiratory failure Other specified Other (explain) Clinically unable to determine (explain) Thank you, Carla Martinez, CCS, CDIS Use of terms such as suspected, likely, concern for, or probable (associated with a specific diagnosis that is being evaluated, monitored, or treated as if it exists) are acceptable and can be coded in the inpatient setting, when documented at the time of discharge. Please use your independent medical judgment in providing your response. THIS QUERY IS PART OF THE PERMANENT MEDICAL RECORD
--- NOTE | 2025-04-19 14:23 | P.CDIM_ITS ---
PROVIDER RESPONSE TEXT: To clarify, the appropriate diagnosis supported by the clinical indicators: Decubitus ulcer Right buttock Stage 4: Diagnosed QUERY TEXT: PHYSICIAN'S DOCUMENTATION REQUEST Date of Query: 04/18/2025 07:18 AM EDT Patient Name: Diann Box Admit Date: 04/17/2025 Dear Kim Vera FUNERAL ASSISTANT, A review of the medical record indicates additional documentation may be needed. Please review below and update the documentation accordingly. Clinical Indicators: H&P and Note 04/17/25 - Chronic decubitus ulcers (two), POA Stage IV No signs of infection. Wound care assessment notes 04/17/25: Chronic right buttock decubitus ulcer Stage IV, Present on arrival. Gauze pad. Based on the above, could you please provide further information regarding the ulcer/wound/injury: Decubitus ulcer Right buttock Stage 4 possible, probable, suspected etc. Other specifics Please specify Other (explain) Clinically unable to determine (explain) Thank you, Carla Martinez, CCS, CDIS Use of terms such as suspected, likely, concern for, or probable (associated with a specific diagnosis that is being evaluated, monitored, or treated as if it exists) are acceptable and can be coded in the inpatient setting, when documented at the time of discharge. Please use your independent medical judgment in providing your response. THIS QUERY IS PART OF THE PERMANENT MEDICAL RECORD
--- NOTE | 2025-04-19 15:33 | P.F2F_ITS ---
Service Date Service Date: 04/19/25 Encounter Date of encounter: 04/19/25 Reasons for Services Signs and symptoms assessed: Encephalopathy, UTI Reason for group home: CV/CP assess and/or care Homebound: Leaving the home is medically contraindicated at this time without the asist of a device and/or another person due th the listed conditions above and below. Reason homebound: bedbound/chairbound Certification: Based on the above findings, I certify that this patient is confined to the home and needs intermittent group home care, physical therapy and/or speech therapy, or continues to need occupational therapy. The patient is under my care, and I have initiated the establishment of the plan of care. The patient will be followed by a physician who will periodically review the plan of care. Time Spent With Patient Time: Total time managing care of this patient today ____ minutes.
== END 2025-04-19 15:15 | disposition home health service (06) | DRG 698 ==
LOC: HO.ED 02:32 → HO.EDOVER 02:54 → HO.IMC 15:08
PROVIDERS: Admitting Provider Internal Medicine; Emergency Provider Emergency Medicine; PCP Internal Medicine; Visit Provider Nurse Practitioner Acute Care
DX: T83.511A Infection and inflammatory reaction due to indwelling urethral catheter, initial encounter (principal); J69.0 Pneumonitis due to inhalation of food and vomit; J96.01 Acute respiratory failure with hypoxia; L89.314 Pressure ulcer of right buttock, stage 4; N13.6 Pyonephrosis; E87.21 Acute metabolic acidosis; E44.1 Mild protein-calorie malnutrition; R47.01 Aphasia; G30.9 Alzheimer's disease, unspecified; Z74.01 Bed confinement status; Z87.440 Personal history of urinary (tract) infections; Z66 Do not resuscitate; Z86.73 Personal history of transient ischemic attack (TIA), and cerebral infarction without residual deficits; D50.9 Iron deficiency anemia, unspecified; K59.00 Constipation, unspecified; Z68.21 Body mass index [BMI] 21.0-21.9, adult; F02.80 Dementia in other diseases classified elsewhere, unspecified severity, without behavioral disturbance, psychotic disturbance, mood disturbance, and anxiety; Y73.8 Miscellaneous gastroenterology and urology devices associated with adverse incidents, not elsewhere classified; Z20.822 Contact with and (suspected) exposure to COVID-19; Z99.81 Dependence on supplemental oxygen; Z79.899 Other long term (current) drug therapy
CPT/HCPCS: 0241U; 36415; 71045; 74177; 80048; 80053; 81001; 82728; 83540; 83605; 83615; 83735; 84484; 85014; 85018; 85025; 85027; 85045; 86850; 86900; 86901; 86923; 87040; 87086; 92526; 92610; 93005; 99285; J0131; J0456; J0696; J1644; J1885; J2405; J2470; J2543; J7120; P9016; Q9967

== ENCOUNTER → 2025-04-17 01:08 | Outpatient (BNV) | payer OTHER, SELFPAY | PROVIDERS: Admitting Provider Internal Medicine; Emergency Provider Emergency Medicine; Visit Provider Internal Medicine Cardiovascular Disease | DX: I49.1 Atrial premature depolarization (principal); R00.0 Tachycardia, unspecified | CPT/HCPCS: 93010 ==

== ENCOUNTER → 2025-04-17 02:47 | Outpatient (BNV) | payer OTHER, SELFPAY | PROVIDERS: Admitting Provider Internal Medicine; Emergency Provider Emergency Medicine; Visit Provider Internal Medicine | DX: I10 Essential (primary) hypertension (principal) | CPT/HCPCS: 99223; 99232; 99239; 99499; G0180 ==

== ENCOUNTER → 2025-04-17 23:23 | Outpatient (BNV) | payer OTHER, SELFPAY | PROVIDERS: Emergency Provider Emergency Medicine; Visit Provider Radiology Diagnostic Radiology | DX: N28.9 Disorder of kidney and ureter, unspecified (principal); R91.8 Other nonspecific abnormal finding of lung field | CPT/HCPCS: 71045; 74177 ==

== ENCOUNTER 2025-04-24 23:56 | Inpatient (IN) | payer OTHER, SELFPAY ==
--- NOTE | ~2025-04-24 | XR_ITS ---
CLINICAL HISTORY: sob Chest X-ray, 1 View COMPARISON: CR - XR CHEST 1V - 04/17/25 00:23 EDT FINDINGS: Diffuse bilateral airspace disease, overall increased since the prior study. No pleural effusion. No pneumothorax. No cardiomegaly. No acute fracture. IMPRESSION: Bilateral airspace disease, which could be due to pulmonary edema and/or atypical pneumonia. This document has been electronically signed by: Ellis Corbin MD on 04/25/2025 01:05:45
[2025-04-25] VITALS (8 sets, daily range): BP systolic 116–150; BP diastolic 39–50; PULSE 96–112; RESP 13–24; TEMP 35.8; O2SAT 15–92; BMI 21.4
--- NOTE | 2025-04-25 00:02 | ECG_ITS ---
Test Reason : SOB Blood Pressure : */* mmHG Vent. Rate : 105 BPM Atrial Rate : 105 BPM P-R Int : 164 ms QRS Dur : 84 ms QT Int : 370 ms P-R-T Axes : 54 -33 50 degrees QTcB Int : 489 ms Sinus tachycardia Left axis deviation Minimal voltage criteria for LVH, may be normal variant ( [place] product ) Abnormal ECG When compared with ECG of 17-Apr-2025 01:08, Premature supraventricular complexes are no longer Present Referred By: April Stanford Electronically Signed By: Mauri Monsivais
[2025-04-25 00:19] LABS: MANUAL DIFF FLAG NO
[2025-04-25 00:21] LABS: Venous Blood Gas Refer to POC result
[2025-04-25 00:23] LABS: VBG HCO3 22 mmol/L (22-26); VBG O2 % Saturation 91.0 %
[2025-04-25 00:27] LABS: Hematocrit 32.4 % (37.0-47.0); Hemoglobin 9.4 g/dl (12.0-16.0); Imm Gran Abs Auto 0.27 X10*3/uL (0.00-0.03); Imm Gran Pct Auto 1.3 % (0.0-0.4); Lymphocytes Absolute Auto 4.6 X10*3/uL (1.2-4.9); Mean Corpuscular HGB Conc 29.0 g/dl (31.0-35.0); Mean Corpuscular Hemoglobin 23.6 pg (27.0-33.0); Mean Corpuscular Volume 81.4 fL (80.0-98.0); NRBC Abs Auto 0.030 X10*3/uL (0.0-0.012); NRBC Pct Auto 0.1 /100WBC (0.0-0.2); Platelet Count 475 X10*3/uL (160-400); Red Blood Count 3.98 X10*6/uL (4.20-5.50); White Blood Count 20.3 X10*3/uL (4.8-10.8)
--- NOTE | 2025-04-25 00:48 | P.HPHOSP_ITS ---
History of Present Illness Date of Service: 04/25/25 Attending physician on admission: Ziyad Colon Chief Complaint: Unresponsive Diann Colon is a 74 years old woman with past medical history of Alzheimer's dementia, bed-bound and nonverbal, chronic severe right-sided hydronephrosis, chronic sacral/decubitus ulcer, chronic indwelling urinary catheter, recurrent UTI, chronic anemia and dysphagia also to the emergency department after she was noted to be unresponsive. Her son who was at bedside stated that she has been coughing. He also noted that she has only became very short of breath, sweaty and her lips turned purplish. She was recently hospitalized due to pneumonia and UTI. In the ED today she was found to have temperature of 96.5 degrees, tachycardia 106, tachypnea 24. Her blood pressure is 116/39. She is currently on OxyMask 7 L/min and satting 91%. High blood workup was remarkable for leukocytosis of 20.5. There is lactic acidosis 2.4. Hemoglobin is 9.4 and platelets 475. Venous blood gas showed significant respiratory acidosis. There is hyperchloremia 116, CO2 is 21 anion gap 11. BUN is 18 and creatinine 1.16. AST is 49, ALT 17 alk-phos 160 and normal total bilirubin. BNP is 1915. Total protein 9.9, albumin 2.4 and TSH 10.15. CXR showed bilateral airspace disease which could be due to pulmonary edema and/or atypical pneumonia. ED tx: Ceftriaxone 1 g IV, NS 2 L bolus Review of Systems 2 Review of Systems: Yes Unobtainable due to mental status [facility] Medical History Dementia Sacral decubitus ulcer, stage II Vitamin D deficiency Nephrolithiasis AD (Alzheimer's disease) Paget's bone disease Hyperparathyroidism Osteoporosis UTI (urinary tract infection) GERD (gastroesophageal reflux disease) Hypertension CVA (cerebral vascular accident) Nephrolithiasis Family History Father No problems noted. Mother No problems noted. Maternal Grandmother Cancer Surgical History H/O bilateral breast reduction surgery History of lithotripsy History of tubal ligation H/O rectal polypectomy History of hip surgery Hx of tonsillectomy H/O: hysterectomy History of cystoscopy Social History Household Members: Family and Children Household Members Other:: son Housing: House Do you presently have visiting nurse or other home services: Yes Unable to assess alcohol history related to: Unable to respond Alcohol intake: never Comment: family at bedside Patient Tobacco Use Status: Never used Tobacco e-Cigarette/Vaping Use: Never Used Second Hand Smoke Exposure: No Advance Directives: Yes Advance Directives on File: Yes Advance Directives Date on File: 12/23/22 Do you have a plan to hurt others: No Plan service: No Current occupational status: disabled Cognitive needs: Yes (wheelchair chair) Hearing needs: No Vision needs: No Meds Allergies Allergy/AdvReac Type Severity Reaction Status Date / Time morphine (MORPHINE) Allergy Mild NAUSEA & Verified 04/25/25 00:23 VOMITING, vomiting Active Medications: Current Medications Heparin Sodium (Porcine) (Heparin Sodium,Porcine 5,000 Unit/Ml Vial) 5,000 unit SUBCUT Q12H MANDEEP Sodium Chloride (Ns) 2,000 mls @ 999 mls/hr IVCONT .Q2H1M ONE Stop: 04/25/25 02:06 Last Admin: 04/25/25 00:21 Dose: 999 mls/hr Sodium Chloride (0.9 % Sodium Chloride Flush 3 Ml Syringe) 3 ml IVFLUSH QSHIFT MANDEEP Home Medications ?Medication ?Instructions ?Recorded ?Confirmed ?Last Taken ?Type hydrocolloid dressing 6 X 6 12/05/21 04/20/25 Unkno wn History (Durafiber Dressing) cyclosporine 0.05 % eye drops in a 1 drp ophthalmic (e ye) BID 04/17/25 04/20/25 04/16/25 History dropperette (Restasis) sennosides 8.6 mg tablet (senna) 17.2 mg PO DAILY PRN Constipation 04/17/25 04/20/25 Unknown History Physical Exam 2 Vital Signs and Narrative: Vital Signs: Last Vital Signs Temp 96.5 F L 04/25/25 00:21 Pulse 106 H 04/25/25 00:21 Resp 24 H 04/25/25 00:21 BP 116/39 L 04/25/25 00:21 Pulse Ox 91 L 04/25/25 00:21 O2 Del Method Oxymask 04/25/25 00:21 Oxygen Flow Rate 7 04/25/25 00:21 BMI result Body Mass Index 21.4 Constitutional - Unresponsive. Gasping. Chronically ill appearance. Cachectic. HEENT - Dry oral mucosa. Heart - Tachycardic Lungs - Normal lung expansion, poor respiratory effort. Respiratory distress/grasping. Tachypnea. Abdomen - NT / ND; +BS; No rebound or guarding Extremities - generalized muscular atrophy, contracted. Musculoskeletal - Normal inspection, normal ROM Skin - Warm/Dry. No pallor. No jaundice. Two decubitus ulcers with clean margins and no purulent discharges. Neurological - Comatose. Results Labs 04/25/25 00:00 04/25/25 00:00 Labs: Laboratory Results - last 24 hr 04/25/25 00:12 VBG pH 7.12 L* VBG pCO2 66 VBG pO2 103 VBG HCO3 22 VBG O2 Saturation 91.0 VBG Base Excess -7.6 Assessment and Plan (1) Acute respiratory failure with hypoxia and hypercapnia: Status: Acute (2) Aspiration pneumonia: Qualifiers: Aspiration pneumonia type: unspecified Laterality: right Lung location: unspecified part of lung Qualified Code(s): J69.0 - Pneumonitis due to inhalation of food and vomit Status: Acute Plan Diann Colon is a 74 years old woman with past medical history significant for Alzheimer's dementia, bed-bound and nonverbal; and dysphagia * Hypoxic and hypercapnic respiratory failure secondary to aspiration pneumonia. ?Pulmonary edema. Admit to hospitalist service. Telemetry. Pulse oximetry. Aspiration precautions. NPO. Continue supplemental O2 to keep O2 sats > 90%. Start empiric IV antibiotic therapy with Zosyn. Blood culture obtained -will follow results. * Acute lactic acidosis, tachycardia, tachypnea, low temperature. Severe sepsis (respiratory failure that requires intubation -but pt is DNI). Continue IV fluids. Continue empiric IV antibiotic therapy with Zosyn and vancomycin. Continue to monitor lactic acid. * Catheter associated UTI. History of recurrent UTIs. Continue Zosyn. Urine culture obtained -will follow results. * History of CVA. Continue aspirin when able. * Chronic decubitus ulcers (two), POA. Stage IV. Clean. No sign of infection. Wound consult. * Constipation. Currently NPO. * Protein-calorie malnutrition. Currently NPO. * Chronic severe right-sided hydronephrosis and nephrolithiasis. * Chronic anemia. 9.4 & 32.4 today. Continue to monitor H&H. * Elevated TSH normal free T4. Subclinical hypothyroidism. DVT prophylaxis: Heparin Code status: DNR/DNI Patient will need hospitalization for at least 2 midnights for hypoxic and hypercapnic respiratory failure and severe sepsis secondary to pneumonia treatment with IV antibiotic therapy and supplemental oxygen. Quality Stroke Does the patient have a stroke diagnosis?: No VTE Prior VTE?: No VTE Risk Level:: Medical - moderate - high VTE Device Contraindication: Treatment Not Indicated VTE Drug Contraindication: N/A - Med Ordered
[2025-04-25 00:51] LABS: B Type Natriuretic Peptide 1915 pg/mL (<100)
[2025-04-25 00:55] LABS: Troponin-I High Sensitivity 10.4 ng/L (<3.5-17.0)
[2025-04-25 01:03] LABS: Alanine Aminotransferase 17 U/L (0-31); Albumin Level 2.4 g/dL (3.5-5.0); Alkaline Phosphatase 160 U/L (39-117); Anion Gap 11 (12-20); Aspartate Amino Transferase 49 U/L (5-31); Blood Urea Nitrogen 18 mg/dL (9-16); Calcium 9.8 mg/dL (8.4-10.2); Carbon Dioxide 21 mmol/L (22-29); Chloride 116 mmol/L (96-108); Creatinine Clr Calc Pharmacy 32.6; Estimated Glomerular Filt Rate 45; Magnesium 2.3 mg/dL (1.6-2.6); Potassium 4.1 mmol/L (3.3-5.1); Sodium 144 mmol/L (135-145); Total Protein 9.9 g/dL (6.5-8.0)
--- NOTE | 2025-04-25 01:15 | PC.NURSE ---
Per Dr Stanford normal saline discontinued, total 1L infused.
--- NOTE | 2025-04-25 01:34 | ED.GENADULT ---
HPI - General Adult General Chief complaint: General Medical Stated complaint: SoB Time Seen by Provider: 04/25/25 00:02 Source: EMS Mode of arrival: EMS Limitations: other History of Present Illness ED Provider: Dr. April Stanford HPI narrative: patient comes to the emergency room via EMS. According to EMS, for the last 12 hours or so patient has been lethargic. Seems that her oxygen has gradually been decreasing. When EMS arrived, patient's oxygen was in the low 40s. Patient was placed on a non-rebreather and oxygen improved to the low 90s. Patient arrives unresponsive. Patient was seen here the last week, patient was admitted for pneumonia and UTI. Patient is known to be DNR DNI. Related Data Home Medications ?Medication ?Instructions ?Recorded ?Confirmed hydrocolloid dressing 6 X 6 12/05/21 04/20/25 (Durafiber Dressing) cyclosporine 0.05 % eye drops in a 1 drp ophthalmic (eye) BID 04/17/25 04/20/25 dropperette (Restasis) sennosides 8.6 mg tablet (senna) 17.2 mg PO DAILY PRN Constipation 04/17/25 04/20/25 Previous Rx's ?Medication ?Instructions ?Recorded gauze bandage 2 X 2 (Band-Aid #150 ea 08/26/22 Gauze Pads) disposable bed pads #50 ea 01/06/23 gloves #1 ea 01/06/23 gloves #1 ea 01/15/23 gauze bandage 2 X 2 (Band-Aid #2,400 ea 07/09/23 Gauze Pads) adhesive tape 1 1/2 X 10 yard #4 ea 07/29/23 adhesive tape 1 X 10 yard (Paper #2 ea 07/29/23 Tape) gauze bandage 4 X 4 #100 ea 07/29/23 sheep skin elbow protectors #2 ea 08/14/23 omeprazole 20 mg capsule,delayed 20 mg PO DAILY@0630 #90 caps 02/27/25 release Oxygen Home Use #1 ea 02/28/25 cholecalciferol (vitamin D3) 50 50 mcg PO DAILY #90 tabs 02/28/25 mcg (2,000 unit) tablet topiramate 50 mg tablet 50 mg PO BEDTIME #90 tabs 03/22/25 aspirin 81 mg chewable tablet 1 tab PO DAILY #30 tabs 04/03/25 ascorbic acid (vitamin C) 1,000 mg 1 g PO DAILY 90 days #90 tabs 04/05/25 tablet methenamine hippurate 1 gram tablet 1 g PO BID 90 days #180 tabs 04/05/25 amoxicillin 875 mg-potassium 1 tab PO BID #6 tabs 04/19/25 clavulanate 125 mg tablet memantine 5 mg tablet 5 mg PO BID #180 tabs 04/20/25 Allergies Allergy/AdvReac Type Severity Reaction Status Date / Time morphine (MORPHINE) Allergy Mild NAUSEA & Verified 04/25/25 00:23 VOMITING, vomiting Review of Systems Review of Systems: Yes Unobtainable due to mental condition and Unobtainable due to mental status PMFSH Past Medical History Medical History Dementia Sacral decubitus ulcer, stage II Vitamin D deficiency Nephrolithiasis AD (Alzheimer's disease) Paget's bone disease Hyperparathyroidism Osteoporosis UTI (urinary tract infection) GERD (gastroesophageal reflux disease) Hypertension CVA (cerebral vascular accident) Nephrolithiasis Surgical History H/O bilateral breast reduction surgery History of lithotripsy History of tubal ligation H/O rectal polypectomy History of hip surgery Hx of tonsillectomy H/O: hysterectomy History of cystoscopy Family History Family History Father No problems noted. Mother No problems noted. Maternal Grandmother Cancer Social History Social History Household Members: Family and Children Household Members Other:: son Housing: House Do you presently have visiting nurse or other home services: Yes Unable to assess alcohol history related to: Unable to respond Alcohol intake: never Comment: family at bedside Patient Tobacco Use Status: Never used Tobacco e-Cigarette/Vaping Use: Never Used Second Hand Smoke Exposure: No Advance Directives: Yes Advance Directives on File: Yes Advance Directives Date on File: 12/23/22 Do you have a plan to hurt others: No Plan service: No Current occupational status: disabled Cognitive needs: Yes (wheelchair chair) Hearing needs: No Vision needs: No Physical Exam ED Vital Signs: Vital Signs - 24 hr 04/25/25 00:21 Temperature 96.5 F L Pulse Rate 106 H Respiratory Rate 24 H Blood Pressure 116/39 L Pulse Oximetry 91 L Oxygen Delivery Method Oxymask BMI result Body Mass Index 21.4 Const Other: Appearance: Unresponsive Eyes: Pupils equal, round and reactive to light. ENT: Pharynx normal. Neck: Normal inspection. Neck supple. No lymph nodes noted. No crepitus CVS: Normal heart rate and rhythm. Pulses normal. Normal S1 and S2 Respiratory: patient's oxygen saturation in the low 90s on 15 L non-rebreather, bilateral rales Abdomen: Soft , mild distention Skin: Skin cool to touch and dry. Normal skin color. Normal skin turgor. Extremities: No lower extremity edema. chronic bilateral contractures, patient chronically in near complete position Neuro: unresponsive Psych: unresponsive Course Course Course Narrative: patient is DNR DNI. According to EMS, patient's oxygen saturation was 40% on room air when they found her. On arrival to the ED, patient is completely unresponsive. patient's son and daughter are at bedside. Patient will empirically be treated with IV fluids, antibiotics. However, I discussed with the patient's son and daughter that if the patient would not be DNR DNI, at this time, we would proceed with intubation. Patient looks very weak and seems to be having significant difficulty breathing. Medications Administered Discontinued Medications Generic Name Dose Route Start Last Admin Trade Name Francq PRN Reason Stop Dose Admin Ceftriaxone Sodium 1 gm 04/25/25 00:06 04/25/25 00:39 Ceftriaxone Sodium 1 Gm Vial IVPUSH 04/25/25 00:07 1 gm ONCE ONE Administration Diazepam 2.5 mg 04/25/25 02:17 04/25/25 02:25 Diazepam 10 Mg/2 Ml Cartridge IVPUSH 04/25/25 02:18 2.5 mg STAT STA Administration Hydromorphone HCl 0.25 mg 04/25/25 01:31 04/25/25 02:14 Hydromorphone Hcl 0.5 Mg/0.5 Ml Syringe IVPUSH 04/25/25 01:32 0.25 mg ONCE STA Administration Protocol Sodium Chloride 2,000 mls @ 999 mls/hr 04/25/25 00:06 04/25/25 01:15 Ns IVCONT 04/25/25 02:06 Infused .Q2H1M ONE Infusion Piperacillin Sod/Tazobactam 50 mls @ 100 mls/hr 04/25/25 02:00 04/25/25 02:09 Sod 3.375 gm/ Sodium Chloride IV Infused Q6H MANDEEP Infusion Ondansetron HCl 4 mg 04/25/25 02:16 04/25/25 02:25 Ondansetron Hcl 4 Mg/2 Ml Vial IVPUSH 04/25/25 02:17 4 mg ONCE STA Administration Medical Decision Making Medical Decision Making MDM Narrative: my interpretation of labs: Patient's white blood cell count 20.3, patient chronically anemic with a hemoglobin of 9.4, hematocrit 32, platelets 475. Patient's venous pH is 7.1, pCO2 66, bicarb 22. Patient is starting to retain pCO2. Patient is DNR DNI and CPAP/ BiPAP is not indicated since the patient is completely unresponsive. Chemistry does not show any significant acute abnormality. Lactic acid 2.4. Patient's troponin 10.4, BNP is elevated at 1915. TSH 10.15. Serology negative for influenza RSV chest x-ray shows bilateral airspace disease, possible pneumonia versus atypical pneumonia. Patient's oxygen saturation keeps dropping despite being on 15 L. I discussed the patient with Dr. Singleton, patient being admitted. However, we also spoke with the patient's son and daughter. Overall, patient is very weak, prognosis is poor After the the patient was admitted, I was informed by the patient's nurse that the family /healthcare proxy /son/daughter would like to change the patient's code status from DNR/DNI to comfort measures only. Differential Diagnosis Differential Diagnoses: The differential diagnosis associated with the presentation includes ( pneumonia, CHF, COVID, RSV) Admission/Observation Consideration of admission/observation: Escalation of care including admission/observation considered Consult Healthcare Provider Management of the patient was discussed with: Hospitalist Lab Data [facility] Lab Attestation statement: I reviewed the patient's lab results. 04/25/25 00:00 04/25/25 00:00 Labs: Lab Results 04/25/25 04/25/25 04/25/25 Range/Units 00:00 00:12 00:31 WBC 20.3 H (4.8-10.8) X10*3/uL RBC 3.98 L (4.20-5.50) X10*6/uL Hgb 9.4 L (12.0-16.0) g/dl Hct 32.4 L (37.0-47.0) % MCV 81.4 (80.0-98.0) fL MCH 23.6 L (27.0-33.0) pg MCHC 29.0 L (31.0-35.0) g/dl RDW 21.2 H (11.0-16.0) % Plt Count 475 H D (160-400) X10*3/uL MPV 10.2 (9.4-12.3) fL Immature Gran % (Auto) 1.3 H (0.0-0.4) % Neut % (Auto) 68.6 (45-73) % Lymph % (Auto) 22.8 (20-40) % [place] % (Auto) 5.2 (2-11) % Eos % (Auto) 1.7 (0-4) % Baso % (Auto) 0.4 (0-2) % Lymph # (Auto) 4.6 (1.2-4.9) X10*3/uL [place] # (Auto) 1.1 (0.1-1.2) X10*3/uL Eos # (Auto) 0.3 (0.0-0.4) X10*3/uL Baso # (Auto) 0.1 (0.0-0.2) X10*3/uL Abs Immat Gran (auto) 0.27 H (0.00-0.03) X10*3/uL Absolute Neuts (auto) 13.9 H (2.0-8.3) x10*3/uL Absolute Nucleated RBC 0.030 H (0.0-0.012) X10*3/uL Nucleated RBC % (auto) 0.1 (0.0-0.2) /100WBC VBG pH 7.12 L* (7.32-7.43) VBG pCO2 66 mmHg VBG pO2 103 mmHg VBG HCO3 22 (22-26) mmol/L VBG O2 Saturation 91.0 % VBG Base Excess -7.6 mmol/L Sodium 144 (135-145) mmol/L Potassium 4.1 (3.3-5.1) mmol/L Chloride 116 H (96-108) mmol/L Carbon Dioxide 21 L (22-29) mmol/L Anion Gap 11 L (12-20) BUN 18 H (9-16) mg/dL Creatinine 1.16 (0.5-1.4) mg/dL Estim Creat Clear Calc 32.6 Estimated GFR 45 Random Glucose 182 H (60-115) mg/dL Lactic Acid 2.4 H* (0.5-2.0) mmol/L Calcium 9.8 D (8.4-10.2) mg/dL Magnesium 2.3 (1.6-2.6) mg/dL Total Bilirubin 0.1 (0.0-1.0) mg/dL Direct Bilirubin < 0.2 (0.0-0.5) mg/dL AST 49 H (5-31) U/L ALT 17 (0-31) U/L Alkaline Phosphatase 160 H (39-117) U/L Troponin I High Sens 10.4 (<3.5-17.0) ng/L B-Natriuretic Peptide 1915 H (<100) pg/mL Total Protein 9.9 H (6.5-8.0) g/dL Albumin 2.4 L (3.5-5.0) g/dL TSH 10.15 H (0.32-4.0) uIU/mL Free T4 0.73 (0.71-1.85) ng/dL Influenza Type A (PCR) NEGATIVE (Negative) Influenza Type B (PCR) NEGATIVE (Negative) RSV RNA Qual (PCR) NEGATIVE (Negative) SARS-CoV-2 RNA (RT-PCR) NEGATIVE (Negative) Independent Interpretation I performed an independent interpretation of an: Plain X-Ray Radiology Impression Discussion of test interpretation with radiology: I have reviewed the radiologist's reading. Radiologist Impression: Diffuse bilateral airspace disease, overall increased since the prior study. No pleural effusion. No pneumothorax. No cardiomegaly. No acute fracture. IMPRESSION: Bilateral airspace disease, which could be due to pulmonary edema and/or atypical pneumonia. Critical Care Time Critical Care Time Critical Care Time: Yes Total Critical Care Time: 60 Attestation: I have personally provided critical care time. Time includes review of lab data, radiology results, discussion with consultants, and monitoring for potential decompensation. Intervention performed as documented. Discharge Plan Discharge Clinical Impression: Pneumonia, CHF (congestive heart failure) Patient Disposition: Admitted As Inpatient
[2025-04-25 01:43] LABS: Free T4 (Free Thyroxine) 0.73 ng/dL (0.71-1.85)
[2025-04-25 02:16] LABS: Resp Syncy Virus RNA Qual PCR NEGATIVE (Negative); SARS COV2 PCR INHOUSE NEGATIVE (Negative)
[2025-04-25 02:17] LABS: Reflex Lactate? Lactic Acid Added
[2025-04-25 02:25] LABS: Cancel Lactic Acid Canceled
[2025-04-25] MEDS: diazePAM 10 MG/2 ML CARTRIDGE 2.5 MG IVPUSH (02:25)
--- NOTE | 2025-04-25 02:28 | PC.NURSE ---
pt medicated per DEC. 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 Family at bedside. Family offered refreshments. awaiting bed assignment.
--- NOTE | 2025-04-25 03:40 | PC.NURSE ---
pt medicated per dec. pt family at bedside.
--- NOTE | 2025-04-25 07:46 | PHA.MEDREC ---
Pharmacy Consult ? Medication Reconciliation Pharmacy has completed the medication reconciliation. Patient was just here on 04/19/25, utilized med list from that admission.
[2025-04-25] MEDS: 0.9 % Sodium Chloride Flush 3 ML SYRINGE IVFLUSH ×2 (09:45→16:03)
--- NOTE | 2025-04-25 10:27 | HO.PM.IMPN ---
Subjective Subjective Date of Service: 04/25/25 Interval History: Resting in hospital bed with family holding carlos at bedside. Appears to be well palliated and comfortable. No tachypnea noted. Physical Exam Vital Signs: Vital Signs: Last Vital Signs Temp 96.5 F L 04/25/25 00:21 Pulse 96 04/25/25 04:30 Resp 14 04/25/25 08:00 BP 116/39 L 04/25/25 00:21 Pulse Ox 92 04/25/25 04:30 O2 Del Method Oxymask 04/25/25 04:30 O2 Flow Rate 4 04/25/25 04:30 Oxygen Flow Rate 7 04/25/25 00:21 BMI result Body Mass Index 21.4 Const: General: comfortable, no acute distress and patient obtunded Orientation/consciousness: patient obtunded Resp: Effort & Inspection: decreased respiratory effort Auscultation: rhonchi and diminished lung sounds Cardio: Rate: tachycardic Neuro: General: patient obtunded Psych: Appearance: well kempt Objective Data Active Medications Haloperidol Lactate (Haloperidol Lactate 5 Mg/Ml Vial) 0.5 mg IVPUSH Q4H PRN PRN Reason: Delirium Hydromorphone HCl (Hydromorphone Hcl 0.5 Mg/0.5 Ml Syringe) 0.25 mg IVPUSH Q1H PRN PRN Reason: Pain, Severe (Pain Scale 7-10) Lorazepam (Lorazepam 2 Mg/Ml Vial) 0.5 mg IVPUSH Q4H PRN PRN Reason: Myoclonic twitching/anxiety Ondansetron HCl (Ondansetron Hcl 4 Mg/2 Ml Vial) 4 mg IVPUSH Q6H [facility] Last Admin: 04/25/25 07:45 Dose: Not Given Documented By: AMANDA Non-Admin Reason: pt unresponsive Sodium Chloride (0.9 % Sodium Chloride Flush 3 Ml Syringe) 3 ml IVFLUSH QSHIFT [facility] Last Admin: 04/25/25 09:45 Dose: 3 ml Documented By: AMANDA Labs 04/25/25 00:00 04/25/25 00:00 Labs: Laboratory Results - last 24 hr 04/25/25 04/25/25 04/25/25 00:00 00:12 00:31 MCV 81.4 MCH 23.6 L MCHC 29.0 L RDW 21.2 H Plt Count 475 H D MPV 10.2 Immature Gran % (Auto) 1.3 H Neut % (Auto) 68.6 Lymph % (Auto) 22.8 [place] % (Auto) 5.2 Eos % (Auto) 1.7 Baso % (Auto) 0.4 Lymph # (Auto) 4.6 [place] # (Auto) 1.1 Eos # (Auto) 0.3 Baso # (Auto) 0.1 Abs Immat Gran (auto) 0.27 H Absolute Neuts (auto) 13.9 H Absolute Nucleated RBC 0.030 H Nucleated RBC % (auto) 0.1 VBG pH 7.12 L* VBG pCO2 66 VBG pO2 103 VBG HCO3 22 VBG O2 Saturation 91.0 VBG Base Excess -7.6 Anion Gap 11 L Estim Creat Clear Calc 32.6 Estimated GFR 45 Random Glucose 182 H Lactic Acid 2.4 H* Calcium 9.8 D Magnesium 2.3 Total Bilirubin 0.1 Direct Bilirubin < 0.2 AST 49 H ALT 17 Alkaline Phosphatase 160 H B-Natriuretic Peptide 1915 H Total Protein 9.9 H Albumin 2.4 L TSH 10.15 H Free T4 0.73 Influenza Type A (PCR) NEGATIVE Influenza Type B (PCR) NEGATIVE RSV RNA Qual (PCR) NEGATIVE SARS-CoV-2 RNA (RT-PCR) NEGATIVE Assessment and Plan (1) Acute hypoxic respiratory failure: Status: Acute Plan 74 years old woman with past medical history significant for Alzheimer's dementia, bed-bound and nonverbal; and dysphagia. Addmitted with hypoxic and hypercapnic respiratory failure secondary to aspiration pneumonia/ severe sepsis, ?Pulmonary edema. Family elected for comfort care measures only. Plan: comfort measure, morphine, benzo, haldol for comfort, adjust as needed Quality Stroke Does the patient have a stroke diagnosis?: No VTE Prior VTE?: No VTE Risk Level:: Medical - moderate - high VTE Device Contraindication: Treatment Not Indicated VTE Drug Contraindication: N/A - Med Ordered
--- NOTE | 2025-04-25 11:50 | MHC.CLN ---
NUTRITION PATIENT IS COMFORT MEASURES ONLY. COMPLETE NUTRITION ASSESSMENT NOT COMPLETED DUE TO PATCH SETTER STATUS. RD ASSESSED 04/17/25, PRIOR ADMISSION. PATIENT WITH CHRONIC PRESSURE INJURIES AT THAT TIME. RD AVAILABLE NEEDED.
--- NOTE | 2025-04-25 16:40 | HO.WOUND ---
Wound Consult: Initial 74yr old? [place] [facility] See progress notes and H&P for detailed history.? Wound consult placed for sacral and ishcial wounds.? Chart review is completed and patient was seen last admission last week. This admission patient has transitioned to Comfort Measures Only status - all topical orders for wound care should maintain dignity and comfort. Recommendations: 1. Turn and Reposition every 2 hours and as needed for patient comfort.? Use pillows or wedges to support off loading positions. 2. Off Load all bony prominences with use of pillows and heel boots if needed.? Apply Preventative foams where needed. ? 3. Monitor for incontinence and moisture control, use barrier creams when needed for prevention and treatment. 4. Provide adequate and supplemental nutrition.? 5. Continue low air loss mattress. Sacrum and Ischium - Cleanse with NS moist gauze, Pat dry.? Apply barrier to periwound, apply Durafiber AG to wound bed, cover with foam dressing.? Change every 3-5 days. Re-consult wound care Nurse for wound deterioration or wound changes.
[2025-04-26] VITALS (9 sets, daily range): BP systolic 80–118; BP diastolic 37–48; PULSE 94–117; RESP 16; TEMP 37.2–38.4; O2SAT 92–93
[2025-04-26] MEDS: Acetaminophen Supp 650 MG SUPP.RECT PR ×3 (01:12→22:06)
[2025-04-26] MEDS: 0.9 % Sodium Chloride Flush 3 ML SYRINGE IVFLUSH ×5 (01:16→22:22)
--- NOTE | 2025-04-26 09:22 | HO.PM.IMPN ---
Subjective Subjective Date of Service: 04/26/25 Interval History: comfortable, no issues reported , family at bedside Physical Exam Vital Signs: Vital Signs: Last Vital Signs Temp 99.6 F 04/26/25 07:48 Pulse 96 04/25/25 04:30 Resp 16 04/26/25 03:44 BP 116/39 L 04/25/25 00:21 Pulse Ox 92 04/25/25 04:30 O2 Del Method Oxymask 04/25/25 04:30 O2 Flow Rate 4 04/25/25 04:30 Oxygen Flow Rate 7 04/25/25 00:21 BMI result Body Mass Index 21.4 Const: Other: Unresponsive, breathing comfortably Objective Data Active Medications Acetaminophen (Acetaminophen Supp 650 Mg Supp.Rect) 650 mg [place] Q6H PRN PRN Reason: Pain, Mild 1-3,fever,headache Last Admin: 04/26/25 01:12 Dose: 650 mg Documented By: JACQUI Haloperidol Lactate (Haloperidol Lactate 5 Mg/Ml Vial) 0.5 mg IVPUSH Q4H PRN PRN Reason: Delirium Hydromorphone HCl (Hydromorphone Hcl 0.5 Mg/0.5 Ml Syringe) 0.25 mg IVPUSH Q1H PRN PRN Reason: Pain, Severe (Pain Scale 7-10) Last Admin: 04/26/25 02:35 Dose: 0.25 mg Documented By: JACQUI Lorazepam (Lorazepam 2 Mg/Ml Vial) 0.5 mg IVPUSH Q4H PRN PRN Reason: Myoclonic twitching/anxiety Ondansetron HCl (Ondansetron Hcl 4 Mg/2 Ml Vial) 4 mg IVPUSH Q6H [facility] Last Admin: 04/26/25 08:35 Dose: Not Given Documented By: DEBORAH Non-Admin Reason: 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 04/25/25 00:00 Blood Culture - Preliminary Blood - Venous No growth after 24 hours. Assessment and Plan (1) Acute hypoxic respiratory failure: Status: Acute Plan 74 years old woman with past medical history significant for Alzheimer's dementia, bed-bound and nonverbal; and dysphagia. Addmitted with hypoxic and hypercapnic respiratory failure secondary to aspiration pneumonia/ severe sepsis, ?Pulmonary edema. Family elected for comfort care measures only. Plan: comfort measure, dilaudid, benzo, haldol for comfort, adjust as needed Quality Stroke Does the patient have a stroke diagnosis?: No VTE Prior VTE?: No VTE Risk Level:: Medical - moderate - high VTE Device Contraindication: Treatment Not Indicated VTE Drug Contraindication: N/A - Med Ordered
[2025-04-26] MEDS: LORazepam 2 MG/ML VIAL 0.5 MG IVPUSH (13:02)
--- NOTE | 2025-04-26 13:46 | MHC.CM.PN ---
CM ASSESSMENT COMPLETED W/ DAUGHTER BONIFACIO AT BEDSIDE - SHE IS PATIENT'S HCP/GUARDIAN/PRIMARY CAREGIVER. FROM HOME W/ DTR. DX DEMENTIA - NONVERBAL AND BEDBOUND. ACTIVE W/ [facility] FOR SN. PREVIOUSLY ON HOSPICE SERVICES. 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 PCP [facility] HCP/GUARDIANSHIP ON FILE AND VERIFIED. 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 DAUGHTER WILLING TO BRING HOME ON HOSPICE IF NOT IMMINENT. BLS TRANSPORT. CM WILL CONTINUE TO FOLLOW.
[2025-04-27 04:00] VITALS: RESP 16
[2025-04-27 08:00] VITALS: TEMP 37.1
--- NOTE | 2025-04-27 09:07 | HO.PM.IMPN ---
Subjective Subjective Date of Service: 04/27/25 Interval History: comfortable, no issues reported , family at bedside Physical Exam Vital Signs: Vital Signs: Last Vital Signs Temp 98.8 F 04/27/25 08:00 Pulse 117 H 04/26/25 23:22 Resp 16 04/27/25 04:00 BP 80/37 L 04/26/25 23:22 Pulse Ox 93 04/26/25 23:22 O2 Del Method Room Air 04/26/25 23:22 O2 Flow Rate 2 04/26/25 20:00 Oxygen Flow Rate 7 04/25/25 00:21 BMI result Body Mass Index 21.4 Const: Other: Unresponsive, breathing comfortably Objective Data Active Medications Acetaminophen (Acetaminophen Supp 650 Mg Supp.Rect) 650 mg [place] Q6H PRN PRN Reason: Pain, Mild 1-3,fever,headache Last Admin: 04/26/25 22:06 Dose: 650 mg Documented By: JADA Haloperidol Lactate (Haloperidol Lactate 5 Mg/Ml Vial) 0.5 mg IVPUSH Q4H PRN PRN Reason: Delirium Hydromorphone HCl (Hydromorphone Hcl 0.5 Mg/0.5 Ml Syringe) 0.25 mg IVPUSH Q1H PRN PRN Reason: Pain, Severe (Pain Scale 7-10) Last Admin: 04/26/25 11:47 Dose: 0.25 mg Documented By: DEBORAH Lorazepam (Lorazepam 2 Mg/Ml Vial) 0.5 mg IVPUSH Q4H PRN PRN Reason: Myoclonic twitching/anxiety Last Admin: 04/26/25 13:02 Dose: 0.5 mg Documented By: DEBORAH Ondansetron HCl (Ondansetron Hcl 4 Mg/2 Ml Vial) 4 mg IVPUSH Q6H [facility] Last Admin: 04/27/25 07:56 Dose: Not Given Documented By: DEBORAH Non-Admin Reason: pt asleep, no signs of nausea Scopolamine (Scopolamine 1.5 Mg Patch.Td.3) 1.5 mg EAR-BEHIND Q72H [facility] Last Admin: 04/26/25 12:25 Dose: 1.5 mg Documented By: DEBORAH Sodium Chloride (0.9 % Sodium Chloride Flush 3 Ml Syringe) 3 ml IVFLUSH QSHIFT [facility] Last Admin: 04/27/25 07:56 Dose: Not Given Documented By: DEBORAH Non-Admin 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 04/25/25 00:00 Blood Culture - Preliminary Blood - Venous No growth after 48 hours. Assessment and Plan (1) Acute hypoxic respiratory failure: Status: Resolved Plan 74 years old woman with past medical history significant for Alzheimer's dementia, bed-bound and nonverbal; and dysphagia. Addmitted with hypoxic and hypercapnic respiratory failure secondary to aspiration pneumonia/ severe sepsis, ?Pulmonary edema. Family elected for comfort care measures only. Plan: comfort measure, dilaudid, benzo, haldol for comfort, adjust as needed. Family considering patient home Quality Stroke Does the patient have a stroke diagnosis?: No VTE Prior VTE?: No VTE Risk Level:: Medical - moderate - high VTE Device Contraindication: Treatment Not Indicated VTE Drug Contraindication: N/A - Med Ordered
--- NOTE | 2025-04-27 11:46 | MHC.CM.PN ---
HOSPICE INFORMATIONAL COMPLETED PER DISCUSSION WITH [facility], PLAN IS TO DELIVER DME AND ADMIT PT TO SERVICE TOMORROW THEY WILL HAVE COMFORT MEDS DELIVERED TO PTS ROOM TODAY BLS TRANSPORT WILL BE BOOKED WITH [facility] FOR TOMORROW MORNING AT 0900 HOURS
[2025-04-27 12:00] VITALS: TEMP 37.3
--- NOTE | 2025-04-27 13:15 | P.CDIM_ITS ---
PROVIDER RESPONSE TEXT: To clarify, the appropriate diagnosis supported by the clinical indicators: Mild QUERY TEXT: PHYSICIAN'S DOCUMENTATION REQUEST Date of Query: 04/26/2025 12:07 PM EDT Patient Name: Diann Box Admit Date: 04/25/2025 Dear Gonzalez Bazan MD, A review of the medical record indicates additional documentation may be needed. Please review below and update the documentation accordingly. Documentation includes the diagnosis of malnutrition. Additional clinical indicators from the record include: protein calorie malnutrition NPO, [employer] malnourished per RD 04/25/25, chew swallow problem BMI 21.4 If possible, please provide additional specificity regarding the severity of the malnutrition using the above information: Mild Moderate Severe Other (explain) Clinically unable to determine (explain) Thank you, Lottie Jimenez RN Use of terms such as suspected, likely, concern for, or probable (associated with a specific diagnosis that is being evaluated, monitored, or treated as if it exists) are acceptable and can be coded in the inpatient setting, when documented at the time of discharge. Please use your independent medical judgment in providing your response. THIS QUERY IS PART OF THE PERMANENT MEDICAL RECORD
--- NOTE | 2025-04-27 13:15 | P.CDIM_ITS ---
PROVIDER RESPONSE TEXT: To clarify, the appropriate diagnosis supported by the clinical indicators: Acute QUERY TEXT: PHYSICIAN'S DOCUMENTATION REQUEST Date of Query: 04/26/2025 11:57 AM EDT Patient Name: Diann Box Admit Date: 04/25/2025 Dear Gonzalez Bazan MD, A review of the medical record indicates additional documentation may be needed. Please review below and update the documentation accordingly. Clinical Indicators: admitted with hypoxic and hypercapnic respiratory failure decreased respiratory effort rhonchi and diminished lung sounds oxymask Clarify which of the following accurately represents the acuity of the Hypoxic and hypercapnic respiratory failure. Possible options might include: Acute Acute on chronic Compensated Chronic stable condition Remission Other (explain) Clinically unable to determine (explain) Thank you, Lottie Jimenez RN Use of terms such as suspected, likely, concern for, or probable (associated with a specific diagnosis that is being evaluated, monitored, or treated as if it exists) are acceptable and can be coded in the inpatient setting, when documented at the time of discharge. Please use your independent medical judgment in providing your response. THIS QUERY IS PART OF THE PERMANENT MEDICAL RECORD
[2025-04-27 15:58] VITALS: RESP 14
[2025-04-27 18:49] VITALS: RESP 15
[2025-04-27 23:10] VITALS: RESP 13
[2025-04-28] MEDS: 0.9 % Sodium Chloride Flush 3 ML SYRINGE IVFLUSH (00:14)
[2025-04-28 03:35] VITALS: RESP 14
--- NOTE | 2025-04-28 08:14 | PC.NURSE ---
Foam dressing applied to coccyx and sacrum, stage 2 noted, other dressing on back and heels cdi.
--- NOTE | 2025-04-28 08:24 | MHC.CM.PN ---
Patient will dc home today w/ [facility]. BLS transport booked for 9am. Family, [facility], and RN aware.
--- NOTE | 2025-04-28 09:03 | PM.DS ---
DS: Providers Provider Date of Service: 04/28/25 Date of admission: 04/25/25 00:42 Date of discharge: 04/28/25 Primary care physician: Yana Avila MD Consults: 04/25/25 01:03 Consult to Wound Care Routine Reason for consultation: Decubitus ulcers DS: Diagnosis Discharge Diagnosis (1) Acute hypoxic respiratory failure: Status: Resolved DS: Summary Hospital Course Hospital Course: admission hpi Chief Complaint: Unresponsive Diann Colon is a 74 years old woman with past medical history of Alzheimer's dementia, bed-bound and nonverbal, chronic severe right-sided hydronephrosis, chronic sacral/decubitus ulcer, chronic indwelling urinary catheter, recurrent UTI, chronic anemia and dysphagia also to the emergency department after she was noted to be unresponsive. Her son who was at bedside stated that she has been coughing. He also noted that she has only became very short of breath, sweaty and her lips turned purplish. She was recently hospitalized due to pneumonia and UTI. In the ED today she was found to have temperature of 96.5 degrees, tachycardia 106, tachypnea 24. Her blood pressure is 116/39. She is currently on OxyMask 7 L/min and satting 91%. High blood workup was remarkable for leukocytosis of 20.5. There is lactic acidosis 2.4. Hemoglobin is 9.4 and platelets 475. Venous blood gas showed significant respiratory acidosis. There is hyperchloremia 116, CO2 is 21 anion gap 11. BUN is 18 and creatinine 1.16. AST is 49, ALT 17 alk-phos 160 and normal total bilirubin. BNP is 1915. Total protein 9.9, albumin 2.4 and TSH 10.15. CXR showed bilateral airspace disease which could be due to pulmonary edema and/or atypical pneumonia. ED tx: Ceftriaxone 1 g IV, NS 2 L bolus Hospital course: 74 years old woman with past medical history significant for Alzheimer's dementia, bed-bound and nonverbal; and dysphagia. Addmitted with hypoxic and hypercapnic respiratory failure secondary to aspiration pneumonia/ severe sepsis, ?Pulmonary edema. Family elected for comfort care measures only and was treated with dialudid, benzos, haldol as needed. In the end, family elected to have patient go home with hospice for comfort measures only and Case management made necessary arrangmement for the patient to go home. Final diagnoses: Severe sepsis due to pnuemonia and UTI Acute Hypoxic and hypercapnic respiratory failure d/t aspiration pneumonia Aspiration pneumonia Pulmonary edema NOS Acute lactic acidosis Catheter associated UTI Advanced demenia Moderate protein calory malnutrition Chronic severe right-sided hydronephrosis and nephrolithiasis. stage 4 Chronic decubitus ulcers (two), POA Constipation Dispo: Home with Hospice Time Attestation Discharge Coordination Time (in mins): 45 Quality: Safe Use of Opioids Does Pt have an Active Cancer Diagnosis on the Problem List?: No Quality: Stroke Does the patient have a stroke diagnosis?: No Physical Exam Vital Signs: Vital Signs: Last Vital Signs Temp 99.2 F 04/27/25 12:00 Pulse 117 H 04/26/25 23:22 Resp 14 04/28/25 03:35 BP 80/37 L 04/26/25 23:22 Pulse Ox 93 04/26/25 23:22 O2 Del Method Room Air 04/26/25 23:22 O2 Flow Rate 2 04/26/25 20:00 Oxygen Flow Rate 7 04/25/25 00:21 BMI result Body Mass Index 21.4 Const: Other: Unresponsive, breathing comfortably DS: Data Data Completed and Pending Completed studies during hospitalization [Text1]: Procedures Dilation of Right Ureter with Intraluminal Device, Via Natural or Artificial Opening Endoscopic (07/17/20) Extirpation of Matter from Right Ureter, Via Natural or Artificial Opening Endoscopic (07/17/20) Fluoroscopy of Right Kidney, Ureter and Bladder (07/17/20) Insertion of Infusion Device into Superior Vena Cava, Percutaneous Approach (11/18/21) Insertion of Infusion Device into Upper Vein, Percutaneous Approach (12/31/24) Introduction of Remdesivir Anti-infective into Peripheral Vein, Percutaneous Approach, [employer] (11/18/21) Transfusion of Nonautologous Red Blood Cells into Peripheral Vein, Percutaneous Approach (12/31/24) Labs on day of discharge: Preliminary micro results at discharge 04/25/25 00:34 Blood Culture - Preliminary Blood - Venous No growth after 48 hours. 04/25/25 00:00 Blood Culture - Preliminary Blood - Venous No growth after 48 hours. Discharge Plan Discharge Anticipated Discharge Date/Time: 04/28/25 08:45 Patient Disposition: Hospice - Home Discharge Diagnosis: Acute respiratory failure, CHF, pneumonia Referrals: [facility] [Outside] - 1 Day Referral Note: hospice services Physician,Unknown J [Physician, Medical] - 1 Week Discharge Medications: New scopolamine base [Transderm-Scop] 1 mg over 3 days Patch 3 Day 1.5 mg EAR-BEHIND Q72H Qty: 4 0RF lorazepam [Lorazepam Intensol] 2 mg/mL concentrate 0.5 mg PO Q4H PRN (Reason: anxiety/restlessness) Qty: 30 0RF haloperidol lactate 2 mg/mL Concentrate 1 mg PO Q6H PRN (Reason: Agitation/restlessness) 7 Days Qty: 15 1RF hydromorphone [Dilaudid] 1 mg/mL liquid 1 mg PO Q3H PRN (Reason: pain/comfort) Qty: 473 0RF Rx Instructions: Partial Fill upon patient request. Discontinued omeprazole 20 mg capsule,delayed release(DR/EC) 20 mg PO DAILY@0630 Qty: 90 0RF cholecalciferol (vitamin D3) 50 mcg (2,000 unit) tablet 50 mcg PO DAILY Qty: 90 0RF topiramate 50 mg tablet 50 mg PO BEDTIME Qty: 90 2RF aspirin 81 mg tablet,chewable 1 tab PO DAILY Qty: 30 3RF memantine 5 mg tablet 5 mg PO BID Qty: 180 0RF cyclosporine [Restasis] 0.05 % dropperette 1 drp ophthalmic (eye) BID sennosides [senna] 8.6 mg Tablet 17.2 mg PO DAILY PRN (Reason: Constipation) ascorbic acid (vitamin C) 1,000 mg tablet 1 g PO DAILY 90 Days Qty: 90 1RF methenamine hippurate 1 gram tablet 1 g PO BID 90 Days Qty: 180 1RF No Action (DME) hydrocolloid dressing [Durafiber Dressing] 6 X 6 bandage See Rx Instructions .Route Rx Instructions: To use for wound care (DME) gloves See Rx Instructions .Route .MEDSUPPLY Qty: 1 0RF Rx Instructions: large (DME) disposable bed pads See Rx Instructions .Route .MEDSUPPLY Qty: 50 5RF Rx Instructions: As directed (DME) gloves See Rx Instructions .Route .MEDSUPPLY Qty: 1 5RF Rx Instructions: medium (DME) gauze bandage [Band-Aid Gauze Pads] 2 X 2 bandage See Rx Instructions .Route Qty: 2400 3RF Rx Instructions: As directed (DME) gauze bandage 4 X 4 bandage See Rx Instructions .Route Qty: 100 12RF Rx Instructions: As directed (DME) adhesive tape [Paper Tape] 1 X 10 -yard tape See Rx Instructions .Route Qty: 2 12RF Rx Instructions: As directed (DME) adhesive tape 1 1/2 X 10 -yard tape See Rx Instructions .Route Qty: 4 5RF Rx Instructions: As directed (DME) sheep skin elbow protectors See Rx Instructions .Route .MEDSUPPLY Qty: 2 0RF Rx Instructions: As directed (DME) Oxygen Home Use Kit See Rx Instructions .Route Qty: 1 0RF Rx Instructions: As directed 2L NC (DME) gauze bandage [Band-Aid Gauze Pads] 2 X 2 bandage See Rx Instructions .Route Qty: 150 0RF Rx Instructions: to use for wound care Discharge Orders: Discharge Order (Routine); Ordered 04/28/25 Ordered By: Gonzalez Bazan Diet: NPO Activity on Discharge: bed rest Stand Alone Forms: Patient Portal Discharge page Print Language: [place]errat[place] Care Plan Goals: Home with hospice for comfort measure and end of life care Health Concerns: comfort care for restpiraotry failure, Pneumonia, CHF, Plan of Treatment: Home with hospice, comfort measure only Ativan, haldol, dilaudid for comfort scopolamine to control secretions Assessment: see above Patient Instructions: Hospice Care ([facility])
== END 2025-04-28 09:16 | disposition hospice, home (50) | DRG 698 ==
LOC: HO.ED 04-25 00:42 → HO.EDOVER 04-25 01:53 → HO.S3 04-25 04:35
PROVIDERS: Admitting Provider Internal Medicine; Emergency Provider Emergency Medicine; PCP Internal Medicine; Visit Provider Internal Medicine
DX: T83.511A Infection and inflammatory reaction due to indwelling urethral catheter, initial encounter (principal); A41.9 Sepsis, unspecified organism; L89.154 Pressure ulcer of sacral region, stage 4; J96.01 Acute respiratory failure with hypoxia; J96.02 Acute respiratory failure with hypercapnia; J69.0 Pneumonitis due to inhalation of food and vomit; R65.20 Severe sepsis without septic shock; R40.20 Unspecified coma; N13.6 Pyonephrosis; E44.0 Moderate protein-calorie malnutrition; Z51.5 Encounter for palliative care; Z66 Do not resuscitate; D64.9 Anemia, unspecified; K59.00 Constipation, unspecified; R13.10 Dysphagia, unspecified; G30.9 Alzheimer's disease, unspecified; F02.80 Dementia in other diseases classified elsewhere, unspecified severity, without behavioral disturbance, psychotic disturbance, mood disturbance, and anxiety; Z68.21 Body mass index [BMI] 21.0-21.9, adult; Z20.822 Contact with and (suspected) exposure to COVID-19; Z74.01 Bed confinement status; Z87.440 Personal history of urinary (tract) infections; Z79.899 Other long term (current) drug therapy
CPT/HCPCS: 36415; 71045; 80048; 80076; 82803; 83605; 83735; 83880; 84439; 84443; 84484; 85025; 87040; 87637; 93005; 99285; J0131; J0696; J1171; J2060; J2405; J2543; J3360

== ENCOUNTER → 2025-04-25 00:02 | Outpatient (BNV) | payer OTHER, SELFPAY | PROVIDERS: Admitting Provider Internal Medicine; Emergency Provider Emergency Medicine; Visit Provider Internal Medicine Cardiovascular Disease | DX: R00.0 Tachycardia, unspecified (principal) | CPT/HCPCS: 93010 ==

== ENCOUNTER → 2025-04-25 00:03 | Outpatient (BNV) | payer OTHER, SELFPAY | PROVIDERS: Admitting Provider Internal Medicine; Emergency Provider Emergency Medicine; Visit Provider Radiology Diagnostic Radiology | DX: R06.02 Shortness of breath (principal) | CPT/HCPCS: 71045 ==

== ENCOUNTER → 2025-04-25 00:41 | Outpatient (BNV) | payer OTHER, SELFPAY | PROVIDERS: Emergency Provider Emergency Medicine; Visit Provider Internal Medicine | DX: J96.01 Acute respiratory failure with hypoxia (principal) | CPT/HCPCS: 99223; 99232; 99499 ==